=== PATIENT | male | born 1950 | race Caucasian/White ===

== ENCOUNTER 2018-04-21 06:18 | Day surgery (SDC) | payer MEDICARE ==
[2018-04-21] MEDS ORDERED: ROPIVACAINE 5 MG/ML 30 ML BTL (0.5%) ONE (07:03)
[2018-04-21] MEDS ORDERED: Lidocaine 1% MPF wEPI 200,000* 30 ML SDV ONE (07:29)
[2018-04-21] MEDS ORDERED: Sodium Bicarbonate 8.4% SYR* 10 ML SYRINGE ONE (07:29)
[2018-04-21 09:08] VITALS: BP 128/83
--- NOTE | 2018-04-21 09:40 | OP ---
Operative Report - Blank - Operative Report Date of Operation: 04/21/18 Note: DATE OF OPERATION: 04/21/2018 - [facility] DATE OF : 1950 SURGEON: Morteza Freed MD. CONCRETE MASON: KARINA Amin ANESTHESIOLOGIST: None ANESTHESIA: Local PRE-OP DIAGNOSIS: Left index trigger finger. POST-OP DIAGNOSIS: Left index trigger finger. OPERATIVE PROCEDURE: Left index trigger finger release with release of A1 cameron. INDICATIONS: Jason has a left index trigger finger that has recurred despite injections. We talked about treatment options and they wanted to proceed with surgical release. ESTIMATED BLOOD LOSS: 2 mL. COMPLICATIONS: None. FINDINGS: As expected. DESCRIPTION OF PROCEDURE: Jason was seen in the preoperative holding area. The correct side, site, and procedure were identified. We had a timeout and I infiltrated the operative area with 1% lidocaine with epinephrine and bicarbonate. In the operating room the arm was prepped and draped in the usual fashion. Time-out was performed. The arm was exsanguinated with the Esmarch and the tourniquet was inflated to 250 mmHg. I made a 1 cm incision over the affected A1 cameron. Full thickness flaps were bluntly raised off the tendon sheath. Ragnell retractors were placed. I then longitudinally incised the A1 cameron on the radial third of the cameron. The release was completed proximally and distally with the tenotomy scissors. The skin was then closed with 4-0 nylon. The wound was dressed, tourniquet deflated, and the patient was taken to the recovery room in stable condition.
== END 2018-04-21 08:18 | disposition home or self-care (01) ==
LOC: OREAST 06:18
PROVIDERS: ATTEND Orthopaedic Surgery Hand Surgery
DX: M65.322 Trigger finger, left index finger (principal); I48.91 Unspecified atrial fibrillation; J44.9 Chronic obstructive pulmonary disease, unspecified; E78.00 Pure hypercholesterolemia, unspecified; M19.90 Unspecified osteoarthritis, unspecified site; F41.8 Other specified anxiety disorders; E11.9 Type 2 diabetes mellitus without complications; Z87.891 Personal history of nicotine dependence
CPT/HCPCS: J2001; J2795

== ENCOUNTER → 2018-09-05 05:29 | Day surgery (SDC) | payer MEDICARE ==
[~2018-09-05 05:29] MED LIST: Buffered Lidocaine 1% SYRIN* 1 ML/SYRINGE INTRADERM ONE; Bupivacaine 0.5%* 50 ML VIAL ONE; Clindamycin 900 MG/D5W BAG(*) 900 MG/50 ML BAG IVPB ONE; Lactated Ringers 1000 ML Bag* 1,000 ML IV SCH; Lidocaine 2% PF* 10 ML AMP ONE; Midazolam* 1 MG/ML 5 ML VIAL (5 MG) ONE; Naloxone* 0.4 MG/ML 1 ML VIAL IV PRN; Sodium Citrate/Citric Acid* 15 ML UDC ONE; Sodium Citrate/Citric Acid* 15 ML UDC PO ONE; fentaNYL* 50 MCG/ML 2 ML VIAL (100 MCG VIAL) ONE
[2018-09-05 09:30] VITALS: BP 142/85
--- NOTE | 2018-09-05 15:05 | OP ---
DATE OF OPERATION: 09/05/18 - [facility] DATE OF : 54 SURGEON: Morteza Mohan MD. SEWING MACHINE ADJUSTER: Lilian Sanchez PA-C. PRE-OP DIAGNOSIS: Right stage 3 hallux rigidus. POST-OP DIAGNOSIS: Right stage 3 hallux rigidus. OPERATIVE PROCEDURE: Right first MTP joint fusion. DESCRIPTION OF PROCEDURE: The patient was taken to the operating room where a longitudinal incision was made over the first MTP joint. We made a medial and lateral flap to allow visualization of the joint. There is a large dorsal osteophyte that was removed with the sagittal saw. We used the 20 mm ball and cup reamers off the Arthrex Fusion set. We then placed a 3.0 mm oblique screw from the medial condyle of the metatarsal to the lateral proximal phalanx with the joint in neutral position. We then fixed a medium-sized right anatomic plate dorsum of the first MTP joint using a combination of locking and nonlocking screws. X-ray intraoperatively showed good position of the hardware. We then irrigated closing the capsule with 3-0 Vicryl, nylon for the skin and a compression dressing applied. [id number]/[facility] #: [id number] [facility]
== END | disposition home or self-care (01) ==
LOC: OR 05:29
PROVIDERS: ATTEND Orthopaedic Surgery
DX: M20.21 Hallux rigidus, right foot (principal); E78.5 Hyperlipidemia, unspecified; Z87.891 Personal history of nicotine dependence; F41.9 Anxiety disorder, unspecified; Z88.0 Allergy status to penicillin
CPT/HCPCS: 76000; A9270-GY; C1713; J2001; J2250; J3010

== ENCOUNTER 2019-05-25 08:14 | Day surgery (SDC) | payer MEDICARE ==
[~2019-05-25 08:14] MED LIST changes: -Bupivacaine 0.5%* 50 ML VIAL ONE; -Clindamycin 900 MG/D5W BAG(*) 900 MG/50 ML BAG IVPB ONE; +Dexamethasone IV* 4 MG/ML 1 ML (4 MG) IV SLOW PU ONE; +DiMENhydriNATE IV* 50 MG/ML VIAL IV PUSH PRN; +Famotidine IV* 10 MG/ML 2 ML (20 mg) IV ONE; +HYDROcodone/ACETAMIN 5-325 MG* 1 TAB PO PRN; +Ketorolac INJ* 30 MG/ML 1 ML VIAL IV PRN; -Lidocaine 2% PF* 10 ML AMP ONE; -Midazolam* 1 MG/ML 5 ML VIAL (5 MG) ONE; +fentaNYL* 50 MCG/ML 2 ML VIAL (100 MCG VIAL) IV PRN; -fentaNYL* 50 MCG/ML 2 ML VIAL (100 MCG VIAL) ONE; +oxyCODONE/Acetamin 5/325 MG* TAB PO PRN
[2019-05-25] MEDS ORDERED: Dexamethasone IV* 4 MG/ML 1 ML (4 MG) ONE (08:29)
[2019-05-25] MEDS ORDERED: Clindamycin 900 MG/D5W BAG(*) 900 MG/50 ML BAG IVPB ONE (08:30)
[2019-05-25] MEDS ORDERED: Famotidine IV* 10 MG/ML 2 ML (20 mg) ONE (08:30)
[2019-05-25] MEDS ORDERED: Midazolam* 1 MG/ML 2 ML VIAL (2 MG) ONE (09:42)
[2019-05-25] MEDS ORDERED: fentaNYL* 50 MCG/ML 2 ML VIAL (100 MCG VIAL) ONE (09:42)
[2019-05-25] MEDS ORDERED: Lidocaine 2% PF * 5 ML VIAL ONE (09:43)
[2019-05-25] MEDS ORDERED: Propofol* 10 MG/ML 20 ML BTL ONE (09:43)
[2019-05-25] MEDS ORDERED: Bupivacaine 0.25% SDV* 30 ML ONE ×2 (09:53→11:01)
[2019-05-25] MEDS ORDERED: EPHEDrine (Pressors)* 50 MG/ML VIAL ONE ×2 (10:13→10:52)
[2019-05-25] MEDS ORDERED: Glycopyrrolate IV* 0.2 MG/ML 1 ML VIAL ONE (10:23)
[2019-05-25] MEDS ORDERED: Phenylephrine 40 MCG/ML SYRINGE ONE (11:06)
[2019-05-25] MEDS ORDERED: Ondansetron INJ* 2 MG/ML VIAL ONE (11:20)
[2019-05-25] MEDS ORDERED: Ketorolac INJ* 30 MG/ML 1 ML VIAL ONE (12:27)
[2019-05-25 12:34] VITALS: BP 109/77
--- NOTE | 2019-05-25 22:23 | OP ---
DATE OF OPERATION: 05/25/19 - [facility] DATE OF : [birth year] SURGEON: Morteza Freed MD BARRER AND TACKER: KARINA Amin. An nursing home assistant was needed for the procedure to aid in positioning of the arm and retraction. ANESTHESIOLOGIST: Dr. Wilson. ANESTHESIA: General. 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 POST-OP DIAGNOSIS: Right thumb stage 3 carpometacarpal degenerative joint disease. OPERATIVE PROCEDURE: 1. Right thumb carpometacarpal arthroplasty. 2. Distally based split flexor carpi radialis tendon transfer for thumb suspension and tendon interposition. INDICATIONS: Jason has the aforementioned arthritis. It is very severe. We talked about treatment options. He wanted to proceed. ESTIMATED BLOOD LOSS: 2 mL. COMPLICATIONS: None. FINDINGS: See above and below. DESCRIPTION OF PROCEDURE: Mr. Maurer was seen in the preoperative holding area. The correct site, side, and procedure were identified. We came back to the operating room where the arm was prepped and draped in the usual fashion and a time- out was performed. The arm was exsanguinated with the Esmarch and the tourniquet was inflated. I made a longitudinal incision of about 2 to 3 cm over the dorsal radial thumb base. Dissection was carried down. The radial artery was dissected free. The dissection was carried down longitudinally to preserve the sensory nerves. Once the radial artery was protected, I raised the subperiosteal and capsular flap to expose the margins of the trapezium. The trapezium was then excised in piecemeal fashion with a rongeur preserving the FCR tendon in the tendon base as well as the surrounding articular cartilage on the trapezoid and distal pole of the scaphoid. The scaphotrapezoid joint looked intact and healthy. I then used sequentially larger drill bits to make a bone tunnel from the dorsal radial metacarpal base exiting out the volar ulnar articular surface. I then irrigated everything out and turned my attention to the tendon transfer. I made a 1-cm incision over the distal FCR tendon just proximal to the wrist flexion crease. The tendon was released. The tendon was brought up out of the wound and split tendon longitudinally with a 15-blade and a 26-gauge wire was passed into the tendon split. I then came at intervals proximally and made 2 another 1-cm incisions over the FCR tendon. The tendon sheath was released. A 26- gauge wire was pulled into the proximal wounds utilizing a Kate clamp until half the tendon was released in the musculotendinous junction in the proximal wound. The tendon tail was delivered out the distal wound and the tendon tail was sutured with a 3-0 Ethibond to prevent the tendon from fraying. The tendon was then shuttled down into the thumb base wound with two 26-gauge wires. The wire was then used to pass the free tail of the tendon through the bone tunnel in the metacarpal base and then back around the intact limb of the tendon. Maximum tension was set as the tendon transfer was secured with multiple 3-0 [id number] Ethibond sutures, the first sewing all 3 limbs of the tendon transfer together, the last 2 sewing intact limb to intact limb. The remainder of the tendon was rolled up as a ball and secured with a 3-0 Ethibond suture and placed as an interposition below the base of the thumb metacarpal. Given that Anthony is very active and uses the hand for lot of forceful activities , I wanted to augment the fixation of the thumb metacarpal. I therefore used the guidewire for the Arthrex Mini TightRope and started in the dorsal radial thumb base and exited out the base of the second metacarpal on the dorsal ulnar aspect. A 1-cm incision had been made and the sensory nerve was protected as I raised the subperiosteal flap off the metacarpal base. Once I had the guidewire advanced, I advanced it out that wound and then I used a suture shuttle with the suture that had been through the nitinol wire to then retrieve the tendon tail off the Mini TightRope FiberWire suture and then that was pulled down in and out of the thumb base wound. The EndoButton was secured right on top of the bone on the dorsal ulnar second metacarpal base. The tendon tail was clipped and then the other EndoButton was placed on the other end of the FiberWire suture and that was seated directly on the metacarpal bone and then tied off. Mini C-arm fluoroscopy confirmed good alignment of the thumb. At this point, everything was looking good. The wound was irrigated out. The capsule was closed with 3-0 Vicryl suture. The skin over all the incisions was closed with 4-0 nylon suture. 0.25% plain Marcaine was infiltrated all about the operative area. A thumb spica splint was applied with the IP joint free and he was taken to the recovery room in stable condition. [id number]/[facility] #: [id number] [place]
== END 2019-05-25 12:54 | disposition home or self-care (01) ==
LOC: OREAST 08:14
PROVIDERS: ATTEND Orthopaedic Surgery Hand Surgery
DX: M18.11 Unilateral primary osteoarthritis of first carpometacarpal joint, right hand (principal); Z87.891 Personal history of nicotine dependence; F41.8 Other specified anxiety disorders; E78.5 Hyperlipidemia, unspecified
CPT/HCPCS: A9270-GY; C1776; J1100; J1885; J2250; J2405; J2704; J3010; J3490

== ENCOUNTER 2019-07-20 09:26 | Observation (INO) | payer MEDICARE ==
--- NOTE | 2019-07-12 15:30 | HP ---
HISTORY AND PHYSICAL: DATE OF ADMISSION/SURGERY: 07/20/19 DATE OF OFFICE VISIT: 07/07/19 SURGEON: Radha Villanueva MD.* (DICTATED BY KARINA NIEVES) PROCEDURE: Right total knee arthroplasty. CHIEF COMPLAINT: Right knee pain. HISTORY OF PRESENT ILLNESS: Mr. Maurer is a 69-year-old gentleman with continued complaints of right knee pain. He has failed conservative treatment and elected to proceed with the right total knee arthroplasty. PAST MEDICAL HISTORY: Depression, anxiety, macular degeneration, high cholesterol, migraines and heart murmur. PAST SURGICAL HISTORY: Right thumb surgery, right toe surgery, left trigger finger release, growth removed from his breast, hernia repair, vocal cord polyp removal, left knee scope and tonsillectomy. CURRENT MEDICATIONS: 1. Sertraline 100 mg every day. 2. Propranolol 80 mg 3 times a day. 3. Buspirone 10 mg 3 times a day. 4. Ibuprofen as needed. 5. Multivitamin. 6. Fish Oil. 7. Eye vitamin. 8. Vitamin B12. 9. Garlic tablets. ALLERGIES: PENICILLIN and SULFA. FAMILY HISTORY: Cancer and coronary artery disease. SOCIAL HISTORY: This is a 69-year-old gentleman who lives with his . He does not smoke or use drugs. Uses occasional alcohol. REVIEW OF SYSTEMS: A complete 14-point review of systems was reviewed with the patient, is all negative and noncontributory. He denies history of DVT, PE, hepatitis C, HIV, or anesthesia problems. PHYSICAL EXAMINATION GENERAL: He is well developed, well nourished, in no acute distress. VITAL SIGNS: He stands 5 feet 11 inches tall, weighs 209 pounds, his blood pressure is 138/82, his heart rate is 82. HEENT: Normocephalic, atraumatic. NECK: Supple. No palpable lymph nodes. PULMONARY: Lungs are clear to auscultation bilaterally. CARDIO: Regular rate and rhythm. Strong S1 and S2. ABDOMEN: Soft, nontender, nondistended. NEUROLOGICAL: He is alert and oriented x3 MUSCULOSKELETAL: Right lower extremity: Skin is intact. There are no open wounds or abrasions. Range of motion is 15 to 110 degrees of flexion. He is able to dorsiflex and plantarflex. A 2+ dorsalis pedis pulses. Intact sensation. ASSESSMENT AND PLAN: Mr. Maurer is a 69-year-old gentleman with severe endstage osteoarthritis of the right knee. He has failed conservative treatment and elected to proceed with right total knee arthroplasty. The surgery is scheduled for 07/20/[address] Villanueva discussed the risks and benefits of the surgery at today's visit and all of his questions were answered. He will follow up with Dr. Villanueva in 2 weeks after the surgery. KARINA NIEVES [id number]/[facility] #: [id number] MTD[facility]
[~2019-07-20 09:26] MED LIST changes: -DiMENhydriNATE IV* 50 MG/ML VIAL IV PUSH PRN; +Gabapentin CAP(*) 300 MG PO ONE; -HYDROcodone/ACETAMIN 5-325 MG* 1 TAB PO PRN; -Ketorolac INJ* 30 MG/ML 1 ML VIAL IV PRN; -Naloxone* 0.4 MG/ML 1 ML VIAL IV PRN; -Sodium Citrate/Citric Acid* 15 ML UDC ONE; -Sodium Citrate/Citric Acid* 15 ML UDC PO ONE; +celeCOXIB CAP* 200 MG PO ONE; -fentaNYL* 50 MCG/ML 2 ML VIAL (100 MCG VIAL) IV PRN; -oxyCODONE/Acetamin 5/325 MG* TAB PO PRN
--- OUTSIDE RECORDS SUMMARY | 2019-07-20 09:29 | XMS REPORT | Continuity of Care Document ---
:1950 External Reference #:[id number] Author Name Morteza Freed MD (transmitted by agent of provider Gary Melvin) Address [address] [place] [address] Care Team Providers Name Role Phone Elgin Sims DO - Family Medicine Care Team Information Neonatal Specialist Problems Active Problems Provider Date Localized, primary osteoarthritis of the hand Morteza Freed MD Onset: 06/12 Localized, primary osteoarthritis Radha Villanueva M.D. Onset: 05/05/2019 Social History Type Date Description Comments Sex Unknown Tobacco Use Start: Unknown End: Former Cigarette Smoker 1 Unknown Pack Daily Smoking Status Reviewed: 06/09/19 Former Cigarette Smoker 1 Pack Daily ETOH Use Occasionally consumes alcohol Tobacco Use Start: Unknown End: Patient is a former smoker Unknown Recreational Drug Use Denies Drug Use Exercise Type/Frequency Exercises regularly Allergies, Adverse Reactions, Alerts Active Allergies Reaction Severity Comments Date Penicillin 12/09/2017 Sulfa Antibiotics 12/09/2017 Medications Active Medications SIG Qnty Indications Ordering Provider Date Hydrocodone-Acetamino 1 or 2 tabs by 30tabs Morteza Freed, 05/25/2019 phen mouth every 6-8 MD 5-325mg Tablets hours as needed for pain Sumatriptan Succinate take 1 at onset Unknown of migraine. december 50mg Tablets repeat within 2 hours if needed. max 2x/week. max daily dose 100mg Sumatriptan Succinate as directed Unknown Refill 6mg/0.5ML Solution Cartridge Sertraline HCL 1 by mouth every Unknown 100mg day Tablets Clindamycin Phosphate apply to affected Unknown area(s) twice a 1% Solution day Propranolol HCL 1 by mouth three Unknown 80mg times a day Tablets Buspirone HCL 1 by mouth three Unknown 10mg times a day as Tablets needed Ibuprofen 2 or 3 tabs by Unknown 200mg Tablets mouth as needed Multi-Vitamin 1 by mouth every Unknown Tablets day Fish Oil 1 tab by mouth Unknown Capsules every morning Eye Vitamin 1 capsule by Unknown mouth daily Vitamin B12 2 SL daily Unknown Joselin Tablet 1 tab by mouth Unknown daily Medications Administered in Office Medication SIG Qnty Indications Ordering Provider Date Celestone 3 mg and 3mg Rich Macdonald MD 12/30/2018 Injection Celestone 3 mg and 3mg Rich Macdonald MD 12/30/2018 Injection Celestone 3 mg and 3mg Morteza Freed MD 12/14/2017 Injection Immunizations Description No Information Available Vital Signs Date Vital Result Comment 06/09/2019 7:54am Height 71 inches 5'11" Weight 211.12 lb Heart Rate 54 /min BP Systolic Sitting 118 mmHg BP Diastolic Sitting 72 mmHg Respiratory Rate 12 /min Body Temperature 99.8 F Pain Level 0 BMI (Body Mass Index) 29.4 kg/m2 05/19/2019 9:07am Height 71 inches 5'11" Weight 208.00 lb Heart Rate 43 /min BP Systolic Sitting 131 mmHg BP Diastolic Sitting 74 mmHg Respiratory Rate 16 /min Body Temperature 97.5 F Pain Level 3 O2 % BldC Oximetry 94 % BMI (Body Mass Index) 29.0 kg/m2 Results Description No Information Available Procedures Date Code Description Status 06/09/2019 79872 Short Arm Splint Application Completed 05/25/2019 81969 Tendon Transfer CMC/Hand W/O Free Graft Completed 05/25/2019 60487 Arthroplasty Interposition Intercarpal Or Carpometacarpal Completed JTS 05/25/2019 98069 Arthroplasty Interposition Intercarpal Or Carpometacarpal Completed JTS 12/30/2018 67943 Rad Exam; Both Knees, Standing Ap Completed 12/30/2018 49521 Inject/Drain Joint/Bursa Major W/O US Completed Medical Devices Description No Information Available Encounters Type Date Location Provider Dx Diagnosis Office Visit 05/05/2019 [facility] Radha Villanueva, M25.562 Pain in left knee 9:30a at [facility] M25.561 Pain in right knee M25.462 Effusion, left knee M25.461 Effusion, right knee M17.11 Unilateral primary osteoarthritis, right knee Office Visit 04/19/2019 [facility] M17.0 Bilateral primary 9:15a Orthopedics at [facility] osteoarthritis of [place] knee Office Visit 04/12/2019 [facility] M20.21 Hallux rigidus, 9:00a [facility]oped[facility] at [facility] right foot [place] Office Visit 12/30/2018 [facility] Villanueva Feliciano M17.0 Bilateral primary 9:15a Orthopedics at [facility] osteoarthritis of [place] knee M25.562 Pain in left knee M25.561 Pain in right knee Office Visit 12/28/2018 9:15a [facility] Morteza M20.21 Hallux rigidus, at [place] [facility] right foot Assessments Date Code Description Provider 06/09/2019 M18.11 Unilateral primary osteoarthritis of first Morteza Freed MD carpometacarpal j 05/25/2019 M18.11 Unilateral primary osteoarthritis of first KARINA Amin carpometacarpal j 05/25/2019 M18.11 Unilateral primary osteoarthritis of first Morteza Freed MD carpometacarpal j 05/19/2019 M18.11 Unilateral primary osteoarthritis of first Morteza Frede MD carpometacarpal j 05/05/2019 M25.562 Pain in left knee Radha Villanueva M.D. 05/05/2019 M25.561 Pain in right knee Radha Villanueva M.D. 05/05/2019 M25.462 Effusion, left knee Radha Villanueva M.D. 05/05/2019 M25.461 Effusion, right knee Radha Villanueva M.D. 05/05/2019 M17.11 Unilateral primary osteoarthritis, right knee Radha Villanueva M.D. 04/19/2019 M17.0 Bilateral primary osteoarthritis of knee Rich Macdonald MD 04/12/2019 M20.21 Hallux rigidus, right foot Morteza Mohan M.D. 12/30/2018 M17.0 Bilateral primary osteoarthritis of knee Rich Macdonald MD 12/30/2018 M25.562 Pain in left knee Rich Macdonald MD 12/30/2018 M25.561 Pain in right knee Rich Macdonald MD 12/28/2018 M20.21 Hallux rigidus, right foot Morteza Mohan M.D. Plan of Treatment Future Appointment(s):07/05/2019 11:30 am - Mroteza Freed MD at [facility] at Cahbky3207/20/2019 12:30 pm - Radha Villanueva M.D. at [facility] at Ocjpmt6807/07/2019 10:00 am - Radha Villanueva M.D. at [facility] at Drdiwy6406/09/2019 - Morteza Freed, MDM18.11 Unilateral primary osteoarthritis of first carpometacarpal jNew Therapy:Physical TherapyFollow up: Follow up: 4 weeks Functional Status Description No Information Available Mental Status Description No Information Available Referrals Description No Information Available
--- OUTSIDE RECORDS SUMMARY | 2019-07-20 09:29 | XMS REPORT | Continuity of Care Document ---
:1950 External Reference #:[id number] Author Name Morteza Freed MD (transmitted by agent of provider Roseann Wheeler) Address [address] [place] [address] Care Team Providers Name Role Phone Elgin Sims DO - Family Medicine Care Team Information Sql Data Analyst [phone] Problems Active Problems Provider Date Localized, primary osteoarthritis of the hand Morteza Freed MD Onset: 06/12 Localized, primary osteoarthritis Radha Villanueva M.D. Onset: 05/05/2019 Social History Type Date Description Comments Sex Unknown Tobacco Use Start: Unknown End: Former Cigarette Smoker 1 Unknown Pack Daily Smoking Status Reviewed: 07/05/19 Former Cigarette Smoker 1 Pack Daily ETOH [...] Available Vital Signs Date Vital Result Comment 07/05/2019 12:12pm Height 71 inches 5'11" Weight 212.00 lb Heart Rate 52 /min BP Systolic 120 mmHg BP Diastolic 70 mmHg Respiratory Rate 18 /min Body Temperature 97.1 F Pain Level 1 BMI (Body Mass Index) 29.6 kg/m2 06/09/2019 7:54am Height 71 inches 5'11" Weight 211.12 lb Heart Rate 54 /min BP Systolic Sitting 118 mmHg BP Diastolic Sitting 72 mmHg Respiratory Rate 12 /min Body Temperature 99.8 F Pain Level 0 BMI (Body Mass Index) 29.4 kg/m2 Results Description No Information Available Procedures Date Code Description Status 06/09/2019 97991 Short Arm Splint Application Completed 05/25/2019 31015 Tendon Transfer CMC/Hand W/O Free Graft Completed 05/25/2019 19900 Arthroplasty Interposition Intercarpal Or Carpometacarpal Completed JTS 05/25/2019 73303 Arthroplasty Interposition Intercarpal Or Carpometacarpal Completed JTS Medical Devices Description No Information Available Encounters Type Date Location Provider Dx Diagnosis Office Visit 05/05/2019 [facility] Radha Villanueva, M25.562 Pain in left knee 9:30a at [place] M.D. M25.561 Pain in right knee M25.462 Effusion, left knee M25.461 Effusion, right knee M17.11 Unilateral primary osteoarthritis, right knee Office Visit 04/19/2019 [facility] Wiggins M17.0 Bilateral primary 9:15a Orthopedics at [facility] osteoarthritis of [place] knee Office Visit 04/12/2019 [facility] M20.21 Hallux rigidus, 9:00a Orthopedics at [facility] right foot [place] Assessments Date Code Description Provider 07/05/2019 M18.11 Unilateral primary osteoarthritis of first [facility] Buenrostroometmichelle torres 06/09/2019 M18.11 Unilateral primary osteoarthritis of first [facility] su[facility]atha Buenrostro j 06/09/2019 Z48.02 Encounter for removal of sutures Morteza Freed MD 06/09/2019 Z47.89 Encounter for other orthopedic aftercare Morteza Freed MD 05/25/2019 M18.11 Unilateral primary osteoarthritis of first KARINA Aminometacajulee j 05/25/2019 M18.11 Unilateral primary osteoarthritis of first [facility] su[facility]atha Buenrostro 05/19/2019 M18.11 Unilateral primary osteoarthritis of first [facility] sujatha Buenrostro j 05/05/2019 M25.562 Pain in left knee [...] Morteza Mohan M.D. Plan of Treatment Future Appointment(s):09/19/2019 1:00 pm - Morteza Freed MD at [facility] at Eziakj0507/20/2019 12:30 pm - Radha Villanueva M.D. at [facility] at Pyomkk9907/07/2019 10:00 am - Radha Villanueva M.D. at [facility] at Fdukln4007/05/2019 - Morteza Freed MDM18.11 Unilateral primary osteoarthritis of first carpometacarpal jFollow up:Follow up: 3 months Functional Status Description No Information Available Mental Status Description No Information Available Referrals Description No Information Available
--- OUTSIDE RECORDS SUMMARY | 2019-07-20 09:29 | XMS REPORT | Continuity of Care Document ---
:1950 External Reference #:[id number] Author Name Radha Villanueva M.D. 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 Onset: 05/05/2019 Social History Type Date Description Comments Sex Unknown Tobacco Use Start: Unknown End: Former Cigarette Smoker 1 Unknown Pack Daily Smoking Status Reviewed: 07/07/19 Former Cigarette Smoker 1 Pack Daily ETOH [...] Available Vital Signs Date Vital Result Comment 07/07/2019 10:05am Height 71 inches 5'11" Weight 209.75 lb Heart Rate 82 /min BP Systolic 138 mmHg BP Diastolic 82 mmHg Respiratory Rate 16 /min Pain Level 2 BMI (Body Mass Index) 29.3 kg/m2 07/05/2019 12:12pm Height 71 inches 5'11" Weight 212.00 lb Heart Rate 52 /min BP Systolic 120 mmHg BP Diastolic 70 mmHg Respiratory Rate 18 /min Body Temperature 97.1 F Pain Level 1 BMI (Body Mass Index) 29.6 kg/m2 Results Description No Information Available Procedures Date Code Description Status 06/09/2019 20089 Short Arm Splint Application Completed 05/25/2019 80304 Tendon Transfer CMC/Hand W/O Free Graft Completed 05/25/2019 34407 Arthroplasty Interposition Intercarpal Or Carpometacarpal Completed JTS 05/25/2019 94157 Arthroplasty Interposition Intercarpal Or Carpometacarpal Completed JTS Medical Devices Description No Information Available Encounters Type Date Location Provider Dx Diagnosis Office Visit 05/05/2019 [facility] Radha Villanueva, M25.562 Pain in left knee 9:30a at [place] M.D. M25.561 Pain in right knee M25.462 Effusion, left knee M25.461 Effusion, right knee M17.11 Unilateral primary osteoarthritis, right knee Office Visit 04/19/2019 [facility] Wiggins M17.0 Bilateral primary 9:15a Orthopedics at [facility] osteoarthritis of [place] knee Office Visit 04/12/2019 [facility] M20.21 Hallux rigidus, 9:00a Orthopedics at [facility] right foot [place] Assessments Date Code Description Provider 07/07/2019 M25.561 Pain in right knee Radha Villanueva M.D. 07/07/2019 M25.461 Effusion, right knee Radha Villanueva M.D. 07/07/2019 M17.11 Unilateral primary osteoarthritis, right knee Radha Villanueva M.D. 07/05/2019 M18.11 Unilateral primary osteoarthritis of first [facility] arleth Buenrostroometacarpluis torres 06/09/2019 M18.11 Unilateral primary osteoarthritis of first [facility] Buenrostroometmichelle torres 06/09/2019 Z48.02 Encounter for removal of sutures Morteza Freed MD 06/09/2019 Z47.89 Encounter for other orthopedic aftercare Morteza Freed MD 05/25/2019 M18.11 Unilateral primary osteoarthritis of first KARINA Amin carpometacarpal j 05/25/2019 M18.11 Unilateral primary osteoarthritis of first [facility] arleth Buenrostroometacarpal j 05/19/2019 M18.11 Unilateral primary osteoarthritis of first [facility] arleth Buenrostroometacarpluis j 05/05/2019 M25.562 Pain in left knee [...] 1:00 pm - Morteza Freed MD at [facility] at Isnaxl5707/20/2019 12:30 pm - Radha Villanueva M.D. at [facility] at [place]0807/07/2019 - Radha Villanueva M.D.M25.561 Pain in right kneeNew Xrays:Knee 3 Views RT, Ordered: 07/07/19Follow up:Follow up: 2 weeks after fuiompoH48.461 Effusion, right kneeM17.11 Unilateral primary osteoarthritis, right knee Functional Status Description No Information Available Mental Status Description No Information Available Referrals Description No Information Available
--- OUTSIDE RECORDS SUMMARY | 2019-07-20 09:29 | XMS REPORT | Continuity of Care Document ---
:1950 External Reference #:[id number] Author Name Elgin Sims DO Address [address] [place] [id number] Care Team Providers Name Role Phone Katy Guy MD - Orthopaedic Care Team Information Cuff Setter [phone] Surgery Problems Active Problems Provider Date Migraine with typical aura Elgin Sims DO Onset: 11/20/2011 Anxiety state Elgin Sims DO Onset: 11/20/2011 Mixed hyperlipidemia Elgin Sims DO Onset: 05/18/2017 Type 2 diabetes mellitus Elgin Sims DO Onset: 09/07/2017 Social History Type Date Description Comments Sex Unknown Tobacco Use Start: Unknown End: Former Cigarette Smoker Unknown Smoking Status Reviewed: 01/02/19 Former Cigarette Smoker ETOH Use Occasionally consumes alcohol Recreational Drug Use Denies Drug Use Allergies, Adverse Reactions, Alerts Active Allergies Reaction Severity Comments Date Penicillin 11/20/2011 Sulfa Drugs 08/28/2014 Medications Active Medications SIG Qnty Indications Ordering Date Provider Sumatriptan Succinate take 1 tablet by 20tabs Elgin Sims, 09/07/2017 50mg mouth as needed DO Tablets for headache then 2 hours later if needed Sumatriptan Succinate use 1-2 under 6units Elgin Sims, 06/24/2017 skin daily as DO 6mg/0.5ML Solution needed at onset Auto-Inject of cluster headaches Sertraline HCL take one tablet 90tabs F41.9 Elgin Sims, 01/16/2015 100mg by mouth every DO Tablets day Clindamycin Phosphate apply to 60units Elgin Sims, 04/27/2012 1% affected area(s) DO Solution of skin up to two times a day as needed Propranolol HCL take 1 & 1/2 405tabs Elgin Sims, 11/20/2011 80mg tablets by mouth DO Tablets two times a day Buspirone HCL Take 1 Tablet By 90tabs Elgin Sims, 11/20/2011 10mg Tablets Mouth Up To DO Three Times A Day as Needed For Anxiety Cyclobenzaprine HCL take 1-2 tablets 60tabs Elgin Sims, 07/30/2011 10mg by mouth every DO Tablets night at bedtime as needed for spasms caution : sedation Immunizations CPT Code Status Date Vaccine Lot # [id number] Refused 01/02/2019 Prevnar 13 Pneumococal Conjugate Vaccine [id number] Refused 06/27/2018 Influenza Vac, Quadrivalent, Split, 0.5mL Dosage, Im Use Vital Signs Date Vital Result Comment 07/05/2019 10:05am Weight 211.00 lb Heart Rate 52 /min BP Systolic 128 mmHg BP Diastolic 80 mmHg Respiratory Rate 18 /min Height 70 inches 5'10" BMI (Body Mass Index) 30.3 kg/m2 01/02/2019 1:58pm Weight 207.00 lb Heart Rate 56 /min BP Systolic 116 mmHg BP Diastolic 76 mmHg Respiratory Rate 17 /min Height 70 inches 5'10" BMI (Body Mass Index) 29.7 kg/m2 Results Test Acquired Date Facility Test Result H/L Range Note Hemoglobin A1c 06/29/2019 [facility] Hemoglobin A1c 6.4 % High 4.1-5.9 Estimated Average Glucose Calc 137 mg/dL 71-140 Lipid Treatment 06/29/2019 [facility] Cholesterol 243 mg/dL High 50-199 Triglycerides 252 mg/dL High 30-200 HDL 48 mg/dL 29-71 1 Chol/ HDL Ratio 5.0 ratio 4.0-6.7 VLDL 50 mg/dL High 2-29 LDL (Calc) 144 mg/dL High 20-99 2 Alt 26 U/L 3-42 Ast 20 U/L 8-42 CBC With Auto Diff 06/29/2019 [facility] WBC 8.0 K/uL 4.1-11.0 RBC 5.39 M/uL 4.60-6.10 Hemoglobin 15.9 gm/dL 13.5-18.0 Hematocrit 48.1 % 41.0-53.0 MCV 89.3 fL 80.0-97.0 MCH 29.6 pg 27.0-32.0 MCHC 33.1 g/dL 32.0-36.0 RDW 14.7 % High 11.5-14.5 PLT Count 253 K/ul 140-400 MPV 9.2 FL 7.1-10.7 Neutrophil 58.5 % 35.0-75.0 Lymphocyte 25.2 % 16.0-52.0 Monocyte 13.9 % High 2.0-10.0 Eosinophil 1.8 % 0.0-5.0 Basophil 0.6 % 0.0-4.0 Abs Neutrophils 4.7 K/uL 2.1-8.0 Abs Lymphocytes 2.0 K/uL 0.8-5.5 Abs Monocytes 1.1 K/uL High 0.1-1.0 Abs Eosinophils 0.1 K/uL 0.0-0.5 Abs Basophils 0.0 K/uL 0.0-0.3 Basic (BMP) 06/29/2019 [facility] Sodium 139 mmol/L 135-146 3 Potassium 4.4 mmol/L 3.5-5.2 Chloride# 99 mmol/L 97-110 4 Carbon Dioxide 30 mmol/L 24-34 Glucose 114 mg/dL High 70-105 BUN 25 mg/dL 6-26 Creatinine 1.1 mg/dL 0.5-1.4 Calcium 9.7 mg/dL 8.5-10.5 5 Female Egfr 51 Low >60 6 Male Egfr 68 >60 7 Anion Gap 10 mmol/L 5-15 8 Laboratory test finding 06/29/2019 [facility] TSH 2.86 uIU/mL 0.35-4.94 PSA 1.040 ng/mL 0.000-4.000 9 1 Per NCEP ATP III Guidelines: Results lower than 40 mg/dL are suggestive of increased risk for coronary artery disease. Results > or = to 60 mg/dL are considered a negative risk factor. 2 Per NCEP ATP III Guidelines: Normal Population <130 Patients with medical conditions: CHD/DM Optimal: <100 Borderline high: 130-159 High: 160-189 Very high: >189 3 Updated reference range on new analyzer 4 Updated reference range on new analyzer 5 Updated reference range 12-14-2018 6 Concerning GFR Guidelines for Americans: Normal function or mild renal disease, if clinically at risk: >/= 60 mL/min Moderately decreased: 30-59 Severely decreased: 15-29 Renal failure: <15 There is reduced accuracy above 60ml/min/1.73 m squared, but the numeric value may be clinically useful in the near 60 range 7 Concerning GFR Guidelines: Normal function or mild renal disease, if clinically at risk: >/= 60 mL/min Moderately decreased: 30-59 Severely decreased: 15-29 Renal failure: <15 There is reduced accuracy above 60ml/min/1.73 m squared, but the numeric value may be clinically useful in the near 60 range Glomerular Filtration Rate (GFR) is estimated based on the CKD-EPI equation, which assumes a steady state for creatinine as recommended by the National Kidney Disease Education Program in conjunction with the National Institutes of Health and the National Kidney Foundation. Clinical conditions in which it may be necessary to measure GFR by using clearance methods include extremes of age and body size, severe malnutrition or obesity, diseases of skeletal muscle, paraplegia or quadriplegia, vegetarian diet, rapidly changing kidney function, and calculation of the dose of potentially toxic drugs that are excreted by the kidneys. 8 Updated Reference Range 9 Beginning 10/11/06 PSA values assayed at [facility] uses chemiluminescence methodology manufactured by [employer] for use on the DXI analyzer. Values obtained with different assay methods or kits can not be used interchangeably. Serum PSA measurement is not an absolute test for malignancy. The PSA value should be used in conjunction with information available from clinical evaluation and other diagnostic procedures. Procedures Date Code Description Status 05/28/2008 47798227 Colonoscopy Completed Medical Devices Description No Information Available Encounters Description No Information Available Assessments Date Code Description Provider 07/05/2019 Z01.810 Encounter for preprocedural cardiovascular Elgin Sims DO examination 07/05/2019 M17.0 Bilateral primary osteoarthritis of knee Elgin Sims DO 07/05/2019 E11.9 Type 2 diabetes mellitus without Elgin Sims DO complications 07/05/2019 M65.322 Trigger finger, LEFT index finger Elgin Sims DO 07/05/2019 E78.2 Mixed hyperlipidemia Elgin Sims DO 07/05/2019 G60.8 Other hereditary and idiopathic neuropathies Elgin Sims DO 07/05/2019 G43.109 Migraine with aura, not intractable, without Elgin Sims DO status migraino 07/05/2019 F41.9 Anxiety disorder, unspecified Elgin Sims DO 07/05/2019 M54.5 Low back pain Elgin Sims, DO 07/05/2019 M25.569 Pain in unspecified knee Elgin Sims, DO 07/05/2019 R53.83 Other fatigue Elgin Sims DO 07/05/2019 M20.21 Hallux rigidus, RIGHT foot Elgin SimsDO 07/05/2019 E66.9 Obesity, unspecified Elgin Sims, DO 07/05/2019 M18.11 Unilateral primary osteoarthritis of first Sims Elgin 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, RIGHT hand 07/05/2019 H35.30 Unspecified macular degeneration Elgin Sims, 07/05/2019 D48.5 Neoplasm of uncertain behavior of skin SimsElginDO 07/05/2019 Z68.30 Body mass index (BMI) 30.0-30.9, adult SimsElginDO 06/29/2019 E11.9 Type 2 diabetes mellitus without Elgin Sims DO complications 06/29/2019 E11.9 Type 2 diabetes mellitus without Schedule, Laboratory complications 06/29/2019 E78.2 Mixed hyperlipidemia LeviElginDO 06/29/2019 E78.2 Mixed hyperlipidemia Schedule, Laboratory 06/29/2019 Z12.5 Encounter for screening for malignant Elgin Sims DO neoplasm of prostate 06/29/2019 Z12.5 Encounter for screening for malignant Schedule, Laboratory neoplasm of prostate 06/29/2019 E11.9 Type 2 diabetes mellitus without [facility] complications 06/29/2019 E78.2 Mixed hyperlipidemia [facility] 06/29/2019 Z12.5 Encounter for screening for malignant [facility] neoplasm of prostate Plan of Treatment Future Appointment(s):12/27/2019 8:50 am - Schedule, Laboratory at [facility]2019 2:00 pm - Elgin Sims DO at [facility]07/05/2019 - Elgin Sims DOZ01.810 Encounter for preprocedural cardiovascular examinationFollow up:Get labs done in 6 months, then see me a few days later for a Medicare wellness examM17.0 Bilateral primary osteoarthritis of kneeComments:The patient is scheudled to undergo a right total knee with Dr. Villanueva on 07/19/19at [facility] under Spinal anesthesia.Can proceed with surgery.E11.9 Type 2 diabetes mellitus without complicationsNew Labs:Hemoglobin A1c, Scheduled: 12/27/19Comments: Patient's recent HbA1c was at 6.4. The patient was advised to continue with current medication regimen. Patient will benefit from maintaining a diabetic diet and a regular exercise regimen. We will continue to monitor.M65.322 Trigger finger, LEFT index fingerComments:Improved at the present time. We will continue to monitor.E78.2 Mixed hyperlipidemiaNew Labs:CBC with Auto Diff- fcmg, Scheduled: 12/27/19Basic (BMP), Scheduled: 12/27/19TSH, Scheduled: Lipid Treatment, Scheduled: 12/27/19Comments:Condition reviewed with the patient in detail. LDL is elevated. Encouraged the patient to decreasethe total amount of fat. Choose lean meats, fat free or 1% fat milk, and low-fat dairy products such as yogurt and cheese. Encouraged the patient to replace unhealthy fats with healthy fats. Encouraged the patient to eat foods high in fiber. 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 Nothing significant on exam. Will monitor and treat conservatively.M25.569 Pain in unspecified kneeR53.83 Other fatigueComments:Improved at the present time.M20.21 Hallux rigidus, RIGHT footE66.9 Obesity, unspecifiedComments:The patient has gained 4lbs of body weight since the previous visit and he currently weighs around 211lbs. A detailed discussion was had with the patient regarding his body weight and BMI. He was made aware about the health hazards of obesity including diabetes, hypertension, cardiac diseases, and other various risk factors. He was advised to maintain a healthy and low-calorie diet and a regular exercise regimen which will help him lose weight.M18.11 Unilateral primary osteoarthritis of first carpometacarpal joint, RIGHT handComments:The deionn has had an MCP fusion with Dr. Mohan. Will follow up with Ortho as scheduled. Will continue to monitor.H35.30 Unspecified macular degenerationComments:Continue Lucentis injection. Continue taking eye vitamins. Follow up with Welding Machine Assembler. Will continue to monitor.D48.5 Neoplasm of uncertain behavior of skinComments: Condition reviewed in detail with the patient.I recommended the patient to use OTC triple antibiotic cream for this.I recommended the patient to call or come back if the symptoms persist or worsen, will freeze it at that time.Z68.30 Body mass index (BMI) 30.0-30.9, adultComments:BMI is at 30.3. The patient should try to lose weight with low-calorie diet and exercises. We willcontinue to monitor weight and BMI periodically. Functional Status Description No Information Available Mental Status Description No Information Available Referrals Description No Information Available
[2019-07-20] MEDS ORDERED: Dexamethasone IV* 4 MG/ML 1 ML (4 MG) ONE (09:38)
[2019-07-20] MEDS ORDERED: Clindamycin 900 MG/D5W BAG(*) 900 MG/50 ML BAG IVPB ONE (09:38)
[2019-07-20] MEDS ORDERED: Gabapentin CAP(*) 300 MG ONE (09:38)
[2019-07-20] MEDS ORDERED: Buffered Lidocaine 1% SYRIN* 1 ML/SYRINGE INTRADERM ONE (09:38)
[2019-07-20] MEDS ORDERED: celeCOXIB CAP* 200 MG ONE (09:38)
[2019-07-20] MEDS ORDERED: Famotidine IV* 10 MG/ML 2 ML (20 mg) ONE ×2 (09:39)
[2019-07-20] MEDS ORDERED: Tranexamic Acid 1,000 MG in NS 0.9% 50 ML IV ONE (10:00)
[2019-07-20] MEDS ORDERED: ROPIVACAINE 5 MG/ML 30 ML BTL (0.5%) ONE ×2 (11:07→11:16)
[2019-07-20] MEDS ORDERED: fentaNYL* 50 MCG/ML 2 ML VIAL (100 MCG VIAL) ONE ×2 (11:12→15:13)
[2019-07-20] MEDS ORDERED: Midazolam* 1 MG/ML 5 ML VIAL (5 MG) ONE (11:12)
[2019-07-20] MEDS ORDERED: Propofol* 10 MG/ML 20 ML BTL ONE (11:46)
[2019-07-20] MEDS ORDERED: Lidocaine 2% PF * 5 ML VIAL ONE (11:46)
[2019-07-20] MEDS ORDERED: Atropine 1MG/ML INJ* 1 ML VIAL ONE (11:54)
[2019-07-20] MEDS ORDERED: Ketorolac INJ* 30 MG/ML 1 ML VIAL ONE (11:56)
[2019-07-20] MEDS ORDERED: EPHEDrine (Pressors)* 50 MG/ML VIAL ONE ×2 (11:57→13:52)
[2019-07-20] MEDS ORDERED: KETAMINE HCL* 50 MG/ML 10 ML VIAL ONE (11:58)
[2019-07-20] MEDS ORDERED: Phenylephrine 40 MCG/ML SYRINGE ONE ×2 (12:00→12:26)
[2019-07-20] MEDS ORDERED: DiMENhydriNATE IV* 50 MG/ML VIAL IV PUSH PRN (12:45)
[2019-07-20] MEDS ORDERED: Morphine 4 MG/ML VIAL (1 ml) 4 MG/ML VIAL IV PRN (12:45)
[2019-07-20] MEDS ORDERED: Scopolamine 1.5 mg* PATCH TRANSDERM PRN (12:45)
[2019-07-20] MEDS ORDERED: Naloxone* 0.4 MG/ML 1 ML VIAL IV PRN (12:45)
[2019-07-20] MEDS ORDERED: oxyCODONE TAB* 5 MG TAB PO PRN ×2 (12:45→14:37)
[2019-07-20] MEDS ORDERED: fentaNYL* 50 MCG/ML 2 ML VIAL (100 MCG VIAL) IV PRN (12:45)
[2019-07-20] MEDS ORDERED: Phenylephrine 10 MG/ML VIAL* 1 ML VIAL ONE (13:09)
[2019-07-20] MEDS ORDERED: Ondansetron INJ* 2 MG/ML VIAL ONE (13:28)
[2019-07-20] MEDS ORDERED: Acetaminophen IV 1GM/100ML * 100 ML ONE (13:57)
[2019-07-20] MEDS ORDERED: oxyCODONE/Acetamin 5/325 MG* TAB PO PRN (14:37)
[2019-07-20] MEDS ORDERED: Polyethylene Glycol 3350* 17 GM PACKET PO PRN (14:37)
[2019-07-20] MEDS ORDERED: Cyclobenzaprine TAB* 10 MG PO PRN (14:37)
[2019-07-20] MEDS ORDERED: traMADol TAB* 50 MG PO PRN (14:37)
[2019-07-20] MEDS ORDERED: Ondansetron ODT TAB* 4 MG PO PRN (14:37)
[2019-07-20] MEDS ORDERED: Temazepam CAP* 15 MG PO PRN (14:37)
[2019-07-20] MEDS ORDERED: diPHENhydraMINE PO* 25 MG PO PRN (14:37)
[2019-07-20] MEDS ORDERED: Ondansetron INJ* 2 MG/ML VIAL IV PRN (14:37)
[2019-07-20] MEDS ORDERED: diPHENhydraMINE IV* 50 MG/ML 1 ml VIAL (BENADRYL) IV PRN (14:37)
[2019-07-20] MEDS ORDERED: Magnesium Hydroxide LIQ* 30 ML UDC PO PRN (14:37)
[2019-07-20] MEDS ORDERED: Morphine INJ* 2 MG/ML 1 ML SYRINGE (TWO MG - NEW SYRINGE VERSION) IV PRN (14:37)
--- NOTE | 2019-07-20 16:02 | PN ---
Progress Note - Progress Note Date of Service: 07/20/19 Note: resting comfortably in bed in recovery, pain well controlled; able to DF/PF, 2+ DP pulse and intact sensation
[2019-07-20] MEDS: Lactated Ringers 1000 ML Bag* 1,000 ML IV SCH (17:08)
[2019-07-20] MEDS: oxyCODONE/Acetamin 5/325 MG* TAB PO PRN ×2 (17:19→21:10)
[2019-07-20] MEDS ORDERED: SUMAtriptan TAB* 50 MG PO PRN (17:29)
--- NOTE | 2019-07-20 20:22 | CONS ---
CONSULTATION REPORT: DATE OF CONSULT: 07/20/19 PRIMARY CARE PROVIDER: Dr. Sims. ORTHOPEDIC SURGEON: Dr. Villanueva. CHIEF COMPLAINT: Medical co-management consultation. HISTORY OF PRESENT ILLNESS: Mr. Maurer is a 69-year-old male who has a history of diet-controlled diabetes, diet-controlled hypercholesterolemia, and borderline hypertension, though he is not on any antihypertensives for this, who underwent elective right total knee arthroplasty with Dr. Villanueva on . The patient states currently he has no chest pain or shortness of breath. He has no bowel issues. The pain in his right knee is a 4/10. He states that it is uncomfortable but tolerable. He overall states that things have been going well leading up to his surgery. The hospitalist service was asked for medical co-management consultation. PAST MEDICAL HISTORY: 1. Diet-controlled type 2 diabetes. 2. Possible hypertension. 3. Diet-controlled hyperlipidemia. 4. Depression/anxiety. 5. Macular degeneration. 6. Migraines. PAST SURGICAL HISTORY: 1. Right thumb surgery. 2. Right toe surgery. 3. Left trigger finger release. 4. Growth removed from the breast. 5. Hernia repair. 6. Vocal cord polyp removal. 7. Left knee arthroscopy. 8. Tonsillectomy. MEDICATIONS: Current and home medications reviewed personally by myself. ALLERGIES: PENICILLIN and SULFA. FAMILY HISTORY: Positive for coronary artery disease. SOCIAL HISTORY: The patient is . He lives with his . He does not smoke. He drinks alcohol on occasion. 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 REVIEW OF SYSTEMS: A complete 11-system review of systems is obtained. Pertinent positives and negatives are as per HPI and otherwise negative. PHYSICAL EXAM: Blood pressure 111/70, pulse 54, respirations 11, temp 97.9, O2 sat 98% on 3 L. General: The patient is a well-developed, middle-aged male seen sitting up in the bed, alert and in no acute distress. HEENT: Extraocular muscles are intact. Oropharynx is clear and moist. Cardiac: Normal S1, S2. Heart rate is bradycardic but regular. I do not appreciate any murmurs. There is no lower extremity edema. Pulmonary: Lungs are clear to auscultation bilaterally. Abdomen: Bowel sounds are present. Abdomen is soft, nontender, nondistended. Musculoskeletal: There is no cyanosis or clubbing of the digits. There is full active range of motion of the upper extremities. Right knee is in postsurgical dressing. Range of motion is not tested. Skin: Visible areas of skin are warm, dry, and without rash. Neuro: Cranial nerves II through XII are grossly intact. Sensation is intact to light touch throughout. Strength in the upper extremities is normal. Lower extremity strength is not tested at this time. Psych: The patient is alert. He is oriented x3. Affect appears appropriate. ASSESSMENT AND PLAN: Mr. Maurer is a 69-year-old male with a history of migraines, depression, and anxiety, as well as diet-controlled diabetes and hyperlipidemia, who is seen today for medical co-management consultation. 1. Hypertension. This is a questionable diagnosis per the patient. He is on propranolol 80 mg 3 times daily; however, this is for his migraines. I will be placing hold parameter on the propranolol given his bradycardia. The patient states that he is able to go a few days without this if needed. We will monitor his blood pressure off the propranolol. 2. Diet-controlled diabetes. The patient states that he previously had an elevated blood glucose. He states on followup draw, however, this was normal. He states he changed his diet and stopped eating dozens of donuts at a time and his sugars have normalized. We will check a blood glucose in the morning with BMP. I am not going to place the patient on fingersticks at this time. He will have a consistent carbohydrate diet. 3. Hyperlipidemia. This is also diet controlled. He is not on any medications for this. 4. Depression and anxiety. The patient will continue on sertraline 100 mg daily and BuSpar 10 mg p.o. 3 times daily. 5. Migraines. As above, the patient's propranolol will be held for heart rates less than 55. Currently, his heart rate is less than that, so this dose will be held. He will have his p.r.n. Imitrex available orally. If the oral Imitrex fails to control his headache, I asked that the hospitalist be contacted to order subcutaneous Imitrex. 6. DVT prophylaxis: Per Orthopedics, the patient will be started on Eliquis tomorrow. 7. The patient is a full code. [id number]/[facility] #: [id number] [facility]
--- NOTE | 2019-07-20 20:48 | OP ---
Operative Report - Blank - Operative Report Date of Operation: 07/20/19 Note: BUSHRA ROSS 1950 Date of Surgery: 07/20/19 Radha Villanueva MD Numerical Control Tool Programmer: Leila COLLINS did help throughout the procedure with preparation of the knee, wound retraction, manipulation of the knee, and wound closure. Anesthesiologist: Bakari Tinoco Anesthesia Type: Spinal Preoperative Diagnosis: Right severe degenerative osteoarthritis of the knee Postoperative Diagnosis: As above Procedure Performed: Right Total Knee Arthroplasty Tourniquet time: 58 minutes Complications: None Specimen: Bone and cartilage from the right knee joint sent to pathology. Hardware Used: Cemented Barlow and Nephew total knee hardware was used - For the femur a size 7 right oxinium legion posterior stabilized femoral component, for the tibia a size 6 right carmen II tibial baseplate, for the insert a size 9mm 5-6 posterior stabilized articular polyethylene insert, and for the patella a size 35 3-peg all poly patella. Brief History/Indication: BUSHRA ROSS was known in clinic and had a history of severe right knee pain and swelling. He failed conservative treatment with anti-inflammatories, pain pills, intra-articular injections and physical therapy. He elected to undergo right total knee arthroplasty due to continued pain and decreased quality of life. Radiographs showed severe end stage osteoarthritis of the knee with bone on bone contact. Informed consent was obtained from the patient. He understood the risks of surgery included but were not limited to: bleeding, infection, damage to nearby structures, intraoperative fracture, nerve palsy, failure of the hardware, early loosening, knee stiffness or loss of motion, anesthesia complications, stroke, heart attack , blood clot and . He wished to proceed. Intra-Operative Findings: Intraoperatively the patient was noted to have severe loss of cartilage in all 3 compartments of the knee. Description of the Procedure: BUSHRA ROSS was identified in the preanesthesia unit. His right knee was marked as the correct operative side. Informed consent was signed and placed in the chart. The patient was taken to the operating room and placed under anesthesia without complication. A dotson catheter was placed. A tourniquet was placed on the right thigh. The right lower extremity was prepped and draped in the usual sterile fashion. Preoperative time-out was made to correctly identify the patient, side and site. Appropriate intraoperative antibiotics were given within one hour of incision. Tourniquet was inflated. A midline incision was made and carried sharply down to the extensor mechanism. A new 10 blade was used to make a standard medial parapatellar arthrotomy. The patella was subluxed laterally. Electrocautery was used to dissect soft tissue off the superomedial tibia to the midsagittal plane. The knee was flexed up. The anterior horn of the lateral meniscus and the ACL were sharply incised. A drill was used to enter the distal femur. The intramedullary distal femoral cutting guide was pinned on the distal femur. The oscillating saw was used to make the distal femoral cut. The external rotation guide was pinned on the distal femur and the distal femur was sized to a size 7. The size 7 multi-cutting jig was pinned on the distal femur. The oscillating saw was used to make the appropriate 4 chamfer cuts. Next the PCL was completely released. The extramedullary tibial cutting guide was pinned on the proximal tibia and the oscillating saw was used to make the proximal tibial cut perpendicular to the mechanical axis of the tibia. The bone was carefully removed. The knee was brought out into full extension. The spacer block was placed and had excellent fit with the knee in full extension. The medial and lateral ligaments were well balanced. The flexion and extension gaps were well balanced. The knee was flexed up. Lamina cadd drafter was placed both medially and laterally. Any remaining meniscus was removed with electrocautery. Curved osteotome was used to remove any posterior osteophytes. The tibial tray and drop esau were placed and confirmed a satisfactory tibial cut. The size 7 right femoral trial was impacted onto the distal femur. This trial had excellent fit and stability. The box for the posterior stabilized implant was prepared using a box cut osteotome and a reamer. Next a tibial tray trial and 9 mm insert trial was placed. The knee was taken through a range of motion and had full extension to 130 degrees of flexion. Patellofemoral tracking was satisfactory. The patella was inverted and sized to a size 35. Three peg holes were drilled through the size 35 drill guide. The trial patella was placed and the knee was taken through a range of motion. There was satisfactory patellofemoral tracking. All trials were removed. The tibia was subluxed anteriorly and sized to a size 6. The proximal tibial was prepared with a size 6 keel punch. All bony cut surfaces were irrigated with sterile saline and dried. Final implants were cemented into place starting with the tibia, followed by the femur, and last the patella. A 9 mm insert trial was placed and the knee was brought into full extension. Tourniquet was turned down and the knee was copiously irrigated with sterile saline. Electrocautery was used to obtain meticulous hemostasis. Once the cement had fully cured, the insert trial was removed. Any excess cement was removed from around the hardware and capsule. Final insert chosen was a 9 mm posterior stabilized Carmen II articular insert size 5-6. Stability of the insert was checked and noted to be stable. The extensor mechanism was closed using number 1 vicryls. The rest of the incision was closed in a layered fashion using 0 and 2-0 vicryls. The skin was closed using 3-0 nylon suture. Sterile xeroform, 4x4s and webril were used to cover the incision. Itz wrap and cold pack were used to cover the dressings. The patients anesthesia was reversed without difficulty. He was taken to the PACU in stable condition. Intended weight-bearing will be as tolerated.
[2019-07-20] MEDS ORDERED: Propranolol TAB* 80 MG PO SCH (21:00)
[2019-07-20] MEDS: Clindamycin 600 MG/D5W BAG(*) 600 MG/50 ML BAG IV SCH (21:06)
[2019-07-20] MEDS: Docusate CAP* 100 MG PO SCH (21:09)
[2019-07-20] MEDS: busPIRone TAB* 10 MG PO SCH (21:09)
[2019-07-20] MEDS: Magnesium Hydroxide LIQ* 30 ML UDC PO SCH (21:10)
[2019-07-20] MEDS: Propranolol TAB* 80 MG PO SCH (21:11)
[2019-07-20] MEDS: Acetaminophen TAB* 325 MG PO SCH (21:12)
[2019-07-21] MEDS: Clindamycin 600 MG/D5W BAG(*) 600 MG/50 ML BAG IV SCH ×2 (04:20→12:03)
[2019-07-21] MEDS: Lactated Ringers 1000 ML Bag* 1,000 ML IV SCH (05:11)
[2019-07-21] MEDS: Acetaminophen TAB* 325 MG PO SCH ×2 (06:11→12:44)
[2019-07-21] MEDS: oxyCODONE/Acetamin 5/325 MG* TAB PO PRN ×2 (06:12→12:43)
[2019-07-21 06:48] LABS: Hematocrit 40 % (42-52); Hemoglobin 13.7 g/dL (14.0-18.0); Mean Platelet Volume 8.8 fL (7.4-10.4); Platelet Count 183 10^3/uL (150-450)
[2019-07-21 07:08] LABS: BUN/Creatinine Ratio 21.4 (8-20); Calcium 9.1 mg/dL (8.6-10.3); EGFR African American 79.1 (>60); EGFR Non-African American 65.4 (>60); Potassium 4.3 mmol/L (3.5-5.0)
--- NOTE | 2019-07-21 08:08 | PN ---
Progress Note - Progress Note Date of Service: 07/21/19 SOAP: Subjective: Pt. reports pain is controlled. Objective: Vital Signs: Temp Pulse Resp BP Pulse Ox 97.3 F 55 16 112/66 97 07/21/19 07:21 07/21/19 07:21 07/21/19 07:21 07/21/19 07:21 07/21/19 07:21 Laboratory Results - last 24 hr 07/21/19 07/21/19 06:11 06:11 Hgb 13.7 L Hct 40 L Plt Count 183 MPV 8.8 Sodium 139 Potassium 4.3 Chloride 103 Carbon Dioxide 31 Anion Gap 5 BUN 24 Creatinine 1.12 Est GFR ( Amer) 79.1 Est GFR (Non-Af Amer) 65.4 BUN/Creatinine Ratio 21.4 H Glucose 149 H Calcium 9.1 RLE - dressing c/d/i. distally nvi. + df/pf, full sens lt. 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
[2019-07-21] MEDS ORDERED: Cyanocobalamin TAB* 500 MCG PO SCH ×2 (09:00)
[2019-07-21] MEDS ORDERED: Apixaban* 2.5 MG TAB PO SCH (09:00)
[2019-07-21] MEDS ORDERED: Vitamin THERAPEUTIC TAB PO SCH (09:00)
[2019-07-21] MEDS ORDERED: Sertraline* 100 MG TAB PO SCH (09:00)
[2019-07-21] MEDS: busPIRone TAB* 10 MG PO SCH (09:49)
[2019-07-21] MEDS: Docusate CAP* 100 MG PO SCH (09:51)
[2019-07-21] MEDS: Propranolol TAB* 80 MG PO SCH (09:54)
[2019-07-21] MEDS: Magnesium Hydroxide LIQ* 30 ML UDC PO SCH (09:54)
[2019-07-21 11:22] VITALS: BP 101/65
--- NOTE | 2019-07-21 20:50 | DS ---
DISCHARGE SUMMARY: DATE OF ADMISSION: 07/20/19 DATE OF DISCHARGE: 07/21/19 SURGEON: Radha Villanueva MD.* (DICTATED BY KARINA NIEVES) PRINCIPAL DIAGNOSIS: Severe end-stage osteoarthritis of the right knee. DISCHARGE DIAGNOSIS: Severe end-stage osteoarthritis of the left knee. DISCHARGE DISPOSITION: Home in stable condition. HISTORY OF PRESENT ILLNESS: Mr. Maurer is a 69-year-old gentleman with end- stage osteoarthritis of the right knee. He failed conservative treatment and elected to proceed with a right total knee arthroplasty. HOSPITAL COURSE: Mr. Maurer was admitted electively to the hospital on and underwent a right total knee arthroplasty. He tolerated the procedure well. Postoperatively, he was placed on Eliquis twice a day for DVT prophylaxis. On postoperative day 1, his H and H was 13 and 40. His vital signs are stable and he was ambulating well with physical therapy and his wound was clean and dry. DISCHARGE MEDICATIONS: 1. Percocet 5/325 one to two tabs every 4 to 6 hours as needed for pain. 2. Colace 100 mg tabs 2 to 3 daily as needed for constipation. 3. Flexeril 10 mg every 8 hours as needed for muscle spasms. 4. Eliquis 2.5 mg every 12 hours for 30 days. 5. Buspirone 10 mg 3 times a day. 6. Vitamin B12. 7. Propranolol 80 mg 3 times a day. 8. Zoloft 100 mg daily. 9. Imitrex 50 mg daily as needed. 10. Restoril 15 mg q.h.s. PHYSICAL EXAMINATION UPON DISCHARGE: He was afebrile. His vital signs were stable. His wound was clean and dry. He was ambulating well with a walker. He was able to dorsiflex and plantar flex. He had a 2+ dorsalis pedis pulse and intact sensation. DISCHARGE INSTRUCTIONS: He was discharged home. He was given Percocet for pain as well as Flexeril for muscle spasms, Colace for constipation. He was given Eliquis 2.5 mg twice a day for 30 days. He plans on starting outpatient physical therapy and a prescription was provided by our office to follow up with Dr. Villanueva in 2 weeks. KARINA NIEVES [id number]/[facility] #: [id number] VERNELL
[2019-07-22] MEDS ORDERED: Bisacodyl SUPP* 10 MG SUPP PR PRN (14:37)
[2019-07-23] MEDS ORDERED: Scopolamine PATCH Remove* 1 NOTE MISC PATCH OFF ONE (12:46)
== END 2019-07-21 13:51 | disposition home or self-care (01) ==
LOC: INTOOBSV 09:26 → AA 09:26 → SSU 14:37
PROVIDERS: ADMIT Orthopaedic Surgery Adult Reconstructive Orthopaedic Surgery; ATTEND Orthopaedic Surgery Adult Reconstructive Orthopaedic Surgery
DX: M17.11 Unilateral primary osteoarthritis, right knee (principal); M25.561 Pain in right knee; Z79.899 Other long term (current) drug therapy; F32.9 Major depressive disorder, single episode, unspecified; F41.9 Anxiety disorder, unspecified; E78.00 Pure hypercholesterolemia, unspecified; R01.1 Cardiac murmur, unspecified; Z88.0 Allergy status to penicillin; E78.5 Hyperlipidemia, unspecified
CPT/HCPCS: 36415; 80048; 85014; 85018; 85049; 96374; 96375; 96376; A9270-GY; G0378; G8978-GP-CJ; G8979-GP-CI; J0461; J1100; J1885; J2250; J2405; J2704; J2795; J3010

== ENCOUNTER 2019-07-25 17:46 | Inpatient (IN) | payer MEDICARE ==
[2019-07-25 19:53] LABS: ABS Basophils 0.1 10^3/ul (0-0.2); ABS Eosinophils 0.2 10^3/ul (0-0.6); ABS Monocytes 1.5 10^3/ul (0-0.8); ABS Neutrophils 8.9 10^3/ul (1.5-7.7); Eosinophil % 1.9 %; Hematocrit 35 % (42-52); Hemoglobin 11.8 g/dL (14.0-18.0); Lymphocyte % 8.4 %; Mean Corpuscular HGB Conc 34 g/dL (31-36); Mean Corpuscular Hemoglobin 30 pg (27-31); Mean Corpuscular Volume 88 fL (80-94); Mean Platelet Volume 8.1 fL (7.4-10.4); Platelet Count 277 10^3/uL (150-450); Red Blood Count 3.98 10^6 /uL (4.18-5.48); Red Cell Distribution Width 15 % (10-15); White Blood Count 11.6 10^3/uL (3.5-10.8)
[2019-07-25 20:13] LABS: Troponin I 0.02 ng/mL (<0.03)
[2019-07-25 20:31] LABS: ALT 51 U/L (7-52); AST 53 U/L (13-39); Albumin 3.5 g/dL (3.2-5.2); Alkaline Phosphatase 73 U/L (34-104); Anion Gap 9 mmol/L (2-11); Blood Urea Nitrogen 19 mg/dL (6-24); C Reactive Protein 332.63 mg/L (<8.01); CO2 Carbon Dioxide 28 mmol/L (22-32); Chloride 95 mmol/L (101-111); EGFR African American 95.7 (>60); EGFR Non-African American 79.1 (>60); Globulin 3.4 g/dL (2-4); Glucose 153 mg/dL (70-100); Potassium 3.8 mmol/L (3.5-5.0); Sodium 132 mmol/L (135-145); Total Protein 6.9 g/dL (6.4-8.9)
[2019-07-25 20:33] LABS: Alcohol < 10 mg/dL (<10)
[2019-07-25] MEDS ORDERED: ED ceFAZolin 1 GM/50 ML 1 GM/50 ML PREMIX.SET IVPB ONE (21:20)
[2019-07-25] MEDS ORDERED: Vancomycin(*) 1,500 MG in NS 0.9% 250 ML* 250 ML IVPB ONE (21:20)
--- NOTE | 2019-07-25 21:29 | ED ---
Altered Mental Status - HPI Summary HPI Summary: Patient is a 69 y/o M presenting to the ED for a chief complaint of slurred speech and confusion that began on 07/21/19. Patient is present with his . Per patients , patient had slurred speech that began on 07/21/19 after being discharged from [facility] and worsened to include hallucinations on 07/25/19. Patient has constipation and last had a bowel movement on 07/20/19. On 07/22/19 , patient also began to notice erythema, swelling, and pain of the right knee after a recent right knee surgery performed on 07/20/[address] Villanueva. Patient denies any aggravating or alleviating factors. PMHx is significant for anxiety and depression for which he takes medication. Allergies noted. - History Of Current Complaint Chief Complaint: EDAltMentalStatus Stated Complaint: KNEE REPLACEMENT WEDNESDAY,WORSE NOW PER PT Time Seen by Provider: 07/25/19 21:15 Hx Obtained From: Patient Hx From Patient Unobtainable Due To: Altered Mental Status Onset/Duration: Still Present, Suddenly Timing: Constant Severity Initially: Moderate Severity Currently: Moderate Character: Confusion Aggravating Factor(s): Nothing Alleviating Factor(s): Nothing - Allergies/Home Medications Allergies/Adverse Reactions: Allergies Allergy/AdvReac Type Severity Reaction Status Date / Time latex Allergy skin Verified 07/25/19 18:02 irritation Penicillins Allergy Unknown Verified 07/25/19 18:02 Reaction Details Sulfa (Sulfonamide Allergy pt states Verified 07/25/19 18:02 Antibiotics) extreme fatigue Home Medications: Home Medications Multivitamins/Minerals TAB* [Theragran/minerals TAB*] 1 tab PO QAM 07/25/19 [ History Confirmed 07/25/19] [place]-3 Fatty Acids (Nf) [Fish Oil (NF)] 1,000 mg PO QAM 07/25/19 [History Confirmed 07/25/19] SUMAtriptan SQ* [Imitrex SQ*] 6 mg SUBCUT SEE INSTRUCTIONS 07/25/19 [History Confirmed 07/25/19] SUMAtriptan TAB* [Imitrex TAB*] 50 mg PO DAILY PRN MDD 100mg 07/25/19 [History Confirmed 07/25/19] Vitc/E/Zinc/Copper/Lutein/Zeax [Icaps Areds2 Tablet] 1 each PO QAM 07/25/19 [ History Confirmed 07/25/19] oxyCODONE/Acetamin 5/325 MG* [Percocet 5/325 TAB*] 2 tab PO Q4H PRN 07/25/19 [ History Confirmed 07/25/19] PMH/Surg Hx/FS Hx/Imm Hx Previously Healthy: Yes Endocrine/Hematology History: Denies: Hx Bone Marrow Disease, Hx Diabetes, Hx Sickle Cell Disease, Hx Thyroid Disease, Hx Anemia Cardiovascular History: Denies: Hx Angina, Hx Cardiomegaly, Hx Congestive Heart Failure, Hx Coronary Artery Disease, Hx Hypertension, Hx Pacemaker/ICD, Hx Peripheral Vascular Disease, Hx Rheumatic Fever, Hx Valvular Heart Disease, Other Cardiovascular Problems/Disorders Respiratory History: Denies: Hx Asthma, Hx Pulmonary Edema, Hx Pulmonary Embolism, Hx Sleep Apnea , Other Respiratory Problems/Disorders GI History: Denies: Hx Cirrhosis, Hx Crohn's Disease, Hx Gastroesophageal Reflux Disease , Hx Hiatal Hernia, Hx Irritable Bowel, Hx Jaundice, Hx Ulcer, Other GI Disorders History: Reports: Hx Kidney Stones - 25-30 YRS AGO Denies: Hx Kidney Infection, Other Problems/Disorders Musculoskeletal History: Reports: Hx Arthritis - RIGHT TOES, BOTH KNEES, THUMBS AND RIGHT SHOULDER, Hx Bursitis - LEFT SHOULDER-, Hx Tendonitis - ELBOWS Denies: Other Musculoskeletal History Sensory History: Reports: Hx Cataracts - EARLY SIGNS, Hx Contacts or Glasses - GLASSES Denies: Hx Glaucoma, Hx Legally Blind, Hx Deafness, Hx Hearing Aid Opthamlomology History: Reports: Hx Cataracts - EARLY SIGNS, Hx Contacts or Glasses - GLASSES Denies: Hx Glaucoma, Hx Legally Blind EENT History: Denies: Hx Deafness Neurological History: Reports: Hx Headaches, Hx Migraine - PRN MEDICATION FOR- INDERAL & SUMTRIPTAN, Hx Nerve Disease - RELATED TO SHINGLES, Other Neuro Impairments/Disorders - HX OF SHINGLES IN 2004-REPORTS RESULT CAUSED NERVE DAMAGE TO THE LEFT LEG Denies: Hx Seizures Psychiatric History: Reports: Hx Anxiety - ON MEDICATION FOR-BUSPIRONE, Hx Depression - Cancer History Hx Chemotherapy: No - Surgical History Surgical History: Yes Surgery Procedure, Year, and Place: right thumb. TONSILLECTOMY as a child. REMOVAL OF POLP FROM VOCAL CORD, . LEFT KNEE ARTHROSCOPY, . RIGHT BREAST- REMOVAL OF GROWTH AND LYMPH NODES. hernia, 1990s. left trigger finger , 2018. right great toes, 2018, [facility]. Right knee, 2019, [facility] Hx Anesthesia Reactions: No Infectious Disease History: No Infectious Disease History: Denies: Hx Hepatitis, Traveled Outside the [place] in Last 30 Days - Family History Known Family History: Negative: Diabetes - Social History Occupation: Employed Full-time Lives: With Family Alcohol Use: Rare Alcohol Amount: BEER Hx Substance Use: No Substance Use Type: Reports: None Hx Tobacco Use: Yes Smoking Status (MU): Former Smoker Type: Cigarettes Amount Used/How Often: 3 PPD X 25 YEARS Have You Smoked in the Last Year: No Review of Systems Positive: Other - Positive constipation Positive: Arthralgia - Right knee, Edema - Right knee Positive: Other - Positive erythema of right knee Neurological: Other - Positive confusion Positive: Slurred Speech Psychological: Other - Positive hallucinations All Other Systems Reviewed And Are Negative: Yes Physical Exam - Summary Physical Exam Summary: Appearance: Non-toxic appearing, Well-nourished, lying in bed comfortably in no acute distress. Fever is noted. Skin: Warm, dry, no obvious rash Eyes: sclera anicteric, no conjunctival pallor ENT: mucous membranes moist, pharynx appears normal Neck: Supple, nontender Respiratory: Clear to auscultation, no signs of respiratory distress Cardiovascular: Normal S1, S2. No murmurs. Normal distal pulses in tibial and radial bilaterally. Tachycardia is noted. Abdomen: Soft, nontender, normal active bowel sounds present Musculoskeletal: Strength/ROM Intact. There is a vertical incision from a recent right knee replacement with sutures in place on the right knee, no drainage from the wound, but there is erythema, swelling, and warmth extending to the proximal thigh. Neurological: mentation is normal, speech is fluent and appropriate. Awake and alert, oriented to person and time, but initially thought he was at [facility] [place] , cannot recall when his surgery took place. Psychiatric: affect is normal, does not appear anxious or depressed Triage Information Reviewed: Yes Vital Signs On Initial Exam: Initial Vitals Temp Pulse Resp BP Pulse Ox 97.7 F 104 16 125/105 98 07/25/19 17:53 07/25/19 17:53 07/25/19 17:53 07/25/19 17:53 07/25/19 17:53 Vital Signs Reviewed: Yes Completion Of Physical Exam Limited Due To: Altered Mental Status - Tho Coma Scale Best Eye Response: 4 - Spontaneous Best Motor Response: 6 - Obeys Commands Best Verbal Response: 5 - Oriented Coma Scale Total: 15 Procedures - Sedation Patient Received Moderate/Deep Sedation with Procedure: No Diagnostics - Vital Signs Vital Signs Temp Pulse Resp BP Pulse Ox 07/25/19 21:17 101.2 F 07/25/19 21:02 107 177/92 97 07/25/19 21:01 109 96 07/25/19 19:57 99.7 F 107 18 160/108 98 07/25/19 17:53 97.7 F 104 16 125/105 98 - Laboratory Lab Results: Lab Results 07/25/19 07/25/19 07/25/19 Range/Units 19:46 19:46 19:46 WBC 11.6 H (3.5-10.8) 10^3/uL RBC 3.98 L (4.18-5.48) 10^6 /uL Hgb 11.8 L (14.0-18.0) g/dL Hct 35 L (42-52) % MCV 88 (80-94) fL MCH 30 (27-31) pg MCHC 34 (31-36) g/dL RDW 15 (10-15) % Plt Count 277 (150-450) 10^3/uL MPV 8.1 (7.4-10.4) fL Neut % (Auto) 76.1 % Lymph % (Auto) 8.4 % [place] % (Auto) 12.9 % Eos % (Auto) 1.9 % Baso % (Auto) 0.7 % Absolute Neuts (auto) 8.9 H (1.5-7.7) 10^3/ul Absolute Lymphs (auto) 1.0 (1.0-4.8) 10^3/ul Absolute Monos (auto) 1.5 H (0-0.8) 10^3/ul Absolute Eos (auto) 0.2 (0-0.6) 10^3/ul Absolute Basos (auto) 0.1 (0-0.2) 10^3/ul Absolute Nucleated RBC 0.0 10^3/ul Nucleated RBC % 0.0 ESR Pending Sodium 132 L (135-145) mmol/L Potassium 3.8 (3.5-5.0) mmol/L Chloride 95 L (101-111) mmol/L Carbon Dioxide 28 (22-32) mmol/L Anion Gap 9 (2-11) mmol/L BUN 19 (6-24) mg/dL Creatinine 0.95 (0.67-1.17) mg/dL Est GFR ( Amer) 95.7 (>60) Est GFR (Non-Af Amer) 79.1 (>60) BUN/Creatinine Ratio 20.0 (8-20) Glucose 153 H (70-100) mg/dL Lactic Acid 1.1 (0.5-2.0) mmol/L Calcium 9.0 (8.6-10.3) mg/dL Total Bilirubin 1.00 (0.2-1.0) mg/dL AST 53 H (13-39) U/L ALT 51 (7-52) U/L Alkaline Phosphatase 73 (34-104) U/L Troponin I 0.02 (<0.03) ng/mL C-Reactive Protein 332.63 H (<8.01) mg/L Total Protein 6.9 (6.4-8.9) g/dL Albumin 3.5 (3.2-5.2) g/dL Globulin 3.4 (2-4) g/dL Albumin/Globulin Ratio 1.0 (1-3) Serum Alcohol < 10 (<10) mg/dL Result Diagrams: 07/25/19 19:46 07/25/19 19:46 Lab Statement: Any lab studies that have been ordered have been reviewed, and results considered in the medical decision making process. - CT Brain CT CT Interpretation Completed By: Radiologist Summary of CT Findings: Brain CT IMPRESSION: 1. No acute intracranial abnormality. 2. Mild chronic small vessel ischemic disease. Reviewed by Dr. Donnelly. - EKG 21:32 Cardiac Rate: Tachycardia - 106 BPM EKG Rhythm: Sinus Tachycardia ST Segment: Normal Ectopy: None Summary of EKG Findings: EKG at 21:32 shows sinus tachycardia at 106 BPM, P waves, QRS complex, and T waves are within normal limits, T waves and intervals are normal, no ischemic changes. No STEMI. This is an otherwise normal EKG. Reviewed and interpreted by Dr. Donnelly. Altered Mental Statu Course/Dx - Course Course Of Treatment: Patient is a 69 y/o M presenting to the ED for a chief complaint of slurred speech and confusion that began on 07/21/19. Patient is present with his . Per patients , patient had slurred speech that began on 07/21/19 after being discharged from [facility] and worsened to include hallucinations on 07/25/19. Patient has constipation and last had a bowel movement on 07/20/19. On 07/22/19, patient also began to notice erythema, swelling, and pain of the right knee after a recent right knee surgery performed on 07/20/[address] Villanueva. Patient denies any aggravating or alleviating factors. PMHx is significant for anxiety and depression for which he takes medication. Allergies noted. On exam, non-toxic appearing and in no acute distress, fever and mild tachycardia is noted. There is a vertical incision from a recent right knee replacement with sutures in place on the right knee, no drainage from the wound, but there is erythema, swelling, and warmth extending to the proximal thigh. Awake and alert, oriented to person and time, but initially thought he was at [facility] [place], cannot recall when his surgery took place. In the ED course, patient was given Kefzol 1 gm IVPB and fluids. Laboratory abnormal findings: WBC 11.6, RBC 3.98, Hgb 11.8, Hct 35, absolute neuts 8.9, absolute monos 1.5, ESR 85, sodium 132, chloride 95, glucose 153, AST 53, C-reactive protein 332.63. EKG at 21:32 shows sinus tachycardia at 106 BPM, P waves, QRS complex, and T waves are within normal limits, T waves and intervals are normal, no ischemic changes. No STEMI. This is an otherwise normal EKG. Brain CT IMPRESSION: 1. No acute intracranial abnormality. 2. Mild chronic small vessel ischemic disease. At 22:01, Dr. Silva agrees to admit the patient to [facility] with a diagnosis of wound infection, metabolic encephalopathy, and fever. Patient will be admitted to [facility] with a diagnosis of wound infection, metabolic encephalopathy, and fever. - Diagnoses Provider Diagnoses: Fever, Metabolic encephalopathy, Wound infection - Provider Notifications Discussed Care Of Patient With: Sola Silva - At 22:01, Dr. Silva agrees to admit the patient to [facility] with a diagnosis of wound infection, metabolic encephalopathy, and fever. Time Discussed With Above Provider: 22:01 Instructed by Provider To: Admit As Inpatient Discharge ED - Sign-Out/Discharge Documenting (check all that apply): Patient Departure - Admit - Discharge Plan Condition: Stable Disposition: ADMITTED TO [facility] - Billing Disposition and Condition Condition: STABLE Disposition: Admitted to [facility] - Attestation Statements Document Initiated by Deonnaibe: Yes Documenting Scribe: Sally Lugo Provider For Whom Deonnaibren is Documenting (Include Credential): Brendan Donnelly MD Scribe Attestation: Sally Torres, scribed for Brendan Donnelly MD on 07/26/19 at 0625. Scribe Documentation Reviewed: Yes Provider Attestation: The documentation as recorded by the Sally haney accurately reflects the service I personally performed and the decisions made by Brendan mejia MD Status of Scribe Document: Viewed
[2019-07-25 21:40] LABS: Erythrocyte Sed Rate 85 mm/Hr (0-19)
[2019-07-25] MEDS ORDERED: Vancomycin per Pharmacy* NOTE FOLLOW UP SCH (23:45)
--- NOTE | 2019-07-25 23:46 | HP ---
History of Present Illness - History of Present Illness Reason for Visit: [facility] History of Present Illness: 69 yo male with hx of osteoarthritis s/p right total knee arthroplasty last week presented today with altered mental status. Pt developed redness around his sutures that expanded up his thigh. Then earlier this afternoon, he became altered. His brought him to the ER. He has been febrile, his pressure normal. He has mild leukocytosis on initial labs. He had a CT head for the change in mental status which came back normal. - Past Surgical History Past Surgical History: Total Knee Replacement - Past Family History Family History: None - Past Social History Smoke: No Alcohol: None Drugs: None Lives: With Family Review of Systems - Measurements Intake and Output: Intake and Output Last 24 Hours 07/23/19 07/24/19 07/25/19 07/26/19 06:59 06:59 06:59 06:59 Weight 212 lb - Review of Systems Constitutional Symptoms: Positive: Fever, Night Sweats Negative: Weight Gain, Weight Loss, Weakness, Fatigue, Unexplained Falls, Other Dermatology: Positive: Rash Negative: Normal, Skin Lesions, Cancer, Skin Lumps, Other HEENT: Negative: Normal, Change in Hearing, Vertigo, Dental Problems, Tinnitus, Sinus Problem, Other Eyes: Negative: Normal, Change in Vision, Double Vision, Eye Pain, Glaucoma, Cataract, Contacts or Glasses, Other Pulmonary: Negative: Normal, Cough, Sputum, Hemoptysis, Wheezing, Respiratory Distress, Shortness of Breath, COPD, Asthma, Exercise Intolerance, Home Oxygen, Other Cardiology: Negative: Normal, Chest Pain, Shortness of Breath, Palpitations, Swelling of Ankles, Peripheral Vascular Dis, Edema, Faintness, Syncope, Claudication, Proximal NocturnalDyspnea, Orthopnoea, Other Gastroenterology: Negative: Normal, Abdominal Pain, Nausea, Vomiting, Anorexia, Indigestion, Difficulty Swallowing, Heartburn, Constipation, Diarrhea, Blood in Stools, Change in Bowel Habits, Haematemesis, Melena, Other Genital - Urinary: Negative: Normal, Dysuria, Hematuria, Polyuria, Nocturia, Other Hematologic/Lymphatic: Negative: Anemia, Easy Bruising, Hx Leukemia, Hx Lymphoma, Use of Anticoagulant, Use of Antiplatelet Drugs, Other Neurology: Negative: Normal, Headache, Migraines, Change in Vision, Diplopia, Dizziness , Change in Balancing, Change in Coordination, Change in Memory, Change in Speech, Change in Sphincter Function, Change in Walking, Numbness\Paresthesiae, Unexplained Weakness, Hx of Stroke\TIA, Hx of Seizures, Other Psychiatry: Negative: Normal, Depression, Anxiety, Depressed Mood, Anhedonia, Sexual Dysfunction, Weight Change, Guilt Feelings, Tearfulness, Unusual Fatigue, Unusual Anxiety, Suicidal Ideation, Hypomania, Eating Disorders, Other Allergic/Immunologic: Negative: Hx Anaphylaxis, Hx Angioedema, Hx Environmental, Hx Seasonal, Asthma, Hx HIV, Immunocompromise, Swollen Glands LymphNodes, Other Objective Active Medications: Sodium Chloride (Ns 0.9% 1000 Ml) 1,000 mls @ 125 mls/hr IV Q8H [facility] Pharmacy Consult (Vancomycin Per Pharmacy*) 1 note FOLLOW UP .VANC PER PHARMACY [facility]; Protocol Vital Signs - 8 hr 07/25/19 07/25/19 07/25/19 17:53 19:57 21:01 Temperature 97.7 F 99.7 F Pulse Rate 104 107 109 Respiratory 16 18 Rate Blood Pressure 125/105 160/108 (mmHg) O2 Sat by Pulse 98 98 96 Oximetry 07/25/19 07/25/19 07/25/19 21:02 21:17 22:00 Temperature 101.2 F Pulse Rate 107 104 Respiratory Rate Blood Pressure 177/92 (mmHg) O2 Sat by Pulse 97 95 Oximetry 07/25/19 07/25/19 07/25/19 22:02 22:31 23:02 Temperature Pulse Rate 107 Respiratory Rate Blood Pressure 123/91 131/90 137/97 (mmHg) O2 Sat by Pulse 96 Oximetry 07/25/19 23:11 Temperature 100.3 F Pulse Rate Respiratory Rate Blood Pressure (mmHg) O2 Sat by Pulse Oximetry Oxygen Devices in Use Now: None Appearance: looks ill, confused Eyes: No Scleral Icterus, PERRLA Ears/Nose/Mouth/Throat: NL Teeth, Lips, Gums, Mucous Membranes Moist Neck: NL Appearance and Movements; NL JVP, Trachea Midline Respiratory: Symmetrical Chest Expansion and Respiratory Effort, Clear to Auscultation Cardiovascular: NL Sounds; No Murmurs; No JVD, No Edema Lymphatic: No Cervical Adenopathy Skin: No Nodules or Sclerosis, - - erythema over right knee extending upward Neurological: - - alert but confused Result Diagrams: 07/25/19 19:46 07/25/19 19:46 Additional Lab and Data: Lab Results 07/25/19 07/25/19 07/25/19 Range/Units 19:46 19:46 19:46 WBC 11.6 H (3.5-10.8) 10^3/uL RBC 3.98 L (4.18-5.48) 10^6 /uL Hgb 11.8 L (14.0-18.0) g/dL Hct 35 L (42-52) % MCV 88 (80-94) fL MCH 30 (27-31) pg MCHC 34 (31-36) g/dL RDW 15 (10-15) % Plt Count 277 (150-450) 10^3/uL MPV 8.1 (7.4-10.4) fL Neut % (Auto) 76.1 % Lymph % (Auto) 8.4 % [place] % (Auto) 12.9 % Eos % (Auto) 1.9 % Baso % (Auto) 0.7 % Absolute Neuts (auto) 8.9 H (1.5-7.7) 10^3/ul Absolute Lymphs (auto) 1.0 (1.0-4.8) 10^3/ul Absolute Monos (auto) 1.5 H (0-0.8) 10^3/ul Absolute Eos (auto) 0.2 (0-0.6) 10^3/ul Absolute Basos (auto) 0.1 (0-0.2) 10^3/ul Absolute Nucleated RBC 0.0 10^3/ul Nucleated RBC % 0.0 ESR Pending Sodium 132 L (135-145) mmol/L Potassium 3.8 (3.5-5.0) mmol/L Chloride 95 L (101-111) mmol/L Carbon Dioxide 28 (22-32) mmol/L Anion Gap 9 (2-11) mmol/L BUN 19 (6-24) mg/dL Creatinine 0.95 (0.67-1.17) mg/dL Est GFR ( Amer) 95.7 (>60) Est GFR (Non-Af Amer) 79.1 (>60) BUN/Creatinine Ratio 20.0 (8-20) Glucose 153 H (70-100) mg/dL Lactic Acid 1.1 (0.5-2.0) mmol/L Calcium 9.0 (8.6-10.3) mg/dL Total Bilirubin 1.00 (0.2-1.0) mg/dL AST 53 H (13-39) U/L ALT 51 (7-52) U/L Alkaline Phosphatase 73 (34-104) U/L Troponin I 0.02 (<0.03) ng/mL C-Reactive Protein 332.63 H (<8.01) mg/L Total Protein 6.9 (6.4-8.9) g/dL Albumin 3.5 (3.2-5.2) g/dL Globulin 3.4 (2-4) g/dL Albumin/Globulin Ratio 1.0 (1-3) Serum Alcohol < 10 (<10) mg/dL Assess/Plan/Problems-Billing Assessment: - Patient Problems (1) Postoperative wound infection Current Visit: Yes Status: Acute Code(s): T81.49XA - INFECTION FOLLOWING A PROCEDURE, OTHER SURGICAL SITE, INIT SNOMED Code(s): 65548017 Comment: s/p right total knee arthroplasty there is erythema around the sutures extending up his thighs ortho was called and recommended admission to medicine and will see the pt in the morning. Vanc, IVF (2) DVT prophylaxis Current Visit: Yes Status: Acute Code(s): Z29.9 - ENCOUNTER FOR PROPHYLACTIC MEASURES, UNSPECIFIED SNOMED Code(s): 939940885 Comment: holding chemoprophylaxis pending surgery evaluation (3) Full code status Current Visit: Yes Status: Acute Code(s): Z78.9 - OTHER SPECIFIED HEALTH STATUS SNOMED Code(s): 448544112
[2019-07-26] MEDS: NS 0.9% 1000 ML** 1,000 ML IV SCH ×4 (01:06→20:14)
[2019-07-26] MEDS: oxyCODONE/Acetamin 5/325 MG* TAB PO PRN ×3 (01:13→22:04)
[2019-07-26] MEDS ORDERED: Vancomycin(*) 1,250 MG in NS 0.9% 250 ML* 250 ML IVPB SCH (06:00)
[2019-07-26 06:32] LABS: Hematocrit 31 % (42-52); Hemoglobin 10.6 g/dL (14.0-18.0); Mean Corpuscular HGB Conc 35 g/dL (31-36); Mean Corpuscular Hemoglobin 30 pg (27-31); Mean Corpuscular Volume 86 fL (80-94); Mean Platelet Volume 8.5 fL (7.4-10.4); Platelet Count 249 10^3/uL (150-450); Red Blood Count 3.56 10^6 /uL (4.18-5.48); Red Cell Distribution Width 15 % (10-15); White Blood Count 9.9 10^3/uL (3.5-10.8)
[2019-07-26 06:52] LABS: BUN/Creatinine Ratio 19.1 (8-20); Calcium 8.5 mg/dL (8.6-10.3); EGFR African American 103.2 (>60); EGFR Non-African American 85.3 (>60); Magnesium 1.9 mg/dL (1.9-2.7); Potassium 3.5 mmol/L (3.5-5.0)
[2019-07-26 07:41] LABS: ABS Basophils 0.1 10^3/ul (0-0.2); ABS Eosinophils 0.1 10^3/ul (0-0.6); ABS Lymphocytes 1.3 10^3/ul (1.0-4.8); ABS Monocytes 1.8 10^3/ul (0-0.8); ABS Neutrophils 6.5 10^3/ul (1.5-7.7); Eosinophil % 1.5 %; Lymphocyte % 13.6 %
--- NOTE | 2019-07-26 08:55 | CONS ---
CONSULTATION REPORT: DATE OF CONSULT: 07/25/19 CHIEF COMPLAINT: Altered mental status and right knee pain/erythema. HISTORY OF PRESENT ILLNESS: Mr. Maurer is a 69-year-old gentleman who had uncomplicated right total knee arthroplasty 1 week ago on 07/20/19. He was discharged to home without complication. He presented to the ED last evening on 07/25/19 with altered mental status, confusion, and blurred vision. He reported this had been going on for 24 hours. He also had some increased erythema around his sutures with some extension of erythema up his medial thigh. The patient reports unchanged 4/10 pain in the right knee. He is able to walk on the knee and move the knee. The patient denies calf pain. He denies chest pain or shortness of breath. The patient was found to have some leukocytosis and was febrile. He was admitted to the hospitalist team. PAST MEDICAL HISTORY: Cirrhosis, depression, anxiety, shingles, hypercholesterolemia, osteoarthritis, type 2 diabetes, and migraines. PAST SURGICAL HISTORY: Prior knee arthroscopy, trigger finger release, toe surgery, breast cancer excision. HOME MEDICATIONS: 1. Sumatriptan 50 mg p.r.n. for migraines. 2. Sertraline 100 mg p.o. daily. 3. Propranolol 80 mg p.o. t.i.d. 4. Buspirone 10 mg p.o. t.i.d. 5. Ibuprofen as needed for pain. 6. Multivitamin 1 tablet p.o. daily. 7. Fish oil 1 tablet p.o. daily. 8. Vitamin B12 two sublingual daily. ALLERGIES: PENICILLIN and SULFA. FAMILY HISTORY: Maternal hypertension, cancer, rheumatoid arthritis. Heart disease, hypertension, and brain cancer. SOCIAL HISTORY: The patient lives with his . 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 No tobacco or recreational drug use. Minimal alcohol use. Normally very active. Right hand dominant. REVIEW OF SYSTEMS: Fourteen systems reviewed with the patient today. Positive for confusion, blurred vision, fevers, right knee pain, and erythema. Otherwise , review of systems is negative, but not relevant. PHYSICAL EXAM: Vitals: Temperature 100.2, pulse of 100, blood pressure 148/ 83. General: The patient is a well-nourished male, in no apparent distress, alert and oriented x2, pleasant mood, appropriate affect. Gait is not assessed. Right lower extremity: The patient's skin is intact. He has sutures intact. He has some erythema around the suture line and some erythema along the medial thigh. Mild-to- moderate effusion at the knee joint. He can flex to 80 degrees nearly full extension. Distally, the calf is soft. No tenderness to palpation. Neurovascularly intact with dorsiflexion, plantar flexion. Full sensation to light touch and 2+ palpable DP pulse. DIAGNOSTIC STUDIES/LAB DATA: Labs show white blood cells today down to 9.9 from 11.6 yesterday. Hematocrit 31, platelets 249. Sodium 132, potassium 3.5, chloride 99, BUN/creatinine 17 and 0.89, alk phos 73. CRP 332. ESR 85. Brain CT from 07/25/19, shows no acute intracranial abnormality, mild chronic small vessel ischemic disease. ASSESSMENT AND PLAN: Mr. Maurer is a 69-year-old gentleman, 6 days after right total knee arthroplasty on 07/20/19. He is readmitted with altered mental status and some erythema around the incision. Thankfully, the brain CT was negative. Medicine Team graciously admitted this patient overnight. The patient and I discussed that he is on antibiotics for cellulitis around the knee. We discussed the only way to definitively exclude and intra-articular infection is aspiration. At this time, the patient is declining the aspiration of the right knee. We will revisit this later in the day and reevaluate the erythema. For now, the patient should have physical therapy, weight-bear as tolerated. He can have a normal diet. Thank you to the hospitalist team for the care of this patient. [id number]/[facility] #: [id number] VERNELL
[2019-07-26 09:13] LABS: Body Fluid Source Synovial Fluid
[2019-07-26] MEDS ORDERED: Ondansetron INJ* 2 MG/ML VIAL IV PRN (09:41)
[2019-07-26] MEDS ORDERED: Polyethylene Glycol 3350* 17 GM PACKET PO PRN (09:44)
[2019-07-26] MEDS: Sertraline* 100 MG TAB PO SCH (09:48)
[2019-07-26] MEDS: busPIRone TAB* 10 MG PO SCH ×2 (09:48→14:04)
[2019-07-26] MEDS: Docusate CAP* 100 MG PO SCH ×2 (09:48→20:52)
[2019-07-26] MEDS: Vancomycin(*) 1,250 MG in NS 0.9% 250 ML* 250 ML IVPB SCH ×2 (09:48→21:59)
--- NOTE | 2019-07-26 10:09 | SURGPN ---
Subjective - Introduction -: Procedure Note Time out and consent completed with 2 nurses present Preop dx: sp RTK with erythema and concern for infection procedure: Right knee aspiration Findings: bloody aspirate, no obvious purulence Plan: Sent for cell count/ culture/ gram stain. Normal diet for now. If any bacterial growth will require I&D - Medications -: Active Medications Generic Name Dose Route Start Last Admin Trade Name Freq PRN Reason Stop Dose Admin Acetaminophen 650 mg 07/26/19 09:19 Tylenol Tab* PO Q4H PRN PAIN - MILD Bisacodyl 10 mg 07/26/19 09:43 Dulcolax Supp* [place] DAILY PRN CONSTIPATION Buspirone HCl 10 mg 07/26/19 09:00 07/26/19 09:48 Buspar Tab* PO 10 mg TID RENÉ Administration Cyclobenzaprine HCl 10 mg 07/25/19 23:51 Flexeril Tab* PO Q6H PRN SPASMS Docusate Sodium 100 mg 07/26/19 09:00 07/26/19 09:48 Colace Cap* PO 100 mg BID RENÉ Administration Sodium Chloride 1,000 mls @ 125 mls/hr 07/25/19 23:45 07/26/19 09:49 Ns 0.9% 1000 Ml IV 125 mls/hr Q8H RENÉ Administration Vancomycin HCl 1,250 mg/ 250 mls @ 166.667 mls/hr 07/26/19 10:00 07/26/19 09: 48 Sodium Chloride IVPB 166.667 mls/hr Q12H RENÉ Administration Magnesium Hydroxide 30 ml 07/26/19 09:43 Milk Of Magnesia Liq* PO BID RENÉ Ondansetron HCl 4 mg 07/26/19 09:41 Zofran Inj* IV Q4H PRN NAUSEA Oxycodone/Acetaminophen 2 tab 07/25/19 23:51 07/26/19 01:13 Percocet 5/325 Tab* PO 2 tab Q4H PRN Administration PAIN - MODERATE Pharmacy Consult 1 note 07/25/19 23:45 Vancomycin Per Pharmacy* FOLLOW UP .VANC PER PHARMACY [facility] Protocol Pharmacy Profile Note 1 note 07/27/19 09:30 Vancomycin Trough Check FOLLOW UP 07/27/19 09:31 0930 ONE Polyethylene Glycol/Electrolytes 17 gm 07/26/19 09:44 Miralax* PO DAILY PRN CONSTIPATION Senna 1 tab 07/26/19 21:00 Senokot 8.6 Mg Tab* PO BEDTIME RENÉ Sertraline HCl 100 mg 07/26/19 09:00 07/26/19 09:48 Zoloft* PO Not Given QAM RENÉ Objective - Intake and Output -: Intake & Output 07/24/19 07/25/19 07/26/19 07/27/19 06:59 06:59 06:59 06:59 Intake Total 1350 Output Total 400 Balance -400 1350 Weight 216 lb Intake: IV Fluids 990 NS (0.9%) 990 Oral 360 Output: Urine 400 ADLs: Meal Record Start: 07/26/19 00: 24 Freq: Status: Active Protocol: Created 07/26/19 00:24 System (Rec: 07/26/19 00:24 System [email or web address]) Document 07/26/19 09:33 [id number] (Rec: 07/26/19 09:34 [id number]) Intake and Output Start: 07/25/19 18: 02 Freq: Status: Active Protocol: Created 07/25/19 18:02 System (Rec: 07/25/19 18:02 System [id number]) Document 07/26/19 09:33 [id number] (Rec: 07/26/19 09:34 [id number]) Intake and Output Start: 07/26/19 00: 24 Freq: DAILY@0600,1400,2200 Status: Active Protocol: Created 07/26/19 00:24 System (Rec: 07/26/19 00:24 System [email or web address]) Document 07/26/19 06:36 [id number] (Rec: 07/26/19 06:36 [id number])
[2019-07-26] MEDS: Magnesium Hydroxide LIQ* 30 ML UDC PO SCH ×2 (10:28→20:52)
[2019-07-26] MEDS: Acetaminophen TAB* 325 MG PO PRN (10:28)
[2019-07-26 10:53] LABS: Urine Appearance Cloudy; Urine Bilirubin Negative (Negative); Urine Blood 1+ (Negative); Urine Color Yellow; Urine Glucose Negative (Negative); Urine Ketones Negative (Negative); Urine Nitrite Negative (Negative); Urine Protein 1+(30 mg/dL) (Negative); Urine Specific Gravity 1.023 (1.010-1.030); Urine Urobilinogen Negative (Negative)
[2019-07-26 10:56] LABS: Urine Bacteria Absent (Absent); Urine Red Blood Cell Trace(0-2/hpf) (Absent); Urine White Blood Cell Trace(0-5/hpf) (Absent)
--- NOTE | 2019-07-26 12:35 | PN ---
Subjective Date of Service: 07/26/19 Interval History: Evaluated at bedside just after right knee aspirated. He caught himself several times in conversation talking about recent events that did not happen in the time line that he was presenting, knew that he was not thinking clearly. Able to answer all orientation questions correctly. Pain to right knee rated at 2/10 , tolerable. Denied feeling feverish, chilled, dizzy, lightheaded, chest pain, shortness of breath, abdominal pain, nausea, vomiting, issues with voiding. Has not had a bowel movement since last , denies feeling constipated. Family History: Unchanged from Admission Social History: Unchanged from Admission Past Medical History: Unchanged from Admission Objective Active Medications: Acetaminophen (Tylenol Tab*) 650 mg PO Q4H PRN PRN Reason: PAIN - MILD Last Admin: 07/26/19 10:28 Dose: 650 mg Bisacodyl (Dulcolax Supp*) 10 mg [place] DAILY PRN PRN Reason: CONSTIPATION Buspirone HCl (Buspar Tab*) 10 mg PO TID [facility] Last Admin: 07/26/19 09:48 Dose: 10 mg Cyclobenzaprine HCl (Flexeril Tab*) 10 mg PO Q6H PRN PRN Reason: SPASMS Docusate Sodium (Colace Cap*) 100 mg PO BID [facility] Last Admin: 07/26/19 09:48 Dose: 100 mg Sodium Chloride (Ns 0.9% 1000 Ml) 1,000 mls @ 125 mls/hr IV Q8H [facility] Last Admin: 07/26/19 09:49 Dose: 125 mls/hr Vancomycin HCl 1,250 mg/ (Sodium Chloride) 250 mls @ 166.667 mls/hr IVPB Q12H [facility] Last Admin: 07/26/19 09:48 Dose: 166.667 mls/hr Magnesium Hydroxide (Milk Of Magnesia Liq*) 30 ml PO BID [facility] Last Admin: 07/26/19 10:28 Dose: 30 ml Ondansetron HCl (Zofran Inj*) 4 mg IV Q4H PRN PRN Reason: NAUSEA Oxycodone/Acetaminophen (Percocet 5/325 Tab*) 2 tab PO Q4H PRN PRN Reason: PAIN - MODERATE Last Admin: 07/26/19 01:13 Dose: 2 tab Pharmacy Consult (Vancomycin Per Pharmacy*) 1 note FOLLOW UP .VANC PER PHARMACY RENÉ; Protocol Pharmacy Profile Note (Vancomycin Trough Check) 1 note FOLLOW UP 0930 ONE Stop: 07/27/19 09:31 Polyethylene Glycol/Electrolytes (Miralax*) 17 gm PO DAILY PRN PRN Reason: CONSTIPATION Senna (Senokot 8.6 Mg Tab*) 1 tab PO BEDTIME [facility] Sertraline HCl (Zoloft*) 100 mg PO QAM [facility] Last Admin: 07/26/19 09:48 Dose: Not Given Vital Signs - 8 hr 07/26/19 07/26/19 07/26/19 07:43 10:11 11:26 Temperature 97.9 F 98.4 F Pulse Rate 80 94 Respiratory 16 16 16 Rate Blood Pressure 125/76 125/74 (mmHg) O2 Sat by Pulse 95 97 Oximetry Oxygen Devices in Use Now: None Appearance: Well developed gentleman in no acute distress. Eyes: No Scleral Icterus, PERRLA Ears/Nose/Mouth/Throat: NL Teeth, Lips, Gums, Clear Oropharnyx, Mucous Membranes Moist Neck: NL Appearance and Movements; NL JVP, Trachea Midline Respiratory: Symmetrical Chest Expansion and Respiratory Effort, Clear to Auscultation Cardiovascular: NL Sounds; No Murmurs; No JVD, RRR, No Edema Abdominal: NL Sounds; No Tenderness; No Distention Lymphatic: No Cervical Adenopathy Extremities: No Clubbing, Cyanosis, - - Right knee edematous. 2+ pedal pulses bilaterally, able to move all extremities, perform ankle pumps. Skin: No Rash or Ulcers, No Nodules or Sclerosis, - - Right knee edematous, erythematous, warm to touch with no drainage. Sutures intact. Neurological: Alert and Oriented x 3 Lines/Tubes/Other Access: Clean, Dry and Intact Peripheral IV Result Diagrams: 07/26/19 05:54 07/26/19 05:54 Additional Lab and Data: Lab Results 07/25/19 07/25/19 07/25/19 Range/Units 19:46 19:46 19:46 WBC 11.6 H (3.5-10.8) 10^3/uL RBC 3.98 L (4.18-5.48) 10^6 /uL Hgb 11.8 L (14.0-18.0) g/dL Hct 35 L (42-52) % MCV 88 (80-94) fL MCH 30 (27-31) pg MCHC 34 (31-36) g/dL RDW 15 (10-15) % Plt Count 277 (150-450) 10^3/uL MPV 8.1 (7.4-10.4) fL Neut % (Auto) 76.1 % Lymph % (Auto) 8.4 % Clay % (Auto) 12.9 % Eos % (Auto) 1.9 % Baso % (Auto) 0.7 % Absolute Neuts (auto) 8.9 H (1.5-7.7) 10^3/ul Absolute Lymphs (auto) 1.0 (1.0-4.8) 10^3/ul Absolute Monos (auto) 1.5 H (0-0.8) 10^3/ul Absolute Eos (auto) 0.2 (0-0.6) 10^3/ul Absolute Basos (auto) 0.1 (0-0.2) 10^3/ul Absolute Nucleated RBC 0.0 10^3/ul Nucleated RBC % 0.0 ESR Pending Sodium 132 L (135-145) mmol/L Potassium 3.8 (3.5-5.0) mmol/L Chloride 95 L (101-111) mmol/L Carbon Dioxide 28 (22-32) mmol/L Anion Gap 9 (2-11) mmol/L BUN 19 (6-24) mg/dL Creatinine 0.95 (0.67-1.17) mg/dL Est GFR ( Amer) 95.7 (>60) Est GFR (Non-Af Amer) 79.1 (>60) BUN/Creatinine Ratio 20.0 (8-20) Glucose 153 H (70-100) mg/dL Lactic Acid 1.1 (0.5-2.0) mmol/L Calcium 9.0 (8.6-10.3) mg/dL Total Bilirubin 1.00 (0.2-1.0) mg/dL AST 53 H (13-39) U/L ALT 51 (7-52) U/L Alkaline Phosphatase 73 (34-104) U/L Troponin I 0.02 (<0.03) ng/mL C-Reactive Protein 332.63 H (<8.01) mg/L Total Protein 6.9 (6.4-8.9) g/dL Albumin 3.5 (3.2-5.2) g/dL Globulin 3.4 (2-4) g/dL Albumin/Globulin Ratio 1.0 (1-3) Serum Alcohol < 10 (<10) mg/dL Microbiology and Other Data: Microbiology 07/26/19 09:04 Gram Stain - Final Joint Fluid(Synovial) - Knee Right Skin and Soft Tissue MRSA/MSSA (PCR - Final Mrsa Negative S.aureus Negative Assess/Plan/Problems-Billing Assessment: This is a 69 year old male with a past medical history significant for migraines and osteoarthritis who was admitted on 07/25/19 with an infected right total knee replacement which was performed one week ago. - Patient Problems (1) Postoperative wound infection Current Visit: Yes Status: Acute Code(s): T81.49XA - INFECTION FOLLOWING A PROCEDURE, OTHER SURGICAL SITE, INIT SNOMED Code(s): 52085116 Comment: -S/P right total knee arthroplasty one week ago. Erythema around the sutures extending up right thigh. Ortho notified. ID consulted. -Continue vancomycin, appreciated ID consult to ensure this continues to be appropriate once knee aspirate is cultured. (2) Migraines Current Visit: Yes Status: Acute Code(s): G43.909 - MIGRAINE, UNSP, NOT INTRACTABLE, WITHOUT STATUS MIGRAINOSUS SNOMED Code(s): 00329631 Comment: -Continue propranolol for prophylaxis, though dosage decreased due to concerns for potential hypotension. May have sumatriptan as needed. Did have one headache today. (3) Anxiety Current Visit: Yes Status: Acute Code(s): F41.9 - ANXIETY DISORDER, UNSPECIFIED SNOMED Code(s): 80204194 Comment: -Speech slightly pressured now, though denies feeling anxious. Continue sertraline and buspar. (4) Vitamin B12 deficiency Current Visit: Yes Status: Acute Code(s): E53.8 - DEFICIENCY OF OTHER SPECIFIED B GROUP VITAMINS SNOMED Code(s): 623712581 Comment: -Continue supplementation. (5) DVT prophylaxis Current Visit: Yes Status: Acute Code(s): Z29.9 - ENCOUNTER FOR PROPHYLACTIC MEASURES, UNSPECIFIED SNOMED Code(s): 573393051 Comment: -Continue apixaban. (6) Full code status Current Visit: Yes Status: Acute Code(s): Z78.9 - OTHER SPECIFIED HEALTH STATUS SNOMED Code(s): 077456163 Status and Disposition: Condition: Guarded Disposition: Admit inpatient to [facility]. Attending: Lisa Clements
--- NOTE | 2019-07-26 14:03 | CONS ---
CONSULTATION REPORT: DATE OF CONSULT: 07/26/19 REQUESTING PROVIDER: Teresa Marquez NP CONSULTING SERVICE: Infectious Disease. REASON FOR CONSULTATION: Knee infection. IMPRESSION: 1. Status post right knee arthroplasty 07/20/19 followed by pain, swelling, redness, fever, and encephalopathy, found to have cellulitis of the knee, which has been aspirated, cell counts are pending. 2. PENICILLIN allergy, unknown reaction as a child. RECOMMENDATION: Agree with vancomycin goal trough 15 to 20 await the cell counts and cultures for decision on washout. HISTORY OF PRESENT ILLNESS: This is a 69-year-old man with right knee arthroplasty on 07/20/19, which he initially did well and subsequently developed pain, redness, swelling, some change in mental status, chills and fevers at home. He had some medication change because initially the thought was he is having reaction to pain medicine but then his knee became more painful and swollen and his brought him to ER with visual hallucinations yesterday. His white count was 11,000. He was febrile at 38.4, started on vancomycin. Blood cultures were sent and pending. His knee was aspirated this morning. Today, he notes the redness, pain, and swelling are much improved. He was having pain with weightbearing, it is a little bit better today. He has first toe fixation on the right, no other prosthetic material present. His notes his mental status, background as well. PAST MEDICAL HISTORY: 1. Osteoarthritis, status post right knee arthroplasty. 2. Right first MTP and toe fusion. ALLERGIES: PENICILLIN unknown reaction as a child, SULFA unknown reaction, LATEX. MEDICATIONS: 1. BuSpar. 2. Flexeril as needed. 3. Docusate twice daily. 4. Zofran as needed. 5. Oxycodone. 6. Tylenol as needed. 7. Senna at bedtime. 8. Sertraline. 9. Vancomycin 1250 mg every 12 hours. FAMILY HISTORY: No recurrent infections. SOCIAL HISTORY: He lives in [place] with his . He is a nonsmoker. REVIEW OF SYSTEMS: All negative except as noted above to a 14 point review of systems. PHYSICAL EXAM: Vital Signs: Temperature 37, heart rate 94, respiratory rate 16 , blood pressure 125/74, oxygen saturation 97% on room air. In general, he is awake, not in distress. Neurologic: He is oriented x2, follows commands, answers questions appropriately. HEENT: There is no conjunctival hemorrhage. Oropharynx without lesions. Neck is supple without mass. Heart has regular rate and rhythm. Lungs are clear to auscultation bilaterally. Abdomen: Soft, nontender, nondistended. There are bowel sounds present. Skin: There is no rash or splinter hemorrhage. Musculoskeletal: Right knee from thigh to mid lower leg, there is diffuse edema without tenderness about the knee joint. Incisions intact. There is some erythema throughout the distribution. DIAGNOSTIC STUDIES/LAB DATA: White blood cell count 9, hemoglobin 10, platelets 249. Creatinine 0.8. CRP was 332 yesterday. Please see impressions and recommendations as outlined above. Thanks for asking me to see Mr. Maurer in consultation. [id number]/[facility] #: [id number] VERNELL
[2019-07-26] MEDS ORDERED: SUMAtriptan SQ* 6 MG/0.5 ML VIAL SUBCUT PRN (17:08)
[2019-07-26] MEDS ORDERED: busPIRone TAB* 10 MG PO PRN (17:25)
[2019-07-26] MEDS: Apixaban* 2.5 MG TAB PO SCH (20:51)
[2019-07-26] MEDS: Senna TAB 8.6 mg* TAB PO SCH (20:52)
[2019-07-26] MEDS ORDERED: Propranolol TAB* 80 MG PO SCH ×2 (21:00)
[2019-07-26] MEDS: Propranolol TAB* 80 MG PO SCH (21:59)
[2019-07-27] MEDS: oxyCODONE/Acetamin 5/325 MG* TAB PO PRN (02:06)
[2019-07-27] MEDS ORDERED: Ziprasidone IM INJ* 20 MG/ML VIAL IM ONE ×2 (05:11→06:46)
[2019-07-27] MEDS: NS 0.9% 1000 ML** 1,000 ML IV SCH ×3 (06:03→16:33)
[2019-07-27 06:13] LABS: CO2 Carbon Dioxide 19 mmol/L (22-32); Calcium 8.2 mg/dL (8.6-10.3); Chloride 103 mmol/L (101-111); Sodium 132 mmol/L (135-145)
[2019-07-27 06:18] LABS: Anion Gap 10 mmol/L (2-11)
[2019-07-27 06:19] LABS: BUN/Creatinine Ratio 21.4 (8-20); Blood Urea Nitrogen 18 mg/dL (6-24); C Reactive Protein 256.53 mg/L (<8.01); EGFR African American 110.3 (>60); EGFR Non-African American 91.1 (>60); Glucose 109 mg/dL (70-100)
--- NOTE | 2019-07-27 08:15 | PN ---
Subjective Date of Service: 07/27/19 Interval History: Mr. Maurer is not feeling well this morning. He did not sleep well overnight. He reports going to sleep around 11pm and waking around 3am. Little to no pain in the right knee. Minimal ROM in the knee. Denies CP or SOB. He does admit to visual and auditory hallucinations. This morning he was seeing black bugs next to him on his bed and he reports hearing "the sound of a horn, but it is saying the name of the engine." He is aware that these are hallucinations during our conversation. Safety monitor at the bedside d/t restlessness. Nursing reports patient had a difficult night. Became agitated and combative overnight requiring physical restraint by security and administration of Geodon. Early this morning he apparently called the police and a insect control aide came to the hospital. He has required 2 total doses of Geodon. He has been calm and cooperative this morning, but very restless. Family History: Unchanged from Admission Social History: Unchanged from Admission Past Medical History: Unchanged from Admission Objective Active Medications: Acetaminophen (Tylenol Tab*) 650 mg PO Q4H PRN PAIN - MILD Apixaban (Eliquis*) 2.5 mg PO BID RENÉ Bisacodyl (Dulcolax Supp*) 10 mg [place] DAILY PRN CONSTIPATION Buspirone HCl (Buspar Tab*) 10 mg PO TID PRN ANXIETY Cyanocobalamin (Vitamin B12 Tab*) 1,000 mcg PO QAM RENÉ Cyclobenzaprine HCl (Flexeril Tab*) 10 mg PO Q6H PRN SPASMS Docusate Sodium (Colace Cap*) 100 mg PO BID RENÉ Sodium Chloride (Ns 0.9% 1000 Ml) 1,000 mls @ 125 mls/hr IV Q8H RENÉ Vancomycin HCl 1,250 mg/ (Sodium Chloride) 250 mls @ 166.667 mls/hr IVPB Q12H RENÉ Magnesium Hydroxide (Milk Of Magnesia Liq*) 30 ml PO BID RENÉ Multivitamins/Minerals (Theragran/Minerals Tab*) 1 tab PO QAM RENÉ Ondansetron HCl (Zofran Inj*) 4 mg IV Q4H PRN NAUSEA Oxycodone/Acetaminophen (Percocet 5/325 Tab*) 2 tab PO Q4H PRN PAIN - MODERATE Polyethylene Glycol/Electrolytes (Miralax*) 17 gm PO DAILY PRN CONSTIPATION Propranolol HCl (Inderal Tab*) 80 mg PO BID RENÉ Senna (Senokot 8.6 Mg Tab*) 1 tab PO BEDTIME RENÉ Sertraline HCl (Zoloft*) 100 mg PO QAM RENÉ Sumatriptan Succinate (Imitrex Sq*) 6 mg SUBCUT DAILY PRN MIGRAINE HEADACHE Vital Signs - 8 hr 07/27/19 07/27/19 07/27/19 00:15 00:22 02:06 Temperature 100.9 F Pulse Rate Respiratory 18 18 Rate Blood Pressure (mmHg) O2 Sat by Pulse Oximetry 07/27/19 07/27/19 04:01 04:07 Temperature 98.6 F Pulse Rate 66 Respiratory 17 17 Rate Blood Pressure 126/72 (mmHg) O2 Sat by Pulse 96 Oximetry Oxygen Devices in Use Now: None Appearance: Middle-aged male lying in bed in NAD Ears/Nose/Mouth/Throat: Mucous Membranes Moist Neck: NL Appearance and Movements; NL JVP, Trachea Midline Respiratory: Symmetrical Chest Expansion and Respiratory Effort, Clear to Auscultation Cardiovascular: NL Sounds; No Murmurs; No JVD, RRR Abdominal: NL Sounds; No Tenderness; No Distention Extremities: - - +2 pitting RLE Skin: - - Erythema and warmth surrounding R knee incision Neurological: Alert and Oriented x 3, - - Restless Lines/Tubes/Other Access: Clean, Dry and Intact Peripheral IV Result Diagrams: 07/26/19 05:54 07/27/19 05:26 Assess/Plan/Problems-Billing Assessment: Mr. Maurer is a 69 yo M with PMH of migraines and osteoarthritis who was admitted on 07/25/19 with an infected right total knee replacement which was performed one week prior. - Patient Problems (1) Postoperative wound infection Code(s): T81.49XA - INFECTION FOLLOWING A PROCEDURE, OTHER SURGICAL SITE, INIT Comment: - S/p right total knee arthroplasty 07/20/19 - Erythema and warmth surrounding sutures extending up right thigh - Appreciate Ortho consult; may require washout - Appreciate ID consult - Joint aspiration 07/26/19 with cultures pending - Continue vanco (2) Sepsis Comment: - Met criteria on admission with tachycardia and fever; source is right knee infection - Improving, but still febrile overnight - Plan as above (3) Septic encephalopathy Code(s): G93.41 - METABOLIC ENCEPHALOPATHY Comment: - Present on admission and initially improving, now worsening overnight with combativeness and hallucinations - CT brain on admission unremarkable - Likely also exacerbated by hospital delirium and narcotic use - Plan as above; try to avoid further physical and chemical restraints (4) Anxiety Code(s): F41.9 - ANXIETY DISORDER, UNSPECIFIED Comment: - Continue sertraline, buspirone (5) Migraines Code(s): G43.909 - MIGRAINE, UNSP, NOT INTRACTABLE, WITHOUT STATUS MIGRAINOSUS Comment: - Continue propranolol, sumatriptan PRN (6) Vitamin B12 deficiency Code(s): E53.8 - DEFICIENCY OF OTHER SPECIFIED B GROUP VITAMINS Comment: - Without macrocytic anemia - Continue supplemental B12 (7) DVT prophylaxis Code(s): Z29.9 - ENCOUNTER FOR PROPHYLACTIC MEASURES, UNSPECIFIED Comment: - Eliquis (8) Full code status Code(s): Z78.9 - OTHER SPECIFIED HEALTH STATUS Comment: Status and Disposition: Inpatient. Anticipate d/c home when medically stable, timeframe TBD by clinical course. Attending: Veronique Bangura
[2019-07-27 08:39] LABS: ABS Basophils 0.1 10^3/ul (0-0.2); ABS Eosinophils 0.2 10^3/ul (0-0.6); ABS Lymphocytes 1.1 10^3/ul (1.0-4.8); ABS Monocytes 1.8 10^3/ul (0-0.8); ABS Neutrophils 7.9 10^3/ul (1.5-7.7); Eosinophil % 1.6 %; Hematocrit 32 % (42-52); Hemoglobin 10.9 g/dL (14.0-18.0); Lymphocyte % 9.9 %; Mean Corpuscular HGB Conc 34 g/dL (31-36); Mean Corpuscular Hemoglobin 30 pg (27-31); Mean Corpuscular Volume 88 fL (80-94); Mean Platelet Volume 7.9 fL (7.4-10.4); Nucleated Red Blood Cells % 0.1; Platelet Count 336 10^3/uL (150-450); Red Blood Count 3.66 10^6 /uL (4.18-5.48); Red Cell Distribution Width 15 % (10-15); White Blood Count 11.1 10^3/uL (3.5-10.8)
[2019-07-27 08:55] LABS: EGFR Non-African American 95.1 (>60)
[2019-07-27 09:20] LABS: Vancomycin Trough 7.9 mcg/mL
[2019-07-27] MEDS ORDERED: Vancomycin Trough Check NOTE FOLLOW UP ONE (09:30)
[2019-07-27] MEDS ORDERED: Lorazepam PYXIS KEY PRN (10:11)
[2019-07-27] MEDS ORDERED: LORazepam INJ* 2 MG/ML 1 ML VIAL IV PUSH ONE (10:12)
[2019-07-27] MEDS ORDERED: Lorazepam PYXIS KEY ONE (10:14)
[2019-07-27] MEDS ORDERED: LORazepam INJ* 2 MG/ML 1 ML VIAL ONE (10:15)
[2019-07-27] MEDS: Docusate CAP* 100 MG PO SCH ×2 (10:40→22:40)
[2019-07-27] MEDS: Cyanocobalamin TAB* 500 MCG PO SCH (10:40)
--- NOTE | 2019-07-27 10:40 | PN ---
Progress Note - Progress Note Date of Service: 07/27/19 SOAP: Subjective: CC: cellulitis HPI: 69 year old man with recent right knee arthroplasty who developed right knee swelling and redness as well as hallucinations. Redness improving , delerium worsening, agitated this morning. No fever overnight. Objective: Vital Signs Temp 36.9 C 07/27/19 08:23 Pulse 68 07/27/19 08:23 Resp 20 07/27/19 10:19 BP 134/82 07/27/19 08:23 Pulse Ox 99 07/27/19 08:23 Intake & Output 07/26/19 07/27/19 07/27/19 18:59 06:59 18:59 Intake Total 1590 3480 Output Total 0 800 Balance 1590 2680 Intake: IV Fluids 990 2230 ABX - VANCOMYCIN 260 NS (0.9%) 990 1970 IVPB 270 ABX - VANCOMYCIN 270 Oral 600 980 Output: Urine 0 800 Other: Estimated Void Medium Medium Large # Bowel Movements 0 Estimated Stool Amount Medium # Voids 1 1 1 Gen:no diaphoresis Neuro: awake, picking at the air, does not regard HEENT: no thrush Heart:RRR no murmur Lungs:CTA BL Abd:+BS NTND soft Skin: No rash MSK: Right thigh/knee edema; erythema receding Laboratory Results - last 24 hr 07/26/19 07/27/19 07/27/19 10:00 05:26 08:21 WBC RBC Hgb Hct MCV MCH MCHC RDW Plt Count MPV Neut % (Auto) Lymph % (Auto) [place] % (Auto) Eos % (Auto) Baso % (Auto) Absolute Neuts (auto) Absolute Lymphs (auto) Absolute Monos (auto) Absolute Eos (auto) Absolute Basos (auto) Absolute Nucleated RBC Nucleated RBC % Sodium 132 L Potassium TNP Chloride 103 Carbon Dioxide 19 L Anion Gap 10 BUN 18 18 Creatinine 0.84 0.81 Est GFR ( Amer) 110.3 115.0 Est GFR (Non-Af Amer) 91.1 95.1 BUN/Creatinine Ratio 21.4 H Glucose 109 H Calcium 8.2 L C-Reactive Protein 256.53 H Urine Color Yellow Urine Appearance Cloudy Urine pH 5.0 Ur Specific [place] 1.023 Urine Protein 1+(30 mg/dl) A Urine Ketones Negative Urine Blood 1+ A Urine Nitrate Negative Urine Bilirubin Negative Urine Urobilinogen Negative Ur Leukocyte Esterase Negative Urine WBC (Auto) Trace(0-5/hpf) Urine RBC (Auto) Trace(0-2/hpf) Urine Bacteria Absent Urine Glucose Negative Vancomycin Trough 7.9 07/27/19 07/27/19 08:21 08:21 WBC 11.1 H RBC 3.66 L Hgb 10.9 L Hct 32 L MCV 88 MCH 30 MCHC 34 RDW 15 Plt Count 336 MPV 7.9 Neut % (Auto) 71.2 Lymph % (Auto) 9.9 [place] % (Auto) 16.6 Eos % (Auto) 1.6 Baso % (Auto) 0.7 Absolute Neuts (auto) 7.9 H Absolute Lymphs (auto) 1.1 Absolute Monos (auto) 1.8 H Absolute Eos (auto) 0.2 Absolute Basos (auto) 0.1 Absolute Nucleated RBC 0.0 Nucleated RBC % 0.1 Sodium Potassium 4.2 Chloride Carbon Dioxide Anion Gap BUN Creatinine Est GFR ( Amer) Est GFR (Non-Af Amer) BUN/Creatinine Ratio Glucose Calcium C-Reactive Protein Urine Color Urine Appearance Urine pH Ur Specific [place] Urine Protein Urine Ketones Urine Blood Urine Nitrate Urine Bilirubin Urine Urobilinogen Ur Leukocyte Esterase Urine WBC (Auto) Urine RBC (Auto) Urine Bacteria Urine Glucose Vancomycin Trough Assessment: 1. right knee cellulitis, improving, concern for deeper infection 2. Encephalopathy, diff dx includes knee infection, BC and UC negative, med or substance withdrawal or medication side effect ie oxycodone, brain CT was negative Plan: 1. continue vancomycin goal tr 15-20, check CXR, right knee culture pending Will discuss with IM and ortho
[2019-07-27] MEDS: Sertraline* 100 MG TAB PO SCH (10:44)
[2019-07-27] MEDS: Multivitamins/Minerals TAB PO SCH (10:44)
[2019-07-27] MEDS: Propranolol TAB* 80 MG PO SCH ×2 (10:44→22:33)
[2019-07-27] MEDS: Magnesium Hydroxide LIQ* 30 ML UDC PO SCH ×2 (10:44→22:40)
[2019-07-27] MEDS: Apixaban* 2.5 MG TAB PO SCH (10:45)
[2019-07-27] MEDS: Vancomycin(*) 1,250 MG in NS 0.9% 250 ML* 250 ML IVPB SCH (10:47)
--- NOTE | 2019-07-27 11:55 | PN ---
Progress Note - Progress Note Date of Service: 07/27/19 SOAP: Subjective: []Pt seen at bedside. He is alert but not oriented, he is uncooperative and can be combative at times. Does not respond to questions. Objective: []Gen: Awake and alert, talkative though not answering questions, combative to exam attempting to get up out of his chair without clear direction where he is trying to go. RLE: Right knee incision is CDI there is no discharge. Knee has a moderate effusion with erythema most predominant anterior and medially as well as erythema of the medial thigh. He is combative to exam pulling away and attempting to get out of his chair, he does grab at his knee when I am attempting passive range of motion. Extremity is warm and supple. DP 2+ Assessment: []SP RTK with overlying cellulitis. Synovial fluid cultures with no growth to date, final cultures needed to definitively rule out septic joint Plan: []WBAT RLE with rolling walker and at least 2 person assistance. He is not making safe decisions with regards to ambulation and needs 1:1 supervision and personal alarm. No long acting blood thinners. eliquis was stopped. Okay to give heparin but please hold at midnight in event he may need to go to the OR in coming days. NPO at midnight, watch cultures and exam. Discussed right knee synovial fluid culture with microbiology lab, no growth to date as of noon 07/27/19 Discussed with ID - cellulitis is improving but encephalopathy leaves concern for deeper infection Discussed with Dr Villanueva, we will continue to follow cultures and if there is any bacterial growth will need to I&D the right knee. Ammonia level ordered Cont IV vanc - Infectious disease to guide abx monitor CBC and CRP Vital Signs Temp 101.1 F 07/27/19 11:53 Pulse 91 07/27/19 11:52 Resp 24 07/27/19 12:54 BP 149/68 07/27/19 11:52 Pulse Ox 93 07/27/19 11:52 Intake & Output 07/26/19 07/27/19 07/27/19 18:59 06:59 18:59 Intake Total 1590 3480 Output Total 0 800 Balance 1590 2680 Intake: IV Fluids 990 2230 ABX - VANCOMYCIN 260 NS (0.9%) 990 1970 IVPB 270 ABX - VANCOMYCIN 270 Oral 600 980 Output: Urine 0 800 Other: Estimated Void Medium Medium Large # Bowel Movements 0 Estimated Stool Amount Medium # Voids 1 1 1 Laboratory Last Values WBC 11.1 10^3/uL (3.5-10.8) H 07/27/19 08:21 RBC 3.66 10^6 /uL (4.18-5.48) L 07/27/19 08:21 Hgb 10.9 g/dL (14.0-18.0) L 07/27/19 08:21 Hct 32 % (42-52) L 07/27/19 08:21 MCV 88 fL (80-94) 07/27/19 08:21 MCH 30 pg (27-31) 07/27/19 08:21 MCHC 34 g/dL (31-36) 07/27/19 08:21 RDW 15 % (10-15) 07/27/19 08:21 Plt Count 336 10^3/uL (150-450) 07/27/19 08:21 MPV 7.9 fL (7.4-10.4) 07/27/19 08:21 Neut % (Auto) 71.2 % 07/27/19 08:21 Lymph % (Auto) 9.9 % 07/27/19 08:21 [place] % (Auto) 16.6 % 07/27/19 08:21 Eos % (Auto) 1.6 % 07/27/19 08:21 Baso % (Auto) 0.7 % 07/27/19 08:21 Absolute Neuts (auto) 7.9 10^3/ul (1.5-7.7) H 07/27/19 08:21 Absolute Lymphs (auto) 1.1 10^3/ul (1.0-4.8) 07/27/19 08:21 Absolute Monos (auto) 1.8 10^3/ul (0-0.8) H 07/27/19 08:21 Absolute Eos (auto) 0.2 10^3/ul (0-0.6) 07/27/19 08:21 Absolute Basos (auto) 0.1 10^3/ul (0-0.2) 07/27/19 08:21 Absolute Nucleated RBC 0.0 10^3/ul 07/27/19 08:21 Nucleated RBC % 0.1 07/27/19 08:21 ESR 85 mm/Hr (0-19) H 07/25/19 19:46 Sodium 132 mmol/L (135-145) L 07/27/19 05:26 Potassium 4.2 mmol/L (3.5-5.0) 07/27/19 08:21 Chloride 103 mmol/L (101-111) 07/27/19 05:26 Carbon Dioxide 19 mmol/L (22-32) L 07/27/19 05:26 Anion Gap 10 mmol/L (2-11) 07/27/19 05:26 BUN 18 mg/dL (6-24) 07/27/19 08:21 Creatinine 0.81 mg/dL (0.67-1.17) 07/27/19 08:21 Est GFR ( Amer) 115.0 (>60) 07/27/19 08:21 Est GFR (Non-Af Amer) 95.1 (>60) 07/27/19 08:21 BUN/Creatinine Ratio 21.4 (8-20) H 07/27/19 05:26 Glucose 109 mg/dL (70-100) H 07/27/19 05:26 Lactic Acid 1.1 mmol/L (0.5-2.0) 07/25/19 19:46 Calcium 8.2 mg/dL (8.6-10.3) L 07/27/19 05:26 Magnesium 1.9 mg/dL (1.9-2.7) 07/26/19 05:54 Total Bilirubin 1.00 mg/dL (0.2-1.0) 07/25/19 19:46 AST 53 U/L (13-39) H 07/25/19 19:46 ALT 51 U/L (7-52) 07/25/19 19:46 Alkaline Phosphatase 73 U/L (34-104) 07/25/19 19:46 Troponin I 0.02 ng/mL (<0.03) 07/25/19 19:46 C-Reactive Protein 256.53 mg/L (<8.01) H 07/27/19 05:26 Total Protein 6.9 g/dL (6.4-8.9) 07/25/19 19:46 Albumin 3.5 g/dL (3.2-5.2) 07/25/19 19:46 Globulin 3.4 g/dL (2-4) 07/25/19 19:46 Albumin/Globulin Ratio 1.0 (1-3) 07/25/19 19:46 Urine Color Yellow 07/26/19 10:00 Urine Appearance Cloudy 07/26/19 10:00 Urine pH 5.0 (5-9) 07/26/19 10:00 Ur Specific [place] 1.023 (1.010-1.030) 07/26/19 10:00 Urine Protein 1+(30 mg/dl) (Negative) A 07/26/19 10:00 Urine Ketones Negative (Negative) 07/26/19 10:00 Urine Blood 1+ (Negative) A 07/26/19 10:00 Urine Nitrate Negative (Negative) 07/26/19 10:00 Urine Bilirubin Negative (Negative) 07/26/19 10:00 Urine Urobilinogen Negative (Negative) 07/26/19 10:00 Ur Leukocyte Esterase Negative (Negative) 07/26/19 10:00 Urine WBC (Auto) Trace(0-5/hpf) (Absent) 07/26/19 10:00 Urine RBC (Auto) Trace(0-2/hpf) (Absent) 07/26/19 10:00 Urine Bacteria Absent (Absent) 07/26/19 10:00 Urine Glucose Negative (Negative) 07/26/19 10:00 Fluid Source Synovial fluid 07/26/19 09:04 Fluid Volume 1.5 mL 07/26/19 09:04 Fluid Color Red 07/26/19 09:04 Fluid Appearance Bloody 07/26/19 09:04 Fluid WBC 61922 /mcL (0-170363) 07/26/19 09:04 Fluid RBC 179313 /mcL 07/26/19 09:04 Fluid Tot Cell Count 100 07/26/19 09:04 Fluid Neutrophils 99 % 07/26/19 09:04 Fluid Lymphocytes 1 % 07/26/19 09:04 Vancomycin Trough 7.9 mcg/mL 07/27/19 08:21 Serum Alcohol < 10 mg/dL (<10) 07/25/19 19:46
[2019-07-27] MEDS ORDERED: LORazepam INJ* 2 MG/ML 1 ML VIAL IV PUSH PRN (12:08)
[2019-07-27] MEDS ORDERED: Haloperidol INJ IV/IM* 5 MG/ML AMP IV SLOW PU PRN (12:44)
[2019-07-27] MEDS ORDERED: diPHENhydraMINE IV* 50 MG/ML 1 ml VIAL (BENADRYL) IV ONE (12:45)
[2019-07-27] MEDS: Acetaminophen TAB* 325 MG PO PRN (13:57)
[2019-07-27] MEDS ORDERED: diPHENhydraMINE IV* 50 MG/ML 1 ml VIAL (BENADRYL) SLOW PUSH PRN (14:26)
[2019-07-27] MEDS: Vancomycin(*) 1,000 MG in NS 0.9% 250 ML* 250 ML IV SCH (19:41)
[2019-07-27] MEDS: Senna TAB 8.6 mg* TAB PO SCH (22:40)
[2019-07-28] MEDS: NS 0.9% 1000 ML** 1,000 ML IV SCH ×4 (02:46→13:45)
[2019-07-28] MEDS: Vancomycin(*) 1,000 MG in NS 0.9% 250 ML* 250 ML IV SCH ×3 (03:59→17:57)
[2019-07-28 06:44] LABS: Hematocrit 28 % (42-52); Hemoglobin 9.4 g/dL (14.0-18.0); Mean Corpuscular HGB Conc 34 g/dL (31-36); Mean Corpuscular Hemoglobin 29 pg (27-31); Mean Corpuscular Volume 87 fL (80-94); Mean Platelet Volume 7.7 fL (7.4-10.4); Platelet Count 352 10^3/uL (150-450); Red Blood Count 3.19 10^6 /uL (4.18-5.48); Red Cell Distribution Width 15 % (10-15); White Blood Count 12.1 10^3/uL (3.5-10.8)
[2019-07-28 06:52] LABS: ABS Basophils 0.1 10^3/ul (0-0.2); ABS Eosinophils 0.1 10^3/ul (0-0.6); ABS Lymphocytes 1.2 10^3/ul (1.0-4.8); ABS Monocytes 1.6 10^3/ul (0-0.8); ABS Neutrophils 9.1 10^3/ul (1.5-7.7); Eosinophil % 0.9 %; Lymphocyte % 9.8 %; Nucleated Red Blood Cells % 0.1
--- NOTE | 2019-07-28 07:05 | PN ---
Progress Note - Progress Note Date of Service: 07/28/19 SOAP: Subjective: Pt. is confused this AM, elevated temperatures overnight. Objective: Vital Signs: Temp Pulse Resp BP Pulse Ox 101.1 F 80 19 127/72 93 07/28/19 04:15 07/28/19 04:15 07/28/19 04:15 07/28/19 04:15 07/28/19 04:15 Laboratory Results - last 24 hr 07/27/19 07/27/19 07/27/19 08:21 08:21 08:21 WBC 11.1 H RBC 3.66 L Hgb 10.9 L Hct 32 L MCV 88 MCH 30 MCHC 34 RDW 15 Plt Count 336 MPV 7.9 Neut % (Auto) 71.2 Lymph % (Auto) 9.9 [place] % (Auto) 16.6 Eos % (Auto) 1.6 Baso % (Auto) 0.7 Absolute Neuts (auto) 7.9 H Absolute Lymphs (auto) 1.1 Absolute Monos (auto) 1.8 H Absolute Eos (auto) 0.2 Absolute Basos (auto) 0.1 Absolute Nucleated RBC 0.0 Nucleated RBC % 0.1 Potassium 4.2 BUN 18 Creatinine 0.81 Est GFR ( Amer) 115.0 Est GFR (Non-Af Amer) 95.1 Ammonia Vancomycin Trough 7.9 07/27/19 07/28/19 14:24 06:30 WBC 12.1 H RBC 3.19 L Hgb 9.4 L Hct 28 L MCV 87 MCH 29 MCHC 34 RDW 15 Plt Count 352 MPV 7.7 Neut % (Auto) 75.1 Lymph % (Auto) 9.8 [place] % (Auto) 13.4 Eos % (Auto) 0.9 Baso % (Auto) 0.8 Absolute Neuts (auto) 9.1 H Absolute Lymphs (auto) 1.2 Absolute Monos (auto) 1.6 H Absolute Eos (auto) 0.1 Absolute Basos (auto) 0.1 Absolute Nucleated RBC 0.0 Nucleated RBC % 0.1 Potassium BUN Creatinine Est GFR ( Amer) Est GFR (Non-Af Amer) Ammonia 35 Vancomycin Trough RLE - thigh erythema resolved. Knee erythema improved, moderate swelling and significant warmth. Pain with ROM. distally nvi. Assessment: 69 yo 1 week s/p RTKA. He is readmitted with delirium and cellulitis. Right knee aspiration with no bacterial growth to date, but patient's symptoms are certainly concerning for infection of RTKA. Plan to perform formal I and D RTKA with polyethylene exchange today. Plan: Allow patient to have breakfast and npo after 9am for proposed 5pm surgery please. Will discuss with his . Will follow cultures. Continue IV Abx Discussed with Dr. Wharton, he agrees with the decision to wash out the knee without positive cultures, based on patient symptoms.
[2019-07-28 07:10] LABS: C Reactive Protein 271.95 mg/L (<8.01); Calcium 8.4 mg/dL (8.6-10.3); EGFR African American 118.4 (>60); EGFR Non-African American 97.8 (>60)
[2019-07-28] MEDS: Magnesium Hydroxide LIQ* 30 ML UDC PO SCH (07:33)
[2019-07-28] MEDS: oxyCODONE/Acetamin 5/325 MG* TAB PO PRN (07:37)
[2019-07-28] MEDS: Propranolol TAB* 80 MG PO SCH (07:37)
[2019-07-28] MEDS: Docusate CAP* 100 MG PO SCH (07:37)
[2019-07-28] MEDS: Multivitamins/Minerals TAB PO SCH (07:37)
[2019-07-28] MEDS: Sertraline* 100 MG TAB PO SCH (07:37)
[2019-07-28] MEDS: Cyanocobalamin TAB* 500 MCG PO SCH (07:37)
--- NOTE | 2019-07-28 08:49 | PN ---
Subjective Date of Service: 07/28/19 Interval History: Reportedly patient is less confused today per nursing. He ate breakfast this AM and will be npo for procedure and he understands this. He tells me his right leg pain is tolerable, but behind the right knee is where the pain is the worst. He feels symptomatic of his fever and diaphoretic. Denies chest pain, difficulty breathing, abd pain. Family History: Unchanged from Admission Social History: Unchanged from Admission Past Medical History: Unchanged from Admission Objective Active Medications: Acetaminophen (Tylenol Tab*) 650 mg PO Q4H PRN PRN Reason: MILD PAIN or TEMP > 100.4 Bisacodyl (Dulcolax Supp*) 10 mg CO DAILY PRN PRN Reason: CONSTIPATION Buspirone HCl (Buspar Tab*) 10 mg PO TID PRN PRN Reason: ANXIETY Cyanocobalamin (Vitamin B12 Tab*) 1,000 mcg PO QAM [facility] Last Admin: 07/28/19 07:37 Dose: 1,000 mcg Cyclobenzaprine HCl (Flexeril Tab*) 10 mg PO Q6H PRN PRN Reason: SPASMS Diphenhydramine HCl (Benadryl Iv*) 25 mg SLOW PUSH Q6H PRN PRN Reason: INSOMNIA Docusate Sodium (Colace Cap*) 100 mg PO BID [facility] Last Admin: 07/28/19 07:37 Dose: 100 mg Haloperidol Lactate (Haldol Inj Iv/Im*) 5 mg IV SLOW PU Q6H PRN PRN Reason: AGITATION Last Admin: 07/27/19 12:58 Dose: 5 mg Sodium Chloride (Ns 0.9% 1000 Ml) 1,000 mls @ 125 mls/hr IV Q8H [facility] Last Admin: 07/28/19 07:33 Dose: Not Given Vancomycin HCl 1,000 mg/ (Sodium Chloride) 250 mls @ 166.667 mls/hr IV Q8H [facility] Last Admin: 07/28/19 03:59 Dose: 166.667 mls/hr Lorazepam (Ativan Inj*) 1.5 mg IV PUSH Q6H PRN PRN Reason: ANXIETY Magnesium Hydroxide (Milk Of Magnesia Liq*) 30 ml PO BID [facility] Last Admin: 07/28/19 07:33 Dose: Not Given Miscellaneous (Ativan Pyxis Ríos) 1 ea N/A .ATIVAN IV RÍOS PRN PRN Reason: PYXIS RÍOS Multivitamins/Minerals (Theragran/Minerals Tab*) 1 tab PO QAM [facility] Last Admin: 07/28/19 07:37 Dose: 1 tab Oxycodone/Acetaminophen (Percocet 5/325 Tab*) 2 tab PO Q4H PRN PRN Reason: PAIN - MODERATE Last Admin: 07/28/19 07:37 Dose: 2 tab Pharmacy Consult (Vancomycin Per Pharmacy*) 1 note FOLLOW UP .VANC PER PHARMACY [facility]; Protocol Pharmacy Profile Note (Vancomycin Trough Check) 1 note FOLLOW UP 1130 ONE Stop: 07/28/19 11:31 Polyethylene Glycol/Electrolytes (Miralax*) 17 gm PO DAILY PRN PRN Reason: CONSTIPATION Propranolol HCl (Inderal Tab*) 80 mg PO BID [facility] Last Admin: 07/28/19 07:37 Dose: 80 mg Senna (Senokot 8.6 Mg Tab*) 1 tab PO BEDTIME [facility] Last Admin: 07/27/19 22:40 Dose: Not Given Sertraline HCl (Zoloft*) 100 mg PO QAM [facility] Last Admin: 07/28/19 07:37 Dose: 100 mg Sumatriptan Succinate (Imitrex Sq*) 6 mg SUBCUT DAILY PRN PRN Reason: MIGRAINE HEADACHE Last Admin: 07/26/19 20:53 Dose: 6 mg Vital Signs - 8 hr 07/28/19 07/28/19 07/28/19 04:15 07:37 07:43 Temperature 101.1 F 98.6 F Pulse Rate 80 73 Respiratory 19 18 20 Rate Blood Pressure 127/72 138/68 (mmHg) O2 Sat by Pulse 93 96 Oximetry Oxygen Devices in Use Now: None Appearance: White male, WD WN, laying in bed, appearing in NAD, diaphoretic Eyes: No Scleral Icterus, - - PERRL Ears/Nose/Mouth/Throat: Mucous Membranes Moist Neck: Trachea Midline Respiratory: Symmetrical Chest Expansion and Respiratory Effort, Clear to Auscultation Cardiovascular: NL Sounds; No Murmurs; No JVD, RRR Abdominal: - - soft, nontender, nondistended Extremities: - - erythema and edema to right knee in approx 6 in diameter centered around sutures; edema extends into right thakur and stops approx mid-thakur Skin: No Rash or Ulcers Neurological: - - patient oriented x4, monitor at bedside; patient able to move all extremities; appears minimally agitated as he is squirming in bed but psychologically not agitated Result Diagrams: 07/28/19 06:30 07/28/19 06:30 Additional Lab and Data: Lab Results 07/25/19 07/25/19 07/25/19 Range/Units 19:46 19:46 19:46 WBC 11.6 H (3.5-10.8) 10^3/uL RBC 3.98 L (4.18-5.48) 10^6 /uL Hgb 11.8 L (14.0-18.0) g/dL Hct 35 L (42-52) % MCV 88 (80-94) fL MCH 30 (27-31) pg MCHC 34 (31-36) g/dL RDW 15 (10-15) % Plt Count 277 (150-450) 10^3/uL MPV 8.1 (7.4-10.4) fL Neut % (Auto) 76.1 % Lymph % (Auto) 8.4 % [place] % (Auto) 12.9 % Eos % (Auto) 1.9 % Baso % (Auto) 0.7 % Absolute Neuts (auto) 8.9 H (1.5-7.7) 10^3/ul Absolute Lymphs (auto) 1.0 (1.0-4.8) 10^3/ul Absolute Monos (auto) 1.5 H (0-0.8) 10^3/ul Absolute Eos (auto) 0.2 (0-0.6) 10^3/ul Absolute Basos (auto) 0.1 (0-0.2) 10^3/ul Absolute Nucleated RBC 0.0 10^3/ul Nucleated RBC % 0.0 ESR Pending Sodium 132 L (135-145) mmol/L Potassium 3.8 (3.5-5.0) mmol/L Chloride 95 L (101-111) mmol/L Carbon Dioxide 28 (22-32) mmol/L Anion Gap 9 (2-11) mmol/L BUN 19 (6-24) mg/dL Creatinine 0.95 (0.67-1.17) mg/dL Est GFR ( Amer) 95.7 (>60) Est GFR (Non-Af Amer) 79.1 (>60) BUN/Creatinine Ratio 20.0 (8-20) Glucose 153 H (70-100) mg/dL Lactic Acid 1.1 (0.5-2.0) mmol/L Calcium 9.0 (8.6-10.3) mg/dL Total Bilirubin 1.00 (0.2-1.0) mg/dL AST 53 H (13-39) U/L ALT 51 (7-52) U/L Alkaline Phosphatase 73 (34-104) U/L Troponin I 0.02 (<0.03) ng/mL C-Reactive Protein 332.63 H (<8.01) mg/L Total Protein 6.9 (6.4-8.9) g/dL Albumin 3.5 (3.2-5.2) g/dL Globulin 3.4 (2-4) g/dL Albumin/Globulin Ratio 1.0 (1-3) Serum Alcohol < 10 (<10) mg/dL Microbiology and Other Data: Microbiology 07/26/19 09:04 Gram Stain - Final Joint Fluid(Synovial) - Knee Right Skin and Soft Tissue MRSA/MSSA (PCR - Final Mrsa Negative S.aureus Negative Assess/Plan/Problems-Billing Assessment: Mr. Maurer is a 69 yo M with PMH of migraines and osteoarthritis who was admitted on 07/25/19 with an infected right total knee replacement which was performed one week prior. - Patient Problems (1) Postoperative wound infection Current Visit: Yes Status: Acute Code(s): T81.49XA - INFECTION FOLLOWING A PROCEDURE, OTHER SURGICAL SITE, INIT SNOMED Code(s): 85997460 Comment: - S/p right total knee arthroplasty 07/20/19 - Erythema and warmth surrounding sutures extending up right thigh - Appreciate Ortho consult; plan for right knee washout today - Appreciate ID consult - Joint aspiration 07/26/19 with cultures demonstrating staph caprae - Continue vanco (2) Sepsis Current Visit: Yes Status: Acute Comment: - Met criteria on admission with tachycardia and fever; source is right knee infection - Improving, but still febrile - Plan as above (3) Septic encephalopathy Current Visit: Yes Status: Acute Code(s): G93.41 - METABOLIC ENCEPHALOPATHY SNOMED Code(s): 285981111 Comment: - Present on admission and worsened with combativeness and hallucinations - CT brain on admission unremarkable - Likely also exacerbated by hospital delirium and narcotic use - Improving today, hopeful for further improvement after joint washout (4) Anxiety Current Visit: Yes Status: Acute Code(s): F41.9 - ANXIETY DISORDER, UNSPECIFIED SNOMED Code(s): 64876811 Comment: - Continue sertraline, buspirone (5) Migraines Current Visit: Yes Status: Acute Code(s): G43.909 - MIGRAINE, UNSP, NOT INTRACTABLE, WITHOUT STATUS MIGRAINOSUS SNOMED Code(s): 13564023 Comment: - Continue propranolol, sumatriptan PRN (6) DVT prophylaxis Current Visit: Yes Status: Acute Code(s): Z29.9 - ENCOUNTER FOR PROPHYLACTIC MEASURES, UNSPECIFIED SNOMED Code(s): 105684074 Comment: - Eliquis stopped in anticipation of joint washout today per ortho - Will restart based on ortho recommendations after procedure (7) Full code status Current Visit: Yes Status: Acute Code(s): Z78.9 - OTHER SPECIFIED HEALTH STATUS SNOMED Code(s): 801069467 Comment: Status and Disposition: Inpatient. Anticipate d/c home when medically stable, timeframe TBD by clinical course.
[2019-07-28] MEDS ORDERED: Vancomycin Trough Check NOTE FOLLOW UP ONE (11:30)
[2019-07-28] MEDS ORDERED: Famotidine IV* 10 MG/ML 2 ML (20 mg) IV ONE (12:54)
[2019-07-28] MEDS ORDERED: Bacitracin INJECTION* 50,000 UNITS ONE (18:13)
[2019-07-28] MEDS ORDERED: fentaNYL* 50 MCG/ML 2 ML VIAL (100 MCG VIAL) ONE ×3 (18:32→20:15)
[2019-07-28] MEDS ORDERED: Midazolam* 1 MG/ML 5 ML VIAL (5 MG) ONE ×3 (18:32→20:42)
[2019-07-28] MEDS ORDERED: Ketorolac INJ* 30 MG/ML 1 ML VIAL ONE (18:34)
[2019-07-28] MEDS ORDERED: Dexamethasone IV* 4 MG/ML 1 ML (4 MG) ONE (18:34)
[2019-07-28] MEDS ORDERED: Succinylcholine* 20 MG/ML 10 ML VIAL ONE (18:34)
[2019-07-28] MEDS ORDERED: Ondansetron INJ* 2 MG/ML VIAL ONE (18:34)
[2019-07-28] MEDS ORDERED: Propofol* 10 MG/ML 20 ML BTL ONE (18:34)
[2019-07-28] MEDS ORDERED: Phenylephrine 10 MG/ML VIAL* 1 ML VIAL ONE (18:35)
[2019-07-28] MEDS ORDERED: Lidocaine 2% PF * 5 ML VIAL ONE (18:35)
[2019-07-28] MEDS ORDERED: KETAMINE HCL* 50 MG/ML 10 ML VIAL ONE (19:47)
[2019-07-28] MEDS ORDERED: ROPIVACAINE 5 MG/ML 30 ML BTL (0.5%) ONE (20:56)
[2019-07-28] MEDS ORDERED: HYDROmorphone INJ1* 1 MG/ML SYRINGE ONE (21:29)
[2019-07-28] MEDS ORDERED: Levalbuterol 0.63MG/3ML NEB* UNIT OF USE INH ONE (22:03)
[2019-07-29] MEDS: Propranolol TAB* 80 MG PO SCH ×3 (00:35→19:47)
[2019-07-29] MEDS: Senna TAB 8.6 mg* TAB PO SCH ×2 (00:35→19:46)
[2019-07-29] MEDS: Magnesium Hydroxide LIQ* 30 ML UDC PO SCH ×3 (00:35→19:48)
[2019-07-29] MEDS: Docusate CAP* 100 MG PO SCH ×3 (00:35→19:46)
--- NOTE | 2019-07-29 01:20 | OP ---
OPERATIVE NOTE: DATE OF OPERATION: 07/28/19 DATE OF : 54 ATTENDING SURGEON: Radha Villanueva MD MEDICAL ASSOCIATE: KARINA Elizalde Ms. did help throughout the procedure with preparation of the leg, wound retraction, manipul ation of the knee, and wound closure. ANESTHESIOLOGIST: Dr. Bruce. ANESTHESIA: General. PRE-OP DIAGNOSIS: Right total knee arthroplasty, suspected infection. POST-OP DIAGNOSES: 1. Right total knee arthroplasty, suspected infection. 2. Large intraarticular hematoma. OPERATIVE PROCEDURE: Irrigation and debridement of right total knee arthroplasty with polyethylene e xchange. TOURNIQUET TIME: 60 minutes. COMPLICATIONS: None. SPECIMEN: Multiple culture swabs and intraarticular joint fluid was sent for cultures and sensitivit ies including the aerobic, anaerobic, microbacterial and fungal. HARDWARE: A 9 mm 5/6 polyethylene liner was placed. BRIEF HISTORY/INDICATIONS: Mr. Maurer is a 69-year-old gentleman who had right total knee arthroplas ty on 07/20/19. The surgery was uncomplicated. Postoperatively, he was placed on Eliquis and dischar ged to home. He returned to the hospital on 07/25/19, with mental status changes and some erythema a round the incision. He was placed on IV antibiotics. He did have cellulitis along the medial thigh and around the incision. Mental status changes and intermittent delirium have continued. His knee w as aspirated and he continued to have elevated temperature. Due to his continued symptoms, decision was made to take him for an open washout of the knee joint. There was staph growth on one of the cul ture plates, Staph caprae was growing. The patient's did sign consent. She understood the risk s of the procedure included but were not limited to bleeding, infection, continued infection, need fo r further surgery, damage to nearby structures, continued pain, knee stiffness, loss of motion, intra operative fracture or hardware malfunction, future loosening of the implant, stroke, heart attack, bl ood clot, and . She wished to proceed. INTRAOPERATIVE FINDINGS: Intraoperatively, the patient was noted to have healing soft tissue appropr iate for 1 week after surgery. He had a large intraarticular hematoma. There was no obvious purulen ce. No obvious infection was noted. DESCRIPTION OF PROCEDURE: Mr. Maurer was identified in the preanesthesia unit. His right lower extre mity was marked as the correct operative site. Informed consent was signed by his . He was take n to the operating room and placed under anesthesia without difficulty. A [place] catheter was placed. Tourniquet was placed on the right thigh. Right lower extremity was prepped and draped in the usua l sterile fashion. Preop time-out was made to correctly identify the patient, side and site. The karina huff had already had IV antibiotics throughout the day. The patient's tourniquet was inflated until the tourniquet time was 60 minutes. The patient's prior m idline incision was opened using a 10 blade. Any visible sutures were carefully removed. There was no abnormality. There was no purulence. New 10 blade was used to perform a standard medial parapatel lar arthrotomy. The prior arthrotomy incision was used. Any visible sutures were carefully removed. There was a large intraarticular hematoma with large amount of blood clot in the suprapatellar pouch and gutters. This was cleared. The knee was copiously irrigated with 3 L of sterile saline. Next, the knee was flexed up. There was no obvious purulence or infection. The polyethylene liner was re moved. Another 3 L were used to wash the back of the knee joint. A 9-mm 5/6 polyethylene liner was chosen and locked into position on the tibial tray. The knee was copiously irrigated with another 3 L of sterile saline. There was minimal necrotic tissue. Very small amount of fibrous tissue was debr ided along the inferior aspect of the patella. The extensor mechanism was closed using interrupted # 1 Vicryl. The rest of the incision was closed in a layered fashion using 0 and 2-0 Vicryl. Skin was closed using running 3-0 nylon suture. Sterile Xeroform, 4x4s, and Webril were used to cover the in cision. Itz wrap and cold pack were placed over the top. The patient's anesthesia was reversed with out difficulty. He was taken to the PACU in stable condition. Intended weightbearing will be weight bearing as tolerated. Intended DVT prophylaxis will be Lovenox. We will continue IV antibiotics and of course follow cultures. [id number]/[facility] #: [id number]
[2019-07-29] MEDS: NS 0.9% 1000 ML** 1,000 ML IV SCH ×2 (02:03→11:00)
[2019-07-29] MEDS: Vancomycin(*) 1,000 MG in NS 0.9% 250 ML* 250 ML IV SCH ×4 (02:04→18:28)
--- NOTE | 2019-07-29 07:35 | PROCNOTE ---
- Assessment for Patient Restraint Evaluation of the Patient's Immediate Situation: still unresponsive, but he periodically wakes up and becomes agitated. He is moving around a lot and there is concern for his own safety. Patient's Reaction to Intervention: none Patient's Medication and Behavioral Condition: AMS from infection
[2019-07-29 07:52] LABS: ABS Lymphocytes 0.7 10^3/ul (1.0-4.8); ABS Monocytes 0.5 10^3/ul (0-0.8); ABS Neutrophils 10.5 10^3/ul (1.5-7.7); Hematocrit 27 % (42-52); Hemoglobin 8.9 g/dL (14.0-18.0); Lymphocyte % 6.1 %; Mean Corpuscular HGB Conc 33 g/dL (31-36); Mean Corpuscular Hemoglobin 29 pg (27-31); Mean Corpuscular Volume 88 fL (80-94); Platelet Count 393 10^3/uL (150-450); Red Blood Count 3.08 10^6 /uL (4.18-5.48); Red Cell Distribution Width 16 % (10-15); White Blood Count 11.7 10^3/uL (3.5-10.8)
--- NOTE | 2019-07-29 07:54 | PN ---
Progress Note - Progress Note Date of Service: 07/29/19 SOAP: Subjective: patient sleeping, no response to questions, in restraints because of aggressive behavior overnight Objective: Vital Signs Temp Pulse Resp BP Pulse Ox 98.1 F 72 14 95/62 100 07/29/19 07:16 07/29/19 07:16 07/29/19 07:16 07/29/19 07:16 07/29/19 07:16 Laboratory Last Values WBC 12.1 10^3/uL (3.5-10.8) H 07/28/19 06:30 RBC 3.19 10^6 /uL (4.18-5.48) L 07/28/19 06:30 Hgb 9.4 g/dL (14.0-18.0) L 07/28/19 06:30 Hct 28 % (42-52) L 07/28/19 06:30 MCV 87 fL (80-94) 07/28/19 06:30 MCH 29 pg (27-31) 07/28/19 06:30 MCHC 34 g/dL (31-36) 07/28/19 06:30 RDW 15 % (10-15) 07/28/19 06:30 Plt Count 352 10^3/uL (150-450) 07/28/19 06:30 MPV 7.7 fL (7.4-10.4) 07/28/19 06:30 Neut % (Auto) 75.1 % 07/28/19 06:30 Lymph % (Auto) 9.8 % 07/28/19 06:30 [place] % (Auto) 13.4 % 07/28/19 06:30 Eos % (Auto) 0.9 % 07/28/19 06:30 Baso % (Auto) 0.8 % 07/28/19 06:30 Absolute Neuts (auto) 9.1 10^3/ul (1.5-7.7) H 07/28/19 06:30 Absolute Lymphs (auto) 1.2 10^3/ul (1.0-4.8) 07/28/19 06:30 Absolute Monos (auto) 1.6 10^3/ul (0-0.8) H 07/28/19 06:30 Absolute Eos (auto) 0.1 10^3/ul (0-0.6) 07/28/19 06:30 Absolute Basos (auto) 0.1 10^3/ul (0-0.2) 07/28/19 06:30 Absolute Nucleated RBC 0.0 10^3/ul 07/28/19 06:30 Nucleated RBC % 0.1 07/28/19 06:30 ESR 85 mm/Hr (0-19) H 07/25/19 19:46 VBG pH 7.34 (7.32-7.43) 07/29/19 05:51 VBG pCO2 42 mmHg (41-51) 07/29/19 05:51 VBG pO2 52.0 mmHg (35-45) H 07/29/19 05:51 VBG HCO3 22.2 mmol/L (24-28) L 07/29/19 05:51 VBG O2 Saturation 84.2 % (70-80) H 07/29/19 05:51 VBG Base Excess -3.0 mmol/L (0.0-4.0) L 07/29/19 05:51 Sodium 133 mmol/L (135-145) L 07/28/19 06:30 Potassium 4.0 mmol/L (3.5-5.0) 07/28/19 06:30 Chloride 101 mmol/L (101-111) 07/28/19 06:30 Carbon Dioxide 25 mmol/L (22-32) 07/28/19 06:30 Anion Gap 7 mmol/L (2-11) 07/28/19 06:30 BUN 15 mg/dL (6-24) 07/28/19 06:30 Creatinine 0.79 mg/dL (0.67-1.17) 07/28/19 06:30 Est GFR ( Amer) 118.4 (>60) 07/28/19 06:30 Est GFR (Non-Af Amer) 97.8 (>60) 07/28/19 06:30 BUN/Creatinine Ratio 19.0 (8-20) 07/28/19 06:30 Glucose 120 mg/dL (70-100) H 07/28/19 06:30 Lactic Acid 1.1 mmol/L (0.5-2.0) 07/25/19 19:46 Calcium 8.4 mg/dL (8.6-10.3) L 07/28/19 06:30 Magnesium 1.9 mg/dL (1.9-2.7) 07/26/19 05:54 Total Bilirubin 1.00 mg/dL (0.2-1.0) 07/25/19 19:46 AST 53 U/L (13-39) H 07/25/19 19:46 ALT 51 U/L (7-52) 07/25/19 19:46 Alkaline Phosphatase 73 U/L (34-104) 07/25/19 19:46 Ammonia 35 mcmol/L (16-53) 07/27/19 14:24 Troponin I 0.02 ng/mL (<0.03) 07/25/19 19:46 C-Reactive Protein 246.17 mg/L (<8.01) H 07/29/19 05:29 Total Protein 6.9 g/dL (6.4-8.9) 07/25/19 19:46 Albumin 3.5 g/dL (3.2-5.2) 07/25/19 19:46 Globulin 3.4 g/dL (2-4) 07/25/19 19:46 Albumin/Globulin Ratio 1.0 (1-3) 07/25/19 19:46 Urine Color Yellow 07/26/19 10:00 Urine Appearance Cloudy 07/26/19 10:00 Urine pH 5.0 (5-9) 07/26/19 10:00 Ur Specific [place] 1.023 (1.010-1.030) 07/26/19 10:00 Urine Protein 1+(30 mg/dl) (Negative) A 07/26/19 10:00 Urine Ketones Negative (Negative) 07/26/19 10:00 Urine Blood 1+ (Negative) A 07/26/19 10:00 Urine Nitrate Negative (Negative) 07/26/19 10:00 Urine Bilirubin Negative (Negative) 07/26/19 10:00 Urine Urobilinogen Negative (Negative) 07/26/19 10:00 Ur Leukocyte Esterase Negative (Negative) 07/26/19 10:00 Urine WBC (Auto) Trace(0-5/hpf) (Absent) 07/26/19 10:00 Urine RBC (Auto) Trace(0-2/hpf) (Absent) 07/26/19 10:00 Urine Bacteria Absent (Absent) 07/26/19 10:00 Urine Glucose Negative (Negative) 07/26/19 10:00 Fluid Source Synovial fluid 07/26/19 09:04 Fluid Volume 1.5 mL 07/26/19 09:04 Fluid Color Red 07/26/19 09:04 Fluid Appearance Bloody 07/26/19 09:04 Fluid WBC 27623 /mcL (0-334541) 07/26/19 09:04 Fluid RBC 282648 /mcL 07/26/19 09:04 Fluid Tot Cell Count 100 07/26/19 09:04 Fluid Neutrophils 99 % 07/26/19 09:04 Fluid Lymphocytes 1 % 07/26/19 09:04 Vancomycin Trough 9.9 mcg/mL 07/28/19 11:16 Serum Alcohol < 10 mg/dL (<10) 07/25/19 19:46 Assessment: s/p I&D right knee Plan: 1) hospitalist co-managing 2) continue IV abx 3) continue restraints as needed 4) awaiting culture results and CBC 5) Lovenox 40mg QD starts today, SCD's if patient cooperates
--- NOTE | 2019-07-29 09:23 | PN ---
Subjective Date of Service: 07/29/19 Interval History: Patient combative after returning to floor from PACU yesterday s/p right knee washout. Physical restraints intact from approx 0055 to 0345. Patient asleep at time of evaluation but awakens to touch. Openly admits that he feels confused. Tells me he is currently in [place] and that he and his live in [place], but he knows it's July 2019. He has no recollection of how he got to the hospital, but is aware he is in a hospital. He denies fever/chills , abd pain, nausea, chest pain, difficulty breathing. He denies right knee pain. He says he mostly feels like his normal self. Family History: Unchanged from Admission Social History: Unchanged from Admission Past Medical History: Unchanged from Admission Objective Active Medications: Acetaminophen (Tylenol Tab*) 650 mg PO Q4H PRN PRN Reason: MILD PAIN or TEMP > 100.4 Bisacodyl (Dulcolax Supp*) 10 mg PA DAILY PRN PRN Reason: CONSTIPATION Buspirone HCl (Buspar Tab*) 10 mg PO TID PRN PRN Reason: ANXIETY Cyanocobalamin (Vitamin B12 Tab*) 1,000 mcg PO QAM [facility] Last Admin: 07/28/19 07:37 Dose: 1,000 mcg Cyclobenzaprine HCl (Flexeril Tab*) 10 mg PO Q6H PRN PRN Reason: SPASMS Diphenhydramine HCl (Benadryl Iv*) 25 mg SLOW PUSH Q6H PRN PRN Reason: INSOMNIA Docusate Sodium (Colace Cap*) 100 mg PO BID [facility] Last Admin: 07/29/19 00:35 Dose: Not Given Enoxaparin Sodium (Lovenox(*)) 40 mg SUBCUT DAILY@1200 RENÉ Haloperidol Lactate (Haldol Inj Iv/Im*) 5 mg IV SLOW PU Q6H PRN PRN Reason: AGITATION Last Admin: 07/27/19 12:58 Dose: 5 mg Vancomycin HCl 1,000 mg/ (Sodium Chloride) 250 mls @ 166.667 mls/hr IV Q6HR [facility] Last Admin: 07/29/19 05:27 Dose: 166.667 mls/hr Lorazepam (Ativan Inj*) 1.5 mg IV PUSH Q6H PRN PRN Reason: ANXIETY Last Admin: 07/28/19 15:51 Dose: 1.5 mg Magnesium Hydroxide (Milk Of Magnesia Liq*) 30 ml PO BID [facility] Last Admin: 07/29/19 00:35 Dose: Not Given Miscellaneous (Ativan Pyxis Salas) 1 ea N/A .ATIVAN IV SALAS PRN PRN Reason: PYXIS SALAS Multivitamins/Minerals (Theragran/Minerals Tab*) 1 tab PO QAM [facility] Last Admin: 07/28/19 07:37 Dose: 1 tab Oxycodone/Acetaminophen (Percocet 5/325 Tab*) 2 tab PO Q4H PRN PRN Reason: PAIN - MODERATE Last Admin: 07/28/19 07:37 Dose: 2 tab Pharmacy Consult (Vancomycin Per Pharmacy*) 1 note FOLLOW UP .VANC PER PHARMACY [facility]; Protocol Pharmacy Profile Note (Vancomycin Trough Check) 1 note FOLLOW UP ONCE ONE Stop: 07/30/19 05:31 Polyethylene Glycol/Electrolytes (Miralax*) 17 gm PO DAILY PRN PRN Reason: CONSTIPATION Propranolol HCl (Inderal Tab*) 80 mg PO BID [facility] Last Admin: 07/29/19 00:35 Dose: Not Given Senna (Senokot 8.6 Mg Tab*) 1 tab PO BEDTIME [facility] Last Admin: 07/29/19 00:35 Dose: Not Given Sertraline HCl (Zoloft*) 100 mg PO QAM [facility] Last Admin: 07/28/19 07:37 Dose: 100 mg Sumatriptan Succinate (Imitrex Sq*) 6 mg SUBCUT DAILY PRN PRN Reason: MIGRAINE HEADACHE Last Admin: 07/26/19 20:53 Dose: 6 mg Vital Signs - 8 hr 07/29/19 07/29/19 07/29/19 01:55 02:00 02:27 Temperature 97.1 F Pulse Rate 86 Respiratory 15 15 16 Rate Blood Pressure 143/97 (mmHg) O2 Sat by Pulse 95 Oximetry 07/29/19 07/29/19 07/29/19 02:58 03:05 04:56 Temperature 96.6 F 97.1 F 97.2 F Pulse Rate 75 77 74 Respiratory 18 12 16 Rate Blood Pressure 110/76 106/65 107/64 (mmHg) O2 Sat by Pulse 97 97 97 Oximetry 07/29/19 07:16 Temperature 98.1 F Pulse Rate 72 Respiratory 14 Rate Blood Pressure 95/62 (mmHg) O2 Sat by Pulse 100 Oximetry Oxygen Devices in Use Now: Simple Face Mask Appearance: WD WN male, laying upright in bed, appearing comfortable and in NAD Eyes: No Scleral Icterus, - - PERRL Ears/Nose/Mouth/Throat: - - lips dry Neck: Trachea Midline Respiratory: Symmetrical Chest Expansion and Respiratory Effort, Clear to Auscultation Cardiovascular: NL Sounds; No Murmurs; No JVD, RRR Abdominal: - - abd soft, nontender, nondistended Extremities: No Clubbing, Cyanosis, - - +1-2 pitting edema from right knee into right foot Skin: No Rash or Ulcers Neurological: - - alerted easily to touch from sleep, oriented to self and time Result Diagrams: 07/29/19 05:28 07/28/19 06:30 Additional Lab and Data: Lab Results 07/25/19 07/25/19 07/25/19 Range/Units 19:46 19:46 19:46 WBC 11.6 H (3.5-10.8) 10^3/uL RBC 3.98 L (4.18-5.48) 10^6 /uL Hgb 11.8 L (14.0-18.0) g/dL Hct 35 L (42-52) % MCV 88 (80-94) fL MCH 30 (27-31) pg MCHC 34 (31-36) g/dL RDW 15 (10-15) % Plt Count 277 (150-450) 10^3/uL MPV 8.1 (7.4-10.4) fL Neut % (Auto) 76.1 % Lymph % (Auto) 8.4 % [place] % (Auto) 12.9 % Eos % (Auto) 1.9 % Baso % (Auto) 0.7 % Absolute Neuts (auto) 8.9 H (1.5-7.7) 10^3/ul Absolute Lymphs (auto) 1.0 (1.0-4.8) 10^3/ul Absolute Monos (auto) 1.5 H (0-0.8) 10^3/ul Absolute Eos (auto) 0.2 (0-0.6) 10^3/ul Absolute Basos (auto) 0.1 (0-0.2) 10^3/ul Absolute Nucleated RBC 0.0 10^3/ul Nucleated RBC % 0.0 ESR Pending Sodium 132 L (135-145) mmol/L Potassium 3.8 (3.5-5.0) mmol/L Chloride 95 L (101-111) mmol/L Carbon Dioxide 28 (22-32) mmol/L Anion Gap 9 (2-11) mmol/L BUN 19 (6-24) mg/dL Creatinine 0.95 (0.67-1.17) mg/dL Est GFR ( Amer) 95.7 (>60) Est GFR (Non-Af Amer) 79.1 (>60) BUN/Creatinine Ratio 20.0 (8-20) Glucose 153 H (70-100) mg/dL Lactic Acid 1.1 (0.5-2.0) mmol/L Calcium 9.0 (8.6-10.3) mg/dL Total Bilirubin 1.00 (0.2-1.0) mg/dL AST 53 H (13-39) U/L ALT 51 (7-52) U/L Alkaline Phosphatase 73 (34-104) U/L Troponin I 0.02 (<0.03) ng/mL C-Reactive Protein 332.63 H (<8.01) mg/L Total Protein 6.9 (6.4-8.9) g/dL Albumin 3.5 (3.2-5.2) g/dL Globulin 3.4 (2-4) g/dL Albumin/Globulin Ratio 1.0 (1-3) Serum Alcohol < 10 (<10) mg/dL Microbiology and Other Data: Microbiology 07/26/19 09:04 Gram Stain - Final Joint Fluid(Synovial) - Knee Right Skin and Soft Tissue MRSA/MSSA (PCR - Final Mrsa Negative S.aureus Negative Assess/Plan/Problems-Billing Assessment: Mr. Maurer is a 69 yo M with PMH of migraines and osteoarthritis who was admitted on 07/25/19 with an infected right total knee replacement which was performed one week prior. - Patient Problems (1) Altered mental status Current Visit: Yes Status: Acute Code(s): R41.82 - ALTERED MENTAL STATUS, UNSPECIFIED SNOMED Code(s): 549985425 Comment: - Present on admission and worsened with combativeness and hallucinations - CT brain on admission unremarkable - High on differential is metabolic encephalopathy related to acute infection - Likely also exacerbated by hospital delirium and narcotic use - Was improved during the day yesterday, but patient was quite combative and confused after wakening in PACU after washout overnight. Restraints were ordered overnight and have since been removed. Please note that Dr. Silva's restraint note was from an evaluation time of approx 0100 today. - Ordering vitamin B3, B9, B12, TSH - Minimize use of benzos and opiates (2) Postoperative wound infection Current Visit: Yes Status: Acute Code(s): T81.49XA - INFECTION FOLLOWING A PROCEDURE, OTHER SURGICAL SITE, INIT SNOMED Code(s): 79146678 Comment: - S/p right total knee arthroplasty 07/20/19 - Erythema and warmth surrounding sutures extending up right thigh at presentation - Appreciate Ortho consult. Knee washout performed yesterday 07/28/19 and was not overtly purulent per Dr. Villanueva, but a large hematoma was noted which would explain erythema and edema. - Awaiting joint washout culture - Appreciate ID consult - Joint aspiration 07/26/19 with cultures demonstrating staph caprae - Continue vanco (3) Bacteremia Current Visit: Yes Status: Acute Code(s): R78.81 - BACTEREMIA SNOMED Code( s): 2547653 Comment: -blood culture positive for staph caprae -will draw surveillance blood cultures -continue vancomycin -appreciate ID consult -will order TTE (4) Sepsis Current Visit: Yes Status: Acute Comment: - Met criteria on admission with tachycardia and fever; source is right knee infection - Improving, no fever thus far today - Plan as above (5) Lower extremity edema Current Visit: Yes Status: Acute Code(s): R60.0 - LOCALIZED EDEMA SNOMED Code(s): 882742573 Comment: -yesterday edema appears consistent with typical postoperative edema, but today appears worsened -RLE doppler to r/o DVT pending (6) Anxiety Current Visit: Yes Status: Acute Code(s): F41.9 - ANXIETY DISORDER, UNSPECIFIED SNOMED Code(s): 69197395 Comment: - Continue sertraline, buspirone (7) Migraines Current Visit: Yes Status: Acute Code(s): G43.909 - MIGRAINE, UNSP, NOT INTRACTABLE, WITHOUT STATUS MIGRAINOSUS SNOMED Code(s): 22202896 Comment: - Continue propranolol, sumatriptan PRN (8) DVT prophylaxis Current Visit: Yes Status: Acute Code(s): Z29.9 - ENCOUNTER FOR PROPHYLACTIC MEASURES, UNSPECIFIED SNOMED Code(s): 704629872 Comment: - Lovenox per ortho (9) Full code status Current Visit: Yes Status: Acute Code(s): Z78.9 - OTHER SPECIFIED HEALTH STATUS SNOMED Code(s): 717006874 Comment: Status and Disposition: Inpatient. Anticipate d/c home when medically stable, timeframe TBD by clinical course.
[2019-07-29] MEDS: Cyanocobalamin TAB* 500 MCG PO SCH (11:01)
[2019-07-29] MEDS: Sertraline* 100 MG TAB PO SCH (11:02)
[2019-07-29] MEDS: Multivitamins/Minerals TAB PO SCH (11:02)
[2019-07-29 12:13] LABS: Folate > 20.00 ng/mL (>3.99)
[2019-07-29] MEDS: Enoxaparin(*) 40 MG/0.4 ML SYR SUBCUT SCH (13:13)
[2019-07-29] MEDS: Acetaminophen TAB* 325 MG PO PRN ×2 (13:16→17:11)
[2019-07-29] MEDS ORDERED: oxyCODONE/Acetamin 5/325 MG* TAB PO PRN ×2 (16:35)
[2019-07-29] MEDS: Ketorolac INJ* 15 MG/ML 1 ML VIAL IV PUSH PRN (17:11)
[2019-07-29] MEDS: Nicotine PATCH 21 MG/24 HR* PATCH TRANSDERM SCH (19:44)
[2019-07-29] MEDS: Cyclobenzaprine TAB* 10 MG PO PRN (19:46)
[2019-07-29] MEDS ORDERED: Nicotine Patch Removal NOTE PATCH OFF SCH (21:00)
[2019-07-29 22:56] LABS: Urine Benzodiazepine Screen Presumptive Positive (None Detect); Urine Opiates Screen None Detected (None Detect)
[2019-07-30] MEDS: Vancomycin(*) 1,000 MG in NS 0.9% 250 ML* 250 ML IV SCH ×5 (00:01→17:30)
[2019-07-30] MEDS: Acetaminophen TAB* 325 MG PO PRN ×4 (00:17→21:10)
[2019-07-30] MEDS: Ketorolac INJ* 15 MG/ML 1 ML VIAL IV PUSH PRN ×2 (00:19→16:32)
[2019-07-30] MEDS ORDERED: Vancomycin Trough Check NOTE FOLLOW UP ONE (05:30)
[2019-07-30 05:35] LABS: ABS Eosinophils 0.1 10^3/ul (0-0.6); ABS Lymphocytes 1.5 10^3/ul (1.0-4.8); ABS Neutrophils 9.2 10^3/ul (1.5-7.7); Eosinophil % 1.2 %; Hematocrit 28 % (42-52); Hemoglobin 9.6 g/dL (14.0-18.0); Lymphocyte % 12.8 %; Mean Corpuscular HGB Conc 34 g/dL (31-36); Mean Corpuscular Hemoglobin 30 pg (27-31); Mean Corpuscular Volume 88 fL (80-94); Mean Platelet Volume 7.7 fL (7.4-10.4); Nucleated Red Blood Cells % 0.1; Platelet Count 516 10^3/uL (150-450); Red Cell Distribution Width 15 % (10-15)
[2019-07-30 05:55] LABS: EGFR African American 101.8 (>60); EGFR Non-African American 84.2 (>60)
[2019-07-30 06:20] LABS: Vancomycin Trough 21.9 mcg/mL
[2019-07-30] MEDS: Nicotine PATCH 21 MG/24 HR* PATCH TRANSDERM SCH (08:46)
[2019-07-30] MEDS: Sertraline* 100 MG TAB PO SCH (08:47)
[2019-07-30] MEDS: Magnesium Hydroxide LIQ* 30 ML UDC PO SCH ×2 (08:47→21:23)
[2019-07-30] MEDS: Cyanocobalamin TAB* 500 MCG PO SCH (08:47)
[2019-07-30] MEDS: Multivitamins/Minerals TAB PO SCH (08:48)
[2019-07-30] MEDS: Docusate CAP* 100 MG PO SCH ×2 (08:48→21:10)
[2019-07-30] MEDS: Propranolol TAB* 80 MG PO SCH ×2 (08:48→21:11)
--- NOTE | 2019-07-30 10:20 | PN ---
Progress Note - Progress Note Date of Service: 07/30/19 SOAP: Subjective: OOB to chair, pain well controlled, patient overall feeling better today, denies any calf pain/sob, F/S/C Objective: Vital Signs Temp Pulse Resp BP Pulse Ox 97.9 F 70 18 116/78 96 07/30/19 07:18 07/30/19 07:18 07/30/19 08:00 07/30/19 07:18 07/30/19 07:18 Laboratory Last Values WBC 12.0 10^3/uL (3.5-10.8) H 07/30/19 05:24 RBC 3.20 10^6 /uL (4.18-5.48) L 07/30/19 05:24 Hgb 9.6 g/dL (14.0-18.0) L 07/30/19 05:24 Hct 28 % (42-52) L 07/30/19 05:24 MCV 88 fL (80-94) 07/30/19 05:24 MCH 30 pg (27-31) 07/30/19 05:24 MCHC 34 g/dL (31-36) 07/30/19 05:24 RDW 15 % (10-15) 07/30/19 05:24 Plt Count 516 10^3/uL (150-450) H D 07/30/19 05:24 MPV 7.7 fL (7.4-10.4) 07/30/19 05:24 Neut % (Auto) 77.1 % 07/30/19 05:24 Lymph % (Auto) 12.8 % 07/30/19 05:24 [place] % (Auto) 8.6 % 07/30/19 05:24 Eos % (Auto) 1.2 % 07/30/19 05:24 Baso % (Auto) 0.3 % 07/30/19 05:24 Absolute Neuts (auto) 9.2 10^3/ul (1.5-7.7) H 07/30/19 05:24 Absolute Lymphs (auto) 1.5 10^3/ul (1.0-4.8) 07/30/19 05:24 Absolute Monos (auto) 1.0 10^3/ul (0-0.8) H 07/30/19 05:24 Absolute Eos (auto) 0.1 10^3/ul (0-0.6) 07/30/19 05:24 Absolute Basos (auto) 0.0 10^3/ul (0-0.2) 07/30/19 05:24 Absolute Nucleated RBC 0.0 10^3/ul 07/30/19 05:24 Nucleated RBC % 0.1 07/30/19 05:24 ESR 85 mm/Hr (0-19) H 07/25/19 19:46 VBG pH 7.34 (7.32-7.43) 07/29/19 05:51 VBG pCO2 42 mmHg (41-51) 07/29/19 05:51 VBG pO2 52.0 mmHg (35-45) H 07/29/19 05:51 VBG HCO3 22.2 mmol/L (24-28) L 07/29/19 05:51 VBG O2 Saturation 84.2 % (70-80) H 07/29/19 05:51 VBG Base Excess -3.0 mmol/L (0.0-4.0) L 07/29/19 05:51 Sodium 133 mmol/L (135-145) L 07/28/19 06:30 Potassium 4.0 mmol/L (3.5-5.0) 07/28/19 06:30 Chloride 101 mmol/L (101-111) 07/28/19 06:30 Carbon Dioxide 25 mmol/L (22-32) 07/28/19 06:30 Anion Gap 7 mmol/L (2-11) 07/28/19 06:30 BUN 24 mg/dL (6-24) 07/30/19 05:24 Creatinine 0.90 mg/dL (0.67-1.17) 07/30/19 05:24 Est GFR ( Amer) 101.8 (>60) 07/30/19 05:24 Est GFR (Non-Af Amer) 84.2 (>60) 07/30/19 05:24 BUN/Creatinine Ratio 19.0 (8-20) 07/28/19 06:30 Glucose 120 mg/dL (70-100) H 07/28/19 06:30 Lactic Acid 1.1 mmol/L (0.5-2.0) 07/25/19 19:46 Calcium 8.4 mg/dL (8.6-10.3) L 07/28/19 06:30 Magnesium 1.9 mg/dL (1.9-2.7) 07/26/19 05:54 Total Bilirubin 1.00 mg/dL (0.2-1.0) 07/25/19 19:46 AST 53 U/L (13-39) H 07/25/19 19:46 ALT 51 U/L (7-52) 07/25/19 19:46 Alkaline Phosphatase 73 U/L (34-104) 07/25/19 19:46 Ammonia 35 mcmol/L (16-53) 07/27/19 14:24 Troponin I 0.02 ng/mL (<0.03) 07/25/19 19:46 C-Reactive Protein 177.00 mg/L (<8.01) H 07/30/19 05:24 Total Protein 6.9 g/dL (6.4-8.9) 07/25/19 19:46 Albumin 3.5 g/dL (3.2-5.2) 07/25/19 19:46 Globulin 3.4 g/dL (2-4) 07/25/19 19:46 Albumin/Globulin Ratio 1.0 (1-3) 07/25/19 19:46 Vitamin B12 > 1450 pg/mL (180-914) H 07/29/19 05:28 Folate > 20.00 ng/mL (>3.99) 07/29/19 05:28 TSH 1.10 mcIU/mL (0.34-5.60) 07/29/19 05:28 Urine Color Yellow 07/26/19 10:00 Urine Appearance Cloudy 07/26/19 10:00 Urine pH 5.0 (5-9) 07/26/19 10:00 Ur Specific [place] 1.023 (1.010-1.030) 07/26/19 10:00 Urine Protein 1+(30 mg/dl) (Negative) A 07/26/19 10:00 Urine Ketones Negative (Negative) 07/26/19 10:00 Urine Blood 1+ (Negative) A 07/26/19 10:00 Urine Nitrate Negative (Negative) 07/26/19 10:00 Urine Bilirubin Negative (Negative) 07/26/19 10:00 Urine Urobilinogen Negative (Negative) 07/26/19 10:00 Ur Leukocyte Esterase Negative (Negative) 07/26/19 10:00 Urine WBC (Auto) Trace(0-5/hpf) (Absent) 07/26/19 10:00 Urine RBC (Auto) Trace(0-2/hpf) (Absent) 07/26/19 10:00 Urine Bacteria Absent (Absent) 07/26/19 10:00 Urine Glucose Negative (Negative) 07/26/19 10:00 Fluid Source Synovial fluid 07/26/19 09:04 Fluid Volume 1.5 mL 07/26/19 09:04 Fluid Color Red 07/26/19 09:04 Fluid Appearance Bloody 07/26/19 09:04 Fluid WBC 08686 /mcL (0-853408) 07/26/19 09:04 Fluid RBC 245648 /mcL 07/26/19 09:04 Fluid Tot Cell Count 100 07/26/19 09:04 Fluid Neutrophils 99 % 07/26/19 09:04 Fluid Lymphocytes 1 % 07/26/19 09:04 Vancomycin Trough 21.9 mcg/mL 07/30/19 05:24 Urine Opiates Screen None detected (None Detect) 07/29/19 20:12 Ur Barbiturates Screen None detected (None Detect) 07/29/19 20:12 Ur Phencyclidine Scrn None detected (None Detect) 07/29/19 20:12 Ur Amphetamines Screen None detected (None Detect) 07/29/19 20:12 U Benzodiazepines Scrn Presumptive positive (None Detect) A 07/29/19 20:12 Urine Cocaine Screen None detected (None Detect) 07/29/19 20:12 U Cannabinoids Screen None detected (None Detect) 07/29/19 20:12 Serum Alcohol < 10 mg/dL (<10) 07/25/19 19:46 incision: c/d/i; dressing changed PE: able to DF/PF, 2+ DP pulse and intact sensation Assessment: s/p I&D right TKA Plan: 1) continue PT/OT-WBAT 2) Continue IV abx 3) Hospitalist and ID following 4) will continue to monitor closely
--- NOTE | 2019-07-30 11:47 | ECHO ---
*[facility]* [place] [address] Fax #: [phone] Transthoracic Echocardiogram Patient: Jason Maurer : 1950 Study Date: 07/30/2019 Age: 69 Gender: M HR: 62 bpm Height: 71 in /180.3 cm BSA: 2.18 m^2 Weight: 215.6 lb /98 kg BMI: 30.1 kg/m^2 *Extrusion Press Adjuster: Katarzyna Hughes [facility] *Referring Physician: * O'Veronika Titus *Reading Physician: * Estrella De Los Santos MD Indications: Bacteremia. History: Murmur. Risk factors: Current tobacco use. Labs, prior tests, procedures, and surgery: Right Knee wash-out.. Performed during the current admission. Conclusions Summary: - Left ventricle: Systolic function is normal. The estimated ejection fraction is 55-60%. - Right ventricle: The cavity size is mildly dilated. - Left atrium: The atrium is moderately dilated. - Right atrium: The atrium is moderately dilated. - Mitral valve: There is trace regurgitation. - Tricuspid valve: There is mild regurgitation. - Pulmonary arteries: Systolic pressure is mildly increased. - There is no previous echocardiogram available. Study data: Transthoracic echocardiogram. Procedure: Transthoracic echocardiography was performed. Image quality was good. Complete 2D, spectral Doppler, and color flow Doppler. Location: Bedside. Patient status: Inpatient. Patient room number: 337. Rhythm: Normal sinus rhythm. Findings Left ventricle: The cavity size is normal. Wall thickness is mildly increased. Systolic function is normal. The estimated ejection fraction is 55-60%. Wall motion is normal; there are no regional wall motion abnormalities. Left ventricular diastolic function parameters are normal. Right ventricle: The cavity size is mildly dilated. Systolic function is normal. Systolic pressure is mildly increased. Left atrium: The atrium is moderately dilated. Right atrium: The atrium is moderately dilated. Mitral valve: The leaflets are mildly thickened. There is no evidence of a vegetation. There is no evidence of stenosis. There is trace regurgitation. Aortic valve: The valve is trileaflet. The leaflets are normal thickness. There is no evidence of a vegetation. There is no evidence of stenosis. There is no significant regurgitation. Tricuspid valve: The leaflets are normal thickness. There is no evidence of a vegetation. There is no evidence of stenosis. There is mild regurgitation. Pulmonic valve: The leaflets are normal thickness. There is no evidence of a vegetation. There is no evidence of stenosis. There is trace regurgitation. Aorta: Aortic root: The aortic root is appears normal. Ascending aorta: The ascending aorta is appears normal. Aortic arch: The aortic arch is appears normal. Pericardium: There is no significant pericardial effusion. Pulmonary arteries: The main pulmonary artery is normal-sized. Systolic pressure is mildly increased. Systemic veins: Inferior vena cava: The vessel is dilated. There is (>= 50%) respiratory change in the IVC dimension. Measurements Left ventricle Value Ref Aortic valve Value Ref ZEHRA, LAX 5.3 cm 4.2 - 5.8 James diam, ED 2.3 cm ----- ESD, LAX 3.6 cm 2.5 - 4.0 Peak v, S 1.61 m/sec ----- FS, LAX 33 % 25 - 43 VTI, S 30.2 cm ----- PW, ED, LAX (H) 1.1 cm 0.6 - 1.0 Mean grad, S 4.0 mm Hg ----- FS 33 % 25 - 43 Peak grad, S 10.0 mm Hg ----- PW, ED (H) 1.1 cm 0.6 - 1.0 LVOT/AV, VTI ratio 0.99 ----- E', lat james, TDI 11.5 cm/sec >=10.0 E/e', lat james, 8 Mitral valve Value Ref TDI Peak E 0.93 m/sec ----- E', med james, TDI 9.9 cm/sec >=7.0 Peak A 0.68 m/sec --- -- E/e', med james, 9 Decel time 169 ms ----- TDI Peak grad, D 3.4 mm Hg ----- E', avg, TDI 10.7 cm/sec Peak E/A ratio 1.4 ----- E/e', avg, TDI 9 <=14 Pulmonic valve Value Ref LVOT Value Ref Peak v, S 1 m/sec ----- Peak zena, S 1.45 m/sec Peak grad, S 4.0 mm Hg ----- VTI, S 30.0 cm Peak grad, S 8 mm Hg Tricuspid valve Value Ref Mean grad, S 4 mm Hg TR peak v 2.8 m/sec <=2.8 Peak RV-RA grad, S 31 mm Hg ----- Ventricular septum Value Ref IVS, ED (H) 1.1 cm 0.6 - 1.0 Aortic root Value Ref Root diam 3.3 cm <4.3 Right ventricle Value Ref ZEHRA, LAX 4.4 cm Ascending aorta Value Ref ZEHRA minor ax, A4C (H) 4.1 cm 1.9 - 3.5 AAo AP diam, S 3.3 cm ----- mid Pressure, S 39 mm Hg Aortic arch Value Ref Arch diam 2.5 cm ----- Left atrium Value Ref AP dim, ES (H) 4.50 cm 3.00 - Decending aorta Value Ref 4.00 Olman peak zena 0.78 m/sec ----- ML dim, A4C 4.6 cm SI dim, A4C 6.1 cm Pulmonary artery Value Ref Vol/bsa, ES, 1-p (H) 39 ml/m^2 12 - 37 Pressure, S 35.0 mm Hg ----- A4C Vol/bsa, ES, A/L (H) 43 ml/m^2 16 - 34 Inferior vena cava Value Ref Diam 2.4 cm ----- Right atrium Value Ref SI dim, ES (H) 6.7 cm 3.4 - 5.3 ML dim, ES, A4C (H) 6.1 cm 2.6 - 4.4 Estimated RAP 8 mm Hg Legend: (L) and (H) chapin values outside specified reference range. Prepared and electronically signed by Estrella De Los Santos MD 07/30/2019 11:46
[2019-07-30] MEDS: Enoxaparin(*) 40 MG/0.4 ML SYR SUBCUT SCH (13:50)
--- NOTE | 2019-07-30 15:14 | PN ---
Subjective Date of Service: 07/30/19 Interval History: Patient notes strange taste in mouth and persistent smell. He finds it hard to describe but thinks it may be metallic when asked. Describes to me that he does not feel confused today but has many memory gaps from the last several days in the hospital with intermittent moments he remembers. He remembers having some visual hallucinations of ants crawling on the wall. Denies visual hallucinations today. Denies fever/chills, abd pain, nausea, vomiting, chest pain, difficulty breathing. He says he only has mild pain in his right knee and it is tolerable. Family History: Unchanged from Admission Social History: Unchanged from Admission Past Medical History: Unchanged from Admission Objective Active Medications: Acetaminophen (Tylenol Tab*) 650 mg PO Q4H PRN PRN Reason: MILD PAIN or TEMP > 100.4 Last Admin: 07/30/19 13:54 Dose: 650 mg Bisacodyl (Dulcolax Supp*) 10 mg [place] DAILY PRN PRN Reason: CONSTIPATION Buspirone HCl (Buspar Tab*) 10 mg PO TID PRN PRN Reason: ANXIETY Cyanocobalamin (Vitamin B12 Tab*) 1,000 mcg PO QAM [facility] Last Admin: 07/30/19 08:47 Dose: 1,000 mcg Cyclobenzaprine HCl (Flexeril Tab*) 10 mg PO Q6H PRN PRN Reason: SPASMS Last Admin: 07/29/19 19:46 Dose: 10 mg Docusate Sodium (Colace Cap*) 100 mg PO BID [facility] Last Admin: 07/30/19 08:48 Dose: 100 mg Enoxaparin Sodium (Lovenox(*)) 40 mg SUBCUT DAILY@1200 [facility] Last Admin: 07/30/19 13:50 Dose: 40 mg Haloperidol Lactate (Haldol Inj Iv/Im*) 5 mg IV SLOW PU Q6H PRN PRN Reason: AGITATION Last Admin: 07/27/19 12:58 Dose: 5 mg Vancomycin HCl 1,000 mg/ (Sodium Chloride) 250 mls @ 166.667 mls/hr IV Q8H [facility] Last Admin: 07/30/19 10:23 Dose: 166.667 mls/hr Ketorolac Tromethamine (Toradol Inj*) 15 mg IV PUSH Q6H PRN PRN Reason: PAIN - MODERATE Last Admin: 07/30/19 00:19 Dose: 15 mg Lorazepam (Ativan Inj*) 1.5 mg IV PUSH Q6H PRN PRN Reason: ANXIETY Last Admin: 07/28/19 15:51 Dose: 1.5 mg Magnesium Hydroxide (Milk Of Magnesia Liq*) 30 ml PO BID [facility] Last Admin: 07/30/19 08:47 Dose: 30 ml Miscellaneous (Ativan Pyxis Ríos) 1 ea N/A .ATIVAN IV RÍOS PRN PRN Reason: PYXIS RÍOS Multivitamins/Minerals (Theragran/Minerals Tab*) 1 tab PO QAM [facility] Last Admin: 07/30/19 08:48 Dose: 1 tab Nicotine (Nicotine Patch 21 Mg/24 Hr*) 1 patch TRANSDERM DAILY [facility] Last Admin: 07/30/19 08:46 Dose: 1 patch Oxycodone/Acetaminophen (Percocet 5/325 Tab*) 2 tab PO Q4H PRN PRN Reason: pain - breakthrough Oxycodone/Acetaminophen (Percocet 5/325 Tab*) 1 tab PO Q4H PRN PRN Reason: PAIN - SEVERE Pharmacy Consult (Vancomycin Per Pharmacy*) 1 note FOLLOW UP .VANC PER PHARMACY [facility]; Protocol Pharmacy Profile Note (Nicotine Patch Removal Note*) 1 note PATCH OFF BEDTIME [facility] Polyethylene Glycol/Electrolytes (Miralax*) 17 gm PO DAILY PRN PRN Reason: CONSTIPATION Propranolol HCl (Inderal Tab*) 80 mg PO BID [facility] Last Admin: 07/30/19 08:48 Dose: 80 mg Senna (Senokot 8.6 Mg Tab*) 1 tab PO BEDTIME [facility] Last Admin: 07/29/19 19:46 Dose: 1 tab Sertraline HCl (Zoloft*) 100 mg PO QAM [facility] Last Admin: 07/30/19 08:47 Dose: 100 mg Sumatriptan Succinate (Imitrex Sq*) 6 mg SUBCUT DAILY PRN PRN Reason: MIGRAINE HEADACHE Last Admin: 07/26/19 20:53 Dose: 6 mg Vital Signs - 8 hr 07/30/19 07/30/19 07/30/19 07:18 08:00 12:00 Temperature 97.9 F 97.6 F Pulse Rate 70 58 Respiratory 17 17 18 Rate Blood Pressure 116/78 122/66 (mmHg) O2 Sat by Pulse 96 99 Oximetry Oxygen Devices in Use Now: None Appearance: WD WN white male, laying upright in bed, appearing comfortable and in NAD Eyes: No Scleral Icterus, - - PERRL Ears/Nose/Mouth/Throat: Mucous Membranes Moist, - - apthous ulcer to inner bottom lip and to left lateral aspect of tongue Neck: Trachea Midline Respiratory: Symmetrical Chest Expansion and Respiratory Effort, Clear to Auscultation Cardiovascular: NL Sounds; No Murmurs; No JVD, RRR Abdominal: - - abd soft, nontender, nondistended Extremities: - - trace edema pretibially on RLE; right knee in RAFAEL wrap Skin: No Rash or Ulcers Neurological: NL Muscle Strength and Tone, - - alert and oriented x 4 Result Diagrams: 07/30/19 05:24 07/30/19 05:24 Additional Lab and Data: Lab Results 07/25/19 07/25/19 07/25/19 Range/Units 19:46 19:46 19:46 WBC 11.6 H (3.5-10.8) 10^3/uL RBC 3.98 L (4.18-5.48) 10^6 /uL Hgb 11.8 L (14.0-18.0) g/dL Hct 35 L (42-52) % MCV 88 (80-94) fL MCH 30 (27-31) pg MCHC 34 (31-36) g/dL RDW 15 (10-15) % Plt Count 277 (150-450) 10^3/uL MPV 8.1 (7.4-10.4) fL Neut % (Auto) 76.1 % Lymph % (Auto) 8.4 % [place] % (Auto) 12.9 % Eos % (Auto) 1.9 % Baso % (Auto) 0.7 % Absolute Neuts (auto) 8.9 H (1.5-7.7) 10^3/ul Absolute Lymphs (auto) 1.0 (1.0-4.8) 10^3/ul Absolute Monos (auto) 1.5 H (0-0.8) 10^3/ul Absolute Eos (auto) 0.2 (0-0.6) 10^3/ul Absolute Basos (auto) 0.1 (0-0.2) 10^3/ul Absolute Nucleated RBC 0.0 10^3/ul Nucleated RBC % 0.0 ESR Pending Sodium 132 L (135-145) mmol/L Potassium 3.8 (3.5-5.0) mmol/L Chloride 95 L (101-111) mmol/L Carbon Dioxide 28 (22-32) mmol/L Anion Gap 9 (2-11) mmol/L BUN 19 (6-24) mg/dL Creatinine 0.95 (0.67-1.17) mg/dL Est GFR ( Amer) 95.7 (>60) Est GFR (Non-Af Amer) 79.1 (>60) BUN/Creatinine Ratio 20.0 (8-20) Glucose 153 H (70-100) mg/dL Lactic Acid 1.1 (0.5-2.0) mmol/L Calcium 9.0 (8.6-10.3) mg/dL Total Bilirubin 1.00 (0.2-1.0) mg/dL AST 53 H (13-39) U/L ALT 51 (7-52) U/L Alkaline Phosphatase 73 (34-104) U/L Troponin I 0.02 (<0.03) ng/mL C-Reactive Protein 332.63 H (<8.01) mg/L Total Protein 6.9 (6.4-8.9) g/dL Albumin 3.5 (3.2-5.2) g/dL Globulin 3.4 (2-4) g/dL Albumin/Globulin Ratio 1.0 (1-3) Serum Alcohol < 10 (<10) mg/dL Microbiology and Other Data: Microbiology 07/26/19 09:04 Gram Stain - Final Joint Fluid(Synovial) - Knee Right Skin and Soft Tissue MRSA/MSSA (PCR - Final Mrsa Negative S.aureus Negative Assess/Plan/Problems-Billing Assessment: Mr. Maurer is a 69 yo M with PMH of migraines and osteoarthritis who was admitted on 07/25/19 with an infected right total knee replacement which was performed one week prior. - Patient Problems (1) Postoperative wound infection Current Visit: Yes Status: Acute Code(s): T81.49XA - INFECTION FOLLOWING A PROCEDURE, OTHER SURGICAL SITE, INIT SNOMED Code(s): 29929230 Comment: - S/p right total knee arthroplasty 07/20/19 - Erythema and warmth surrounding sutures extending up right thigh at presentation - Joint aspiration 07/26/19 with cultures demonstrating staph caprae - Appreciate Ortho consult. Knee washout performed 07/28/19 and was not overtly purulent per Dr. Villanueva, but a large hematoma was noted which would also contribute to erythema and edema. - Awaiting joint washout culture - Appreciate ID consult - Continue vanco (2) Bacteremia Current Visit: Yes Status: Acute Code(s): R78.81 - BACTEREMIA SNOMED Code( s): 9350716 Comment: -blood culture positive for staph caprae, source is knee -surveillance blood cultures pending -continue vancomycin -appreciate ID consult -TTE without vegetations, will discuss with ID to determine if PATEL is indicated (3) Altered mental status Current Visit: Yes Status: Acute Code(s): R41.82 - ALTERED MENTAL STATUS, UNSPECIFIED SNOMED Code(s): 497537978 Comment: - Present on admission and worsened with combativeness and hallucinations, requiring physical restraint at [facility] - CT brain on admission unremarkable - High on differential is metabolic encephalopathy related to acute infection - Likely also exacerbated by hospital delirium and narcotic use - vitamin B3 pending - vitamin B12 elevated likely due to supplementation, folate wnl, TSH wnl - Minimize use of benzos and opiates - Greatly improved today (4) Metallic taste Current Visit: Yes Status: Acute Code(s): R43.8 - OTHER DISTURBANCES OF SMELL AND TASTE SNOMED Code(s): 90683604 Comment: -patient notes persistent metallic taste and difficulty to describe smell -differential includes olfactory/gustatory hallucinations -checking zinc -in combination with apthous ulcer and significant altered mental status changes previously in hospital stay, lupus is on the differential and I'll order CLAIRE, anti-dsDNA, anti-Sm. Ordering MRI brain to r/o CVA. (5) Sepsis Current Visit: Yes Status: Acute Comment: - Met criteria on admission with tachycardia and fever; source is right knee infection - SIRS criteria resolved (6) Lower extremity edema Current Visit: Yes Status: Acute Code(s): R60.0 - LOCALIZED EDEMA SNOMED Code(s): 156653540 Comment: -RLE doppler negative for DVT -consistent with recent TKA (7) Anxiety Current Visit: Yes Status: Acute Code(s): F41.9 - ANXIETY DISORDER, UNSPECIFIED SNOMED Code(s): 54281672 Comment: - Continue sertraline, buspirone (8) Migraines Current Visit: Yes Status: Acute Code(s): G43.909 - MIGRAINE, UNSP, NOT INTRACTABLE, WITHOUT STATUS MIGRAINOSUS SNOMED Code(s): 91150988 Comment: - Continue propranolol, sumatriptan PRN (9) DVT prophylaxis Current Visit: Yes Status: Acute Code(s): Z29.9 - ENCOUNTER FOR PROPHYLACTIC MEASURES, UNSPECIFIED SNOMED Code(s): 407528807 Comment: - Lovenox per ortho (10) Full code status Current Visit: Yes Status: Acute Code(s): Z78.9 - OTHER SPECIFIED HEALTH STATUS SNOMED Code(s): 342739681 Comment: Status and Disposition: Inpatient. Anticipate d/c home when medically stable, timeframe TBD by clinical course.
[2019-07-30] MEDS: Cyclobenzaprine TAB* 10 MG PO PRN (21:10)
[2019-07-30] MEDS: Senna TAB 8.6 mg* TAB PO SCH (21:10)
[2019-07-30] MEDS: Nicotine Patch Removal NOTE PATCH OFF SCH (21:12)
[2019-07-31] MEDS: Vancomycin(*) 1,000 MG in NS 0.9% 250 ML* 250 ML IV SCH ×2 (01:53→10:49)
[2019-07-31] MEDS: Acetaminophen TAB* 325 MG PO PRN ×3 (04:56→14:03)
[2019-07-31] MEDS: Magnesium Hydroxide LIQ* 30 ML UDC PO SCH (09:04)
[2019-07-31] MEDS: Cyanocobalamin TAB* 500 MCG PO SCH (09:13)
[2019-07-31] MEDS: Propranolol TAB* 80 MG PO SCH ×2 (09:13→21:42)
[2019-07-31] MEDS: Docusate CAP* 100 MG PO SCH ×2 (09:14→21:42)
[2019-07-31] MEDS: Multivitamins/Minerals TAB PO SCH (09:14)
[2019-07-31] MEDS: Sertraline* 100 MG TAB PO SCH (09:14)
[2019-07-31] MEDS: Nicotine PATCH 21 MG/24 HR* PATCH TRANSDERM SCH (09:15)
--- NOTE | 2019-07-31 11:50 | PN ---
Progress Note - Progress Note Date of Service: 07/31/19 SOAP: Subjective: CC: cellulitis HPI: 69 year old man with recent right knee arthroplasty who developed right knee swelling and redness as well as hallucinations. No fever, rash, or diarrhea, knee pain improved. No hallucinations. Objective: Vital Signs Temp 36.5 C 07/31/19 11:08 Pulse 55 07/31/19 11:08 Resp 16 07/31/19 11:08 BP 125/74 07/31/19 11:08 Pulse Ox 95 07/31/19 11:08 Intake & Output 07/30/19 07/31/19 07/31/19 18:59 06:59 18:59 Intake Total 760 Output Total 600 Balance -600 760 Weight 216 lb Intake: IVPB 260 ABX - VANCOMYCIN 260 Oral 500 Output: Urine 600 Other: Estimated Void Medium Large Large Date of Last Bowel 07/30/19 07/30/2019 Movement # Bowel Movements 1 3 Estimated Stool Amount Small Medium Medium # Voids 1 1 1 Gen:no diaphoresis Neuro: awake, Ox3 HEENT: no thrush Heart:RRR no murmur Lungs:CTA BL Abd:+BS NTND soft Skin: No rash MSK: Right thigh/knee edema; erythema receding Laboratory Results - last 24 hr 07/31/19 05:00 C-Reactive Protein 104.16 H Microbiology 07/29/19 00:31 Body Fluid Anaerobic Culture - Preliminary 07/25/19 21:59 Blood Venous Aerobic Blood Culture - Final No Growth Day 5 07/25/19 21:59 Blood Venous Anaerobic Blood Culture - Final No Growth Day 5 07/25/19 21:20 Blood Venous Aerobic Blood Culture - Final No Growth Day 5 07/25/19 21:20 Blood Venous Anaerobic Blood Culture - Final Staphylococcus Caprae 07/25/19 21:20 Blood Venous Blood MRSA/MSSA (PCR) - Final Mrsa Negative S.aureus Negative 07/29/19 16:49 Blood Venous Aerobic Blood Culture - Preliminary No Growth Day 1 07/29/19 16:49 Blood Venous Anaerobic Blood Culture - Preliminary No Growth Day 1 07/29/19 16:49 Blood Venous Aerobic Blood Culture - Preliminary No Growth Day 1 07/29/19 16:49 Blood Venous Anaerobic Blood Culture - Preliminary No Growth Day 1 07/26/19 09:04 Joint Fluid(Synovial) - Knee Right Gram Stain - Final 07/26/19 09:04 Joint Fluid(Synovial) - Knee Right Body Fluid Culture - Final Staphylococcus Caprae 07/26/19 09:04 Joint Fluid(Synovial) - Knee Right Skin and Soft Tissue MRSA/ MSSA (PCR - Final Mrsa Negative S.aureus Negative Assessment: 1. right knee cellulitis, hematoma, septic arthritis 2. Encephalopathy, diff dx includes knee infection 3. PCN allergy, rash as a child Plan: 1. change vanco to ancef 2 gm IV Q8hrs, will check on outpatient options to complete 6 weeks and will add rifampin eventually
[2019-07-31] MEDS: Enoxaparin(*) 40 MG/0.4 ML SYR SUBCUT SCH (12:58)
--- NOTE | 2019-07-31 14:36 | PN ---
Progress Note - Progress Note Date of Service: 07/31/19 SOAP: Subjective: [] Objective: [] Assessment: s/p I&D right TKA Plan: 1) continue PT/OT-WBAT 2) Continue IV abx - Per ID change vanco to ancef 2 gm IV Q8hrs, ID will check on outpatient options to complete 6 weeks and will add rifampin eventually 3) Hospitalist and ID following 4) will continue to monitor closely Vital Signs Temp 97.7 F 07/31/19 11:08 Pulse 55 07/31/19 11:08 Resp 16 07/31/19 11:08 BP 125/74 07/31/19 11:08 Pulse Ox 95 07/31/19 11:08 Intake & Output 07/30/19 07/31/19 07/31/19 18:59 06:59 18:59 Intake Total 760 511 Output Total 600 0 Balance -600 760 511 Weight 216 lb Intake: IV Fluids 271 ABX - VANCOMYCIN 271 IVPB 260 ABX - VANCOMYCIN 260 Oral 500 240 Output: Urine 600 0 Other: Estimated Void Medium Large Large Date of Last Bowel 07/30/19 07/30/2019 Movement # Bowel Movements 1 3 1 Estimated Stool Amount Small Medium Large # Voids 1 1 1 Laboratory Last Values WBC 12.0 10^3/uL (3.5-10.8) H 07/30/19 05:24 RBC 3.20 10^6 /uL (4.18-5.48) L 07/30/19 05:24 Hgb 9.6 g/dL (14.0-18.0) L 07/30/19 05:24 Hct 28 % (42-52) L 07/30/19 05:24 MCV 88 fL (80-94) 07/30/19 05:24 MCH 30 pg (27-31) 07/30/19 05:24 MCHC 34 g/dL (31-36) 07/30/19 05:24 RDW 15 % (10-15) 07/30/19 05:24 Plt Count 516 10^3/uL (150-450) H D 07/30/19 05:24 MPV 7.7 fL (7.4-10.4) 07/30/19 05:24 Neut % (Auto) 77.1 % 07/30/19 05:24 Lymph % (Auto) 12.8 % 07/30/19 05:24 [place] % (Auto) 8.6 % 07/30/19 05:24 Eos % (Auto) 1.2 % 07/30/19 05:24 Baso % (Auto) 0.3 % 07/30/19 05:24 Absolute Neuts (auto) 9.2 10^3/ul (1.5-7.7) H 07/30/19 05:24 Absolute Lymphs (auto) 1.5 10^3/ul (1.0-4.8) 07/30/19 05:24 Absolute Monos (auto) 1.0 10^3/ul (0-0.8) H 07/30/19 05:24 Absolute Eos (auto) 0.1 10^3/ul (0-0.6) 07/30/19 05:24 Absolute Basos (auto) 0.0 10^3/ul (0-0.2) 07/30/19 05:24 Absolute Nucleated RBC 0.0 10^3/ul 07/30/19 05:24 Nucleated RBC % 0.1 07/30/19 05:24 ESR 85 mm/Hr (0-19) H 07/25/19 19:46 VBG pH 7.34 (7.32-7.43) 07/29/19 05:51 VBG pCO2 42 mmHg (41-51) 07/29/19 05:51 VBG pO2 52.0 mmHg (35-45) H 07/29/19 05:51 VBG HCO3 22.2 mmol/L (24-28) L 07/29/19 05:51 VBG O2 Saturation 84.2 % (70-80) H 07/29/19 05:51 VBG Base Excess -3.0 mmol/L (0.0-4.0) L 07/29/19 05:51 Sodium 133 mmol/L (135-145) L 07/28/19 06:30 Potassium 4.0 mmol/L (3.5-5.0) 07/28/19 06:30 Chloride 101 mmol/L (101-111) 07/28/19 06:30 Carbon Dioxide 25 mmol/L (22-32) 07/28/19 06:30 Anion Gap 7 mmol/L (2-11) 07/28/19 06:30 BUN 24 mg/dL (6-24) 07/30/19 05:24 Creatinine 0.90 mg/dL (0.67-1.17) 07/30/19 05:24 Est GFR ( Amer) 101.8 (>60) 07/30/19 05:24 Est GFR (Non-Af Amer) 84.2 (>60) 07/30/19 05:24 BUN/Creatinine Ratio 19.0 (8-20) 07/28/19 06:30 Glucose 120 mg/dL (70-100) H 07/28/19 06:30 Lactic Acid 1.1 mmol/L (0.5-2.0) 07/25/19 19:46 Calcium 8.4 mg/dL (8.6-10.3) L 07/28/19 06:30 Magnesium 1.9 mg/dL (1.9-2.7) 07/26/19 05:54 Total Bilirubin 1.00 mg/dL (0.2-1.0) 07/25/19 19:46 AST 53 U/L (13-39) H 07/25/19 19:46 ALT 51 U/L (7-52) 07/25/19 19:46 Alkaline Phosphatase 73 U/L (34-104) 07/25/19 19:46 Ammonia 35 mcmol/L (16-53) 07/27/19 14:24 Troponin I 0.02 ng/mL (<0.03) 07/25/19 19:46 C-Reactive Protein 104.16 mg/L (<8.01) H 07/31/19 05:00 Total Protein 6.9 g/dL (6.4-8.9) 07/25/19 19:46 Albumin 3.5 g/dL (3.2-5.2) 07/25/19 19:46 Globulin 3.4 g/dL (2-4) 07/25/19 19:46 Albumin/Globulin Ratio 1.0 (1-3) 07/25/19 19:46 Vitamin B12 > 1450 pg/mL (180-914) H 07/29/19 05:28 Folate > 20.00 ng/mL (>3.99) 07/29/19 05:28 TSH 1.10 mcIU/mL (0.34-5.60) 07/29/19 05:28 Urine Color Yellow 07/26/19 10:00 Urine Appearance Cloudy 07/26/19 10:00 Urine pH 5.0 (5-9) 07/26/19 10:00 Ur Specific [place] 1.023 (1.010-1.030) 07/26/19 10:00 Urine Protein 1+(30 mg/dl) (Negative) A 07/26/19 10:00 Urine Ketones Negative (Negative) 07/26/19 10:00 Urine Blood 1+ (Negative) A 07/26/19 10:00 Urine Nitrate Negative (Negative) 07/26/19 10:00 Urine Bilirubin Negative (Negative) 07/26/19 10:00 Urine Urobilinogen Negative (Negative) 07/26/19 10:00 Ur Leukocyte Esterase Negative (Negative) 07/26/19 10:00 Urine WBC (Auto) Trace(0-5/hpf) (Absent) 07/26/19 10:00 Urine RBC (Auto) Trace(0-2/hpf) (Absent) 07/26/19 10:00 Urine Bacteria Absent (Absent) 07/26/19 10:00 Urine Glucose Negative (Negative) 07/26/19 10:00 Fluid Source Synovial fluid 07/26/19 09:04 Fluid Volume 1.5 mL 07/26/19 09:04 Fluid Color Red 07/26/19 09:04 Fluid Appearance Bloody 07/26/19 09:04 Fluid WBC 12955 /mcL (0-009038) 07/26/19 09:04 Fluid RBC 128694 /mcL 07/26/19 09:04 Fluid Tot Cell Count 100 07/26/19 09:04 Fluid Neutrophils 99 % 07/26/19 09:04 Fluid Lymphocytes 1 % 07/26/19 09:04 Vancomycin Trough 21.9 mcg/mL 07/30/19 05:24 Urine Opiates Screen None detected (None Detect) 07/29/19 20:12 Ur Barbiturates Screen None detected (None Detect) 07/29/19 20:12 Ur Phencyclidine Scrn None detected (None Detect) 07/29/19 20:12 Ur Amphetamines Screen None detected (None Detect) 07/29/19 20:12 U Benzodiazepines Scrn Presumptive positive (None Detect) A 07/29/19 20:12 Urine Cocaine Screen None detected (None Detect) 07/29/19 20:12 U Cannabinoids Screen None detected (None Detect) 07/29/19 20:12 Serum Alcohol < 10 mg/dL (<10) 07/25/19 19:46
--- NOTE | 2019-07-31 16:15 | PN ---
Progress Note - Progress Note Date of Service: 07/31/19 SOAP: Subjective: [Pt was seen today sitting up in chair. States that he is doing well although he feels a bit blah. He denies any chest pain, SOB, nausea, vomiting, fevers, chills. ] Objective: MSK, RLE: Inspection reveals erythema has receded to just in the medial aspect of the knee. Dressing was changed. No drainage present. Incision is c/d/i. +df/ pf. NVI. Vital Signs Temp 97.9 F 07/31/19 15:52 Pulse 61 07/31/19 15:52 Resp 18 07/31/19 15:52 BP 153/72 07/31/19 15:52 Pulse Ox 98 07/31/19 15:52 Intake & Output 07/30/19 07/31/19 07/31/19 18:59 06:59 18:59 Intake Total 760 511 Output Total 600 0 Balance -600 760 511 Weight 216 lb Intake: IV Fluids 271 ABX - VANCOMYCIN 271 IVPB 260 ABX - VANCOMYCIN 260 Oral 500 240 Output: Urine 600 0 Other: Estimated Void Medium Large Large Date of Last Bowel 07/30/19 07/30/2019 Movement # Bowel Movements 1 3 1 Estimated Stool Amount Small Medium Large # Voids 1 1 1 ] Assessment: s/p I&D right TKA Plan: 1) continue PT/OT-WBAT 2) Continue IV abx - Per ID change vanco to ancef 2 gm IV Q8hrs, ID will check on outpatient options to complete 6 weeks and will add rifampin eventually 3) Hospitalist and ID following 4) will continue to monitor closely
[2019-07-31] MEDS: ceFAZolin* 2 GM in NS 100 MLS Q8H (Pharmacy Admix) IVPB SCH (17:28)
--- NOTE | 2019-07-31 18:32 | PN ---
Subjective Date of Service: 07/31/19 Interval History: Patient reports that strange taste and smell continue today. Patient reports feeling tired as well. Denies difficulty breathing, fever/chills, chest pain, abd pain. Knee pain is improving. Family History: Unchanged from Admission Social History: Unchanged from Admission Past Medical History: Unchanged from Admission Objective Active Medications: Acetaminophen (Tylenol Tab*) 650 mg PO Q4H PRN PRN Reason: MILD PAIN or TEMP > 100.4 Last Admin: 07/31/19 14:03 Dose: 650 mg Bisacodyl (Dulcolax Supp*) 10 mg [place] DAILY PRN PRN Reason: CONSTIPATION Buspirone HCl (Buspar Tab*) 10 mg PO TID PRN PRN Reason: ANXIETY Last Admin: 07/30/19 21:11 Dose: 10 mg Cyanocobalamin (Vitamin B12 Tab*) 1,000 mcg PO QAM [facility] Last Admin: 07/31/19 09:13 Dose: 1,000 mcg Cyclobenzaprine HCl (Flexeril Tab*) 10 mg PO Q6H PRN PRN Reason: SPASMS Last Admin: 07/30/19 21:10 Dose: 10 mg Docusate Sodium (Colace Cap*) 100 mg PO BID [facility] Last Admin: 07/31/19 09:14 Dose: 100 mg Enoxaparin Sodium (Lovenox(*)) 40 mg SUBCUT DAILY@1200 [facility] Last Admin: 07/31/19 12:58 Dose: 40 mg Cefazolin Sodium 2 gm/ Sodium (Chloride) 100 mls @ 200 mls/hr IVPB Q8H [facility] Last Admin: 07/31/19 17:28 Dose: 200 mls/hr Ketorolac Tromethamine (Toradol Inj*) 15 mg IV PUSH Q6H PRN PRN Reason: PAIN - MODERATE Last Admin: 07/30/19 16:32 Dose: 15 mg Magnesium Hydroxide (Milk Of Magnesia Liq*) 30 ml PO BID [facility] Last Admin: 07/31/19 09:04 Dose: Not Given Multivitamins/Minerals (Theragran/Minerals Tab*) 1 tab PO QAM [facility] Last Admin: 07/31/19 09:14 Dose: 1 tab Nicotine (Nicotine Patch 21 Mg/24 Hr*) 1 patch TRANSDERM DAILY [facility] Last Admin: 07/31/19 09:15 Dose: 1 patch Pharmacy Profile Note (Nicotine Patch Removal Note*) 1 note PATCH OFF BEDTIME [facility] Last Admin: 07/30/19 21:12 Dose: 1 note Polyethylene Glycol/Electrolytes (Miralax*) 17 gm PO DAILY PRN PRN Reason: CONSTIPATION Propranolol HCl (Inderal Tab*) 80 mg PO BID [facility] Last Admin: 07/31/19 09:13 Dose: 80 mg Senna (Senokot 8.6 Mg Tab*) 1 tab PO BEDTIME [facility] Last Admin: 07/30/19 21:10 Dose: 1 tab Sertraline HCl (Zoloft*) 100 mg PO QAM [facility] Last Admin: 07/31/19 09:14 Dose: 100 mg Sumatriptan Succinate (Imitrex Sq*) 6 mg SUBCUT DAILY PRN PRN Reason: MIGRAINE HEADACHE Last Admin: 07/26/19 20:53 Dose: 6 mg Vital Signs - 8 hr 07/31/19 07/31/19 11:08 15:52 Temperature 97.7 F 97.9 F Pulse Rate 55 61 Respiratory 16 18 Rate Blood Pressure 125/74 153/72 (mmHg) O2 Sat by Pulse 95 98 Oximetry Oxygen Devices in Use Now: None Appearance: Elderly white male, WD WN, laying upright in bed, appearing comfortable and in NAD Eyes: No Scleral Icterus, - - PERRL Ears/Nose/Mouth/Throat: Mucous Membranes Moist Neck: Trachea Midline Respiratory: Symmetrical Chest Expansion and Respiratory Effort, Clear to Auscultation Cardiovascular: NL Sounds; No Murmurs; No JVD, RRR Abdominal: - - abd soft, nontender, nondistended Extremities: No Clubbing, Cyanosis, - - +1 pitting edema on right mid-thakur to right knee Skin: - - no visible erythema on RLE though there are RAFAEL wraps in place Neurological: NL Muscle Strength and Tone, - - alert and oriented x 4 Result Diagrams: 07/30/19 05:24 07/30/19 05:24 Additional Lab and Data: Lab Results 07/25/19 07/25/19 07/25/19 Range/Units 19:46 19:46 19:46 WBC 11.6 H (3.5-10.8) 10^3/uL RBC 3.98 L (4.18-5.48) 10^6 /uL Hgb 11.8 L (14.0-18.0) g/dL Hct 35 L (42-52) % MCV 88 (80-94) fL MCH 30 (27-31) pg MCHC 34 (31-36) g/dL RDW 15 (10-15) % Plt Count 277 (150-450) 10^3/uL MPV 8.1 (7.4-10.4) fL Neut % (Auto) 76.1 % Lymph % (Auto) 8.4 % [place] % (Auto) 12.9 % Eos % (Auto) 1.9 % Baso % (Auto) 0.7 % Absolute Neuts (auto) 8.9 H (1.5-7.7) 10^3/ul Absolute Lymphs (auto) 1.0 (1.0-4.8) 10^3/ul Absolute Monos (auto) 1.5 H (0-0.8) 10^3/ul Absolute Eos (auto) 0.2 (0-0.6) 10^3/ul Absolute Basos (auto) 0.1 (0-0.2) 10^3/ul Absolute Nucleated RBC 0.0 10^3/ul Nucleated RBC % 0.0 ESR Pending Sodium 132 L (135-145) mmol/L Potassium 3.8 (3.5-5.0) mmol/L Chloride 95 L (101-111) mmol/L Carbon Dioxide 28 (22-32) mmol/L Anion Gap 9 (2-11) mmol/L BUN 19 (6-24) mg/dL Creatinine 0.95 (0.67-1.17) mg/dL Est GFR ( Amer) 95.7 (>60) Est GFR (Non-Af Amer) 79.1 (>60) BUN/Creatinine Ratio 20.0 (8-20) Glucose 153 H (70-100) mg/dL Lactic Acid 1.1 (0.5-2.0) mmol/L Calcium 9.0 (8.6-10.3) mg/dL Total Bilirubin 1.00 (0.2-1.0) mg/dL AST 53 H (13-39) U/L ALT 51 (7-52) U/L Alkaline Phosphatase 73 (34-104) U/L Troponin I 0.02 (<0.03) ng/mL C-Reactive Protein 332.63 H (<8.01) mg/L Total Protein 6.9 (6.4-8.9) g/dL Albumin 3.5 (3.2-5.2) g/dL Globulin 3.4 (2-4) g/dL Albumin/Globulin Ratio 1.0 (1-3) Serum Alcohol < 10 (<10) mg/dL Microbiology and Other Data: Microbiology 07/26/19 09:04 Gram Stain - Final Joint Fluid(Synovial) - Knee Right Skin and Soft Tissue MRSA/MSSA (PCR - Final Mrsa Negative S.aureus Negative Assess/Plan/Problems-Billing Assessment: Mr. Maurer is a 69 yo M with PMH of migraines and osteoarthritis who was admitted on 07/25/19 with an infected right total knee replacement which was performed one week prior. - Patient Problems (1) Postoperative wound infection Current Visit: Yes Status: Acute Code(s): T81.49XA - INFECTION FOLLOWING A PROCEDURE, OTHER SURGICAL SITE, INIT SNOMED Code(s): 52392615 Comment: - S/p right total knee arthroplasty 07/20/19 - Erythema and warmth surrounding sutures extending up right thigh at presentation - Joint aspiration 07/26/19 with cultures demonstrating staph caprae - Appreciate Ortho consult. Knee washout performed 07/28/19 and was not overtly purulent per Dr. Villanueva, but a large hematoma was noted which would also contribute to erythema and edema. - Awaiting joint washout culture - Appreciate ID consult, recommending switching vanco to ancef (2) Bacteremia Current Visit: Yes Status: Acute Code(s): R78.81 - BACTEREMIA SNOMED Code( s): 2135509 Comment: -blood culture positive for staph caprae, source is knee -surveillance blood cultures pending -appreciate ID consult, changing to ancef per recommendation; will ultimately need rifampin and ID will recommend time course, will need f/u with ID outpatient likely -TTE without vegetations. Dr. Love does not recommend PATEL (3) Altered mental status Current Visit: Yes Status: Acute Code(s): R41.82 - ALTERED MENTAL STATUS, UNSPECIFIED SNOMED Code(s): 753615137 Comment: - Present on admission and worsened with combativeness and hallucinations, requiring physical restraint at [facility] - CT brain on admission unremarkable - High on differential is metabolic encephalopathy related to acute infection - Likely also exacerbated by hospital delirium and narcotic use - vitamin B3 pending - vitamin B12 elevated likely due to supplementation, folate wnl, TSH wnl - Minimize use of benzos and opiates - Resolved - MRI brain without acute findings, CVA ruled out (4) Metallic taste Current Visit: Yes Status: Acute Code(s): R43.8 - OTHER DISTURBANCES OF SMELL AND TASTE SNOMED Code(s): 84255750 Comment: -patient notes persistent metallic taste and difficulty to describe smell -differential includes olfactory/gustatory hallucinations -zinc, CLAIRE, anti-dsDNA, anti-Sm pending -MRI without evidence of CVA (5) Sepsis Current Visit: Yes Status: Acute Comment: - Met criteria on admission with tachycardia and fever; source is right knee infection - SIRS criteria resolved (6) Lower extremity edema Current Visit: Yes Status: Acute Code(s): R60.0 - LOCALIZED EDEMA SNOMED Code(s): 985864278 Comment: -RLE doppler negative for DVT -consistent with recent TKA (7) Anxiety Current Visit: Yes Status: Acute Code(s): F41.9 - ANXIETY DISORDER, UNSPECIFIED SNOMED Code(s): 27607017 Comment: - Continue sertraline, buspirone (8) Migraines Current Visit: Yes Status: Acute Code(s): G43.909 - MIGRAINE, UNSP, NOT INTRACTABLE, WITHOUT STATUS MIGRAINOSUS SNOMED Code(s): 95734854 Comment: - Continue propranolol, sumatriptan PRN (9) DVT prophylaxis Current Visit: Yes Status: Acute Code(s): Z29.9 - ENCOUNTER FOR PROPHYLACTIC MEASURES, UNSPECIFIED SNOMED Code(s): 963400436 Comment: - Lovenox per ortho (10) Full code status Current Visit: Yes Status: Acute Code(s): Z78.9 - OTHER SPECIFIED HEALTH STATUS SNOMED Code(s): 242376669 Comment: Status and Disposition: Inpatient. Anticipate d/c home when medically stable, timeframe TBD by clinical course.
[2019-07-31] MEDS: Nicotine Patch Removal NOTE PATCH OFF SCH (21:42)
[2019-07-31] MEDS: Senna TAB 8.6 mg* TAB PO SCH (21:42)
[2019-08-01] MEDS: Magnesium Hydroxide LIQ* 30 ML UDC PO SCH ×3 (00:12→21:22)
[2019-08-01] MEDS: ceFAZolin* 2 GM in NS 100 MLS Q8H (Pharmacy Admix) IVPB SCH ×3 (02:25→17:25)
[2019-08-01 08:45] LABS: ABS Eosinophils 0.2 10^3/ul (0-0.6); ABS Lymphocytes 1.5 10^3/ul (1.0-4.8); ABS Monocytes 1.2 10^3/ul (0-0.8); ABS Neutrophils 8.9 10^3/ul (1.5-7.7); Eosinophil % 1.5 %; Hematocrit 27 % (42-52); Lymphocyte % 12.5 %; Mean Corpuscular HGB Conc 34 g/dL (31-36); Mean Corpuscular Hemoglobin 30 pg (27-31); Mean Corpuscular Volume 87 fL (80-94); Mean Platelet Volume 7.2 fL (7.4-10.4); Nucleated Red Blood Cells % 0.1; Platelet Count 484 10^3/uL (150-450); Red Blood Count 3.05 10^6 /uL (4.18-5.48); Red Cell Distribution Width 15 % (10-15); White Blood Count 11.7 10^3/uL (3.5-10.8)
[2019-08-01] MEDS: Acetaminophen TAB* 325 MG PO PRN ×2 (09:50→21:26)
[2019-08-01] MEDS: Nicotine PATCH 21 MG/24 HR* PATCH TRANSDERM SCH (09:50)
[2019-08-01] MEDS: Propranolol TAB* 80 MG PO SCH ×2 (09:50→21:27)
[2019-08-01] MEDS: Docusate CAP* 100 MG PO SCH ×2 (09:51→21:26)
[2019-08-01] MEDS: Cyanocobalamin TAB* 500 MCG PO SCH (09:51)
[2019-08-01] MEDS: Sertraline* 100 MG TAB PO SCH (09:51)
[2019-08-01] MEDS: Multivitamins/Minerals TAB PO SCH (09:51)
--- NOTE | 2019-08-01 10:45 | PN ---
Progress Note - Progress Note Date of Service: 08/01/19 SOAP: Subjective: CC: Right knee infection HPI: Mr. Maurer is a69 yo male with PMH significant for cirrhosis, depression, anxiety, herpes zoster, HLD, osteoarthritis s/p right TKA, DM2, and migraines; who presented to the hospital with complaints of AMS and was found to have a right knee infection. Denies fever, chills, vomiting, or diarrhea. He reports some chills and sweats overnight. Reports nausea and a constant foul smell that makes food taste funny. Pain in the right knee is improving. Objective: Vital Signs - 8 hr 08/01/19 08/01/19 03:22 08:13 Temperature 98 F 98.3 F Pulse Rate 67 64 Respiratory 18 16 Rate Blood Pressure 124/71 138/79 (mmHg) O2 Sat by Pulse 95 93 Oximetry Physical Exam: General: NAD, sitting up in a chair Neurological: Alert and Oriented x 4 HEENT: Moist MM, no thrush Cardiovascular: Heart rate regular Respiratory: Lung sounds clear Abdominal: Bowel sounds present; ABD soft, non tender and non distended MSK: No tenderness with palpation of the right knee, able to move the right knee , mild edema to the right lower leg Skin: No rash Laboratory Results - last 24 hr 07/26/19 08/01/19 08/01/19 09:04 05:12 08:38 WBC 11.7 H RBC 3.05 L Hgb 9.0 L Hct 27 L MCV 87 MCH 30 MCHC 34 RDW 15 Plt Count 484 H MPV 7.2 L Neut % (Auto) 75.5 Lymph % (Auto) 12.5 [place] % (Auto) 10.2 Eos % (Auto) 1.5 Baso % (Auto) 0.3 Absolute Neuts (auto) 8.9 H Absolute Lymphs (auto) 1.5 Absolute Monos (auto) 1.2 H Absolute Eos (auto) 0.2 Absolute Basos (auto) 0.0 Absolute Nucleated RBC 0.0 Nucleated RBC % 0.1 C-Reactive Protein 74.86 H Fluid Cell Count Rvw By Microbiology 07/29/19 00:31 Anaerobic Culture - Preliminary Body Fluid 07/29/19 16:49 Aerobic Blood Culture - Preliminary Blood Venous No Growth Day 2 Anaerobic Blood Culture - Preliminary No Growth Day 2 07/29/19 16:49 Aerobic Blood Culture - Preliminary Blood Venous No Growth Day 2 Anaerobic Blood Culture - Preliminary No Growth Day 2 07/25/19 21:59 Aerobic Blood Culture - Final Blood Venous No Growth Day 5 Anaerobic Blood Culture - Final No Growth Day 5 07/25/19 21:20 Aerobic Blood Culture - Final Blood Venous No Growth Day 5 Anaerobic Blood Culture - Final Staphylococcus Caprae Blood MRSA/MSSA (PCR) - Final Mrsa Negative S.aureus Negative 07/26/19 09:04 Gram Stain - Final Joint Fluid(Synovial) - Knee Right Body Fluid Culture - Final Staphylococcus Caprae Skin and Soft Tissue MRSA/MSSA (PCR - Final Mrsa Negative S.aureus Negative 07/29/19 00:31 Acid Fast Bacilli Smear - Final Wound - Knee Right 07/29/19 00:31 Gram Stain - Final Knee Right 07/26/19 10:00 Urine Culture - Final Urine No Growth (<1,000 CFU/mL) Assessment: 1. Right prosthetic knee septic arthritis. S/P I+D of right knee with polyethylene exchange, POD # 4. Culture with Joel Ashton. Afebrile, continues to have mild leukocytosis, also noted to have mild thrombocytosis. 2. Staph Caprae bacteremia. Blood cultures with 1/4 positive. TTE with no vegetation. Repeat blood cultures with no growth. Encephalopathy. MRI was unremarkable. Improving, suspect secondary to delirium and infection 3. Hx PCN allergy. Rash as a child Plan: Continue Ancef 2 gm IV Q8H while in the hospital. Final decision on the ABX at discharge will be based on if he has once daily outpatient infusions or is discharged to [facility]. Day . He will eventually have Rifampin added to his ABX course. Will need to have a PICC line placed.
[2019-08-01] MEDS: Enoxaparin(*) 40 MG/0.4 ML SYR SUBCUT SCH (12:41)
[2019-08-01 16:01] LABS: Smooth Muscle Antibody Negative (Negative)
[2019-08-01] MEDS: Lactobacillus Acidophilus* 1 TAB PO SCH (16:40)
--- NOTE | 2019-08-01 17:12 | PN ---
Subjective Date of Service: 08/01/19 Interval History: Patient overall feels well. His pain in right knee is well controlled. He tells me he feels like his thoughts aren't as quick as they usually are but denies confusion and visual hallucinations. Denies chest pain, fever/chills, difficulty breathing, abd pain. Family History: Unchanged from Admission Social History: Unchanged from Admission Past Medical History: Unchanged from Admission Objective Active Medications: Acetaminophen (Tylenol Tab*) 650 mg PO Q4H PRN PRN Reason: MILD PAIN or TEMP > 100.4 Last Admin: 08/01/19 09:50 Dose: 650 mg Bisacodyl (Dulcolax Supp*) 10 mg [place] DAILY PRN PRN Reason: CONSTIPATION Buspirone HCl (Buspar Tab*) 10 mg PO TID PRN PRN Reason: ANXIETY Last Admin: 07/30/19 21:11 Dose: 10 mg Cyanocobalamin (Vitamin B12 Tab*) 1,000 mcg PO QAM [facility] Last Admin: 08/01/19 09:51 Dose: 1,000 mcg Cyclobenzaprine HCl (Flexeril Tab*) 10 mg PO Q6H PRN PRN Reason: SPASMS Last Admin: 07/30/19 21:10 Dose: 10 mg Docusate Sodium (Colace Cap*) 100 mg PO BID [facility] Last Admin: 08/01/19 09:51 Dose: 100 mg Enoxaparin Sodium (Lovenox(*)) 40 mg SUBCUT DAILY@1200 [facility] Last Admin: 08/01/19 12:41 Dose: 40 mg Cefazolin Sodium 2 gm/ Sodium (Chloride) 100 mls @ 200 mls/hr IVPB Q8H [facility] Last Admin: 08/01/19 09:50 Dose: 200 mls/hr Ketorolac Tromethamine (Toradol Inj*) 15 mg IV PUSH Q6H PRN PRN Reason: PAIN - MODERATE Last Admin: 07/30/19 16:32 Dose: 15 mg Lactobacillus Rhamnosus (Lactobacillus Acidophilus*) 1 tab PO DAILY [facility] Last Admin: 08/01/19 16:40 Dose: 1 tab Magnesium Hydroxide (Milk Of Magnesia Liq*) 30 ml PO BID [facility] Last Admin: 08/01/19 09:51 Dose: Not Given Multivitamins/Minerals (Theragran/Minerals Tab*) 1 tab PO QAM [facility] Last Admin: 08/01/19 09:51 Dose: 1 tab Nicotine (Nicotine Patch 21 Mg/24 Hr*) 1 patch TRANSDERM DAILY [facility] Last Admin: 08/01/19 09:50 Dose: 1 patch Pharmacy Profile Note (Nicotine Patch Removal Note*) 1 note PATCH OFF BEDTIME [facility] Last Admin: 07/31/19 21:42 Dose: 1 note Polyethylene Glycol/Electrolytes (Miralax*) 17 gm PO DAILY PRN PRN Reason: CONSTIPATION Propranolol HCl (Inderal Tab*) 80 mg PO BID [facility] Last Admin: 08/01/19 09:50 Dose: 80 mg Senna (Senokot 8.6 Mg Tab*) 1 tab PO BEDTIME [facility] Last Admin: 07/31/19 21:42 Dose: 1 tab Sertraline HCl (Zoloft*) 100 mg PO QAM [facility] Last Admin: 08/01/19 09:51 Dose: 100 mg Sumatriptan Succinate (Imitrex Sq*) 6 mg SUBCUT DAILY PRN PRN Reason: MIGRAINE HEADACHE Last Admin: 07/26/19 20:53 Dose: 6 mg Vital Signs - 8 hr 08/01/19 08/01/19 11:27 15:17 Temperature 97.6 F 97.8 F Pulse Rate 54 63 Respiratory 14 16 Rate Blood Pressure 121/80 136/69 (mmHg) O2 Sat by Pulse 94 100 Oximetry Oxygen Devices in Use Now: None Appearance: WD WN elderly white male who appears stated age, laying upright in bed, appearing comfortable and in NAD Eyes: No Scleral Icterus, - - PERRL Ears/Nose/Mouth/Throat: Mucous Membranes Moist Neck: Trachea Midline Respiratory: Symmetrical Chest Expansion and Respiratory Effort, Clear to Auscultation Cardiovascular: NL Sounds; No Murmurs; No JVD, RRR Abdominal: - - abd soft, nontender, nondistended Extremities: No Clubbing, Cyanosis, - - trace pitting edema from knee to mid thakur on right LE Skin: No Rash or Ulcers Neurological: Alert and Oriented x 3, NL Muscle Strength and Tone Result Diagrams: 08/01/19 08:38 07/30/19 05:24 Additional Lab and Data: Lab Results 07/25/19 07/25/19 07/25/19 Range/Units 19:46 19:46 19:46 WBC 11.6 H (3.5-10.8) 10^3/uL RBC 3.98 L (4.18-5.48) 10^6 /uL Hgb 11.8 L (14.0-18.0) g/dL Hct 35 L (42-52) % MCV 88 (80-94) fL MCH 30 (27-31) pg MCHC 34 (31-36) g/dL RDW 15 (10-15) % Plt Count 277 (150-450) 10^3/uL MPV 8.1 (7.4-10.4) fL Neut % (Auto) 76.1 % Lymph % (Auto) 8.4 % [place] % (Auto) 12.9 % Eos % (Auto) 1.9 % Baso % (Auto) 0.7 % Absolute Neuts (auto) 8.9 H (1.5-7.7) 10^3/ul Absolute Lymphs (auto) 1.0 (1.0-4.8) 10^3/ul Absolute Monos (auto) 1.5 H (0-0.8) 10^3/ul Absolute Eos (auto) 0.2 (0-0.6) 10^3/ul Absolute Basos (auto) 0.1 (0-0.2) 10^3/ul Absolute Nucleated RBC 0.0 10^3/ul Nucleated RBC % 0.0 ESR Pending Sodium 132 L (135-145) mmol/L Potassium 3.8 (3.5-5.0) mmol/L Chloride 95 L (101-111) mmol/L Carbon Dioxide 28 (22-32) mmol/L Anion Gap 9 (2-11) mmol/L BUN 19 (6-24) mg/dL Creatinine 0.95 (0.67-1.17) mg/dL Est GFR ( Amer) 95.7 (>60) Est GFR (Non-Af Amer) 79.1 (>60) BUN/Creatinine Ratio 20.0 (8-20) Glucose 153 H (70-100) mg/dL Lactic Acid 1.1 (0.5-2.0) mmol/L Calcium 9.0 (8.6-10.3) mg/dL Total Bilirubin 1.00 (0.2-1.0) mg/dL AST 53 H (13-39) U/L ALT 51 (7-52) U/L Alkaline Phosphatase 73 (34-104) U/L Troponin I 0.02 (<0.03) ng/mL C-Reactive Protein 332.63 H (<8.01) mg/L Total Protein 6.9 (6.4-8.9) g/dL Albumin 3.5 (3.2-5.2) g/dL Globulin 3.4 (2-4) g/dL Albumin/Globulin Ratio 1.0 (1-3) Serum Alcohol < 10 (<10) mg/dL Microbiology and Other Data: Microbiology 07/26/19 09:04 Gram Stain - Final Joint Fluid(Synovial) - Knee Right Skin and Soft Tissue MRSA/MSSA (PCR - Final Mrsa Negative S.aureus Negative Assess/Plan/Problems-Billing Assessment: Mr. Maurer is a 69 yo M with PMH of migraines and osteoarthritis who was admitted on 07/25/19 with an infected right total knee replacement which was performed one week prior. - Patient Problems (1) Postoperative wound infection Current Visit: Yes Status: Acute Code(s): T81.49XA - INFECTION FOLLOWING A PROCEDURE, OTHER SURGICAL SITE, INIT SNOMED Code(s): 64461035 Comment: - S/p right total knee arthroplasty 07/20/19 - Erythema and warmth surrounding sutures extending up right thigh at presentation - Joint aspiration 07/26/19 with cultures demonstrating staph caprae - Appreciate Ortho consult. Knee washout performed 07/28/19 and was not overtly purulent per Dr. Villanueva, but a large hematoma was noted which would also contribute to erythema and edema. - Awaiting joint washout culture - Appreciate ID consult, recommending switching vanco to ancef (2) Bacteremia Current Visit: Yes Status: Acute Code(s): R78.81 - BACTEREMIA SNOMED Code( s): 9397113 Comment: -blood culture positive for staph caprae, source is knee -surveillance blood cultures pending -appreciate ID consult, changing to ancef per recommendation; will ultimately need rifampin and ID will recommend time course, will need f/u with ID outpatient likely -TTE without vegetations. Dr. Love does not recommend PATEL -awaiting PICC -afebrile, minimal leukocytosis is persistent (3) Altered mental status Current Visit: Yes Status: Acute Code(s): R41.82 - ALTERED MENTAL STATUS, UNSPECIFIED SNOMED Code(s): 324608646 Comment: - Present on admission and worsened with combativeness and hallucinations, requiring physical restraint at [facility] - CT brain on admission unremarkable - High on differential is metabolic encephalopathy related to acute infection - Likely also exacerbated by hospital delirium and narcotic use - vitamin B3 pending - vitamin B12 elevated likely due to supplementation, folate wnl, TSH wnl - Minimize use of benzos and opiates - Resolved - MRI brain without acute findings, CVA ruled out (4) Metallic taste Current Visit: Yes Status: Acute Code(s): R43.8 - OTHER DISTURBANCES OF SMELL AND TASTE SNOMED Code(s): 08363215 Comment: -patient notes persistent metallic taste and difficulty to describe smell -differential includes olfactory/gustatory hallucinations -zinc, CLAIRE, anti-dsDNA, anti-Sm pending -MRI without evidence of CVA (5) Lower extremity edema Current Visit: Yes Status: Acute Code(s): R60.0 - LOCALIZED EDEMA SNOMED Code(s): 729548137 Comment: -RLE doppler negative for DVT -consistent with recent TKA (6) Anxiety Current Visit: Yes Status: Acute Code(s): F41.9 - ANXIETY DISORDER, UNSPECIFIED SNOMED Code(s): 83926750 Comment: - Continue sertraline, buspirone (7) Migraines Current Visit: Yes Status: Acute Code(s): G43.909 - MIGRAINE, UNSP, NOT INTRACTABLE, WITHOUT STATUS MIGRAINOSUS SNOMED Code(s): 11394811 Comment: - Continue propranolol, sumatriptan PRN (8) DVT prophylaxis Current Visit: Yes Status: Acute Code(s): Z29.9 - ENCOUNTER FOR PROPHYLACTIC MEASURES, UNSPECIFIED SNOMED Code(s): 202822678 Comment: - Lovenox per ortho (9) Full code status Current Visit: Yes Status: Acute Code(s): Z78.9 - OTHER SPECIFIED HEALTH STATUS SNOMED Code(s): 002230723 Comment: Status and Disposition: Inpatient. Anticipate d/c home, awaiting PICC placement for half-way antibiotics
--- NOTE | 2019-08-01 17:13 | PN ---
Progress Note - Progress Note Date of Service: 08/01/19 SOAP: Subjective: resting comfortably, pain well managed, denies any calf pain/SOB Objective: Vital Signs Temp Pulse Resp BP Pulse Ox 97.8 F 63 16 136/69 100 08/01/19 15:17 08/01/19 15:17 08/01/19 15:17 08/01/19 15:17 08/01/19 15:17 Laboratory Last Values WBC 11.7 10^3/uL (3.5-10.8) H 08/01/19 08:38 RBC 3.05 10^6 /uL (4.18-5.48) L 08/01/19 08:38 Hgb 9.0 g/dL (14.0-18.0) L 08/01/19 08:38 Hct 27 % (42-52) L 08/01/19 08:38 MCV 87 fL (80-94) 08/01/19 08:38 MCH 30 pg (27-31) 08/01/19 08:38 MCHC 34 g/dL (31-36) 08/01/19 08:38 RDW 15 % (10-15) 08/01/19 08:38 Plt Count 484 10^3/uL (150-450) H 08/01/19 08:38 MPV 7.2 fL (7.4-10.4) L 08/01/19 08:38 Neut % (Auto) 75.5 % 08/01/19 08:38 Lymph % (Auto) 12.5 % 08/01/19 08:38 [place] % (Auto) 10.2 % 08/01/19 08:38 Eos % (Auto) 1.5 % 08/01/19 08:38 Baso % (Auto) 0.3 % 08/01/19 08:38 Absolute Neuts (auto) 8.9 10^3/ul (1.5-7.7) H 08/01/19 08:38 Absolute Lymphs (auto) 1.5 10^3/ul (1.0-4.8) 08/01/19 08:38 Absolute Monos (auto) 1.2 10^3/ul (0-0.8) H 08/01/19 08:38 Absolute Eos (auto) 0.2 10^3/ul (0-0.6) 08/01/19 08:38 Absolute Basos (auto) 0.0 10^3/ul (0-0.2) 08/01/19 08:38 Absolute Nucleated RBC 0.0 10^3/ul 08/01/19 08:38 Nucleated RBC % 0.1 08/01/19 08:38 ESR 85 mm/Hr (0-19) H 07/25/19 19:46 VBG pH 7.34 (7.32-7.43) 07/29/19 05:51 VBG pCO2 42 mmHg (41-51) 07/29/19 05:51 VBG pO2 52.0 mmHg (35-45) H 07/29/19 05:51 VBG HCO3 22.2 mmol/L (24-28) L 07/29/19 05:51 VBG O2 Saturation 84.2 % (70-80) H 07/29/19 05:51 VBG Base Excess -3.0 mmol/L (0.0-4.0) L 07/29/19 05:51 Sodium 133 mmol/L (135-145) L 07/28/19 06:30 Potassium 4.0 mmol/L (3.5-5.0) 07/28/19 06:30 Chloride 101 mmol/L (101-111) 07/28/19 06:30 Carbon Dioxide 25 mmol/L (22-32) 07/28/19 06:30 Anion Gap 7 mmol/L (2-11) 07/28/19 06:30 BUN 24 mg/dL (6-24) 07/30/19 05:24 Creatinine 0.90 mg/dL (0.67-1.17) 07/30/19 05:24 Est GFR ( Amer) 101.8 (>60) 07/30/19 05:24 Est GFR (Non-Af Amer) 84.2 (>60) 07/30/19 05:24 BUN/Creatinine Ratio 19.0 (8-20) 07/28/19 06:30 Glucose 120 mg/dL (70-100) H 07/28/19 06:30 Lactic Acid 1.1 mmol/L (0.5-2.0) 07/25/19 19:46 Calcium 8.4 mg/dL (8.6-10.3) L 07/28/19 06:30 Magnesium 1.9 mg/dL (1.9-2.7) 07/26/19 05:54 Total Bilirubin 1.00 mg/dL (0.2-1.0) 07/25/19 19:46 AST 53 U/L (13-39) H 07/25/19 19:46 ALT 51 U/L (7-52) 07/25/19 19:46 Alkaline Phosphatase 73 U/L (34-104) 07/25/19 19:46 Ammonia 35 mcmol/L (16-53) 07/27/19 14:24 Troponin I 0.02 ng/mL (<0.03) 07/25/19 19:46 C-Reactive Protein 74.86 mg/L (<8.01) H 08/01/19 05:12 Total Protein 6.9 g/dL (6.4-8.9) 07/25/19 19:46 Albumin 3.5 g/dL (3.2-5.2) 07/25/19 19:46 Globulin 3.4 g/dL (2-4) 07/25/19 19:46 Albumin/Globulin Ratio 1.0 (1-3) 07/25/19 19:46 Vitamin B12 > 1450 pg/mL (180-914) H 07/29/19 05:28 Folate > 20.00 ng/mL (>3.99) 07/29/19 05:28 TSH 1.10 mcIU/mL (0.34-5.60) 07/29/19 05:28 Urine Color Yellow 07/26/19 10:00 Urine Appearance Cloudy 07/26/19 10:00 Urine pH 5.0 (5-9) 07/26/19 10:00 Ur Specific [place] 1.023 (1.010-1.030) 07/26/19 10:00 Urine Protein 1+(30 mg/dl) (Negative) A 07/26/19 10:00 Urine Ketones Negative (Negative) 07/26/19 10:00 Urine Blood 1+ (Negative) A 07/26/19 10:00 Urine Nitrate Negative (Negative) 07/26/19 10:00 Urine Bilirubin Negative (Negative) 07/26/19 10:00 Urine Urobilinogen Negative (Negative) 07/26/19 10:00 Ur Leukocyte Esterase Negative (Negative) 07/26/19 10:00 Urine WBC (Auto) Trace(0-5/hpf) (Absent) 07/26/19 10:00 Urine RBC (Auto) Trace(0-2/hpf) (Absent) 07/26/19 10:00 Urine Bacteria Absent (Absent) 07/26/19 10:00 Urine Glucose Negative (Negative) 07/26/19 10:00 Fluid Source Synovial fluid 07/26/19 09:04 Fluid Volume 1.5 mL 07/26/19 09:04 Fluid Color Red 07/26/19 09:04 Fluid Appearance Bloody 07/26/19 09:04 Fluid WBC 25391 /mcL (0-554751) 07/26/19 09:04 Fluid RBC 454459 /mcL 07/26/19 09:04 Fluid Tot Cell Count 100 07/26/19 09:04 Fluid Neutrophils 99 % 07/26/19 09:04 Fluid Lymphocytes 1 % 07/26/19 09:04 Fluid Cell Count Rvw By 07/26/19 09:04 Vancomycin Trough 21.9 mcg/mL 07/30/19 05:24 Urine Opiates Screen None detected (None Detect) 07/29/19 20:12 Ur Barbiturates Screen None detected (None Detect) 07/29/19 20:12 Ur Phencyclidine Scrn None detected (None Detect) 07/29/19 20:12 Ur Amphetamines Screen None detected (None Detect) 07/29/19 20:12 U Benzodiazepines Scrn Presumptive positive (None Detect) A 07/29/19 20:12 Urine Cocaine Screen None detected (None Detect) 07/29/19 20:12 U Cannabinoids Screen None detected (None Detect) 07/29/19 20:12 Serum Alcohol < 10 mg/dL (<10) 07/25/19 19:46 Anti-Nuclear Antibody 0.3 U 07/30/19 05:24 Anti-Smooth Muscle Ab Negative (Negative) 07/30/19 05:24 incision: dressing changed tonight, mild erythema, mild effusion, no significant warmth PE: able to DF/PF, able to SLR, 2+ DP pulse Assessment: s/p I&D right TKA with poly exchange Plan: 1) PT/OT- WBAT, leg lifting exercises 2) continue IV Abx per ID 3) daily dressing changes
[2019-08-01] MEDS: Nicotine Patch Removal NOTE PATCH OFF SCH (21:28)
[2019-08-01] MEDS: Senna TAB 8.6 mg* TAB PO SCH (21:28)
[2019-08-02] MEDS: ceFAZolin* 2 GM in NS 100 MLS Q8H (Pharmacy Admix) IVPB SCH (02:30)
[2019-08-02] MEDS ORDERED: Simethicone TAB* 80 MG TAB.CHEW PO PRN (09:31)
--- NOTE | 2019-08-02 09:38 | PN ---
Progress Note - Progress Note Date of Service: 08/02/19 SOAP: Subjective: CC: Right knee infection HPI: Mr. Maurer is a69 yo male with PMH significant for cirrhosis, depression, anxiety, herpes zoster, HLD, osteoarthritis s/p right TKA, DM2, and migraines; who presented to the hospital with complaints of AMS and was found to have a right knee infection. Denies fever, chills, vomiting, or diarrhea. Reports nausea that is improving. This morning he is reporting a discomfort in the left upper quad of the ABD. Pain in the right knee continues to improve. Reports 4 soft stools daily, he started on a probiotic yesterday. He has also been on stool softeners and laxatives. Objective: Vital Signs - 8 hr 08/02/19 08/02/19 04:04 08:00 Temperature 98.1 F 98.4 F Pulse Rate 59 67 Respiratory 16 18 Rate Blood Pressure 150/75 142/69 (mmHg) O2 Sat by Pulse 97 95 Oximetry Physical Exam: General: NAD, sitting up in a chair Neurological: Alert and Oriented x 4 HEENT: Moist MM, no thrush Cardiovascular: Heart rate regular Respiratory: Lung sounds clear Abdominal: Bowel sounds present; ABD soft, tenderness in the left upper quadrant with palpation and non distended MSK: No tenderness with palpation of the right knee, able to move the right knee , mild edema to the right lower leg that is improving Skin: No rash. DSG to right LE clean, dry and intact Laboratory Last Values WBC 11.7 10^3/uL (3.5-10.8) H 08/01/19 08:38 RBC 3.05 10^6 /uL (4.18-5.48) L 08/01/19 08:38 Hgb 9.0 g/dL (14.0-18.0) L 08/01/19 08:38 Hct 27 % (42-52) L 08/01/19 08:38 MCV 87 fL (80-94) 08/01/19 08:38 MCH 30 pg (27-31) 08/01/19 08:38 MCHC 34 g/dL (31-36) 08/01/19 08:38 RDW 15 % (10-15) 08/01/19 08:38 Plt Count 484 10^3/uL (150-450) H 08/01/19 08:38 MPV 7.2 fL (7.4-10.4) L 08/01/19 08:38 Neut % (Auto) 75.5 % 08/01/19 08:38 Lymph % (Auto) 12.5 % 08/01/19 08:38 [place] % (Auto) 10.2 % 08/01/19 08:38 Eos % (Auto) 1.5 % 08/01/19 08:38 Baso % (Auto) 0.3 % 08/01/19 08:38 Absolute Neuts (auto) 8.9 10^3/ul (1.5-7.7) H 08/01/19 08:38 Absolute Lymphs (auto) 1.5 10^3/ul (1.0-4.8) 08/01/19 08:38 Absolute Monos (auto) 1.2 10^3/ul (0-0.8) H 08/01/19 08:38 Absolute Eos (auto) 0.2 10^3/ul (0-0.6) 08/01/19 08:38 Absolute Basos (auto) 0.0 10^3/ul (0-0.2) 08/01/19 08:38 Absolute Nucleated RBC 0.0 10^3/ul 08/01/19 08:38 Nucleated RBC % 0.1 08/01/19 08:38 ESR 85 mm/Hr (0-19) H 07/25/19 19:46 VBG pH 7.34 (7.32-7.43) 07/29/19 05:51 VBG pCO2 42 mmHg (41-51) 07/29/19 05:51 VBG pO2 52.0 mmHg (35-45) H 07/29/19 05:51 VBG HCO3 22.2 mmol/L (24-28) L 07/29/19 05:51 VBG O2 Saturation 84.2 % (70-80) H 07/29/19 05:51 VBG Base Excess -3.0 mmol/L (0.0-4.0) L 07/29/19 05:51 Sodium 133 mmol/L (135-145) L 07/28/19 06:30 Potassium 4.0 mmol/L (3.5-5.0) 07/28/19 06:30 Chloride 101 mmol/L (101-111) 07/28/19 06:30 Carbon Dioxide 25 mmol/L (22-32) 07/28/19 06:30 Anion Gap 7 mmol/L (2-11) 07/28/19 06:30 BUN 24 mg/dL (6-24) 07/30/19 05:24 Creatinine 0.90 mg/dL (0.67-1.17) 07/30/19 05:24 Est GFR ( Amer) 101.8 (>60) 07/30/19 05:24 Est GFR (Non-Af Amer) 84.2 (>60) 07/30/19 05:24 BUN/Creatinine Ratio 19.0 (8-20) 07/28/19 06:30 Glucose 120 mg/dL (70-100) H 07/28/19 06:30 Lactic Acid 1.1 mmol/L (0.5-2.0) 07/25/19 19:46 Calcium 8.4 mg/dL (8.6-10.3) L 07/28/19 06:30 Magnesium 1.9 mg/dL (1.9-2.7) 07/26/19 05:54 Total Bilirubin 1.00 mg/dL (0.2-1.0) 07/25/19 19:46 AST 53 U/L (13-39) H 07/25/19 19:46 ALT 51 U/L (7-52) 07/25/19 19:46 Alkaline Phosphatase 73 U/L (34-104) 07/25/19 19:46 Ammonia 35 mcmol/L (16-53) 07/27/19 14:24 Troponin I 0.02 ng/mL (<0.03) 07/25/19 19:46 C-Reactive Protein 74.86 mg/L (<8.01) H 08/01/19 05:12 Total Protein 6.9 g/dL (6.4-8.9) 07/25/19 19:46 Albumin 3.5 g/dL (3.2-5.2) 07/25/19 19:46 Globulin 3.4 g/dL (2-4) 07/25/19 19:46 Albumin/Globulin Ratio 1.0 (1-3) 07/25/19 19:46 Vitamin B12 > 1450 pg/mL (180-914) H 07/29/19 05:28 Folate > 20.00 ng/mL (>3.99) 07/29/19 05:28 TSH 1.10 mcIU/mL (0.34-5.60) 07/29/19 05:28 Urine Color Yellow 07/26/19 10:00 Urine Appearance Cloudy 07/26/19 10:00 Urine pH 5.0 (5-9) 07/26/19 10:00 Ur Specific [place] 1.023 (1.010-1.030) 07/26/19 10:00 Urine Protein 1+(30 mg/dl) (Negative) A 07/26/19 10:00 Urine Ketones Negative (Negative) 07/26/19 10:00 Urine Blood 1+ (Negative) A 07/26/19 10:00 Urine Nitrate Negative (Negative) 07/26/19 10:00 Urine Bilirubin Negative (Negative) 07/26/19 10:00 Urine Urobilinogen Negative (Negative) 07/26/19 10:00 Ur Leukocyte Esterase Negative (Negative) 07/26/19 10:00 Urine WBC (Auto) Trace(0-5/hpf) (Absent) 07/26/19 10:00 Urine RBC (Auto) Trace(0-2/hpf) (Absent) 07/26/19 10:00 Urine Bacteria Absent (Absent) 07/26/19 10:00 Urine Glucose Negative (Negative) 07/26/19 10:00 Fluid Source Synovial fluid 07/26/19 09:04 Fluid Volume 1.5 mL 07/26/19 09:04 Fluid Color Red 07/26/19 09:04 Fluid Appearance Bloody 07/26/19 09:04 Fluid WBC 67403 /mcL (0-747610) 07/26/19 09:04 Fluid RBC 674173 /mcL 07/26/19 09:04 Fluid Tot Cell Count 100 07/26/19 09:04 Fluid Neutrophils 99 % 07/26/19 09:04 Fluid Lymphocytes 1 % 07/26/19 09:04 Fluid Cell Count Rvw By 07/26/19 09:04 Vancomycin Trough 21.9 mcg/mL 07/30/19 05:24 Urine Opiates Screen None detected (None Detect) 07/29/19 20:12 Ur Barbiturates Screen None detected (None Detect) 07/29/19 20:12 Ur Phencyclidine Scrn None detected (None Detect) 07/29/19 20:12 Ur Amphetamines Screen None detected (None Detect) 07/29/19 20:12 U Benzodiazepines Scrn Presumptive positive (None Detect) A 07/29/19 20:12 Urine Cocaine Screen None detected (None Detect) 07/29/19 20:12 U Cannabinoids Screen None detected (None Detect) 07/29/19 20:12 Serum Alcohol < 10 mg/dL (<10) 07/25/19 19:46 Anti-Nuclear Antibody 0.3 U 07/30/19 05:24 Anti-ds DNA IgG Ab <12.3 IU/mL 07/30/19 05:24 Anti-Smooth Muscle Ab Negative (Negative) 07/30/19 05:24 Microbiology 07/29/19 00:31 Anaerobic Culture - Final Body Fluid 07/29/19 00:31 Gram Stain - Final Knee Right Wound Culture - Final Staphylococcus Caprae 07/29/19 16:49 Aerobic Blood Culture - Preliminary Blood Venous No Growth Day 3 Anaerobic Blood Culture - Preliminary No Growth Day 3 07/29/19 16:49 Aerobic Blood Culture - Preliminary Blood Venous No Growth Day 3 Anaerobic Blood Culture - Preliminary No Growth Day 3 07/25/19 21:59 Aerobic Blood Culture - Final Blood Venous No Growth Day 5 Anaerobic Blood Culture - Final No Growth Day 5 07/25/19 21:20 Aerobic Blood Culture - Final Blood Venous No Growth Day 5 Anaerobic Blood Culture - Final Staphylococcus Caprae Blood MRSA/MSSA (PCR) - Final Mrsa Negative S.aureus Negative 07/26/19 09:04 Gram Stain - Final Joint Fluid(Synovial) - Knee Right Body Fluid Culture - Final Staphylococcus Caprae Skin and Soft Tissue MRSA/MSSA (PCR - Final Mrsa Negative S.aureus Negative 07/29/19 00:31 Acid Fast Bacilli Smear - Final Wound - Knee Right 07/26/19 10:00 Urine Culture - Final Urine No Growth (<1,000 CFU/mL) Assessment: 1. Right prosthetic knee septic arthritis. S/P I+D of right knee with polyethylene exchange, POD # 5. Culture with Stah Caprae. Afebrile, mild leukocytosis and mild thrombocytosis on yesterdays labs. 2. Staph Caprae bacteremia. Blood cultures with 1/4 positive. TTE with no vegetation. Repeat blood cultures with no growth. Suspect #1 is the source. 3. Encephalopathy. MRI was unremarkable. Improving, suspect secondary to delirium and infection 4. Hx PCN allergy. Rash as a child 5. Loose stools. Reports 4 loose stools daily. He has been on routine Colace, MOM and senna. Suspect this is secondary to medications and not other causes. Plan: Discontinue Ancef and will start Daptomycin 500 mg IV daily. Day of ABX. He will eventually have Rifampin added to his ABX course. He is getting a PICC line placed today. He will receive outpatient IV infusions at [facility]. Weekly labs while on IV ABX: CBC. CMP, CRP, and CK. He should followup with ID outpatient in 2-3 weeks. 25 minutes floor time: > 50 % spent with Pt and discussing IV ABX, possible side effects and when to call the office (fever, diarrhea or rash).
[2019-08-02] MEDS ORDERED: Magnesium Hydroxide LIQ* 30 ML UDC PO PRN (09:45)
[2019-08-02] MEDS: Nicotine PATCH 21 MG/24 HR* PATCH TRANSDERM SCH (10:21)
[2019-08-02] MEDS: Acetaminophen TAB* 325 MG PO PRN (10:21)
[2019-08-02] MEDS: Lactobacillus Acidophilus* 1 TAB PO SCH (10:22)
[2019-08-02] MEDS: Cyanocobalamin TAB* 500 MCG PO SCH (10:22)
[2019-08-02] MEDS: Sertraline* 100 MG TAB PO SCH (10:23)
[2019-08-02] MEDS: Multivitamins/Minerals TAB PO SCH (10:23)
[2019-08-02] MEDS: Propranolol TAB* 80 MG PO SCH (10:27)
[2019-08-02] MEDS: Docusate CAP* 100 MG PO SCH (10:54)
[2019-08-02] MEDS: Magnesium Hydroxide LIQ* 30 ML UDC PO SCH (10:54)
[2019-08-02] MEDS ORDERED: DAPTOmycin SDV(*) 500 MG in NS 0.9% 50 ML* 50 ML IVPB SCH (12:00)
[2019-08-02] MEDS: Ketorolac INJ* 15 MG/ML 1 ML VIAL IV PUSH PRN (12:48)
[2019-08-02] MEDS: Enoxaparin(*) 40 MG/0.4 ML SYR SUBCUT SCH (12:53)
[2019-08-02 15:32] VITALS: BP 137/79
[2019-08-02] MEDS ORDERED: RiFAMPin CAP* 300 MG CAP PO SCH (21:00)
--- NOTE | 2019-08-03 06:18 | DS ---
CC: Dr. Elgin Sims; Dr. Villanueva; Dr. Jason Love * DISCHARGE SUMMARY: DATE OF ADMISSION: 07/25/19 DATE OF DISCHARGE: 08/02/19 PROVIDER: KARINA Deng ATTENDING PHYSICIAN WHILE IN THE HOSPITAL: Dr. Andrew Kat * (dictated by KARINA Deng). PRIMARY CARE PROVIDER: Dr. Elgin Sims. CONSULTING PHYSICIANS WHILE IN THE HOSPITAL: 1. Dr. Villanueva. 2. Dr. Jason Love. PRIMARY DIAGNOSES: 1. Septic arthritis in the setting of recent total knee arthroplasty. 2. Bacteremia secondary to septic joint, septic knee. 3. Acute altered mental status, most likely toxic metabolic encephalopathy related to a combination of acute infection, opiate use, and perhaps nicotine withdrawal. SECONDARY DIAGNOSES: 1. Depression/anxiety. 2. Migraines. 3. Recent right total knee arthroplasty on 07/20/[address] Villanueva. 4. History of high cholesterol. 5. Macular degeneration. PERTINENT STUDIES AND LAB DATA: Initial CRP is 332.63, CRP on 08/01/19, 74.86. White blood cell count 11.6 initially and white blood cell count 11.7 on . Serum alcohol less than 10 on 07/25/19. Urine negative for cocaine, amphetamines, barbiturates, cannabinoids. B12 over 1450, folate within normal limits. TSH 110. Ammonia 35. Initial right knee joint aspirate positive for Staphylococcus caprae. Blood culture positive for Staphylococcus caprae. Surveillance blood cultures on , no growth to date. Brain MRI, 07/31/19, unremarkable MRI of the brain. No restricted diffusion to suggest acute infarct. CT of the brain on 07/25/19, no acute intracranial abnormality. Mild chronic small vessel ischemic disease. Transthoracic echocardiogram on 07/29/19, no valvular vegetation is noted. EF is 55% to 60%. Please see full report for further details. Venous Doppler of the right lower extremity on 07/29/19, negative for DVT. PROCEDURES WHILE IN THE HOSPITAL: On 07/28/19, irrigation and debridement of right total knee arthroplasty with polyethylene exchange. In brief, findings were hematoma in the right knee and without overt purulence or obvious infection. Please see report by Dr. Villanueva for further details. HISTORY OF PRESENT ILLNESS/HOSPITAL COURSE: Jason Maurer is a 69-year-old white male with past medical history significant for depression/anxiety, migraines, and right total knee replacement on 07/20/19, who presented to the emergency department on 07/25/19, due to altered mental status and redness of his right knee and thigh. For further details regarding his admission, please see the admitting history and physical written by Dr. Silva. The patient was seen by orthopedist promptly and joint aspirate was collected which as previously mentioned did demonstrate Staph caprae on culture. He was initially started empirically on vancomycin. The infectious disease team did follow along and the patient was continued on vancomycin ultimately until he was changed to Ancef on 07/31/[address] Love. In regards to this joint infection, later his blood cultures were positive for Staph caprae and he had transthoracic echocardiogram to rule out any vegetations. The source of his bacteremia was obviously the right total knee arthroplasty with septic knee joint infection, given that both were positive for Staphylococcus caprae. Ultimately, the patient was set up for home infusions; however, there were insurance issues for him to receive home infusion of Ancef and ultimate choice was daptomycin and rifampin as selected by the Infectious Disease team. The patient received a dose of daptomycin and rifampin today and he had a PICC line placed. He received PICC education. In regards to the patient's altered mental status, he was altered at admission and he continued to be frequently very agitated and altered for initial days of his admission and, at times, he did require chemical and physical restraints. Ultimately, after several days of IV antibiotics, this did resolve. The most likely explanation is toxic metabolic encephalopathy due to combination of several factors. The patient certainly had an acute infection contributing as well as opiate use. However, the patient did note to me the day prior to discharge that he has been using an over the counter nicotine patch for 30 years and he did not believe that he was receiving it for the first few days of his admission. I did check this in the medication review and the patch was not started until 07/29/19 and notably it is when his altered mental status began to resolve. I did question if there was a component of nicotine withdrawal; however, this would not explain why he presented with altered mental status as he was using it at home. I do believe that this was certainly a contributing factor while he was in the hospital. Certainly the most likely explanation is the opiate use as well as acute infection. While the patient was in the hospital, he was afebrile after the point of 07/29/19. He did have persistent mild leukocytosis but his CRP did ultimately greatly downtrend. The patient overall had normal TSH and is ruled out for CVA or other acute intracranial abnormality with his MRI. The patient did mention nonspecific explanation of a strange taste in his mouth and intermittently strange smell which did prompt more concern. However, at this point, it seems to be a nonspecific complaint of little clinical concern. DISCHARGE PLAN: Diet: Regular and unrestricted diet. Activity: The patient may return to normal activity as tolerated. The patient should proceed with wound care and physical therapy as ordered by Dr. Villanueva since his total knee arthroplasty. He does need 30 days total of anticoagulation per orthopedic surgery and he will be continued on Lovenox in lieu of apixaban considering hematoma that was found during the knee debridement. The patient will be set up with home infusions as well as infusions at [facility]. He will follow up with the Infectious Disease as well as Dr. Villanueva. He is to follow up with primary care provider within a week to 10 days. At the time of followup, there are pending labs to rule out lupus and to check his ANCA level. Considering his nonspecific findings and his altered mental status, they should be followed. His surveillance blood culture should be followed as well but to this point, it is 4 days without growth. The patient was advised to return to the emergency department if he is having fever, chills, increased redness or pain to the joint , streaking of his leg, chest pain, difficulty breathing, loss of consciousness , or other concerning symptoms. The patient was advised to slowly wean himself off his nicotine patch as it is not necessary to be on nicotine patch for 30 years and to do so under his primary care provider's guidance. DISCHARGE MEDICATIONS: New medications: 1. Rifampin 300 mg p.o. b.i.d. 2. Lactobacillus acidophilus 1 tab p.o. daily. 3. Lovenox 40 mg subcu daily x20 days. 4. Daptomycin 500 mg IV daily. 5. Tylenol 650 mg p.o. q.4 hours p.r.n. pain. Continued home medications: 1. Nicotine patch 14 mg transdermally daily. 2. ICaps AREDS tablet p.o. daily. 3. Garlic 1 tab p.o. daily. 4. Imitrex 50 mg p.o. daily p.r.n. migraine, maximum daily dose 100 mg. 5. Imitrex 6 mg subcu p.r.n. migraine. 6. Vitamin B12 1000 mcg p.o. daily. 7. Multivitamin 1 tab p.o. daily. 8. Fish oil 1000 mg p.o. daily. 9. BuSpar 10 mg p.o. t.i.d. 10. Zoloft 100 mg p.o. daily. 11. Propranolol 80 mg p.o. t.i.d. 12. Oxycodone/acetaminophen 5 mg/325 two tabs p.o. q.4 hours p.r.n. pain. 13. Colace 100 mg p.o. b.i.d. 14. Flexeril 10 mg p.o. q.6 hours p.r.n. muscle spasm. CONDITION ON DISCHARGE: Stable. DISPOSITION: Home. TIME SPENT: Approximately 45 minutes was spent on this discharge, approximately half of this time was spent at the bedside evaluating the patient and discussing the plan of care. KARINA DENG [id number]/[facility] #: [id number] MTDD
== END 2019-08-02 18:05 | disposition home health service (06) | DRG 485 ==
LOC: ED 17:46 → SSU 23:34
PROVIDERS: ADMIT Student in an Organized Health Care Education/Training Program; ATTEND Internal Medicine
PROC: 0SUV09Z Supplement Right Knee Joint, Tibial Surface with Liner, Open Approach (ICD-10-PCS; 2019-07-28)
PROC: 0SPC09Z Removal of Liner from Right Knee Joint, Open Approach (ICD-10-PCS; principal; 2019-07-28 17:30)
PROC: 02HV33Z Insertion of Infusion Device into Superior Vena Cava, Percutaneous Approach (ICD-10-PCS; 2019-08-02)
DX: T84.53XA Infection and inflammatory reaction due to internal right knee prosthesis, initial encounter (principal); A40.8 Other streptococcal sepsis; G92 Toxic encephalopathy; F05 Delirium due to known physiological condition; L03.115 Cellulitis of right lower limb; M00.261 Other streptococcal arthritis, right knee; Y83.8 Other surgical procedures as the cause of abnormal reaction of the patient, or of later complication, without mention of misadventure at the time of the procedure; Y92.239 Unspecified place in hospital as the place of occurrence of the external cause; K59.00 Constipation, unspecified; F41.9 Anxiety disorder, unspecified; F32.9 Major depressive disorder, single episode, unspecified; M19.071 Primary osteoarthritis, right ankle and foot; M19.011 Primary osteoarthritis, right shoulder; M19.042 Primary osteoarthritis, left hand; M19.041 Primary osteoarthritis, right hand; G43.909 Migraine, unspecified, not intractable, without status migrainosus; E53.8 Deficiency of other specified B group vitamins; B95.4 Other streptococcus as the cause of diseases classified elsewhere; E78.00 Pure hypercholesterolemia, unspecified; K74.60 Unspecified cirrhosis of liver; E11.9 Type 2 diabetes mellitus without complications; E78.5 Hyperlipidemia, unspecified; T84.89XA Other specified complication of internal orthopedic prosthetic devices, implants and grafts, initial encounter; H35.30 Unspecified macular degeneration; Z88.0 Allergy status to penicillin; Z88.2 Allergy status to sulfonamides; Z91.040 Latex allergy status; Z79.899 Other long term (current) drug therapy
CPT/HCPCS: 36415; 70450; 70551; 71045; 80048; 80053; 80202; 80307; 80320; 81003; 81015; 82140; 82565; 82607; 82746; 82803; 83605; 83735; 84443; 84484; 84520; 84591; 85025; 85652; 86038; 86140; 86225; 86255; 87040; 87070; 87073; 87077; 87086; 87102; 87116; 87150; 87186; 87205; 87206; 87640; 87641; 88300; 89051; 93005; 93306; 99284; A9270-GY; C1751; C1776; G0480; G8978-GP-CK; G8979-GP-CI; G8987-GO-CI; G8988-GO-CI; J0330; J0690; J0878; J1100; J1170; J1200; J1630; J1650; J1885; J2060; J2250; J2405; J2704; J2795; J3010; J3370; J3486

== ENCOUNTER 2019-08-29 10:09 | Emergency (ER) | payer MEDICARE ==
--- OUTSIDE RECORDS SUMMARY | 2019-08-29 10:17 | XMS REPORT | Continuity of Care Document ---
:1950 External Reference #:[id number] Author Name Elgin Sims DO Address [address] [place] [id number] Care Team Providers Name Role Phone Katy Guy MD - Orthopaedic Care Team Information Fence Rider Surgery Problems Active Problems Provider Date Migraine [...] Propranolol HCL take 1 & 1/2 405tabs Yola Simsew, 11/20/2011 80mg tablets by mouth DO Tablets two times a day Buspirone HCL Take 1 Tablet By 90tabs SimsElgin, 11/20/2011 10mg Tablets Mouth Up To DO Three Times A Day as Needed For Anxiety Cyclobenzaprine HCL take 1-2 tablets 60tabs LeviElgin, 07/30/2011 10mg by mouth every DO Tablets night at bedtime as needed for spasms caution : sedation Enoxaparin Sodium Unknown 40mg/0.4ML Solution Rifampin Unknown 300mg Capsules Immunizations CPT Code Status Date Vaccine Lot # [id number] Refused 08/05/2019 Fluzone Highdose Age 65 And Over Preservative & Antibiotic Free [id number] Refused 01/02/2019 Prevnar 13 Pneumococal Conjugate Vaccine [id number] Refused 06/27/2018 Influenza Vac, Quadrivalent, Split, 0.5mL Dosage, Im Use Vital Signs Date Vital Result Comment 08/05/2019 8:53am Body Temperature 97.0 F Weight 199.00 lb Heart Rate 66 /min BP Systolic 120 mmHg BP Diastolic 72 mmHg Respiratory Rate 18 /min 07/05/2019 10:05am Weight 211.00 lb Heart Rate 52 /min BP Systolic 128 mmHg BP Diastolic 80 mmHg Respiratory Rate 18 /min Height 70 inches 5'10" BMI (Body Mass Index) 30.3 kg/m2 Results Test Acquired Date Facility Test Result H/L Range Note Laboratory test 07/25/2019 [facility] Troponin I 0.02 ng/mL < 0.03 1 finding Comp Metabolic 07/25/2019 [facility] Sodium 132 mmol/L Low 135 -145 Panel Potassium 3.8 mmol/L Normal 3.5-5.0 Chloride 95 mmol/L Low 101-111 Co2 Carbon Dioxide 28 mmol/L Normal 22-32 Anion Gap 9 mmol/L Normal 2-11 Glucose 153 mg/dL High 70-100 Blood Urea Nitrogen 19 mg/dL Normal 6-24 Creatinine 0.95 mg/dL Normal 0.67-1.17 BUN/Creatinine Ratio 20.0 Normal 8-20 Calcium 9.0 mg/dL Normal 8.6-10.3 Total Protein 6.9 g/dL Normal 6.4-8.9 Albumin 3.5 g/dL Normal 3.2-5.2 Globulin 3.4 g/dL Normal 2-4 Albumin/Globulin Ratio 1.0 Normal 1-3 Total Bilirubin 1.00 mg/dL Normal 0.2-1.0 Alkaline Phosphatase 73 U/L Normal 34-104 Alt 51 U/L Normal 7-52 Ast 53 U/L High 13-39 Egfr Non- 79.1 >60 Egfr 95.7 >60 2 Laboratory test 07/25/2019 [facility] C Reactive 332.63 mg/L High <8.01 finding Protein Alcohol < 10 mg/dL Normal <10 Lactic Acid 1.1 mmol/L Normal 0.5-2.0 3 CBC Auto Diff 07/25/2019 [facility] White Blood 11.6 10^3/uL High 3.5-10.8 Count Red Blood Count 3.98 10^6/uL Low 4.18-5.48 Hemoglobin 11.8 g/dL Low 14.0-18.0 Hematocrit 35 % Low 42-52 Mean Corpuscular Volume 88 fL Normal 80-94 Mean Corpuscular Hemoglobin 30 pg Normal 27-31 Mean Corpuscular HGB Conc 34 g/dL Normal 31-36 Red Cell Distribution Width 15 % Normal 10-15 Platelet Count 277 10^3/uL Normal 150-450 Mean Platelet Volume 8.1 fL Normal 7.4-10.4 Abs Neutrophils 8.9 10^3/uL High 1.5-7.7 Abs Lymphocytes 1.0 10^3/uL Normal 1.0-4.8 Abs Monocytes 1.5 10^3/uL High 0-0.8 Abs Eosinophils 0.2 10^3/uL Normal 0-0.6 Abs Basophils 0.1 10^3/uL Normal 0-0.2 Abs Nucleated RBC 0.0 10^3/uL Granulocyte % 76.1 % Lymphocyte % 8.4 % Monocyte % 12.9 % Eosinophil % 1.9 % Basophil % 0.7 % Nucleated Red Blood Cells % 0.0 Laboratory test 07/25/2019 [facility] Erythrocyte Sed 85 mm/Hr High 0-19 finding Rate Hemoglobin A1c 06/29/2019 [place] Hemoglobin A1c 6.4 % High 4.1-5.9 Estimated Average Glucose Calc 137 mg/dL 71-140 Lipid Treatment 06/29/2019 [facility] [place] Cholesterol 243 mg/dL High 50-199 Triglycerides 252 mg/dL High 30-200 HDL 48 mg/dL 29-71 4 Chol/ HDL Ratio 5.0 ratio 4.0-6.7 VLDL 50 mg/dL High 2-29 LDL (Calc) 144 mg/dL High 20-99 5 Alt 26 U/L 3-42 Ast 20 U/L [...] Basophils 0.0 K/uL 0.0-0.3 Basic (BMP) 06/29/2019 [facility] Sodium 139 mmol/L 135-146 6 Potassium 4.4 mmol/L 3.5-5.2 Chloride# 99 mmol/L 97-110 7 Carbon Dioxide 30 mmol/L 24-34 Glucose 114 mg/dL High 70-105 BUN 25 mg/dL 6-26 Creatinine 1.1 mg/dL 0.5-1.4 Calcium 9.7 mg/dL 8.5-10.5 8 Female Egfr 51 Low >60 9 Male Egfr 68 >60 10 Anion Gap 10 mmol/L 5-15 11 Laboratory test finding 06/29/2019 [facility] TSH 2.86 uIU/mL 0.35-4.94 PSA 1.040 ng/mL 0.000-4.000 12 1 Troponin-I testing on Plasma Separator Tubes (PST) has a known false positive rate of 0.20-0.40%. All positive troponins reflex immediately to secondary confirmatory testing. Using the [employer] DxI 800 Access Immunoassay systems, the 99th percentile upper reference limit was demonstrated to be < 0.03 ng/mL. 2 Because ethnic data is not always readily available, this report includes an eGFR for both -Americans and non- Americans. The National Kidney Disease Education Program (NKDEP) does not endorse the use of the MDRD equation for patients that are not between the ages of 18 and 70, are , have extremes of body size, muscle mass, or nutritional status, or are non- or non-. According to the National Kidney Foundation, irrespective of diagnosis, the stage of the disease is based on the level of kidney function: Stage Description GFR(mL/min/1.73 m(2)) 1 Kidney damage with normal or decreased GFR 90 2 Kidney damage with mild decrease in GFR 60-89 3 Moderate decrease in GFR 30-59 4 Severe decrease in GFR 15-29 5 Kidney failure <15 (or dialysis) 3 [facility] Severe Sepsis and Septic Shock Management Bundle Measure requires all lactic acids initially measuring >2.0 mmol/L be repeated. 4 Per NCEP ATP III Guidelines: Results lower than 40 mg/dL are suggestive of increased risk for coronary artery disease. Results > or = to 60 mg/dL are considered a negative risk factor. 5 Per NCEP ATP III Guidelines: Normal Population <130 Patients with medical conditions: CHD/DM Optimal: <100 Borderline high: 130-159 High: 160-189 Very high: >189 6 Updated reference range on new analyzer 7 Updated reference range on new analyzer 8 Updated reference range 12-14-2018 9 Concerning GFR Guidelines for Americans: Normal function or mild renal disease, if clinically at risk: >/= 60 mL/min Moderately decreased: 30-59 Severely decreased: 15-29 Renal failure: <15 There is reduced accuracy above 60ml/min/1.73 m squared, but the numeric value may be clinically useful in the near 60 range 10 Concerning GFR Guidelines: Normal function or mild [...] drugs that are excreted by the kidneys. 11 Updated Reference Range 12 Beginning 10/11/06 PSA values assayed at [employer] uses chemiluminescence methodology manufactured by [employer] for use on the DXI analyzer. Values obtained with different assay methods or kits can not be used interchangeably. Serum PSA measurement is not an absolute test for malignancy. The PSA value should be used in conjunction with information available from clinical evaluation and other diagnostic procedures. Procedures Date Code Description Status 05/28/2008 93884201 Colonoscopy Completed Medical Devices Description No Information Available Encounters Type Date Location Provider Dx Diagnosis Office Visit 07/05/2019 [facility] Elgin Sims DO Z01.810 Encounter for 10:00a preprocedural cardiovascular examination M17.0 Bilateral primary osteoarthritis of knee E11.9 Type 2 diabetes mellitus without complications M65.322 Trigger finger, LEFT index finger E78.2 Mixed hyperlipidemia G60.8 Other hereditary and idiopathic neuropathies G43.109 Migraine with aura, not intractable, w/o status migrainosus F41.9 Anxiety disorder, unspecified M54.5 Low back pain M25.569 Pain in unspecified knee R53.83 Other fatigue M20.21 Hallux rigidus, RIGHT foot E66.9 Obesity, unspecified M18.11 Unil primary osteoarth of first carpometacarp joint, r hand H35.30 Unspecified macular degeneration D48.5 Neoplasm of uncertain behavior of skin Z68.30 Body mass index (BMI) 30.0-30.9, adult Assessments Date Code Description Provider 08/05/2019 M17.0 Bilateral primary osteoarthritis of knee Elgin Sims DO 08/05/2019 A41.1 Sepsis due to other specified staphylococcus SimsElgin vicente , DO 08/05/2019 R41.82 Altered mental status, unspecified SimsElgin vicente, DO 07/05/2019 Z01.810 Encounter for preprocedural cardiovascular SimsElgin , DO examination 07/05/2019 M17.0 Bilateral primary osteoarthritis of knee SimsElgin, DO 07/05/2019 E11.9 Type 2 diabetes mellitus without Sims Elgin, DO complications 07/05/2019 M65.322 Trigger finger, LEFT index finger SimsElgin, DO 07/05/2019 E78.2 Mixed hyperlipidemia Elgin Sims, DO 07/05/2019 G60.8 Other hereditary and idiopathic neuropathies SimsElgin , DO 07/05/2019 G43.109 Migraine with aura, not intractable, without Sims Elgin, DO status migraino 07/05/2019 F41.9 Anxiety disorder, unspecified Sims, Elgin, DO 07/05/2019 M54.5 Low back pain Sims, Elgin, DO 07/05/2019 M25.569 Pain in unspecified knee Elgin Sims, DO 07/05/2019 R53.83 Other fatigue SimsElgin, DO 07/05/2019 M20.21 Hallux rigidus, RIGHT foot SimsElgin, DO 07/05/2019 E66.9 Obesity, unspecified SimsElgin vicente, DO 07/05/2019 M18.11 Unilateral primary osteoarthritis of first Sims, Elgin , 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, RIGHT hand 07/05/2019 H35.30 Unspecified macular degeneration SimsElgin, DO 07/05/2019 D48.5 Neoplasm of uncertain behavior of skin SimsElgin, DO 07/05/2019 Z68.30 Body mass index (BMI) 30.0-30.9, adult Sims, Elgin, DO 06/29/2019 E11.9 Type 2 diabetes mellitus without Sims Elgin, DO complications 06/29/2019 E11.9 Type 2 diabetes mellitus without Schedule, Laboratory complications 06/29/2019 E78.2 Mixed hyperlipidemia Sims, Elgin, DO 06/29/2019 E78.2 Mixed hyperlipidemia Schedule, Laboratory 06/29/2019 Z12.5 Encounter for screening for malignant Sims, Elgin, DO neoplasm of prostate 06/29/2019 Z12.5 Encounter for screening for malignant Schedule, Laboratory neoplasm of prostate 06/29/2019 E11.9 Type 2 diabetes mellitus without [facility] complications 06/29/2019 E78.2 Mixed hyperlipidemia [facility] 06/29/2019 Z12.5 Encounter for screening for malignant [facility] neoplasm of prostate Plan of Treatment Future Appointment(s):12/27/2019 8:50 am - Schedule, Laboratory at [facility]2019 2:00 pm - Elgin Sims DO at [facility]08/05/2019 - Elgin Sims DOM17.0 Bilateral primary osteoarthritis of kneeFollow up:Follow up as scheduled. If he wants an appointment prior to December, please schedule in 1-2 [id number] Sepsis due to other specified [id number] Altered mental status, unspecified Functional Status Description No Information Available Mental Status Description No Information Available Referrals Description No Information Available
--- OUTSIDE RECORDS SUMMARY | 2019-08-29 10:17 | XMS REPORT | Continuity of Care Document ---
:1950 External Reference #:[id number] Author Name Elgin Sims DO Address [address] [place] [id number] Care Team Providers Name Role Phone Katy Guy MD - Orthopaedic Care Team Information Medical Office Technician Surgery Problems Active Problems Provider Date Migraine [...] onset Auto-Inject of cluster headaches Sertraline HCL Take One Tablet 90tabs F41.9 Elgin Sims, 01/16/2015 100mg By Mouth Every DO Tablets Day Clindamycin Phosphate apply to 60units Elgin Sims, [...] Anxiety Cyclobenzaprine HCL take 1-2 tablets 60tabs SimsElgin, 07/30/2011 10mg by mouth every DO Tablets night at bedtime as needed for spasms caution : sedation Enoxaparin Sodium Unknown 40mg/0.4ML Solution Rifampin Unknown 300mg Capsules Immunizations CPT Code Status Date Vaccine Lot # [id number] Refused 08/05/2019 Fluzone Highdose Age 65 And Over Preservative & Antibiotic Free 33437 Refused 01/02/2019 Prevnar 13 Pneumococal Conjugate Vaccine 85340 Refused 06/27/2018 Influenza Vac, Quadrivalent, Split, 0.5mL Dosage, Im Use Vital Signs Date Vital Result Comment 08/24/2019 4:06pm Weight 189.00 lb Heart Rate 80 /min BP Systolic 124 mmHg BP Diastolic 64 mmHg Respiratory Rate 18 /min Height 70 inches 5'10" O2 % BldC Oximetry 91 % BMI (Body Mass Index) 27.1 kg/m2 08/05/2019 8:53am Body Temperature 97.0 F Weight 199.00 lb Heart Rate 66 /min BP Systolic 120 mmHg BP Diastolic 72 mmHg Respiratory Rate 18 /min Results Test Acquired Date Facility Test Result H/L Range Note Laboratory test 07/25/2019 [facility] Troponin I 0.02 ng/mL < 0.03 1 finding Comp Metabolic 07/25/2019 [facility] Sodium 132 mmol/L Low 135 -145 Panel [...] Egfr 95.7 >60 2 Laboratory test 07/25/2019 [facility] C Reactive 332.63 mg/L High <8.01 finding Protein Alcohol < 10 mg/dL Normal <10 Lactic Acid 1.1 mmol/L Normal 0.5-2.0 3 CBC Auto Diff 07/25/2019 [facility] White Blood 11.6 10^3/uL High 3.5-10.8 Count [...] Blood Cells % 0.0 Laboratory test 07/25/2019 [facility] Erythrocyte Sed 85 mm/Hr High 0-19 finding Rate Hemoglobin A1c 06/29/2019 [place] Hemoglobin A1c 6.4 % High 4.1-5.9 Estimated [...] immediately to secondary confirmatory testing. Using the [employer] DxI 800 Access Immunoassay systems, the 99th [...] 5 Kidney failure <15 (or dialysis) 3 [facility] Severe Sepsis and Septic Shock Management [...] 12 Beginning 10/11/06 PSA values assayed at [facility] uses chemiluminescence methodology manufactured by [employer] for use on the DXI analyzer. Values obtained with different assay methods or kits can not be used interchangeably. Serum PSA measurement is not an absolute test for malignancy. The PSA value should be used in conjunction with information available from clinical evaluation and other diagnostic procedures. Procedures Date Code Description Status 08/24/2019 45718 Measure Blood Oxygen Level Single Determination Completed 05/28/2008 [id number] Colonoscopy Completed Medical Devices Description No Information Available Encounters Type Date Location Provider Dx Diagnosis Office Visit 08/24/2019 [facility] El[place] Sims DO M17.0 Bilateral primary 4:00p osteoarthritis of knee A41.1 Sepsis due to other specified staphylococcus F41.9 Anxiety disorder, unspecified R05 Cough R53.1 Weakness D48.5 Neoplasm of uncertain behavior of skin G43.109 Migraine with aura, not intractable, w/o status migrainosus R53.83 Other fatigue R63.4 Abnormal weight loss H35.30 Unspecified macular degeneration Z68.27 Body mass index (BMI) 27.0-27.9, adult Office Visit 07/05/2019 10:00a [facility] Elgin Sims DO Z01.810 Encounter for preprocedural cardiovascular examination M17.0 Bilateral primary osteoarthritis [...] 30.0-30.9, adult Assessments Date Code Description Provider 08/24/2019 M17.0 Bilateral primary osteoarthritis of knee Levi Elgin, DO 08/24/2019 A41.1 Sepsis due to other specified staphylococcus Levi Elgin , DO 08/24/2019 F41.9 Anxiety disorder, unspecified SimsElgin vicente, DO 08/24/2019 R05 Cough Sims, Elgin, DO 08/24/2019 R53.1 Weakness Levi Elgin, DO 08/24/2019 D48.5 Neoplasm of uncertain behavior of skin Levi Elgin, DO 08/24/2019 G43.109 Migraine with aura, not intractable, without SimsElgin vicente, status migraino 08/24/2019 R53.83 Other fatigue Levi Elgin, DO 08/24/2019 R63.4 Abnormal weight loss Sims, Elgin, DO 08/24/2019 H35.30 Unspecified macular degeneration Levi Elgin, DO 08/24/2019 Z68.27 Body mass index (BMI) 27.0-27.9, adult Sims, Elgin, DO 08/05/2019 M17.0 Bilateral primary osteoarthritis of knee Levi Elgin, DO 08/05/2019 A41.1 Sepsis due to other specified staphylococcus Sims, Elgin , DO 08/05/2019 R41.82 Altered mental status, unspecified Levi Elgin, DO 07/05/2019 Z01.810 Encounter for preprocedural cardiovascular Elgin Sims DO examination 07/05/2019 M17.0 Bilateral primary osteoarthritis of knee Elgin Sims, DO 07/05/2019 E11.9 Type 2 diabetes mellitus without SimsElgin vicente, complications 07/05/2019 M65.322 Trigger finger, LEFT index finger Elgin Sims, 07/05/2019 E78.2 Mixed hyperlipidemia Elgin Sims, DO 07/05/2019 G60.8 Other hereditary and idiopathic neuropathies Elgin Sims , DO 07/05/2019 G43.109 Migraine with aura, not intractable, without Elgin Sims DO status migraino 07/05/2019 F41.9 Anxiety disorder, unspecified Elgin Sims, DO 07/05/2019 M54.5 Low back pain Elgin Sims, DO 07/05/2019 M25.569 Pain in unspecified knee Elgin Sims, DO 07/05/2019 R53.83 Other fatigue Elgin Sims, DO 07/05/2019 M20.21 Hallux rigidus, RIGHT foot Elgin Sims, DO 07/05/2019 E66.9 Obesity, unspecified Elgin Sims, DO 07/05/2019 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, RIGHT hand 07/05/2019 H35.30 Unspecified macular degeneration Elgin Sims, DO 07/05/2019 D48.5 Neoplasm of uncertain behavior of skin Elgin Sims DO 07/05/2019 Z68.30 Body mass index (BMI) 30.0-30.9, adult Elgin Sims, 06/29/2019 E11.9 Type 2 diabetes mellitus without Elgin Sims DO complications 06/29/2019 E11.9 Type 2 diabetes mellitus without Schedule, Laboratory complications 06/29/2019 E78.2 Mixed hyperlipidemia Elgin Sims DO 06/29/2019 E78.2 Mixed hyperlipidemia Schedule, Laboratory [...] neoplasm of prostate Plan of Treatment Future Appointment(s):09/27/2019 11:15 am - Elgin Sims DO at [facility]12/27/2019 8:50 am - Schedule, Laboratory at [facility]01/03/2020 2:00 pm - Elgin Sims, DO at [facility]08/24/2019 - Elgin Sims, DOM17.0 Bilateral primary osteoarthritis of kneeComments:The patient has had a right knee replacement with Dr. Villanueva. Improved at the present time. Follow up with Dr. Villanueva as scheduled. We will continue to monitor.Follow up:Follow up as scheduled.A41.1 Sepsis due to other specified [id number] Anxiety disorder, unspecifiedComments:Recommended the patient to continue on his current medication regimen, which include Sertraline, Buspirone as scheduled. Feels better with a nicotine patch. Will monitor closely.R05 CoughNew Xrays:Chest Xray, 2 Views, Ordered: Comments:On exam, the patient has had right lower lung congestion. His oxygen level was 91% when checked. We will obtain a chest x-ray for further management of the symptoms. In the meantime, he can use Mucinex and Guaifenesin as directed. Will continue to monitor.R53.1 WeaknessComments:I recommended the patient to continue on current medication regimen. Encouraged the patient to eat more and stay active. Will continue to monitor.D48.5 Neoplasm of uncertain behavior of skinComments:A referral to the protozoology teacher, Dr. Shirley was provided today. Will continue to monitor.Referral:Jordyn Shirley MD, [id number] Migraine with aura, not intractable, without status migrainoComments:I recommended the patient to continue taking Propranolol. Ibuprofen as needed. If this worsens, should take sumatriptan. Will continue to monitor.R53.83 Other fatigueComments:Encouraged the patient to eat more and stay active. Will continue to monitor.R63.4 Abnormal weight lossH35.30 Unspecified macular vgtpafqvtkgsM00.27 Body mass index (BMI) 27.0- 27.9, adultComments:BMI is at 27.1 The patient should try to lose weight with low-calorie diet and exercises. We will continue to monitor weight and BMI periodically. Functional Status Description No Information Available Mental Status Description No Information Available Referrals Refer to Reason for Referral Status Appt Date Jordyn Shirley MD Lesion over L eyebrow Created [address] [place] [address] [facility] [phone]
--- OUTSIDE RECORDS SUMMARY | 2019-08-29 10:17 | XMS REPORT | Continuity of Care Document ---
:1950 External Reference #:[id number] Author Name Bushra Wharton M.D. (transmitted by agent of provider Charis Cancino ) Address [address] [place] [id number] Care Team Providers Name Role Phone Levi DO [place] [facility] Care Team Information Supervisor Winter Problems Active Problems Provider Date Localized, primary osteoarthritis of the hand Morteza Freed MD Onset: 06/12 Localized, primary osteoarthritis Radha Villanueva M.D. Onset: 05/05/2019 Arthroplasty of knee Radha Villanueva M.D. Onset: 08/14/2019 Social History Type Date Description Comments Sex Unknown Tobacco Use Start: Unknown End: Former Cigarette Smoker 1 Unknown Pack Daily Smoking Status Reviewed: 08/22/19 Former Cigarette Smoker 1 Pack Daily ETOH Use Occasionally consumes alcohol Tobacco Use Start: Unknown End: Patient is a former smoker Unknown Recreational Drug Use Denies Drug Use Exercise Type/Frequency Exercises regularly Allergies, Adverse Reactions, Alerts Active Allergies Reaction Severity Comments Date Penicillin 12/09/2017 Sulfa Antibiotics 12/09/2017 Medications Active Medications SIG Qnty Indications Ordering Date Provider Tramadol HCL 1 tab every 6 30tabs Radha Villanueva, 07/24/2019 50mg Tablets hours as needed M.D. for pain Percocet 1-2 by mouth 70tabs Radha Villanueva, 07/21/2019 5-325mg Tablets every 4-6 hours M.D. as needed pain Colace 1 tab by mouth 90caps Radha Villanueva, 07/21/2019 100mg Capsules 2-3 times a day M.D. as needed Cyclobenzaprine HCL take 1 tab by 90tabs Radha Villanueva, 07/21/2019 10mg mouth 2-3 times M.D. Tablets a day as needed Eliquis take one tab by 60tabs Radha Villanueva, 07/21/2019 2.5mg Tablets mouth twice M.D. daily x 4 weeks Hydrocodone-Acetaminoph 1 or 2 tabs by 30tabs Morteza Freed, 05/25/2019 en mouth every 6-8 MD 5-325mg Tablets hours as needed for pain Joselin Tablet 1 tab by mouth Unknown daily Vitamin B12 2 SL daily Unknown Eye Vitamin 1 capsule by Unknown mouth daily Fish Oil 1 tab by mouth Unknown Capsules every morning Multi-Vitamin 1 by mouth every Unknown Tablets day Ibuprofen 2 or 3 tabs by Unknown 200mg Tablets mouth as needed Buspirone HCL 1 by mouth three Unknown 10mg Tablets times a day as needed Propranolol HCL 1 by mouth three Unknown 80mg times a day Tablets Clindamycin Phosphate apply to Unknown 1% affected area(s) Solution twice a day Sertraline HCL 1 by mouth every Unknown 100mg day Tablets Sumatriptan Succinate as directed Unknown Refill 6mg/0.5ML Solution Cartridge Sumatriptan Succinate take 1 at onset Unknown 50mg of migraine. may Tablets repeat within 2 hours if needed. max 2x/week. max daily dose 100mg Medications Administered in Office Medication SIG Qnty Indications Ordering Provider Date Celestone 3 mg and 3mg Rich Macdonald MD 12/30/2018 Injection Celestone 3 mg and 3mg Rich Macdonald MD 12/30/2018 Injection Celestone 3 mg and 3mg Morteza Freed MD 12/14/2017 Injection Immunizations Description No Information Available Vital Signs Date Vital Result Comment 08/22/2019 1:11pm Height 71 inches 5'11" Weight 188.00 lb Heart Rate 105 /min BP Systolic 105 mmHg BP Diastolic 72 mmHg Body Temperature 96.0 F O2 % BldC Oximetry 96 % BMI (Body Mass Index) 26.2 kg/m2 08/14/2019 8:49am Height 71 inches 5'11" Weight 191.00 lb Heart Rate 69 /min BP Systolic 136 mmHg BP Diastolic 88 mmHg Body Temperature 97.1 F Pain Level 6 BMI (Body Mass Index) 26.6 kg/m2 Results Test Acquired Date Facility Test Result H/L Range Note Comp Metabolic 08/17/2019 [facility] Sodium 137 mmol/L Normal 135-[address] [place] [address] [phone] Potassium 4.6 mmol/L Normal 3.5-5.0 Chloride 100 mmol/L Low 101-111 Co2 Carbon Dioxide 31 mmol/L Normal 22-32 Anion Gap 6 mmol/L Normal 2-11 Calcium 9.4 mg/dL Normal 8.6-10.3 Albumin 3.7 g/dL Normal 3.2-5.2 Total Bilirubin 0.30 mg/dL Normal 0.2-1.0 Glucose 136 mg/dL High 70-100 Blood Urea Nitrogen 17 mg/dL Normal 6-24 Creatinine 0.91 mg/dL Normal 0.67-1.17 BUN/Creatinine Ratio 18.7 Normal 8-20 Total Protein 6.4 g/dL Normal 6.4-8.9 Globulin 2.7 g/dL Normal 2-4 Albumin/Globulin Ratio 1.4 Normal 1-3 Alkaline Phosphatase 92 U/L Normal 34-104 Alt 17 U/L Normal 7-52 Ast 14 U/L Normal 13-39 Egfr Non- 83.1 >60 Egfr 100.6 >60 1 Laboratory test 08/17/2019 [facility] Creatine 18 U/L Normal 10-[address] [place] [address] [phone] C Reactive Protein 31.83 mg/L High <8.01 CBC No Diff 08/17/2019 [facility] White Blood 7.6 10^3/uL Normal 3.5-10.[address] [place] [address] [phone] Red Blood Count 4.35 10^6/uL Normal 4.18-5.48 Hemoglobin 12.3 g/dL Low 14.0-18.0 Hematocrit 38 % Low 42-52 Mean Corpuscular Volume 86 fL Normal 80-94 Mean Corpuscular Hemoglobin 28 pg Normal 27-31 Mean Corpuscular HGB Conc 33 g/dL Normal 31-36 Red Cell Distribution Width 16 % High 10-15 Platelet Count 399 10^3/uL Normal 150-450 Mean Platelet Volume 9.1 fL Normal 7.4-10.4 CBC Auto 08/10/2019 [facility] White Blood 9.6 10^3/uL Normal 3.5-10.[address] [place] [address] [phone] Red Blood Count 4.03 10^6/uL Low 4.18-5.48 Hemoglobin 11.7 g/dL Low 14.0-18.0 Hematocrit 35 % Low 42-52 Mean Corpuscular Volume 86 fL Normal 80-94 Mean Corpuscular Hemoglobin 29 pg Normal 27-31 Mean Corpuscular HGB Conc 34 g/dL Normal 31-36 Red Cell Distribution Width 16 % High 10-15 Platelet Count 382 10^3/uL Normal 150-450 Mean Platelet Volume 9.6 fL Normal 7.4-10.4 Abs Neutrophils 6.6 10^3/uL Normal 1.5-7.7 Abs Lymphocytes 1.3 10^3/uL Normal 1.0-4.8 Abs Monocytes 1.5 10^3/uL High 0-0.8 Abs Eosinophils 0.1 10^3/uL Normal 0-0.6 Abs Basophils 0.1 10^3/uL Normal 0-0.2 Abs Nucleated RBC 0.0 10^3/uL Granulocyte % 69.0 % Lymphocyte % 13.1 % Monocyte % 15.6 % Eosinophil % 0.9 % Basophil % 1.4 % Nucleated Red Blood Cells % 0.0 Comp Metabolic Panel 08/10/2019 [facility] Sodium 134 mmol/L Low 135-[address] [place] [address] [phone] Potassium 4.5 mmol/L Normal 3.5-5.0 Chloride 97 mmol/L Low 101-111 Co2 Carbon Dioxide 27 mmol/L Normal 22-32 Anion Gap 10 mmol/L Normal 2-11 Calcium 9.3 mg/dL Normal 8.6-10.3 Albumin 3.6 g/dL Normal 3.2-5.2 Total Bilirubin 0.40 mg/dL Normal 0.2-1.0 Glucose 148 mg/dL High 70-100 Blood Urea Nitrogen 21 mg/dL Normal 6-24 Creatinine 1.14 mg/dL Normal 0.67-1.17 BUN/Creatinine Ratio 18.4 Normal 8-20 Total Protein 6.5 g/dL Normal 6.4-8.9 Globulin 2.9 g/dL Normal 2-4 Albumin/Globulin Ratio 1.2 Normal 1-3 Alkaline Phosphatase 94 U/L Normal 34-104 Alt 18 U/L Normal 7-52 Ast 15 U/L Normal 13-39 Egfr Non- 64.1 >60 Egfr 77.5 >60 2 Laboratory test 08/10/2019 [facility] Creatine 18 U/L Normal 10-[address] [place] [address] [phone] C Reactive Protein 95.24 mg/L High <8.01 CBC Auto 07/07/2019 [facility] White Blood 8.5 10^3/uL Normal 3.5-10.[address] [place] [address] [phone] Red Blood Count 5.31 10^6/uL Normal 4.18-5.48 Hemoglobin 15.7 g/dL Normal 14.0-18.0 Hematocrit 47 % Normal 42-52 Mean Corpuscular Volume 88 fL Normal 80-94 Mean Corpuscular Hemoglobin 30 pg Normal 27-31 Mean Corpuscular HGB Conc 34 g/dL Normal 31-36 Red Cell Distribution Width 15 % Normal 10-15 Platelet Count 211 10^3/uL Normal 150-450 Mean Platelet Volume 8.8 fL Normal 7.4-10.4 Abs Neutrophils 5.1 10^3/uL Normal 1.5-7.7 Abs Lymphocytes 2.1 10^3/uL Normal 1.0-4.8 Abs Monocytes 1.1 10^3/uL High 0-0.8 Abs Eosinophils 0.2 10^3/uL Normal 0-0.6 Abs Basophils 0.0 10^3/uL Normal 0-0.2 Abs Nucleated RBC 0.0 10^3/uL Granulocyte % 59.6 % Lymphocyte % 24.8 % Monocyte % 12.7 % Eosinophil % 2.3 % Basophil % 0.6 % Nucleated Red Blood Cells % 0.0 Comp Metabolic 07/07/2019 [facility] Sodium 139 mmol/L Normal 135-[address] [place] [address] [phone] Potassium 4.3 mmol/L Normal 3.5-5.0 Chloride 106 mmol/L Normal 101-111 Co2 Carbon Dioxide 27 mmol/L Normal 22-32 Anion Gap 6 mmol/L Normal 2-11 Glucose 118 mg/dL High 70-100 Blood Urea Nitrogen 22 mg/dL Normal 6-24 Creatinine 0.99 mg/dL Normal 0.67-1.17 BUN/Creatinine Ratio 22.2 High 8-20 Calcium 9.6 mg/dL Normal 8.6-10.3 Total Protein 6.4 g/dL Normal 6.4-8.9 Albumin 4.3 g/dL Normal 3.2-5.2 Globulin 2.1 g/dL Normal 2-4 Albumin/Globulin Ratio 2.0 Normal 1-3 Total Bilirubin 0.50 mg/dL Normal 0.2-1.0 Alkaline Phosphatase 80 U/L Normal 34-104 Alt 22 U/L Normal 7-52 Ast 18 U/L Normal 13-39 Egfr Non- 75.4 >60 Egfr 91.2 >60 3 Inr/Protime 07/07/2019 [facility] Inr 0.96 Normal 0.82-1.[address] [place] [address] [phone] Laboratory test 07/07/2019 [facility] Partial 31.1 Normal 26.0 -38.[address] [place] [address] Time PTT [phone] Type & Screen 07/07/2019 [facility] Patient AB Positive [address] [place] [address] [phone] Antibody Screen NEGATIVE Urinalysis Profile 07/07/2019 [facility] Urine Color Yellow [address] [place] [address] [phone] Urine Appearance Cloudy Urine Specific [place] 1.018 Normal 1.010-1.030 Urine pH 5.0 Normal 5-9 Urine Urobilinogen Negative Negative Urine Ketones Negative Negative Urine Protein Negative Negative Urine Leukocytes Negative Negative Urine Blood Negative Negative * * Abnormal Negative 5 Urine Nitrite Negative Negative Urine Bilirubin Negative Negative Urine Glucose Negative Negative Urine Culture And 07/07/2019 [facility] Urine Culture SEE RESULT [address] [place], [place] [id number] [phone] 1 Because ethnic data is not always readily [...] 15-29 5 Kidney failure <15 (or dialysis) 2 Because ethnic data is not always [...] 5 Kidney failure <15 (or dialysis) 3 Because ethnic data is not always readily [...] 15-29 5 Kidney failure <15 (or dialysis) 4 Standard intensity warfarin therapeutic range: 2.0-3.0 High intensity warfarin therapeutic range: 2.5-3.5 5 *Ascorbic acid is present which may interfere with detection of blood. 6 SEE RESULT BELOW Name: BUSHRA ROSS : [address]: Radha Villanueva MD Acct: [id number] Unit: [id number] AGE: 69 Location: [facility] Re07/07/19 SEX: M Status: REG REF SPEC: [id number] JEFRY: 07/07/19-1200 [facility] DR: Radha Villanueva MD REQ: [id number] RECD: 07/07/194385 STATUS: JOSHUA VILLA DR: Elgin Sims DO _ SOURCE: URINE SPDESC: ORDERED: Urine Culture QUERIES: Urine Source: Clean Catch Procedure Result Reported Site Urine Culture Final 07/08/19- 1439 ML No Growth (<1,000 CFU/mL) * ML - Main Lab . END OF REPORT DEPARTMENT OF PATHOLOGY, [address] [place] [address] Tee Kilpatrick M.D. Director [facility] # [id number] Procedures Date Code Description Status 08/02/2019 98985 EKG, Interpretation Only Completed 07/30/2019 04428 ECHO Transthorasic Realtime 2D W Doppler & Color Flow Hosp Completed 07/29/2019 90625 EKG, Interpretation Only Completed 07/28/2019 02320 Revise Total Knee Arthroplasty One Component Completed 07/28/2019 73231 Revise Total Knee Arthroplasty One Component Completed 07/20/2019 96975 TKR Total Knee Replacement Completed 07/20/2019 21122 TKR Total Knee Replacement Completed 06/09/2019 81862 Short Arm Splint Application Completed 05/25/2019 38533 Tendon Transfer CMC/Hand W/O Free Graft Completed 05/25/2019 45901 Arthroplasty Interposition Intercarpal Or Carpometacarpal Completed JTS 05/25/2019 59213 Arthroplasty Interposition Intercarpal Or Carpometacarpal Completed JTS Medical Devices Description No Information Available Encounters Type Date Location Provider Dx Diagnosis Office Visit 08/02/2019 [facility] Katarzyna Finney T84.53xA Infect /inflm 7:02a Infectious Pepper, PUNCH MOLDER reaction due to Diseases internal r knee prosth, init G93.40 Encephalopathy, unspecified R19.7 Diarrhea, unspecified Office Visit 08/01/2019 [facility] Katarzynaminal Finney T84.53xA Infect/ inflm 7:01a For Infectious Evgeny, PUNCH MOLDER reaction due to Diseases internal r knee prosth, init G93.40 Encephalopathy, unspecified Office Visit 08/01/2019 [facility] R41.82 Altered mental 9:42a Assoc,bel Bryant'jhony PA-C status, Hospitalists unspecified R43.8 Other disturbances of smell and taste F41.9 Anxiety disorder, unspecified G43.909 Migraine, unsp, not intractable, without status migrainosus Office Visit 07/31/2019 [facility] Bushra Villegas T81.42xA Infct fol a 6:37a For Infectious Theresa Wharton procedure, deep Diseases incisional surgical site, init L03.115 Cellulitis of right lower limb M00.861 Arthritis due to other bacteria, right knee G93.40 Encephalopathy, unspecified [facility] R41.82 Altered mental 9:41a Assoc,bel Bryant'jhony, PA-C status, Hospitalists unspecified R78.81 Bacteremia R43.8 Other disturbances of smell and taste G43.909 Migraine, unsp, not intractable, without status migrainosus [facility] R[facility] Altered mental 9:41a Assoc,bel Bryant'jhony PA-C status, Hospitalists unspecified R43.8 Other disturbances of smell and taste F41.9 Anxiety disorder, unspecified G43.909 Migraine, unsp, not intractable, without status migrainosus Office [facility] R41.82 Altered mental 9:40a Assoc,pc Manny'jhony, PA-C status, Hospitalists unspecified A41.9 Sepsis, unspecified organism R60.0 Localized edema G43.909 Migraine, unsp, not intractable, without status migrainosus Office Visit 07/28/2019 [facility] G93.41 Metabolic 9:40a Assoc,pc Manny'jhony, PA-C encephalopathy Hospitalists F41.9 Anxiety disorder, unspecified G43.909 Migraine, unsp, not intractable, without status migrainosus Office Visit 07/27/2019 [facility] Bakari T81.42xA Infct fol a 6:36a For Infectious Theresa Wharton procedure, deep Diseases incisional surgical site, init L03.115 Cellulitis of right lower limb Office Visit 07/27/2019 [facility] Olga Faisal, T81.49xA Infection 9:39a Assoc,pc PUNCH MOLDER following a Hospitalists procedure, other surgical site, init A41.9 Sepsis, unspecified organism G93.41 Metabolic encephalopathy G43.909 Migraine, unsp, not intractable, without status migrainosus E53.8 Deficiency of other specified B group vitamins [facility] T81.42xA Infct fol a 6:33a For Infectious Theresa Wharton procedure, deep Diseases incisional surgical site, init L03.115 Cellulitis of right lower limb Office Visit 07/26/2019 [facility] Teresa Naa, T81.49xA Infection 9:38a Assoc,pc PUNCH MOLDER following a Hospitalists procedure, other surgical site, init G43.909 Migraine, unsp, not intractable, without status migrainosus F41.9 Anxiety disorder, unspecified E53.8 Deficiency of other specified B group vitamins Office Visit 07/25/2019 [facility] Vivi T81.49xA Infection 9:37a Assoc,bel Samayoa M.D. following a Hospitalists procedure, other surgical site, init Office Visit 07/20/2019 [facility] Roberta I10 Essential 8:50a Assoc,bel Vee D.O. (primary) Hospitalists hypertension E11.9 Type 2 diabetes mellitus without complications F41.8 Other specified anxiety disorders G43.909 Migraine, unsp, not intractable, without status migrainosus Office Visit 05/05/2019 9:30a [facility] Radha Rich, M25.562 Pain in left at [place] M.D. knee M25.561 Pain in right knee M25.462 Effusion, left knee M25.461 Effusion, right knee M17.11 Unilateral primary osteoarthritis, right knee Office Visit 04/19/2019 [facility] M17.0 Bilateral primary 9:15a Orthopedics at MD Renae osteoarthritis of [place] knee Office Visit 04/12/2019 [facility] M20.21 Hallux rigidus, 9:00a Orthopedics at Theresa Mohan right foot [place] Assessments Date Code Description Provider 08/22/2019 T84.53xD Infection and inflammatory reaction Bushra Wharton M.D. 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 antibiotics 08/22/2019 R79.82 Elevated C-reactive protein (CRP) Bushra Wharton M.D. 08/22/2019 R53.83 Other fatigue Bushra Wharton M.D. 08/14/2019 T84.53xD Infection and inflammatory reaction Radha Villanueva M.D. due to internal right knee prosthesis, subsequent encounter 08/14/2019 R78.81 Bacteremia Radha Villanueva M.D. 08/14/2019 Z47.1 Aftercare following joint Radha Villanueva M.D. replacement surgery 08/14/2019 M25.561 Pain in right knee Radha Villanueva M.D. 08/14/2019 M25.461 Effusion, right knee Radha Villanueva M.D. 08/14/2019 Z96.651 Presence of right artificial knee Radha Villanueva M.D. joint 08/02/2019 T84.53xA Infection and inflammatory reaction Katarzyna Pepper NP due to internal right knee prosthesis, initial encounter 08/02/2019 T84.53xA Infection and inflammatory reaction REMY Todd due to internal right knee prosthesis, initial encounter 08/02/2019 G93.40 Encephalopathy, unspecified Katarzyna Pepper NP 08/02/2019 R78.81 Bacteremia Veronika Lemos PA-C 08/02/2019 R19.7 Diarrhea, unspecified Katarzyna Pepper NP 08/02/2019 R41.82 Altered mental status, unspecified Veronika O'jhony, PA-C 08/02/2019 F41.9 Anxiety disorder, unspecified Veronika O'jhony, PA-C 08/02/2019 Z96.651 Presence of right artificial knee Veronika O'jhony, PA-C joint 08/01/2019 T84.53xA Infection and inflammatory reaction Katarzyna Navarretenelson Pepper, PUNCH MOLDER due to internal right knee prosthesis, initial encounter 08/01/2019 R41.82 Altered mental status, unspecified Veronika O'jhony, PA-C 08/01/2019 G93.40 Encephalopathy, unspecified Katarzyna Navarretetaylernaldo Evgeny, PUNCH MOLDER 08/01/2019 R43.8 Other disturbances of smell and Veronika O'jhony, PA-C taste 08/01/2019 F41.9 Anxiety disorder, unspecified Veronika O'jhony, PA-C 08/01/2019 G43.909 Migraine, unspecified, not Veronika O'jhony, PA-C intractable, without status migrainosus 07/31/2019 T81.42xA Infection following a procedure, Bushra Wharton M.D. deep incisional surgical site, initial encounter 07/31/2019 R41.82 Altered mental status, unspecified Veronika O'jhony, PA-C 07/31/2019 L03.115 Cellulitis of right lower limb Bushra Wharton M.D. 07/31/2019 R78.81 Bacteremia Veronika O'jhony, PA-C 07/31/2019 M00.861 Arthritis due to other bacteria, Bushra Wharton M.D. right knee 07/31/2019 R43.8 Other disturbances of smell and Veronika O'jhony, PA-C taste 07/31/2019 G93.40 Encephalopathy, unspecified Bushra Wharton M.D. 07/31/2019 G43.909 Migraine, unspecified, not Veronika O'jhony, PA-C intractable, without status migrainosus 07/30/2019 R78.81 Bacteremia Estrella De Los Santos M.D. 07/30/2019 R41.82 Altered mental status, unspecified Veronika O'jhony, PA-C 07/30/2019 R43.8 Other disturbances of smell and Veronika O'jhony, PA-C taste 07/30/2019 F41.9 Anxiety disorder, unspecified Veronika O'jhony, PA-C 07/30/2019 G43.909 Migraine, unspecified, not Veronika O'jhony, PA-C intractable, without status migrainosus 07/29/2019 R41.82 Altered mental status, unspecified Veronika O'jhony, PA-C 07/29/2019 A41.9 Sepsis, unspecified organism Veronika O'jhony, PA-C 07/29/2019 R60.0 Localized edema Veronika O'jhony, PA-C 07/29/2019 G43.909 Migraine, unspecified, not Veronika O'jhony, PA-C intractable, without status migrainosus 07/28/2019 T84.53xA Infection and inflammatory reaction KARINA Archer due to internal right knee prosthesis, initial encounter 07/28/2019 T84.53xA Infection and inflammatory reaction Radha Villanueva M.D. due to internal right knee prosthesis, initial encounter 07/28/2019 G93.41 Metabolic encephalopathy Veronika O'jhony, PA-C 07/28/2019 F41.9 Anxiety disorder, unspecified Veronika O'jhony, PA-C 07/28/2019 G43.909 Migraine, unspecified, not Veronika O'jhony, PA-C intractable, without status migrainosus 07/27/2019 T81.42xA Infection following a procedure, Bushra Wharton M.D. deep incisional surgical site, initial encounter 07/27/2019 T81.49xA Infection following a procedure, Olga Malone NP other surgical site, initial encounter 07/27/2019 L03.115 Cellulitis of right lower limb Bushra Wharton M.D. 07/27/2019 A41.9 Sepsis, unspecified organism Olga Faisal, PUNCH MOLDER 07/27/2019 G93.41 Metabolic encephalopathy Olga Faisal, PUNCH MOLDER 07/27/2019 G43.909 Migraine, unspecified, not Olga Faisal, PUNCH MOLDER intractable, without status migrainosus 07/27/2019 E53.8 Deficiency of other specified B Olga Faisal, PUNCH MOLDER group vitamins 07/26/2019 T81.42xA Infection following a procedure, Bushra Wharton M.D. deep incisional surgical site, initial encounter 07/26/2019 T81.49xA Infection following a procedure, Teresa Jacome NP other surgical site, initial encounter 07/26/2019 L03.115 Cellulitis of right lower limb Bushra Wharton M.D. 07/26/2019 G43.909 Migraine, unspecified, not Teresa Jacome NP intractable, without status migrainosus 07/26/2019 F41.9 Anxiety disorder, unspecified Teresa Jacome NP 07/26/2019 E53.8 Deficiency of other specified B Teresa Jacome NP group vitamins 07/25/2019 T81.49xA Infection following a procedure, Vivi Samayoa M.D. other surgical site, initial encounter 07/20/2019 I10 Essential (primary) hypertension Roberta Vee, D.O. 07/20/2019 M17.11 Unilateral primary osteoarthritis, Doug Sparks , RPA-C right knee 07/20/2019 E11.9 Type 2 diabetes mellitus without Roberta Vee, D.O. complications 07/20/2019 M17.11 Unilateral primary osteoarthritis, Radha Villanueva M.D. right knee 07/20/2019 F41.8 Other specified anxiety disorders Roberta Vee D.O. 07/20/2019 G43.909 Migraine, unspecified, not Roberta Vee, D.O. intractable, without status migrainosus 07/07/2019 M25.561 Pain in right knee Radha Villanueva M.D. 07/07/2019 M25.461 Effusion, right knee Radha Villanueva M.D. 07/07/2019 M17.11 Unilateral primary osteoarthritis, Radha Villanueva M.D. right knee 07/05/2019 M18.11 Unilateral primary osteoarthritis [facility] 07/05/2019 Z47.89 Encounter for other orthopedic Morteza Freed MD aftercare 06/09/2019 M18.11 Unilateral primary osteoarthritis Morteza Freed MD of [facility] carpometacarpal j 06/09/2019 Z48.02 Encounter for removal of sutures Morteza Freed MD 06/09/2019 Z47.89 Encounter for other orthopedic Morteza Freed MD aftercare 05/25/2019 M18.11 Unilateral primary osteoarthritis KARINA Amin of first carpometacarpal j 05/25/2019 M18.11 Unilateral primary osteoarthritis Morteza Freed MD of [facility] carpometacarpal j 05/19/2019 M18.11 Unilateral primary osteoarthritis [facility] 05/05/2019 M25.562 Pain in left knee Radha Villanueva M.D. 05/05/2019 M25.561 Pain in right knee Radha Villanueva M.D. 05/05/2019 M25.462 Effusion, left knee Radha Villanueva M.D. 05/05/2019 M25.461 Effusion, right knee Radha Villanueva M.D. 05/05/2019 M17.11 Unilateral primary osteoarthritis, Radha Villanueva M.D. right knee 04/19/2019 M17.0 Bilateral primary osteoarthritis of Rich Macdonald MD knee 04/12/2019 M20.21 Hallux rigidus, right foot Morteza Mohan M.D. Plan of Treatment Future Appointment(s):09/05/2019 11:30 am - Bush[facility] Wh[facility] M.D. at [facility]/15/2020 11:15 am - Radha Villanueva M.D. at [facility] at Ivsghn2109/19/2019 1:00 pm - Morteza Freed MD at [facility] at [id number]/22/2019 - Bushra Wharton M.D.T84.53xD Infect/ inflm reaction due to internal r knee prosth, subsComments:daptomycin/rifampin day 21/ to follow with keflex and rifampin for 3-6 azuqodS92.2 long-term ( current) use of antibioticsComments:weekly lab uszitD88.82 Elevated C-reactive protein (CRP)Follow up:2 vnihlH54.83 Other fatigueComments:normal post hospitalization and post infection, should improve slowly Functional Status Description No Information Available Mental Status Description No Information Available Referrals Description No Information Available
--- OUTSIDE RECORDS SUMMARY | 2019-08-29 10:17 | XMS REPORT | Continuity of Care Document ---
:1950 External Reference #:[id number] Author Name Estrella De Los Santos M.D. 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 Provider Date Localized, primary [...] 1 or 2 tabs by 30tabs Morteza Frede, 05/25/2019 en mouth every 6-8 MD 5-325mg [...] Injection Celestone 3 mg and 3mg Rich Macdonadl MD 12/30/2018 Injection Celestone 3 mg and [...] BMI (Body Mass Index) 29.6 kg/m2 Results Test Acquired Date Facility Test Result H/L Range Note CBC Auto 07/07/2019 [facility] White Blood 8.5 10^3/uL Normal 3.5-10.[address] [place] [address] [phone] Red Blood Count 5.31 10^6/uL Normal 4.18-5.48 [...] Blood Cells % 0.0 Comp Metabolic 07/07/2019 [facility] Sodium 139 mmol/L Normal 135-[address] [place] [address] [phone] Potassium 4.3 mmol/L Normal 3.5-5.0 Chloride 106 [...] Egfr Non- 75.4 >60 Egfr 91.2 >60 1 Inr/Protime 07/07/2019 [facility] Inr 0.96 Normal 0.82-1.[address] [place] [address] [phone] Laboratory test 07/07/2019 [facility] Partial 31.1 Normal 26.0 -38.[address] [place] [address] Time PTT [phone] Type & Screen 07/07/2019 [facility] Patient AB Positive [address] [place] [address] [phone] Antibody Screen NEGATIVE Urinalysis Profile 07/07/2019 [facility] Urine Color Yellow [address] [place] [address] [phone] Urine Appearance Cloudy Urine Specific [place] 1.018 Normal 1.010-1.030 Urine pH 5.0 Normal 5-9 Urine Urobilinogen Negative Negative Urine Ketones Negative Negative Urine Protein Negative Negative Urine Leukocytes Negative Negative Urine Blood Negative Negative * * Abnormal Negative 3 Urine Nitrite Negative Negative Urine Bilirubin Negative Negative Urine Glucose Negative Negative Urine Culture And 07/07/2019 [facility] Urine Culture SEE RESULT [address] [place] [address] [phone] 1 Because ethnic data is not always [...] 5 Kidney failure <15 (or dialysis) 2 Standard intensity warfarin therapeutic range: 2.0-3.0 High intensity warfarin therapeutic range: 2.5-3.5 3 *Ascorbic acid is present which may interfere with detection of blood. 4 SEE RESULT BELOW Name: VIVEKStivenBUSHRA Parag : [address]: Radha Villanueva MD Acct: [id number] Unit: [id number] AGE: 69 Location: [facility] Re07/07/19 SEX: M Status: REG REF SPEC: [id number] JEFRY: 07/07/19-[address] [facility] [address]: Radha Villanueva MD REQ: [id number] RECD: 07/07/19 STATUS: JOSHUA VILLA DR: Elgin Sims DO _ SOURCE: URINE SPDESC: ORDERED: Urine Culture QUERIES: Urine Source: Clean Catch Procedure Result Reported Site Urine Culture Final 07/08/19- 1439 ML No Growth (<1,000 CFU/mL) * ML - Main Lab . END OF REPORT DEPARTMENT OF PATHOLOGY, [address] [place] [address] Tee Kilpatrick M.D. Director [facility] # [id number] Procedures Date Code Description Status 07/20/2019 55701 TKR Total Knee Replacement Completed 07/20/2019 68872 TKR Total Knee Replacement Completed 06/09/2019 79625 Short Arm Splint Application Completed 05/25/2019 08290 Tendon Transfer CMC/Hand W/O Free Graft Completed 05/25/2019 96052 Arthroplasty Interposition Intercarpal Or Carpometacarpal Completed JTS 05/25/2019 63684 Arthroplasty Interposition Intercarpal Or Carpometacarpal Completed JTS Medical Devices Description No Information Available Encounters Type Date Location Provider Dx Diagnosis Office Visit 05/05/2019 [facility] Radha Villanueva, M25.562 Pain in left knee 9:30a at [facility] M25.561 Pain in right knee M25.462 Effusion, left knee M25.461 Effusion, right knee M17.11 Unilateral primary osteoarthritis, right knee Office Visit 04/19/2019 Pippa Wiggins M17.0 Bilateral primary 9:15a Orthopedics at MD Renae osteoarthritis of [place] knee Office Visit 04/12/2019 Pippa Pro M20.21 Hallux rigidus, 9:00a Orthopedics at Theresa Mohan right foot [place] Assessments Date Code Description Provider 07/20/2019 M17.11 Unilateral primary osteoarthritis, Confucianism HJoão Sparks , RPA-C right knee 07/20/2019 M17.11 Unilateral primary osteoarthritis, Radha Villanueva M.D. right knee 07/07/2019 M25.561 Pain in right knee Radha Villanueva M.D. 07/07/2019 M25.461 Effusion, right knee Radha Villanueva M.D. 07/07/2019 M17.11 Unilateral primary osteoarthritis, Radha Villanueva M.D. right knee 07/05/2019 M18.11 Unilateral primary osteoarthritis of Morteza Freed MD first carpometacarpal j 06/09/2019 M18.11 Unilateral primary osteoarthritis of Morteza Freed MD first carpometacarpal j 06/09/2019 Z48.02 Encounter for removal of sutures Morteza Freed MD 06/09/2019 Z47.89 Encounter for other orthopedic Morteza Freed MD aftercare 05/25/2019 M18.11 Unilateral primary osteoarthritis of KARINA Amin first carpometacarpal j 05/25/2019 M18.11 Unilateral primary osteoarthritis of Morteza Freed MD first carpometacarpal j 05/19/2019 M18.11 Unilateral primary osteoarthritis of Morteza Freed MD first carpometacarpal j 05/05/2019 M25.562 Pain in left knee Radha Villanueva M.D. 05/05/2019 M25.561 Pain in right knee Radha Villanueva M.D. 05/05/2019 M25.462 Effusion, left knee Radha Villanueva M.D. 05/05/2019 M25.461 Effusion, right knee Radha Villanueva M.D. 05/05/2019 M17.11 Unilateral primary osteoarthritis, Radha Villanueva M.D. right knee 04/19/2019 M17.0 Bilateral primary osteoarthritis of Rich Macdonald MD knee 04/12/2019 M20.21 Hallux rigidus, right foot Morteza Marques, M.D. Plan of Treatment Future Appointment(s):09/19/2019 1:00 pm - Morteza Freed MD at [facility] at Qgslws6307/05/2019 - Morteza Freed MDM18.11 Unilateral primary osteoarthritis of first carpometacarpal jFollow up:Follow up: 3 months Functional Status Description No Information Available Mental Status Description No Information Available Referrals Description No Information Available
--- OUTSIDE RECORDS SUMMARY | 2019-08-29 10:17 | XMS REPORT | Continuity of Care Document ---
:1950 External Reference #:[id number] Author Name Radha Villanueva M.D. 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 Onset: 05/05/2019 Arthroplasty of knee Radha Villanueva M.D. Onset: 08/14/2019 Social History Type Date Description Comments Sex Unknown Tobacco Use Start: Unknown End: Former Cigarette Smoker 1 Unknown Pack Daily Smoking Status Reviewed: 08/14/19 Former Cigarette Smoker 1 Pack Daily ETOH [...] weeks Hydrocodone-Acetaminoph 1 or 2 tabs by 30tadon Freed, 05/25/2019 en mouth every 6-8 MD [...] Available Vital Signs Date Vital Result Comment 08/14/2019 8:49am Height 71 inches 5'11" Weight 209.00 lb Heart Rate 69 /min BP Systolic 136 mmHg BP Diastolic 88 mmHg Body Temperature 97.1 F Pain Level 6 BMI (Body Mass Index) 29.1 kg/m2 07/07/2019 10:05am Height 71 inches 5'11" Weight 209.75 lb Heart Rate 82 /min BP Systolic 138 mmHg BP Diastolic 82 mmHg Respiratory Rate 16 /min Pain Level 2 BMI (Body Mass Index) 29.3 kg/m2 Results Test Acquired Date Facility Test Result H/L Range Note CBC Auto 08/10/2019 [facility] White Blood 9.6 10^3/uL Normal 3.5-10.[address] [place] [address] [phone] Red Blood Count 4.03 10^6/uL Low 4.18-5.48 [...] Cells % 0.0 Comp Metabolic Panel 08/10/2019 [facility] Sodium 134 mmol/L Low 135-[address] [place] [address] [phone] Potassium 4.5 mmol/L Normal 3.5-5.0 Chloride 97 [...] Egfr Non- 64.1 >60 Egfr 77.5 >60 1 Laboratory test 08/10/2019 [facility] Creatine 18 U/L Normal 10-[address] [place] [address] [phone] C Reactive Protein 95.24 mg/L High <8.01 CBC Auto 07/07/2019 [facility] White Blood 8.5 10^3/uL Normal 3.5-10.[address] [place] [address] [phone] Red Blood Count 5.31 10^6/uL Normal 4.18-5.48 [...] Blood Cells % 0.0 Comp Metabolic 07/07/2019 [facility] Sodium 139 mmol/L Normal 135-[address] [place] [address] [phone] Potassium 4.3 mmol/L Normal 3.5-5.0 Chloride 106 [...] Egfr Non- 75.4 >60 Egfr 91.2 >60 2 Inr/Protime 07/07/2019 [facility] Inr 0.96 Normal 0.82-1.[address] [place] [address] [phone] Laboratory test 07/07/2019 [facility] Partial 31.1 Normal 26.0 -38.[address] [place] [address] Time PTT [phone] Type & Screen 07/07/2019 [facility] Patient AB Positive [address] [place] [address] [phone] Antibody Screen NEGATIVE Urinalysis Profile 07/07/2019 [facility] Urine Color Yellow [address] [place], [place] [address] [phone] Urine Appearance Cloudy Urine Specific Morning Sun 1.018 Normal 1.010-1.030 Urine pH 5.0 Normal 5-9 Urine Urobilinogen Negative Negative Urine Ketones Negative Negative Urine Protein Negative Negative Urine Leukocytes Negative Negative Urine Blood Negative Negative * * Abnormal Negative 4 Urine Nitrite Negative Negative Urine Bilirubin Negative Negative Urine Glucose Negative Negative Urine Culture And 07/07/2019 [facility] Urine Culture SEE RESULT [address] [place] [address] [phone] 1 Because ethnic data is not always [...] 5 Kidney failure <15 (or dialysis) 3 Standard intensity warfarin therapeutic range: 2.0-3.0 High intensity warfarin therapeutic range: 2.5-3.5 4 *Ascorbic acid is present which may interfere with detection of blood. 5 SEE RESULT BELOW Name: BUSHRA ROSS : [address]: Radha Villanueva MD Acct: [id number] Unit: [id number] AGE: 69 Location: [facility] Re07/07/19 SEX: M Status: REG REF SPEC: [id number] JEFRY: 07/07/19-[address]: Radha Villanueva MD REQ: [id number] RECD: 07/07/19 STATUS: JOSHUA VILLA DR: Elgin Sims DO _ SOURCE: URINE SPDESC: ORDERED: Urine Culture QUERIES: Urine Source: Clean Catch Procedure Result Reported Site Urine Culture Final 07/08/19- 1439 ML No Growth (<1,000 CFU/mL) * ML - Main Lab . END OF REPORT DEPARTMENT OF PATHOLOGY, [address] [place] [address] Tee Kilpatrick M.D. Director [facility] # [id number] Procedures Date Code Description Status 07/30/2019 93624 ECHO Transthorasic Realtime 2D W Doppler & Color Flow Hosp Completed 07/28/2019 56958 Revise Total Knee Arthroplasty One Component Completed 07/28/2019 11487 Revise Total Knee Arthroplasty One Component Completed 07/20/2019 17840 TKR Total Knee Replacement Completed 07/20/2019 95677 TKR Total Knee Replacement Completed 06/09/2019 19956 Short Arm Splint Application Completed 05/25/2019 77599 Tendon Transfer CMC/Hand W/O Free Graft Completed 05/25/2019 25056 Arthroplasty Interposition Intercarpal Or Carpometacarpal Completed JTS 05/25/2019 32139 Arthroplasty Interposition Intercarpal Or Carpometacarpal Completed JTS Medical Devices Description No Information Available Encounters Type Date Location Provider Dx Diagnosis Office Visit 08/02/2019 [facility] Katarzyna Genevievepraveencarol T84.53xA Infect /inflm 7:02a Infectious Evgeny, CARDIOLOGY CONSULTANT reaction due to Diseases internal r knee prosth, init G93.40 Encephalopathy, unspecified R19.7 Diarrhea, unspecified [facility] Genevievepraveencarol T84.53xA Infect/ inflm 7:01a For Infectious Evgeny CARDIOLOGY CONSULTANT reaction due to Diseases internal r knee prosth, init G93.40 Encephalopathy, unspecified Office Visit 08/01/2019 [facility] Veronika R41.82 Altered mental 9:42a Assoc,pc Manny'REMY bookerC status, Hospitalists unspecified R43.8 Other disturbances of smell and taste F41.9 Anxiety disorder, unspecified G43.909 Migraine, unsp, not intractable, without status migrainosus Office Visit 07/31/2019 [facility] Bushra Villegas T81.42xA Infct fol a 6:37a For Infectious Theresa Wharton procedure, deep Diseases incisional surgical site, init L03.115 Cellulitis of right lower limb M00.861 Arthritis due to other bacteria, right knee G93.40 Encephalopathy, unspecified Office Visit 07/31/2019 [facility] R41.82 Altered mental 9:41a Assoc,bel Lemos, PA-C status, Hospitalists unspecified R78.81 Bacteremia R43.8 Other disturbances of smell and taste G43.909 Migraine, unsp, not intractable, without status migrainosus Office Visit 07/30/2019 [facility] R41.82 Altered mental 9:41a Assoc,bel Mejiajhony, PA-C status, Hospitalists unspecified R43.8 Other disturbances of smell and taste F41.9 Anxiety disorder, unspecified G43.909 Migraine, unsp, not intractable, without status migrainosus Office Visit 07/29/2019 [facility] R41.82 Altered mental 9:40a Assoc,bel Lemos PA-C status, Hospitalists unspecified A41.9 Sepsis, unspecified organism R60.0 Localized edema G43.909 Migraine, unsp, not intractable, without status migrainosus Office Visit 07/28/2019 [facility] G93.41 Metabolic 9:40a Assoc,bel Lemos, PA-C encephalopathy Hospitalists F41.9 Anxiety disorder, unspecified G43.909 Migraine, unsp, not intractable, without status migrainosus Office Visit 07/27/2019 [facility] Bushra Villegas T81.42xA Infct fol a 6:36a For Claire Wharton M.D. procedure, deep Diseases incisional surgical site, init L03.115 Cellulitis of right lower limb Office Visit 07/27/2019 [facility] Olga Faisal, T81.49xA Infection 9:39a Assoc,pc CARDIOLOGY CONSULTANT following a Hospitalists procedure, other surgical site, init A41.9 Sepsis, unspecified organism G93.41 Metabolic encephalopathy G43.909 Migraine, unsp, not intractable, without status migrainosus E53.8 Deficiency of other specified B group vitamins Office Visit 07/26/2019 [facility] Bushra Villegas T81.42xA Infct fol a 6:33a For Infectious Theresa Wharton procedure, deep Diseases incisional surgical site, init L03.115 Cellulitis of right lower limb Office Visit 07/26/2019 [facility] Teresa RFantak, T81.49xA Infection 9:38a Assoc,bel CARDIOLOGY CONSULTANT following a Hospitalists procedure, other surgical site, init G43.909 Migraine, unsp, not intractable, without status migrainosus F41.9 Anxiety disorder, unspecified E53.8 Deficiency of other specified B group vitamins Office Visit 07/25/2019 [facility] Vivi T81.49xA Infection 9:37a Assoc,bel Samayoa M.D. following a Hospitalists procedure, other surgical site, init Office Visit 07/20/2019 [facility] Roberta I10 Essential 8:50a Assoc,bel Vee D.O. (primary) Hospitalists hypertension E11.9 Type 2 diabetes mellitus without complications F41.8 Other specified anxiety disorders G43.909 Migraine, unsp, not intractable, without status migrainosus Office Visit 05/05/2019 9:30a [facility] Radha Villanueva, M25.562 Pain in left at [place] Theresa knee M25.561 Pain in right knee M25.462 Effusion, left knee M25.461 Effusion, right knee M17.11 Unilateral primary osteoarthritis, right knee Office Visit 04/19/2019 [facility] Rich Feliciano M17.0 Bilateral primary 9:15a Orthopedics at [facility] osteoarthritis of [place] knee Office Visit 04/12/2019 [facility] Morteza M20.21 Hallux rigidus, 9:00a Orthopedics at [facility] Mohan right foot [place] Assessments Date Code Description Provider 08/14/2019 T84.53xA Infection and inflammatory reaction Radha Villanueva M.D. due to internal right knee prosthesis, initial encounter 08/14/2019 R78.81 Bacteremia Radha Villanueva M.D. 08/14/2019 Z47.1 Aftercare following joint Radha Villanueva M.D. replacement surgery 08/14/2019 M25.561 Pain in right knee Radha Villanueva M.D. 08/14/2019 M25.461 Effusion, right knee Radha Villanueva M.D. 08/14/2019 Z96.651 Presence of right artificial knee Radha Villanueva M.D. joint 08/02/2019 T84.53xA Infection and inflammatory reaction Katarzyna Pepper, CARDIOLOGY CONSULTANT due to internal right knee prosthesis, initial encounter 08/02/2019 T84.53xA Infection and inflammatory reaction Veronika O'jhony, PA- C due to internal right knee prosthesis, initial encounter 08/02/2019 G93.40 Encephalopathy, unspecified Katarzyna Pepper, CARDIOLOGY CONSULTANT 08/02/2019 R78.81 Bacteremia Veronika O'jhony, PA-C 08/02/2019 R19.7 Diarrhea, unspecified Katarzyna Pepper, CARDIOLOGY CONSULTANT 08/02/2019 R41.82 Altered mental status, unspecified Veronika O'jhony, PA-C 08/02/2019 F41.9 Anxiety disorder, unspecified Veronika O'jhony, PA-C 08/02/2019 Z96.651 Presence of right artificial knee Veronika O'jhony, PA-C joint 08/01/2019 T84.53xA Infection and inflammatory reaction Katarzyna Pepper, CARDIOLOGY CONSULTANT due to internal right knee prosthesis, initial encounter 08/01/2019 R41.82 Altered mental status, unspecified Veronika O'jhony, PA-C 08/01/2019 G93.40 Encephalopathy, unspecified Katarzyna Pepper, CARDIOLOGY CONSULTANT 08/01/2019 R43.8 Other disturbances of smell and [...] O'jhony, PA-C intractable, without status migrainosus 07/30/2019 R41.82 Altered mental status, unspecified Veronika [...] PA-C 07/28/2019 G43.909 Migraine, unspecified, not Veronika Lemos PA-C intractable, without status migrainosus 07/27/2019 T81.42xA Infection following a procedure, Bushra Wharton M.D. deep incisional surgical site, initial encounter 07/27/2019 T81.49xA Infection following a procedure, Olga Faisal, CARDIOLOGY CONSULTANT other surgical site, initial encounter 07/27/2019 L03.115 Cellulitis of right lower limb Bushra Wharton M.D. 07/27/2019 A41.9 Sepsis, unspecified organism Olga Faisal, CARDIOLOGY CONSULTANT 07/27/2019 G93.41 Metabolic encephalopathy Olga Fasial, CARDIOLOGY CONSULTANT 07/27/2019 G43.909 Migraine, unspecified, not Olga Faisal, CARDIOLOGY CONSULTANT intractable, without status migrainosus 07/27/2019 E53.8 Deficiency of other specified B Olga Faisal, CARDIOLOGY CONSULTANT group vitamins 07/26/2019 T81.42xA Infection following a procedure, Bushra Wharton M.D. deep incisional surgical site, initial encounter 07/26/2019 T81.49xA Infection following a procedure, Teresa Jacome NP other surgical site, initial encounter 07/26/2019 L03.115 Cellulitis of right lower limb Bushra Wharton M.D. 07/26/2019 G43.909 Migraine, unspecified, not Teresa Jacome, CARDIOLOGY CONSULTANT intractable, without status migrainosus 07/26/2019 F41.9 Anxiety disorder, unspecified Teresa Jacome, CARDIOLOGY CONSULTANT 07/26/2019 E53.8 Deficiency of other specified B Teresa Jacome, CARDIOLOGY CONSULTANT group vitamins 07/25/2019 T81.49xA Infection following a procedure, Vivi Samayoa M.D. other surgical site, initial encounter 07/20/2019 I10 Essential (primary) hypertension Rey Cullen.O. 07/20/2019 M17.11 Unilateral primary osteoarthritis, Doug Sparks , RPA-C right knee 07/20/2019 E11.9 Type 2 diabetes mellitus without Rey Cullen.O. complications 07/20/2019 M17.11 Unilateral primary osteoarthritis, Radha Villanueva M.D. right knee 07/20/2019 F41.8 Other specified anxiety disorders Roberta Vee D.O. 07/20/2019 G43.909 Migraine, unspecified, not Roberta Vee D.O. intractable, without status migrainosus 07/07/2019 M25.561 Pain in right knee Radha Villanueva M.D. 07/07/2019 M25.461 Effusion, right knee Radha Villanueva M.D. 07/07/2019 M17.11 Unilateral primary osteoarthritis, Radha Villanueva M.D. right knee 07/05/2019 M18.11 Unilateral primary osteoarthritis Morteza Freed MD of [facility] carpometkindred healthcarerpal j 07/05/2019 Z47.89 Encounter for other orthopedic Morteza Freed MD aftercare 06/09/2019 M18.11 Unilateral primary osteoarthritis Morteza Freed MD of [facility] carpometacarpal j 06/09/2019 Z48.02 Encounter for removal of sutures Morteza Freed MD 06/09/2019 Z47.89 Encounter for other orthopedic Morteza Freed MD aftercare 05/25/2019 M18.11 Unilateral primary osteoarthritis KARINA Amin of first carpometacarpal j 05/25/2019 M18.11 Unilateral primary osteoarthritis Morteza Freed MD of [facility] carpometacarpal j 05/19/2019 M18.11 Unilateral primary osteoarthritis Morteza Freed MD of [facility] carpometacarpal j 05/05/2019 M25.562 Pain in left knee Radha Villanueva M.D. 05/05/2019 M25.561 Pain in right knee Radha Villanueva M.D. 05/05/2019 M25.462 Effusion, left knee Radha Villanueva M.D. 05/05/2019 M25.461 Effusion, right knee Radha Villanueva M.D. 05/05/2019 M17.11 Unilateral primary osteoarthritisRadha M.D. right knee 04/19/2019 M17.0 Bilateral primary osteoarthritis of Rich Macdonald MD knee 04/12/2019 M20.21 Hallux rigidus, right foot Morteza Mohan M.D. Plan of Treatment Future Appointment(s):08/22/2019 1:20 pm - Bushra Wharton M.D. at [facility] Zjyntjbp95/04/2020 1:00 pm - Morteza Freed MD at [facility] at Rblzjv1508/14/2019 - Radha Villanueva M.D.T84.53xA Infection and inflammatory reaction due to internal right knee prosthesis, initial ntldeirlzY84.81 TbijirddfiY52.1 Aftercare following joint replacement surgeryNew Therapy:Physical TherapyFollow up:Follow up: 2 xfahhV03.561 Pain in right kneeM25.461 Effusion, right kneeZ96.651 Presence of right artificial knee joint Functional Status Description No Information Available Mental Status Description No Information Available Referrals Description No Information Available
[2019-08-29 10:21] VITALS: BP 106/63
--- NOTE | 2019-08-29 10:23 | UC ---
Throat Pain/Nasal Atif HPI - HPI Summary HPI Summary: 69 yo male presents, accompanied by , with increased fatigue and confusion. He is currently undergoing infusions of daptomycin and rifampin for a right TKA bacteremia. Over the last week he has had cough, chest congestion, and runny nose. He saw his PCP about 5 days ago and a CXR was done and pt was dx'd with PNA and placed on zpak. Last dose of zpak is today. Pt tells me that he feels no better and is more fatigued. He also notes that he feels confused and is having trouble concentrating. His chest still feels tight. His knee is feeling well. Denies fever, SOB, chest pain, abdominal pain, dysuria. He has been nauseous, but states this has been throughout his infusions and is not new. - History of Current Complaint Chief Complaint: UCRespiratory Stated Complaint: TIGHTNESS OF CHEST,CONFUSED Time Seen by Provider: 08/29/19 10:22 Hx Obtained From: Patient Onset/Duration: Gradual Onset Pain Intensity: 0 - Allergies/Home Medications Allergies/Adverse Reactions: Allergies Allergy/AdvReac Type Severity Reaction Status Date / Time latex Allergy skin Verified 08/29/19 10:18 irritation Penicillins Allergy Unknown Verified 08/29/19 10:18 Reaction Details Sulfa (Sulfonamide Allergy pt states Verified 08/29/19 10:18 Antibiotics) extreme fatigue PMH/Surg Hx/FS Hx/Imm Hx Neurological History: Migraine Psychological History: Anxiety, Depression - Surgical History Surgical History: Yes Surgery Procedure, Year, and Place: Right TKA, 07/20/19; [place]; PLATE IN TOE, - Family History Known Family History: Negative: Diabetes - Social History Lives: With Family Alcohol Use: Occasionally Alcohol Amount: BEER Substance Use Type: None Smoking Status (MU): Former Smoker Type: Cigarettes Amount Used/How Often: 3 PPD X 25 YEARS Have You Smoked in the Last Year: No When Did the Patient Quit Smoking/Using Tobacco: ~1988 Household Exposure Type: Pipe - Immunization History Most Recent Influenza Vaccination: no Most Recent Pneumonia Vaccination: never Review of Systems All Other Systems Reviewed And Are Negative: No Constitutional: Positive: Fatigue Skin: Positive: Negative Eyes: Positive: Negative ENT: Positive: Nasal Discharge Respiratory: Positive: Cough Cardiovascular: Positive: Negative Gastrointestinal: Positive: Nausea Genitourinary: Positive: Negative Motor: Positive: Negative Neurovascular: Positive: Negative Neurological: Positive: Other - Confusion Psychological: Positive: Negative Physical Exam - Summary Physical Exam Summary: GENERAL: NAD. WDWN. No pain distress. SKIN: No rashes, sores, or open wounds. HEENT: Head: AT/NC Eyes: PERRLA. EOM intact. Conjunctiva clear without inflammation or discharge. Ears: Hearing grossly normal. TMs intact, no bulging, erythema, or edema. Nose: Nasal mucosa pink and moist. NTTP maxillary and frontal sinus. Throat: Posterior oropharynx without exudates, erythema, or tonsillar enlargement. Uvula midline. NECK: Supple. Nontender. No lymphadenopathy. CHEST: Mild coarse breath sounds at lung bases. No accessory muscle use. Breathing comfortably and in no distress. CV: RRR. Pulses intact. Brisk cap refill. ABDOMEN: Soft. NTTP. No distention or guarding. Bowel sounds present MSK: RIGHT KNEE: NTTP. No erythema or warmth. Mild edema. NEURO: Alert. PSYCH: Age appropriate behavior. Triage Information Reviewed: Yes Vital Signs: Initial Vital Signs Temp 98.6 F 08/29/19 10:13 Pulse 56 08/29/19 10:13 Resp 16 08/29/19 10:13 BP 106/63 08/29/19 10:13 Pulse Ox 97 08/29/19 10:13 Vital Signs Reviewed: Yes Throat Pain/Nasal Course/Dx - Course Course Of Treatment: Pt is currently well appearing and afebrile, but given his recent dx of PNA, recent right TKA infection, and worsening symptoms of fatigue and confusion - I recommended he be further evaluated in the ED. Pt and were agreeable to this, but they prefer to call their primary doctor first to see their opinion. - Differential Dx/Diagnosis Provider Diagnosis: PNA (pneumonia), Fatigue Discharge ED - Sign-Out/Discharge Documenting (check all that apply): Patient Departure All imaging exams completed and their final reports reviewed: No Studies - Discharge Plan Condition: Stable Disposition: HOME-RECOMMEND TO ED Referrals: Elgin Sims DO [Primary Care Provider] - Additional Instructions: I recommend that you go to the [facility] ER for your worsening symptoms - Billing Disposition and Condition Condition: STABLE Disposition: Home-Recommend to ED
== END 2019-08-29 10:42 | disposition home health service (06) ==
LOC: UCCORT 10:09
DX: J18.9 Pneumonia, unspecified organism (principal); R53.83 Other fatigue; R09.81 Nasal congestion; R09.89 Other specified symptoms and signs involving the circulatory and respiratory systems; Z91.040 Latex allergy status; Z88.0 Allergy status to penicillin; Z88.2 Allergy status to sulfonamides; Z87.891 Personal history of nicotine dependence
CPT/HCPCS: 99212; G0463

== ENCOUNTER 2019-08-29 12:55 | Inpatient (IN) | payer MEDICARE ==
[2019-08-29 13:55] LABS: Hematocrit 36 % (42-52); Hemoglobin 11.7 g/dL (14.0-18.0); Mean Corpuscular HGB Conc 33 g/dL (31-36); Mean Corpuscular Hemoglobin 27 pg (27-31); Mean Corpuscular Volume 84 fL (80-94); Mean Platelet Volume 7.8 fL (7.4-10.4); Platelet Count 441 10^3/uL (150-450); Red Blood Count 4.26 10^6 /uL (4.18-5.48); Red Cell Distribution Width 16 % (10-15); White Blood Count 13.3 10^3/uL (3.5-10.8)
[2019-08-29 14:13] LABS: Albumin 3.2 g/dL (3.2-5.2); Albumin/Globulin Ratio 0.9 (1-3); BUN/Creatinine Ratio 14.7 (8-20); C Reactive Protein 223.97 mg/L (<8.01); Calcium 9.2 mg/dL (8.6-10.3); EGFR African American 88.1 (>60); EGFR Non-African American 72.8 (>60); Globulin 3.6 g/dL (2-4); Potassium 4.8 mmol/L (3.5-5.0); Total Bilirubin 0.5 mg/dL (0.2-1.0); Total Protein 6.8 g/dL (6.4-8.9)
[2019-08-29 14:14] LABS: Troponin I 0.02 ng/mL (<0.03)
[2019-08-29 14:35] LABS: ABS Eosinophils 0.4 10^3/ul (0-0.6); ABS Lymphocytes 1.2 10^3/ul (1.0-4.8); ABS Monocytes 1.6 10^3/ul (0-0.8); ABS Neutrophils 10.1 10^3/ul (1.5-7.7); Eosinophil % 3.3 %; Lymphocyte % 8.7 %
[2019-08-29] MEDS ORDERED: NS 0.9% 1000 ML** 1,000 ML IV.FLUID IV ONE (16:40)
[2019-08-29] MEDS ORDERED: Azithromycin 500 mg/250 ml NS 500 MG/250 ML BAG IVPB ONE (16:40)
[2019-08-29] MEDS ORDERED: cefTRIAXone(*) 1 GM in NS 0.9% 50 ML* 50 ML IVPB ONE (16:40)
[2019-08-29] MEDS ORDERED: Cefepime(*) 2 GM in NS 0.9% 50 ML* 50 ML IVPB ONE (16:59)
[2019-08-29] MEDS ORDERED: Levofloxacin 750 MG IVPREMIX(* 750 MG/150 ML BAG IVPB ONE (16:59)
--- NOTE | 2019-08-29 17:02 | ED ---
Complex/Multi-Sys Presentation - HPI Summary HPI Summary: 69-year-old male presents with worsening cough for the past week. He was diagnosed with pneumonia a week ago and placed on azithromycin. He took his last dose today with no improvement. He states that chest tightness has continued. He states he's been having chills. He is currently on daptomycin. He was admitted last month for a septic knee post knee replacement. He currently has a PICC line for his septic knee. He admits to occasional shortness of breath. No known fevers. He has no history asthma or COPD. - History Of Current Complaint Chief Complaint: EDShortnessOfBreath Time Seen by Provider: 08/29/19 16:38 - Allergies/Home Medications Allergies/Adverse Reactions: Allergies Allergy/AdvReac Type Severity Reaction Status Date / Time latex Allergy skin Verified 08/29/19 10:18 irritation Penicillins Allergy Unknown Verified 08/29/19 10:18 Reaction Details Sulfa (Sulfonamide Allergy pt states Verified 08/29/19 10:18 Antibiotics) extreme fatigue PMH/Surg Hx/FS Hx/Imm Hx Endocrine/Hematology History: Reports: Hx Diabetes Denies: Hx Bone Marrow Disease, Hx Sickle Cell Disease, Hx Thyroid Disease, Hx Anemia Cardiovascular History: Denies: Hx Angina, Hx Cardiomegaly, Hx Congestive Heart Failure, Hx Coronary Artery Disease, Hx Hypertension, Hx Pacemaker/ICD, Hx Peripheral Vascular Disease, Hx Rheumatic Fever, Hx Valvular Heart Disease, Other Cardiovascular Problems/Disorders Respiratory History: Denies: Hx Asthma, Hx Pulmonary Edema, Hx Pulmonary Embolism, Hx Sleep Apnea , Other Respiratory Problems/Disorders GI History: Denies: Hx Cirrhosis, Hx Crohn's Disease, Hx Gastroesophageal Reflux Disease , Hx Hiatal Hernia, Hx Irritable Bowel, Hx Jaundice, Hx Ulcer, Other GI Disorders History: Reports: Hx Kidney Stones - 25-30 YRS AGO Denies: Hx Kidney Infection, Other Problems/Disorders Musculoskeletal History: Reports: Hx Arthritis - RIGHT TOES, BOTH KNEES, THUMBS AND RIGHT SHOULDER, Hx Bursitis - LEFT SHOULDER-, Hx Tendonitis - ELBOWS Denies: Other Musculoskeletal History Sensory History: Reports: Hx Cataracts - EARLY SIGNS, Hx Contacts or Glasses - GLASSES Denies: Hx Glaucoma, Hx Legally Blind, Hx Deafness, Hx Hearing Aid Opthamlomology History: Reports: Hx Cataracts - EARLY SIGNS, Hx Contacts or Glasses - GLASSES Denies: Hx Glaucoma, Hx Legally Blind Neurological History: Reports: Hx Headaches, Hx Migraine - PRN MEDICATION FOR- INDERAL & SUMTRIPTAN, Hx Nerve Disease - RELATED TO SHINGLES, Other Neuro Impairments/Disorders - HX OF SHINGLES IN 2004-REPORTS RESULT CAUSED NERVE DAMAGE TO THE LEFT LEG Denies: Hx Seizures, Hx Transient Ischemic Attacks (TIA) Psychiatric History: Reports: Hx Anxiety - ON MEDICATION FOR-BUSPIRONE, Hx Depression Denies: Hx Panic Disorder - Cancer History Hx Chemotherapy: No - Surgical History Surgery Procedure, Year, and Place: Right TKA, 07/20/19; [place]; PLATE IN TOE, Hx Anesthesia Reactions: No Infectious Disease History: No Infectious Disease History: Denies: Hx Hepatitis, Traveled Outside the [place] in Last 30 Days - Family History Known Family History: Negative: Diabetes - Social History Alcohol Use: Occasionally Alcohol Amount: BEER Hx Substance Use: No Substance Use Type: Reports: None Hx Tobacco Use: Yes Smoking Status (MU): Former Smoker Type: Cigarettes Amount Used/How Often: 3 PPD X 25 YEARS Have You Smoked in the Last Year: No Review of Systems Positive: Chills, Fatigue. Negative: Fever Positive: Chest Pain - tightness Positive: Shortness Of Breath, Cough Negative: Abdominal Pain All Other Systems Reviewed And Are Negative: Yes Physical Exam Triage Information Reviewed: Yes Vital Signs On Initial Exam: Initial Vitals Temp Pulse Resp BP Pulse Ox 96.6 F 57 18 96/60 97 08/29/19 12:58 08/29/19 12:58 08/29/19 12:58 08/29/19 12:58 08/29/19 12:58 Vital Signs Reviewed: Yes Appearance: Positive: Well-Appearing Skin: Positive: Warm, Dry Head/Face: Positive: Normal Head/Face Inspection Eyes: Positive: Normal, Conjunctiva Clear ENT: Positive: Pharynx normal Respiratory/Lung Sounds: Positive: Clear to Auscultation, Breath Sounds Present Cardiovascular: Positive: Normal, RRR Abdomen Description: Positive: Nontender, Soft Bowel Sounds: Positive: Present Musculoskeletal: Positive: Normal Neurological: Positive: Normal Psychiatric: Positive: Normal AVPU Assessment: Alert Procedures - Sedation Patient Received Moderate/Deep Sedation with Procedure: No Diagnostics - Vital Signs Vital Signs Temp Pulse Resp BP Pulse Ox 08/29/19 14:52 98.2 F 57 18 99/65 94 01/14/20 12:58 96.6 F 57 18 96/60 97 - Laboratory Lab Results: Lab Results 08/29/19 08/29/19 08/29/19 Range/Units 13:41 13:41 13:41 WBC 13.3 H (3.5-10.8) 10^3/uL RBC 4.26 (4.18-5.48) 10^6 /uL Hgb 11.7 L (14.0-18.0) g/dL Hct 36 L (42-52) % MCV 84 (80-94) fL MCH 27 (27-31) pg MCHC 33 (31-36) g/dL RDW 16 H (10-15) % Plt Count 441 (150-450) 10^3/uL MPV 7.8 (7.4-10.4) fL Neut % (Auto) 75.9 % Lymph % (Auto) 8.7 % [place] % (Auto) 11.8 % Eos % (Auto) 3.3 % Baso % (Auto) 0.3 % Absolute Neuts (auto) 10.1 H (1.5-7.7) 10^3/ul Absolute Lymphs (auto) 1.2 (1.0-4.8) 10^3/ul Absolute Monos (auto) 1.6 H (0-0.8) 10^3/ul Absolute Eos (auto) 0.4 (0-0.6) 10^3/ul Absolute Basos (auto) 0.0 (0-0.2) 10^3/ul Absolute Nucleated RBC 0.0 10^3/ul Nucleated RBC % 0.0 Sodium 129 L (135-145) mmol/L Potassium 4.8 (3.5-5.0) mmol/L Chloride 92 L (101-111) mmol/L Carbon Dioxide 28 (22-32) mmol/L Anion Gap 9 (2-11) mmol/L BUN 15 (6-24) mg/dL Creatinine 1.02 (0.67-1.17) mg/dL Est GFR ( Amer) 88.1 (>60) Est GFR (Non-Af Amer) 72.8 (>60) BUN/Creatinine Ratio 14.7 (8-20) Glucose 140 H (70-100) mg/dL Lactic Acid 1.5 (0.5-2.0) mmol/L Calcium 9.2 (8.6-10.3) mg/dL Total Bilirubin 0.50 (0.2-1.0) mg/dL AST 69 H (13-39) U/L ALT 128 H (7-52) U/L Alkaline Phosphatase 92 (34-104) U/L Troponin I 0.02 (<0.03) ng/mL C-Reactive Protein 223.97 H (<8.01) mg/L Total Protein 6.8 (6.4-8.9) g/dL Albumin 3.2 (3.2-5.2) g/dL Globulin 3.6 (2-4) g/dL Albumin/Globulin Ratio 0.9 L (1-3) Result Diagrams: 08/29/19 13:41 08/29/19 13:41 Lab Statement: Any lab studies that have been ordered have been reviewed, and results considered in the medical decision making process. - Radiology chest Radiology Interpretation Completed By: Radiologist Summary of Radiographic Findings: IMPRESSION: Peripheral infiltrates are noted in the upper lobes bilaterally. Peripheral infiltrate in the right base is also noted. Findings are new since July 27, 2019. They appear similar when compared to previous exam of August 25, 2019. - CT cta CT Interpretation Completed By: Radiologist Summary of CT Findings: IMPRESSION: 1. There are bilateral pulmonary patchy opacities with a somewhat peripheral distribution, cannot exclude atypical appearance of pulmonary edema or pneumonitis. 2. There is mediastinal and bilateral hilar lymphadenopathy. 3. No acute pulmonary embolism. 4. There is a small hiatal hernia. Complex Multi-Symp Course/Dx Course Of Treatment: 69 year old male presents with shortness of breath for past week. has been on course of azithromycin with no improvement. has been more confused lately. no chest pain currently. has picc for septic knee given daptomycin. on exam lungs CTA. wbc 13. sodium 129. chest xray shows pneumonia. will place on cefepime and levaquin. dr castro recommends a CTA. CTA shows pneumonitis. no PE. - Diagnoses Differential Diagnoses/HQI/PQRI: Metabolic Abnormality, Sepsis, Urinary Tract Infection Provider Diagnoses: Pneumonia Discharge ED - Sign-Out/Discharge Documenting (check all that apply): Patient Departure - Discharge Plan Condition: Stable Disposition: ADMITTED TO [facility] Referrals: Elgin Sims DO [Primary Care Provider] - - Billing Disposition and Condition Condition: STABLE Disposition: Admitted to [facility]
[2019-08-29] MEDS ORDERED: Cyclobenzaprine TAB* 10 MG PO PRN (17:18)
[2019-08-29] MEDS ORDERED: Vancomycin(*) 1,000 MG in NS 0.9% 250 ML* 250 ML IVPB ONE (17:21)
[2019-08-29] MEDS ORDERED: NS 0.9% 50 ML* 50 ML ONE (17:21)
[2019-08-29] MEDS ORDERED: NS 0.9% 1000 ML** 1,000 ML IV SCH (17:30)
[2019-08-29] MEDS ORDERED: Vancomycin per Pharmacy* NOTE FOLLOW UP SCH (18:00)
[2019-08-29] MEDS ORDERED: Iodixanol* (CONTRAST) 320 MG/ML 100 ML SDV IV ONE (18:00)
[2019-08-29] MEDS ORDERED: Acetaminophen TAB* 325 MG PO PRN (18:32)
[2019-08-29] MEDS ORDERED: Vancomycin(*) 1,500 MG in NS 0.9% 250 ML* 250 ML IVPB ONE (19:30)
[2019-08-29] MEDS: busPIRone TAB* 10 MG PO SCH (21:06)
[2019-08-29] MEDS: Enoxaparin(*) 40 MG/0.4 ML SYR SUBCUT SCH (21:06)
[2019-08-29] MEDS: guaiFENesin ER TAB 600 MG PO SCH (21:06)
[2019-08-29] MEDS: cefTRIAXone(*) 1 GM in NS 0.9% 50 ML* 50 ML IVPB SCH (21:08)
[2019-08-29] MEDS: Propranolol TAB* 80 MG PO SCH (21:16)
[2019-08-29] MEDS: RiFAMPin CAP* 300 MG CAP PO SCH (21:16)
--- NOTE | 2019-08-29 22:04 | HP ---
CC: Dr. Elgin Sims; Dr. Jason Love; Dr. Radha Villanueva * HISTORY AND PHYSICAL: DATE OF ADMISSION: 08/29/19 PRIMARY CARE PROVIDER: Dr. Elgin Sims. OTHER PROVIDERS: Dr. Jason Love, Dr. Radha Villanueva. ATTENDING PHYSICIAN: Dr. Vivi Samayoa * (dictated by KARINA Jasso). CHIEF COMPLAINT: "Pneumonia." HISTORY OF PRESENT ILLNESS: Mr. Maurer is a 69-year-old male with past medical history of migraine, depression, anxiety, who recently underwent a right total knee arthroplasty on 07/20/19. Subsequently, he developed septic right knee and was hospitalized from 07/25/19 to 08/02/19. He was noted to have bacteremia during this admission with Staphylococcus caprae, which was also found to be in his blood. He was treated with IV antibiotics. He received irrigation and debridement on 07/28/19 and has been on antibiotics since discharge on 08/02/19. He has been on daptomycin, rifampin. He follows with Dr. Love. The patient had been at his usual state of health until approximately 10 days ago when he started to develop a voluntary productive cough. He describes a looseness in his chest, which prompts him to cough. He felt generally unwell and fatigued. He saw his primary care provider on Wednesday , 08/25/19, and a chest x-ray was obtained and showed right upper lobe patchy infiltrate. He was started on treatment with azithromycin along with his medications for bacteremia and septic knee. The patient completed a 5-day course of azithromycin and noted no improvement. He called his primary care provider today after his last dose of antibiotics and complained of mild confusion, continued nonproductive cough, and increased fatigue. His primary care provider recommended that he present to the hospital. At this time, the patient made complaints of dizziness, lightheadedness, and feeling confused. He has very mild shortness of breath, but only with activities and reports that he has no paroxysmal nocturnal dyspnea. He complains of chills and sweats, but denies fever. He does complain of night sweats. He also mentions a 30-pound weight loss between 07/21/19 and 07/28/19, but notes that his weight has been stable since 07/28/19 although he does have decreased appetite, decreased p.o. intake and reports that "everything tastes bad." He has occasional nausea and continued weakness and general malaise. In the ER, the patient received a full workup. He had a leukocytosis and normocytic anemia as well as some hyponatremia, mildly elevated glucose, and a C - reactive protein that was elevated to 223, which has mildly decreased from last week's 255, but increased from the week prior when his CRP was noted to be 31. A chest x-ray shows peripheral infiltrates in bilateral upper lobes and the right base, which are new since his 07/27/19 chest x-ray. The patient received 1 dose of Levaquin as well as 2500 cc of normal saline. The hospitalist team was asked to evaluate the patient for admission. PAST MEDICAL HISTORY: 1. Depression. 2. Anxiety. 3. Macular degeneration. 4. Arthritis. 5. History of nephrolithiasis. 6. Right total knee arthroplasty, 07/20/19 with subsequent hospitalization for septic right knee and bacteremia both with Staphylococcus caprae. PAST SURGICAL HISTORY: Right thumb, right first toe, left trigger finger, left arthroscopic knee, tonsillectomy, right mastectomy, vocal cord polyps, right total knee arthroplasty 07/20/19. HOME MEDICATIONS: 1. Acetaminophen 650 mg p.o. q.4 hours p.r.n.. 2. Azithromycin pack. 3. Buspirone 10 mg p.o. t.i.d. 4. Cyanocobalamin 1000 mcg p.o. daily. 5. Cyclobenzaprine 10 mg p.o. q.6 hours p.r.n.. 6. Daptomycin 500 mg IV daily. 7. Garlic 1 p.o. daily. 8. Lactobacillus acidophilus 1 tab p.o. daily. 9. Multivitamin/minerals 1 tab p.o. daily. 10. Nicotine patch 14 mg every 24 hours transdermal. 11. [place]-3 fatty acids 1000 mg p.o. daily. 12. Propranolol 80 mg p.o. t.i.d. 13. Rifampin 300 mg p.o. b.i.d. 14. Sertraline 100 mg p.o. q.a.m. 15. Sumatriptan 6 mg subcu p.r.n. 16. Sumatriptan 50 mg p.o. daily p.r.n. 17. MDD 100 mg. 18. ICaps AREDS 1 tab p.o. daily. DRUG ALLERGIES: LATEX, PENICILLIN, SULFA. FAMILY HISTORY: Maternal grandfather of [place] at the age of 45. Paternal grandfather had lung cancer. Father had brain and lung cancer and from brain cancer. No family history of CVA or diabetes mellitus. SOCIAL HISTORY: The patient quit smoking approximately 30 years ago. Prior to that, he had smoked 3 packs per day for 25 years. He drinks 1 to 2 alcoholic beverages per month. 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 He is with 2 children. He lives with his spouse. In the event that he is unable to make his own medical decisions, he has appointed his , Connie Maurer, to be his surrogate decision maker. REVIEW OF SYSTEMS: A 14-point review of systems has been performed and all the pertinent positives and negatives are in the HPI. All other systems are negative. PHYSICAL EXAMINATION GENERAL: Mr. Maurer is a well-developed, well-nourished, slightly overweight 69 - year-old white male who is sitting up in bed. He appears to be in no acute distress. He is breathing comfortably on room air. He is pleasant and cooperative. HEENT: PERRL. EOMI. Peripheral visual grove are grossly intact. Sclerae are nonicteric without injection. Hearing is grossly intact. Oral mucous membranes are moist. There are no lesions. The pharynx is clear. The tongue is at midline. Palate elevates symmetrically. PULMONARY: Symmetrical chest expansion without use of accessory muscles. The lungs are clear to auscultation bilaterally. There are no rhonchi, wheeze, or rales. There is no digital clubbing or cyanosis. CARDIOVASCULAR: Regular rate and rhythm with S1, S2 present. There are no murmurs. There are no rubs, clicks, or gallops. There is no JVD or peripheral edema. ABDOMEN: Bowel sounds in all quadrants. Soft, nontender to palpation. MUSCULOSKELETAL: Bilateral upper extremities and left lower extremity with full range of motion. Right knee with slow range of motion, but the patient is able to flex the knee just beyond 60 degrees without pain. There is mild erythema and warmth to the right knee. The surgical incision site is without dehiscence or drainage. There are 3 scabbed over areas that again are unopened. NEURO: The patient is awake. He is alert and oriented x3 with cranial nerves II through XII grossly intact. He is able to move all of his extremities with a motor strength of 5/5 bilaterally in the upper and lower extremities. Geothermal Operations Engineer strength is equal. DIAGNOSTIC STUDIES/LAB DATA: CBC: WBC 13.3, hemoglobin 11.7, hematocrit 37, platelets 441, MCV 84. CMP: Sodium 129, potassium 4.8, chloride 92, carbon dioxide 28, BUN 15, creatinine 1.02, glucose 140, lactic 1.5. AST 69, ALT 128, CRP 223.97. Chest x-ray, impression: Peripheral infiltrates are noted in the upper lobes bilaterally. Peripheral infiltrate in the right base is also noted. Findings are new since 07/27/19. They appear similar when compared to previous exam of 08/25/19. ASSESSMENT AND PLAN: Mr. Maurer is a 69-year-old male with a past medical history of depression, anxiety, migraines, and recent right total knee with subsequent septic right knee and bacteremia with Staphylococcus caprae, who received a washout and has been on IV antibiotics since 08/02/19, who presented to the ER today with complaints of continued pneumonia despite treatment with azithromycin. The patient will be admitted for: 1. Bilateral infiltrates on chest x-ray, which appears similar to his chest x- ray from 4 days ago despite a full course of azithromycin as well as his antibiotics for his bacteremia, daptomycin, and rifampin. The patient continues to have a productive cough and general malaise and some mild confusion. Due to the appearance on chest x-ray, there is concern for septic emboli. An echo has been ordered. Blood cultures have also been ordered. Flutter valve and guaifenesin will be ordered. Infectious disease will see the patient tomorrow hence they are aware of this admission. The patient will continue coverage with vancomycin and ceftriaxone as there is some concern that this may represent a pneumonia due to Staphylococcus caprae. He will remain on his home rifampin, but daptomycin will be discontinued. We will await further recommendations from Infectious Disease. 2. Recent history of right septic knee and bacteremia. The patient will continue his home rifampin and we will add on vancomycin and ceftriaxone. Infectious Disease will follow up with the patient's problem. 3. Migraine. Continue home propranolol daily and sumatriptan as needed. 4. Depression and anxiety. Continue sertraline and buspirone. 5. Tobacco abuse. The patient states that he wears a daily nicotine patch 14 mg and would like to continue this. This has been ordered. 6. DVT prophylaxis. According to the DVT Risk Assessment, the patient scores 3 placing him at high risk. He has been started on enoxaparin 40 subcu q.24 hours. 7. Code status: Full code. TIME SPENT: Approximately 60 minutes was spent on this admission, greater than half that time was spent [id number] with the patient obtaining history, performing physical, and reviewing the plan of care. The case has been discussed with my attending, Dr. Samayoa, who is in agreement with the plan of care. KARINA HENDRIX [id number]/CPS #: [id number] VERNELL
[2019-08-30] MEDS ORDERED: Vancomycin(*) 1,250 MG in NS 0.9% 250 ML* 250 ML IVPB SCH (04:00)
[2019-08-30 06:24] LABS: ABS Basophils 0.1 10^3/ul (0-0.2); ABS Eosinophils 0.5 10^3/ul (0-0.6); ABS Lymphocytes 1.1 10^3/ul (1.0-4.8); ABS Monocytes 1.4 10^3/ul (0-0.8); ABS Neutrophils 9.4 10^3/ul (1.5-7.7); Eosinophil % 4.2 %; Hematocrit 31 % (42-52); Mean Corpuscular HGB Conc 33 g/dL (31-36); Mean Corpuscular Hemoglobin 27 pg (27-31); Mean Corpuscular Volume 83 fL (80-94); Mean Platelet Volume 7.7 fL (7.4-10.4); Platelet Count 374 10^3/uL (150-450); Red Blood Count 3.67 10^6 /uL (4.18-5.48); Red Cell Distribution Width 16 % (10-15); White Blood Count 12.6 10^3/uL (3.5-10.8)
[2019-08-30 06:44] LABS: BUN/Creatinine Ratio 14.9 (8-20); Calcium 8.2 mg/dL (8.6-10.3); EGFR African American 105.9 (>60); EGFR Non-African American 87.5 (>60); Potassium 4.1 mmol/L (3.5-5.0)
[2019-08-30] MEDS: Propranolol TAB* 80 MG PO SCH ×3 (08:28→20:27)
[2019-08-30] MEDS: Cyanocobalamin TAB* 500 MCG PO SCH (08:28)
[2019-08-30] MEDS: Sertraline* 100 MG TAB PO SCH (08:28)
[2019-08-30] MEDS: busPIRone TAB* 10 MG PO SCH ×3 (08:28→20:27)
[2019-08-30] MEDS: RiFAMPin CAP* 300 MG CAP PO SCH ×2 (08:28→20:27)
[2019-08-30] MEDS: Multivitamins/Minerals TAB PO SCH (08:28)
[2019-08-30] MEDS: guaiFENesin ER TAB 600 MG PO SCH ×2 (08:28→20:27)
[2019-08-30] MEDS: Nicotine PATCH 14 MG/24 HR* PATCH TRANSDERM SCH (08:28)
[2019-08-30] MEDS: Lactobacillus Acidophilus* 1 TAB PO SCH (08:28)
[2019-08-30] MEDS: Vancomycin(*) 1,000 MG in NS 0.9% 250 ML* 250 ML IV SCH ×2 (10:09→17:35)
--- NOTE | 2019-08-30 11:43 | PN ---
Subjective Date of Service: 08/30/19 Interval History: Patient's nausea has not improved. He feels like his mental status is not to his baseline but is unable to describe with detail. He denies difficulty breathing, chest pain, abd pain, vomiting, symptomatic fever/chills. Objective Active Medications: Acetaminophen (Tylenol Tab*) 650 mg PO Q4H PRN PRN Reason: mild to moderate pain Last Admin: 08/30/19 03:30 Dose: 650 mg Buspirone HCl (Buspar Tab*) 10 mg PO TID [facility] Last Admin: 08/30/19 08:28 Dose: 10 mg Cyanocobalamin (Vitamin B12 Tab*) 1,000 mcg PO QAM [facility] Last Admin: 08/30/19 08:28 Dose: 1,000 mcg Cyclobenzaprine HCl (Flexeril Tab*) 10 mg PO Q6H PRN PRN Reason: SPASMS Enoxaparin Sodium (Lovenox(*)) 40 mg SUBCUT Q24H [facility] Last Admin: 08/29/19 21:06 Dose: 40 mg Guaifenesin (Mucinex*) 600 mg PO BID [facility] Last Admin: 08/30/19 08:28 Dose: 600 mg Heparin Sodium (Porcine) (Heparin Flush Picc/Ml/Cvc(*)) 1 ml FLUSH 0600,1800 [facility]; Protocol Ceftriaxone Sodium 1 gm/ (Sodium Chloride) 50 mls @ 100 mls/hr IVPB Q24H [facility] Last Admin: 08/29/19 21:08 Dose: 100 mls/hr Vancomycin HCl 1,000 mg/ (Sodium Chloride) 250 mls @ 166.667 mls/hr IV Q8H [facility] Last Admin: 08/30/19 10:09 Dose: 166.667 mls/hr Lactobacillus Rhamnosus (Lactobacillus Acidophilus*) 1 tab PO DAILY [facility] Last Admin: 08/30/19 08:28 Dose: 1 tab Multivitamins/Minerals (Theragran/Minerals Tab*) 1 tab PO QAM [facility] Last Admin: 08/30/19 08:28 Dose: 1 tab Nicotine (Nicotine Patch 14 Mg/24 Hr*) 1 patch TRANSDERM DAILY [facility] Last Admin: 08/30/19 08:28 Dose: 1 patch Pharmacy Consult (Vancomycin Per Pharmacy*) 1 note FOLLOW UP .VANC PER PHARMACY [facility]; Protocol Pharmacy Profile Note (Vancomycin Trough Check) 1 note FOLLOW UP 929 ONE Stop: 08/31/19 09:31 Propranolol HCl (Inderal Tab*) 80 mg PO TID [facility] Last Admin: 08/30/19 08:28 Dose: 80 mg Rifampin (Rifampin Cap*) 300 mg PO BID [facility] Last Admin: 08/30/19 08:28 Dose: 300 mg Sertraline HCl (Zoloft*) 100 mg PO QAM [facility] Last Admin: 08/30/19 08:28 Dose: 100 mg Sumatriptan Succinate (Imitrex Tab*) 50 mg PO DAILY PRN PRN Reason: MIGRAINE HEADACHE Vital Signs - 8 hr 08/30/19 08/30/19 07:15 07:19 Temperature 99.0 F Pulse Rate 72 Respiratory 16 16 Rate Blood Pressure 109/61 (mmHg) O2 Sat by Pulse 95 95 Oximetry Oxygen Devices in Use Now: None Appearance: WD WN male laying upright in bed, appearing comfortable and in NAD Eyes: No Scleral Icterus, - - PERRL Ears/Nose/Mouth/Throat: Mucous Membranes Moist Neck: Trachea Midline Respiratory: Symmetrical Chest Expansion and Respiratory Effort, - - faint crackles in right lower lobe and otherwise clear Cardiovascular: NL Sounds; No Murmurs; No JVD, RRR Abdominal: NL Sounds; No Tenderness; No Distention Extremities: No Edema, No Clubbing, Cyanosis Skin: No Rash or Ulcers Neurological: Alert and Oriented x 3, NL Muscle Strength and Tone Result Diagrams: 08/30/19 06:17 08/30/19 06:17 Additional Lab and Data: Lab Results 08/29/19 08/29/19 08/29/19 Range/Units 13:41 13:41 13:41 WBC 13.3 H (3.5-10.8) 10^3/uL RBC 4.26 (4.18-5.48) 10^6 /uL Hgb 11.7 L (14.0-18.0) g/dL Hct 36 L (42-52) % MCV 84 (80-94) fL MCH 27 (27-31) pg MCHC 33 (31-36) g/dL RDW 16 H (10-15) % Plt Count 441 (150-450) 10^3/uL MPV 7.8 (7.4-10.4) fL Neut % (Auto) 75.9 % Lymph % (Auto) 8.7 % [place] % (Auto) 11.8 % Eos % (Auto) 3.3 % Baso % (Auto) 0.3 % Absolute Neuts (auto) 10.1 H (1.5-7.7) 10^3/ul Absolute Lymphs (auto) 1.2 (1.0-4.8) 10^3/ul Absolute Monos (auto) 1.6 H (0-0.8) 10^3/ul Absolute Eos (auto) 0.4 (0-0.6) 10^3/ul Absolute Basos (auto) 0.0 (0-0.2) 10^3/ul Absolute Nucleated RBC 0.0 10^3/ul Nucleated RBC % 0.0 Sodium 129 L (135-145) mmol/L Potassium 4.8 (3.5-5.0) mmol/L Chloride 92 L (101-111) mmol/L Carbon Dioxide 28 (22-32) mmol/L Anion Gap 9 (2-11) mmol/L BUN 15 (6-24) mg/dL Creatinine 1.02 (0.67-1.17) mg/dL Est GFR ( Amer) 88.1 (>60) Est GFR (Non-Af Amer) 72.8 (>60) BUN/Creatinine Ratio 14.7 (8-20) Glucose 140 H (70-100) mg/dL Lactic Acid 1.5 (0.5-2.0) mmol/L Calcium 9.2 (8.6-10.3) mg/dL Total Bilirubin 0.50 (0.2-1.0) mg/dL AST 69 H (13-39) U/L ALT 128 H (7-52) U/L Alkaline Phosphatase 92 (34-104) U/L Troponin I 0.02 (<0.03) ng/mL C-Reactive Protein 223.97 H (<8.01) mg/L Total Protein 6.8 (6.4-8.9) g/dL Albumin 3.2 (3.2-5.2) g/dL Globulin 3.6 (2-4) g/dL Albumin/Globulin Ratio 0.9 L (1-3) Microbiology and Other Data: Microbiology 08/30/19 10:15 Legionella Urinary Antigen - Final Urine Negative Legionella Antigen Streptococcus pneumoniae Ag Screen - Final Negative S. pneumo Antigen 08/29/19 21:18 Nasal Screen MRSA (PCR) - Final Nasal Mrsa Not Detected Assess/Plan/Problems-Billing Assessment: 69 yo male with PMHx recent TKA with subsequent joint infection and bacteremia, nicotine (patch) dependence, migraines, depression/anxiety presents with mild confusion, cough, fatigue, and malaise found to have worsening pneumonia despite antibiotics. - Patient Problems (1) Sepsis Current Visit: No Status: Acute Comment: - Was not meeting sepsis criteria at admission - Developed fever after admission and also has leukocytosis - Lactic acid at admission was wnl, repeat today also wnl - 2/2 bacteremia and new pneumonia (2) Bacteremia Current Visit: No Status: Acute Code(s): R78.81 - BACTEREMIA SNOMED Code(s ): 3738050 Comment: -recent hospitalization for bacteremia 2/2 prosthetic knee infection with staph caprae; was discharged home 08/02/19 with daily infusions of daptomycin and rifampin -given pneumonia as further discussed below, changing antibiotic for coverage of the new infection as daptomycin does not cover lungs as seen below -blood culture from this admission pending (3) Pneumonia Current Visit: Yes Status: Acute Code(s): J18.9 - PNEUMONIA, UNSPECIFIED ORGANISM SNOMED Code(s): 931419622 Comment: -has been on daptomycin and rifampin for staph caprae bacteremia, but developed cough and went to PCP on 08/25/19 and found to have PNA on CXR -has received azithromycin in addition to daptomycin and rifampin for bacteremia , continued to worsen -CTA chest concerning for septic emboli given multiple consolidations -TTE without evidence of vegetation, will defer to ID if PATEL necessary -will continue vancomycin, ceftriaxone, and rifampin and appreciate further input from ID consult -febrile overnight, leukocytosis minimally downtrended today (4) Nicotine dependence Current Visit: Yes Status: Acute Code(s): F17.200 - NICOTINE DEPENDENCE, UNSPECIFIED, UNCOMPLICATED SNOMED Code(s): 33937028 Comment: -continue home nicotine patch -patient needs to discuss weaning with PCP outpatient as he has been using patch OTC for approx 30 years per patient (5) Status post joint replacement Current Visit: Yes Status: Acute Code(s): Z96.60 - PRESENCE OF UNSPECIFIED ORTHOPEDIC JOINT IMPLANT SNOMED Code(s): 675897650 Comment: -right TKA on 07/20/[address] Villanueva, and subsequently developed joint infection as discussed above -progessing well (6) Anxiety Current Visit: No Status: Acute Code(s): F41.9 - ANXIETY DISORDER, UNSPECIFIED SNOMED Code(s): 81609569 Comment: - Continue sertraline, buspirone (7) DVT prophylaxis Current Visit: No Status: Acute Code(s): Z29.9 - ENCOUNTER FOR PROPHYLACTIC MEASURES, UNSPECIFIED SNOMED Code(s): 681198232 Comment: - Lovenox (8) Full code status Current Visit: No Status: Acute Code(s): Z78.9 - OTHER SPECIFIED HEALTH STATUS SNOMED Code(s): 255888316 Comment: Status and Disposition: inpatient
--- NOTE | 2019-08-30 16:54 | ECHO ---
*[facility]* [place] [address] Fax #: [phone] Transthoracic Echocardiogram Patient: Jason Maurer : 1950 Study Date: 08/30/2019 Age: 69 Gender: M HR: 66 bpm Height: 71 in /180.3 cm BSA: 2.05 m^2 Weight: 187.6 lb /85.3 kg BMI: 26.2 kg/m^2 *Health Information Provider: * Mari Bourne RDCS RN *Referring Physician: * Ann ArthurReading Physician: * Israel Mckenzie MD Indications: SOB. History: Recent septic right knee and bacteremia. Multiple bilateral infiltrates on CXR. Migraines. Murmur. Risk factors: Former tobacco use. Conclusions Summary: - Impressions: The study is mostly unchanged since the study of July 2019. The left atrium was reported as enlarged last time and normal this time. - Left ventricle: The cavity size is normal. Wall thickness is mildly increased. Systolic function is normal. The estimated ejection fraction is 60-65%. Doppler parameters are consistent with abnormal left ventricular relaxation (grade 1 diastolic dysfunction). - Mitral valve: There is trace regurgitation. - Ascending aorta: The ascending aorta is upper normal in size. - Pulmonary arteries: Systolic pressure is mildly increased, estimated to be 37 mm Hg. Study data: Transthoracic echocardiogram. Procedure: Transthoracic echocardiography was performed. Image quality was fair. The study was technically limited due to Smoking history. Complete 2D, spectral Doppler, and color flow Doppler. Location: Bedside. Patient status: Inpatient. Patient room number: 415-02. The previous study was not available, so comparison is made to the report of July 2019. Rhythm: Normal sinus rhythm. Findings Left ventricle: The cavity size is normal. Wall thickness is mildly increased. Systolic function is normal. The estimated ejection fraction is 60-65%. Wall motion is normal; there are no regional wall motion abnormalities. Doppler parameters are consistent with abnormal left ventricular relaxation (grade 1 diastolic dysfunction). Right ventricle: The cavity size is mildly dilated in the SUZIE view. Systolic function is normal. Ventricular septum: The outflow septum has a sigmoid appearance. Left atrium: The atrium is normal in size. Right atrium: The atrium is normal in size. Mitral valve: The leaflets are mildly thickened. There is no evidence of a vegetation. There is no evidence of stenosis. There is trace regurgitation. Aortic valve: The valve is trileaflet. The leaflets are mildly thickened. There is no evidence of a vegetation. There is no evidence of stenosis. There is no regurgitation. Tricuspid valve: The valve is structurally normal. There is no evidence of a vegetation. There is no evidence of stenosis. There is mild regurgitation. Pulmonic valve: The valve is structurally normal. There is no evidence of a vegetation. There is no evidence of stenosis. There is trace to mild regurgitation. Aorta: Aortic root: The aortic root is not dilated. Ascending aorta: The ascending aorta is upper normal in size. Aortic arch: The aortic arch is not dilated. Pericardium: There is no pericardial effusion. Pulmonary arteries: The main pulmonary artery is normal-sized. Systolic pressure is mildly increased, estimated to be 37 mm Hg. Systemic veins: Inferior vena cava: The vessel is mildly dilated. There is (>= 50%) respiratory change in the IVC dimension. Measurements Left ventricle Value Ref Aortic valve continued Value Ref ZEHRA, LAX 5.4 cm 4.2 - 5.8 James diam/bsa, ED 1.0 cm/m^2 ---- ESD, LAX 3.4 cm 2.5 - 4.0 Peak v, S 1.9 m/sec ---- FS, LAX 37 % 25 - 43 VTI, S 30.3 cm ---- PW, ED (H) 1.1 cm 0.6 - 1.0 Mean grad, S 7.0 mm Hg ---- IVS/PW, ED 1.08 Peak grad, S 15.0 mm Hg ---- E', lat james, TDI 13.0 cm/sec >=10.0 LVOT/AV, VTI ratio 0.79 ---- E/e', lat james, 6 TDI Mitral valve Value Ref E', med james, TDI 8.1 cm/sec >=7.0 Peak E 0.8 m/sec ---- E/e', med james, 10 Peak A 0.92 m/sec --- - TDI Decel time 275 ms ---- E', avg, TDI 10.6 cm/sec Peak grad, D 2.6 mm Hg --- - E/e', avg, TDI 8 <=14 Peak E/A ratio 0.9 ---- LVOT Value Ref Pulmonic valve Value Ref Peak zena, S 1.31 m/sec Peak v, S 1.11 m/sec ---- VTI, S 23.8 cm Peak grad, S 5.0 mm Hg ---- Peak grad, S 7 mm Hg Mean grad, S 4 mm Hg Tricuspid valve Value Ref Peak RV-RA grad, S 29 mm Hg ---- Ventricular septum Value Ref Max TR zena 2.7 m/sec ---- IVS, ED (H) 1.1 cm 0.6 - 1.0 Aortic root Value Ref Right ventricle Value Ref Root diam 3.4 cm <4.2 ZEHRA, LAX 3.8 cm ZEHRA minor ax, A4C 3.4 cm 1.9 - 3.5 Ascending aorta Value Ref mid AAo AP diam, S 3.6 cm ---- Pressure, S 37 mm Hg Aortic arch Value Ref Left atrium Value Ref Arch diam 2.7 cm ---- AP dim, ES 3.70 cm 3.00 - 4.00 Decending aorta Value Ref ML dim, A4C 4.2 cm Olman peak zena 0.78 m/sec ---- SI dim, A4C 4.9 cm Vol/bsa, ES, 1-p 22 ml/m^2 12 - 37 Pulmonary artery Value Ref A4C Pressure, S 37.0 mm Hg ---- Vol/bsa, ES, A/L 31 ml/m^2 16 - 34 Inferior vena cava Value Ref Right atrium Value Ref Diam 2.2 cm ---- ML dim, ES, A4C 3.7 cm 2.6 - 4.4 SI dim, ES, A4C 4.8 cm 3.4 - 5.3 Estimated RAP 8 mm Hg Aortic valve Value Ref James diam, ED 2.0 cm Legend: (L) and (H) chapin values outside specified reference range. Prepared and electronically signed by Israel Mckenzie MD 08/30/2019 16:53
--- NOTE | 2019-08-30 18:08 | CONS ---
CONSULTATION REPORT: DATE OF CONSULT: 08/30/19 PRIMARY CARE PROVIDER: Dr. Elgin Sims. PROVIDER REQUESTING CONSULTATION: KARINA Jasso. CONSULTING SERVICE: Infectious Disease. PROVIDER: Roberta Pepper NP. ATTENDING PROVIDER: Jason Love MD.* (DICTATED BY ROBERTA PEPPER NP) REASON FOR CONSULTATION: Abnormal chest CT and concern for pneumonia. IMPRESSION: 1. Abnormal chest CT. The patient reports intermittent chills and feeling unwell. He was diagnosed with pneumonia outpatient and started on azithromycin on 08/25/19. He continued to feel unwell and actually feeling worse. He presented to the ER and had a chest x-ray showing worsening pneumonia in addition to a chest CTA showing bilateral pulmonary patchy opacity with peripheral distribution, mediastinal bilateral hilar lymphadenopathy and no pulmonary embolus. The patient is noted to be afebrile while in the hospital with mild leukocytosis. He has an elevated CRP of 223.97. Differential diagnosis includes community-acquired pneumonia, not improving on atypical pneumonia coverage, eosinophilic pneumonia secondary to the daptomycin that he is receiving outpatient, and septic emboli. Low suspicion for septic emboli. Blood cultures drawn but results pending at this time and transthoracic echocardiogram pending. He has been on cefepime and vancomycin since being admitted to the hospital. 2. 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 Was also noted to have bacteremia during last hospitalization. He is still currently on antibiotics for this. Due to suspicion that he has eosinophil pneumonia secondary to daptomycin, daptomycin has been changed to vancomycin and his outpatient daptomycin infusions will need to be changed to another agent. At discharge, should be continued on rifampin, today is day 29 of 42 days of IV antibiotics and then he will be transitioned to 3 to 6 months course of oral antibiotics in combination with rifampin. There are no sign of worsening infection. He has full range of motion of his knee. There is no erythema, no tenderness, no joint effusion noted. Orthopedic service has been notified of the patient's admission in the event they would like to followup with him while he is in-house. 3. Transaminitis. Recommend repeating liver function tests tomorrow to see if they are improving after being admitted and if this is possibly secondary to sepsis versus another issue. 4. Diabetes mellitus, type 2. RECOMMENDATIONS/PLAN: Recommend continuing vancomycin, ceftriaxone, and rifampin at this time. We should attempt to obtain a sputum culture if he is able to produce a sputum culture. Additionally, I will add on urine antigen for S. pneumoniae and legionella. Continue to follow his leukocytosis and CRP. We will continue to follow along. Further recommendations will be based on blood culture results, sputum culture if obtained, and his clinical course. HISTORY OF PRESENT ILLNESS: Mr. Maurer is a 69-year-old male with past medical history significant for diabetes mellitus type 2, depression, anxiety, arthritis , status post right knee total arthroplasty in July complicated by a right prosthetic knee infection, currently receiving a prolonged course of IV antibiotics outpatient, who had been doing well since going home from the hospital. He has been receiving daptomycin infusions. The patient has reported night sweats that he felt were slowly improving, low energy, sleeping more throughout the day, improving right knee pain, decreased appetite secondary to abnormal taste in his mouth with some weight loss but overall stable weight since his knee infection. He was felt to be doing well overall. The patient was noted to have increased CRP on with his routine labs, up from 31.83 the week prior to 255.99. Around that same time, he developed increased phlegm and was seen by his primary care provider on 08/25/19. He had a chest x-ray ordered by his primary at that time showing a patchy infiltrate in the right upper lobe. His primary care provider diagnosed him with pneumonia and started him on a course of azithromycin. He began taking this, and yesterday on 08/29/19, he was feeling worse, unable to get phlegm up, feeling confused. Denied any fevers, chills, but decided to present to the emergency room for further evaluation. While in the emergency room, he had a repeat chest x-ray showing peripheral infiltrates noted in the upper base with bilateral and peripheral infiltrate in the right base. He then had a chest CTA showing bilateral pulmonary patchy opacities with peripheral disruption, mediastinal bilateral hilar lymphadenopathy. No pulmonary embolus. He was noted to have mild leukocytosis with white blood cell count of 12.6, elevated CRP continued at 223.97. The patient was referred to the hospitalist service for admission. While in the hospital, the patient has been receiving vancomycin, ceftriaxone in addition to being continued on his rifampin for his prosthetic knee infection. The patient states that he had some chills last evening. He reports that he continues to have night sweats that he has been having since his knee infection. He denies pain in his right knee. Denies shortness of breath at rest but states that he has been having shortness of breath with exertion especially with going upstairs since his surgery. He reports intermittent nausea. Symptoms has been an ongoing thing since his knee surgery , also with addition to poor appetite due to abnormal odors and odd taste in his mouth. He feels like overall symptoms are improving. He denies vomiting, diarrhea, urinary symptoms such as urgency, frequency, or dysuria. He denies any recent travel. His leukocytosis is trending down. Blood cultures are pending. He has a transthoracic echocardiogram pending due to concern of possible septic emboli being the reason for the findings on the chest CT scan with bilateral peripheral involvement of the lungs. PAST MEDICAL HISTORY: 1. Diabetes mellitus type 2. 2. Depression. 3. Anxiety. 4. Retinal degeneration. 5. Osteoarthritis. 6. History of nephrolysis. 7. History of right prosthetic knee infection, currently receiving IV antibiotics outpatient. PAST SURGICAL HISTORY: 1. Status post right total knee arthroplasty on 07/20/19. 2. Status post incision and drainage with polyethylene exchange of the right knee on 07/28/19. 3. Status post tonsillectomy. 4. Status post right mastectomy. 5. Status post excision of vocal cord polyps. MEDICATIONS: Home medications: 1. Bupropion 10 mg by mouth 3 times daily. 2. ICaps AREDS tablet, 1 tablet by mouth daily. 3. Sertraline 100 mg by mouth daily. 4. Imitrex 500 mg by mouth daily as needed for migraine. 5. Imitrex subcu 6 mg subcutaneous per instructions. 6. Rifampin 300 mg by mouth twice daily. 7. Propranolol 80 mg by mouth 3 times daily. 8. Fish oil 1000 mg by mouth daily. 9. Nicotine patch 14 mg transdermal daily. 10. Multivitamin 1 tablet by mouth daily. 11. Lactobacillus 1 tablet by mouth daily. 12. Garlic 1 tablet by mouth daily. 13. Daptomycin 500 mg IV daily. 14. Flexeril 10 mg by mouth every 6 hours as needed for muscle spasms. 15. Vitamin B12 1000 mcg by mouth daily. 16. Azithromycin 2 tablets by mouth once, followed by 1 tablet by mouth daily for 4 days. Started on 08/25/19. 17. Acetaminophen 650 mg by mouth every 4 hours. Hospital medications: 1. Acetaminophen 650 mg by mouth every 4 hours as needed for pain. 2. Bupropion 10 mg by mouth 3 times daily. 3. Ceftriaxone 1 g IV daily. 4. Vitamin B12 1000 mcg by mouth daily. 5. Cyclobenzaprine 10 mg by mouth every 6 hours as needed for muscle spasms. 6. Lovenox 40 mg subcutaneous daily. 7. Mucinex 600 mg by mouth twice daily. 8. Heparin sodium 1 mL flush via PICC line twice daily. 9. Lactobacillus 1 tablet by mouth daily. 10. Multivitamin 1 tablet by mouth daily. 11. Nicotine 14 mg patch, 1 patch transdermal daily. 12. Propranolol 80 mg by mouth 3 times daily. 13. Rifampin 300 mg by mouth twice daily. 14. Sertraline 100 mg by mouth daily. 15. Imitrex 50 mg by mouth daily as needed for migraine. 16. Vancomycin 1000 mg IV every 8 hours. ALLERGIES: 1. LATEX. 2. PENICILLIN. 3. SULFA, caused extreme fatigue. FAMILY HISTORY: Denies family history of recurrent resistant infections. Maternal grandfather with history of [place] at 45. No family history of diabetes. Paternal grandfather with a history of lung cancer. Father with a history of lung and brain cancer. SOCIAL HISTORY: He occasionally drinks alcohol. He is a former smoker, quitting 30 years ago. Prior to that, he had a 3-pack a day for 25 years smoking history. He currently has been using nicotine patches for the last 30 years, currently using 14 mg patches. He denies recreational drug use. REVIEW OF SYSTEMS: I performed a 10-point review of systems. All the pertinent positives and negatives are mentioned in the history of present illness. Remaining review of systems are negative. PHYSICAL EXAM: Vital Signs: Temperature 99.0, heart rate 72, respiratory rate 16, O2 sat 95% on room air, blood pressure 109/61. General Appearance: He is alert, appears to be in no acute distress. Head: Normocephalic, atraumatic. EENT: Extraocular movements are intact. No subconjunctival hemorrhage. Moist mucous membranes. Neck: Supple. No lymphadenopathy. Neurological: Alert and oriented x4. Cranial nerves II through XII are grossly intact. He moves all extremities. Cardiovascular: Regular rate and rhythm. S1 and S2 crisp. No murmurs, rubs, or gallops heard. Respiratory: There is no accessory muscle use. The lungs are clear to auscultation bilaterally. Abdomen: Bowel sounds present. Abdomen is soft, nontender, nondistended. Extremities: No lower extremity edema. DP and PT pulses are 2+ and symmetric. Musculoskeletal: No clubbing or cyanosis noted. He exhibits good strength in all extremities. There is no edema, tenderness with palpation, or effusion noted of the right knee. There is mild crepitus noted with range of motion. He has full range of motion of the right knee. Negative log roll on the right and full range of motion of the right knee. No other joint edema or pain with movement. No tenderness with palpation of the neck, back, or spine. Psychological: Calm and cooperative. Skin: No rashes or abnormalities seen. He has a well-healing incision to the right knee that is well approximated with a few small areas of crusting. DIAGNOSTIC STUDIES/LAB DATA: Sodium 130, potassium 4.1, chloride 98, CO2 25, BUN 13, creatinine 0.87, glucose 115. White blood cell count 12.6, hemoglobin 10.0, hematocrit 31, platelet count 374. CRP on admission yesterday 223.97. Blood cultures still pending at this time. Please see impression and recommendations outlined above. Recommendations have been discussed with KAIRNA Deng. Thank you for asking us to see Mr. Maurer in consultation. The case has been discussed with my attending physician Dr. Jason Love, who agrees with the plan of care. Reviewed by BRAYAN SAENZ 09/02/19 [id number] [id number]/[facility] #: [id number] [place]
[2019-08-30] MEDS: Enoxaparin(*) 40 MG/0.4 ML SYR SUBCUT SCH (19:29)
[2019-08-30] MEDS: cefTRIAXone(*) 1 GM in NS 0.9% 50 ML* 50 ML IVPB SCH (20:28)
[2019-08-31] MEDS: Vancomycin(*) 1,000 MG in NS 0.9% 250 ML* 250 ML IV SCH ×2 (02:05→10:18)
[2019-08-31 06:07] LABS: ABS Basophils 0.2 10^3/ul (0-0.2); ABS Eosinophils 0.5 10^3/ul (0-0.6); ABS Lymphocytes 1.3 10^3/ul (1.0-4.8); ABS Monocytes 1.2 10^3/ul (0-0.8); Eosinophil % 5.2 %; Hematocrit 30 % (42-52); Lymphocyte % 12.3 %; Mean Corpuscular HGB Conc 33 g/dL (31-36); Mean Corpuscular Hemoglobin 28 pg (27-31); Mean Corpuscular Volume 83 fL (80-94); Mean Platelet Volume 7.4 fL (7.4-10.4); Platelet Count 386 10^3/uL (150-450); Red Blood Count 3.62 10^6 /uL (4.18-5.48); Red Cell Distribution Width 16 % (10-15); White Blood Count 10.2 10^3/uL (3.5-10.8)
[2019-08-31 06:30] LABS: Albumin 2.5 g/dL (3.2-5.2); Albumin/Globulin Ratio 0.8 (1-3); BUN/Creatinine Ratio 12.3 (8-20); Calcium 8.2 mg/dL (8.6-10.3); EGFR Non-African American 95.1 (>60); Potassium 4.1 mmol/L (3.5-5.0); Total Bilirubin 0.3 mg/dL (0.2-1.0); Total Protein 5.5 g/dL (6.4-8.9)
[2019-08-31] MEDS: Lactobacillus Acidophilus* 1 TAB PO SCH (08:47)
[2019-08-31] MEDS: Propranolol TAB* 80 MG PO SCH ×3 (08:48→21:44)
[2019-08-31] MEDS: Sertraline* 100 MG TAB PO SCH (08:48)
[2019-08-31] MEDS: guaiFENesin ER TAB 600 MG PO SCH ×2 (08:48→21:45)
[2019-08-31] MEDS: busPIRone TAB* 10 MG PO SCH ×3 (08:48→21:44)
[2019-08-31] MEDS: Cyanocobalamin TAB* 500 MCG PO SCH (08:48)
[2019-08-31] MEDS: RiFAMPin CAP* 300 MG CAP PO SCH ×2 (08:48→21:45)
[2019-08-31] MEDS: Multivitamins/Minerals TAB PO SCH (08:48)
[2019-08-31] MEDS: Nicotine PATCH 14 MG/24 HR* PATCH TRANSDERM SCH ×2 (08:48→13:15)
[2019-08-31] MEDS ORDERED: Vancomycin Trough Check NOTE FOLLOW UP ONE (09:30)
--- NOTE | 2019-08-31 10:07 | PN ---
Progress Note - Progress Note Date of Service: 08/31/19 SOAP: Subjective: CC: cough HPI: 69 year old man with cough, malaise, fever, bilateral pulmonary infiltrates while on daptomycin and rifampin for prosthetic right knee infection. He is feeling better, fever and malaise resolved. Still coughing, not productive. Appetite is good. No fever, rash, or diarrhea. No pain in right knee at rest or walking. Objective: Vital Signs Temp 36.8 C 08/31/19 07:05 Pulse 75 08/31/19 07:05 Resp 16 08/31/19 07:06 BP 124/70 08/31/19 07:05 Pulse Ox 97 08/31/19 07:06 Intake & Output 08/30/19 08/31/19 08/31/19 18:59 06:59 18:59 Intake Total 1920 1010 120 Output Total 620 Balance 1300 1010 120 Intake: IVPB 50 ABX - CEFTRIAXONE 50 Oral 1920 960 120 Output: Urine 620 Other: # Bowel Movements 1 Estimated Stool Amount Medium # Voids 2 Gen:awake, no distress HEENT: no thrush Heart:RRR no murmur Lungs:Clear, no wheeze or egophany Abd:+BS NTND soft Skin: no rash MSK: right knee slight warmth, non tender, incision healed Laboratory Results - last 24 hr 08/30/19 08/31/19 08/31/19 12:04 06:00 06:00 WBC 10.2 RBC 3.62 L Hgb 10.0 L Hct 30 L MCV 83 MCH 28 MCHC 33 RDW 16 H Plt Count 386 MPV 7.4 Neut % (Auto) 68.3 Lymph % (Auto) 12.3 [place] % (Auto) 12.0 Eos % (Auto) 5.2 Baso % (Auto) 2.2 Absolute Neuts (auto) 7.0 Absolute Lymphs (auto) 1.3 Absolute Monos (auto) 1.2 H Absolute Eos (auto) 0.5 Absolute Basos (auto) 0.2 Absolute Nucleated RBC 0.0 Nucleated RBC % 0.0 Sodium 133 L Potassium 4.1 Chloride 101 Carbon Dioxide 26 Anion Gap 6 BUN 10 Creatinine 0.81 Est GFR ( Amer) 115.0 Est GFR (Non-Af Amer) 95.1 BUN/Creatinine Ratio 12.3 Glucose 119 H Lactic Acid 1.1 Calcium 8.2 L Total Bilirubin 0.30 AST 34 ALT 74 H Alkaline Phosphatase 78 Total Protein 5.5 L Albumin 2.5 L Globulin 3.0 Albumin/Globulin Ratio 0.8 L Vancomycin Trough 08/31/19 08:58 WBC RBC Hgb Hct MCV MCH MCHC RDW Plt Count MPV Neut % (Auto) Lymph % (Auto) [place] % (Auto) Eos % (Auto) Baso % (Auto) Absolute Neuts (auto) Absolute Lymphs (auto) Absolute Monos (auto) Absolute Eos (auto) Absolute Basos (auto) Absolute Nucleated RBC Nucleated RBC % Sodium Potassium Chloride Carbon Dioxide Anion Gap BUN Creatinine Est GFR ( Amer) Est GFR (Non-Af Amer) BUN/Creatinine Ratio Glucose Lactic Acid Calcium Total Bilirubin AST ALT Alkaline Phosphatase Total Protein Albumin Globulin Albumin/Globulin Ratio Vancomycin Trough 12.0 Microbiology 08/29/19 17:46 Aerobic Blood Culture - Preliminary Blood Venous No Growth Day 1 Anaerobic Blood Culture - Preliminary No Growth Day 1 08/29/19 17:46 Aerobic Blood Culture - Preliminary Blood Venous No Growth Day 1 Anaerobic Blood Culture - Preliminary No Growth Day 1 08/30/19 10:15 Legionella Urinary Antigen - Final Urine Negative Legionella Antigen Streptococcus pneumoniae Ag Screen - Final Negative S. pneumo Antigen Assessment: 1. pneumonia, could be bacterial, viral or possible daptomycin related eosinophilic pneumonia, definite dapto related pna requires eos in BAL which we won't put him through as he is improving. 2. 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 pcn allergy 4. Plan: 1. continue vancomycin goal tr 15-20 and ceftriaxone daily for 24 more hrs, will re-assess tomorrow and if still improving likely can go home 2. abx day to follow with 3-6 months PO antibiotics; will change to tedizolid 300 mg IV daily to finish course 35 minutes floor time >50% face to face with patient and discussing antibiotic plans
[2019-08-31] MEDS: SUMAtriptan TAB* 50 MG PO PRN ×2 (11:55→22:01)
--- NOTE | 2019-08-31 13:16 | PN ---
Progress Note - Progress Note Date of Service: 08/31/19 Note: Pt seen at bedside for eval of right knee. Right knee is not painful, he maintains ability to ambulate and participate with PT without discomfort. On exam his incision is healing well without discharge or erythema. Knee is nontender to palpation. Able to actively f/e 5-110 without pain. ID is following him for pneumonia as well as continuing tx for prosthetic knee infection with staph caprae. He is on day 33/42 of IV abx dapto and rifampin. Per ID will change to tedizolid 300 mg IV daily to finish course. Knee appears to be healing well, no intervention needed. Please alert orthopedics with any concerns.
--- NOTE | 2019-08-31 16:52 | PN ---
Subjective Date of Service: 08/31/19 Interval History: Patient c/o neck pain which has been ongoing for several weeks but feels worse this morning. Nausea continues today but is improved and says his appetite is improved. He denies abd pain, vomiting, fever/chills, difficulty breathing, chest pain. Cough continues and is nonproductive, not worsening. Objective Active Medications: Acetaminophen (Tylenol Tab*) 650 mg PO Q4H PRN PRN Reason: mild to moderate pain Last Admin: 08/30/19 03:30 Dose: 650 mg Buspirone HCl (Buspar Tab*) 10 mg PO TID [facility] Last Admin: 08/31/19 13:14 Dose: 10 mg Cyanocobalamin (Vitamin B12 Tab*) 1,000 mcg PO QAM [facility] Last Admin: 08/31/19 08:48 Dose: 1,000 mcg Cyclobenzaprine HCl (Flexeril Tab*) 10 mg PO Q6H PRN PRN Reason: SPASMS Enoxaparin Sodium (Lovenox(*)) 40 mg SUBCUT Q24H [facility] Last Admin: 08/30/19 19:29 Dose: 40 mg Guaifenesin (Mucinex*) 600 mg PO BID [facility] Last Admin: 08/31/19 08:48 Dose: 600 mg Heparin Sodium (Porcine) (Heparin Flush Picc/Ml/Cvc(*)) 1 ml FLUSH 0800,2000 [facility]; Protocol Last Admin: 08/31/19 12:44 Dose: 1 ml Ceftriaxone Sodium 1 gm/ (Sodium Chloride) 50 mls @ 100 mls/hr IVPB Q24H [facility] Last Admin: 08/30/19 20:28 Dose: 100 mls/hr Vancomycin HCl 1,250 mg/ (Sodium Chloride) 250 mls @ 166.667 mls/hr IVPB Q8H [facility] Lactobacillus Rhamnosus (Lactobacillus Acidophilus*) 1 tab PO DAILY [facility] Last Admin: 08/31/19 08:47 Dose: 1 tab Multivitamins/Minerals (Theragran/Minerals Tab*) 1 tab PO QAM [facility] Last Admin: 08/31/19 08:48 Dose: 1 tab Nicotine (Nicotine Patch 14 Mg/24 Hr*) 1 patch TRANSDERM DAILY [facility] Last Admin: 08/31/19 13:15 Dose: 1 patch Pharmacy Consult (Vancomycin Per Pharmacy*) 1 note FOLLOW UP .VANC PER PHARMACY [facility]; Protocol Pharmacy Profile Note (Vancomycin Trough Check) 1 note FOLLOW UP 09 ONE Stop: 09/01/19 17:31 Propranolol HCl (Inderal Tab*) 80 mg PO TID [facility] Last Admin: 08/31/19 13:14 Dose: 80 mg Rifampin (Rifampin Cap*) 300 mg PO BID [facility] Last Admin: 08/31/19 08:48 Dose: 300 mg Sertraline HCl (Zoloft*) 100 mg PO QAM [facility] Last Admin: 08/31/19 08:48 Dose: 100 mg Sumatriptan Succinate (Imitrex Tab*) 50 mg PO DAILY PRN PRN Reason: MIGRAINE HEADACHE Last Admin: 08/31/19 11:55 Dose: 50 mg Vital Signs - 8 hr 08/31/19 08/31/19 11:48 15:15 Temperature 98.2 F 98.6 F Pulse Rate 70 63 Respiratory 16 16 Rate Blood Pressure 129/64 108/61 (mmHg) O2 Sat by Pulse 99 97 Oximetry Oxygen Devices in Use Now: None Appearance: White male who appears stated age, laying in bed, appearing comfortable and in NAD Eyes: No Scleral Icterus, - - PERRL Ears/Nose/Mouth/Throat: Mucous Membranes Moist Neck: Trachea Midline Respiratory: Symmetrical Chest Expansion and Respiratory Effort, Clear to Auscultation Cardiovascular: NL Sounds; No Murmurs; No JVD, RRR Abdominal: - - abd soft, nontender, nondistended Extremities: No Edema, No Clubbing, Cyanosis Skin: No Rash or Ulcers Neurological: Alert and Oriented x 3, NL Muscle Strength and Tone Result Diagrams: 08/31/19 06:00 08/31/19 06:00 Additional Lab and Data: Lab Results 08/29/19 08/29/19 08/29/19 Range/Units 13:41 13:41 13:41 WBC 13.3 H (3.5-10.8) 10^3/uL RBC 4.26 (4.18-5.48) 10^6 /uL Hgb 11.7 L (14.0-18.0) g/dL Hct 36 L (42-52) % MCV 84 (80-94) fL MCH 27 (27-31) pg MCHC 33 (31-36) g/dL RDW 16 H (10-15) % Plt Count 441 (150-450) 10^3/uL MPV 7.8 (7.4-10.4) fL Neut % (Auto) 75.9 % Lymph % (Auto) 8.7 % [place] % (Auto) 11.8 % Eos % (Auto) 3.3 % Baso % (Auto) 0.3 % Absolute Neuts (auto) 10.1 H (1.5-7.7) 10^3/ul Absolute Lymphs (auto) 1.2 (1.0-4.8) 10^3/ul Absolute Monos (auto) 1.6 H (0-0.8) 10^3/ul Absolute Eos (auto) 0.4 (0-0.6) 10^3/ul Absolute Basos (auto) 0.0 (0-0.2) 10^3/ul Absolute Nucleated RBC 0.0 10^3/ul Nucleated RBC % 0.0 Sodium 129 L (135-145) mmol/L Potassium 4.8 (3.5-5.0) mmol/L Chloride 92 L (101-111) mmol/L Carbon Dioxide 28 (22-32) mmol/L Anion Gap 9 (2-11) mmol/L BUN 15 (6-24) mg/dL Creatinine 1.02 (0.67-1.17) mg/dL Est GFR ( Amer) 88.1 (>60) Est GFR (Non-Af Amer) 72.8 (>60) BUN/Creatinine Ratio 14.7 (8-20) Glucose 140 H (70-100) mg/dL Lactic Acid 1.5 (0.5-2.0) mmol/L Calcium 9.2 (8.6-10.3) mg/dL Total Bilirubin 0.50 (0.2-1.0) mg/dL AST 69 H (13-39) U/L ALT 128 H (7-52) U/L Alkaline Phosphatase 92 (34-104) U/L Troponin I 0.02 (<0.03) ng/mL C-Reactive Protein 223.97 H (<8.01) mg/L Total Protein 6.8 (6.4-8.9) g/dL Albumin 3.2 (3.2-5.2) g/dL Globulin 3.6 (2-4) g/dL Albumin/Globulin Ratio 0.9 L (1-3) Microbiology and Other Data: Microbiology 08/30/19 10:15 Legionella Urinary Antigen - Final Urine Negative Legionella Antigen Streptococcus pneumoniae Ag Screen - Final Negative S. pneumo Antigen 08/29/19 21:18 Nasal Screen MRSA (PCR) - Final Nasal Mrsa Not Detected Assess/Plan/Problems-Billing Assessment: 69 yo male with PMHx recent TKA with subsequent joint infection and bacteremia, nicotine (patch) dependence, migraines, depression/anxiety presents with mild confusion, cough, fatigue, and malaise found to have worsening pneumonia despite antibiotics. - Patient Problems (1) Sepsis Current Visit: No Status: Acute Comment: - Was not meeting sepsis criteria at admission - Developed fever after admission and met criteria for sepsis with leukocytosis - Lactic acid has been wnl - 2/2 bacteremia and new pneumonia - Leukocyotis resolved today and afebrile (2) Bacteremia Current Visit: No Status: Acute Code(s): R78.81 - BACTEREMIA SNOMED Code(s ): 3448808 Comment: -recent hospitalization for bacteremia 2/2 prosthetic knee infection with staph caprae; was discharged home 08/02/19 with daily infusions of daptomycin and rifampin -given pneumonia as further discussed below, changing antibiotic for coverage of the new infection as daptomycin does not cover lungs -blood culture from this admission no growth to date (3) Pneumonia Current Visit: Yes Status: Acute Code(s): J18.9 - PNEUMONIA, UNSPECIFIED ORGANISM SNOMED Code(s): 365696554 Comment: -has been on daptomycin and rifampin for staph caprae bacteremia, but developed cough and went to PCP on 08/25/19 and found to have PNA on CXR; received azithromycin outpatient in addition to daptomycin and rifampin for bacteremia, continued to worsen -TTE without evidence of vegetation and ID does not recommend PATEL -urine legionella and strep pneumo antigens neg -ID suspects possible eosinophilic pneumonia related to dapto vs CAP -will continue vancomycin, ceftriaxone, and rifampin and appreciate further input from ID consult; ID planning on using levoquin at discharge and awaiting insurance approval; previously tedizolid recommended but there is national shortage -afebrile and leukocytosis resolved (4) Nicotine dependence Current Visit: Yes Status: Acute Code(s): F17.200 - NICOTINE DEPENDENCE, UNSPECIFIED, UNCOMPLICATED SNOMED Code(s): 05714622 Comment: -continue home nicotine patch -patient needs to discuss weaning with PCP outpatient as he has been using patch OTC for approx 30 years per patient (5) Status post joint replacement Current Visit: Yes Status: Acute Code(s): Z96.60 - PRESENCE OF UNSPECIFIED ORTHOPEDIC JOINT IMPLANT SNOMED Code(s): 996376518 Comment: -right TKA on 07/20/[address] Villanueva, and subsequently developed prosthetic joint infection as discussed above -progessing well (6) Anxiety Current Visit: No Status: Acute Code(s): F41.9 - ANXIETY DISORDER, UNSPECIFIED SNOMED Code(s): 15889321 Comment: - Continue sertraline, buspirone (7) DVT prophylaxis Current Visit: No Status: Acute Code(s): Z29.9 - ENCOUNTER FOR PROPHYLACTIC MEASURES, UNSPECIFIED SNOMED Code(s): 954084057 Comment: - Lovenox (8) Full code status Current Visit: No Status: Acute Code(s): Z78.9 - OTHER SPECIFIED HEALTH STATUS SNOMED Code(s): 738393358 Comment: Status and Disposition: inpatient, anticipate d/c home when insurance approves new abx for outpatient infusion
[2019-08-31] MEDS: Vancomycin(*) 1,250 MG in NS 0.9% 250 ML* 250 ML IVPB SCH (17:36)
[2019-08-31] MEDS: Enoxaparin(*) 40 MG/0.4 ML SYR SUBCUT SCH (21:48)
[2019-08-31] MEDS: cefTRIAXone(*) 1 GM in NS 0.9% 50 ML* 50 ML IVPB SCH (21:49)
[2019-09-01] MEDS: Vancomycin(*) 1,250 MG in NS 0.9% 250 ML* 250 ML IVPB SCH (02:07)
[2019-09-01 06:43] VITALS: BP 136/62
[2019-09-01] MEDS: Nicotine PATCH 14 MG/24 HR* PATCH TRANSDERM SCH (08:07)
[2019-09-01] MEDS: Propranolol TAB* 80 MG PO SCH (08:07)
[2019-09-01] MEDS: RiFAMPin CAP* 300 MG CAP PO SCH (08:07)
[2019-09-01] MEDS: busPIRone TAB* 10 MG PO SCH (08:07)
[2019-09-01] MEDS: Multivitamins/Minerals TAB PO SCH (08:08)
[2019-09-01] MEDS: Cyanocobalamin TAB* 500 MCG PO SCH (08:08)
[2019-09-01] MEDS: Sertraline* 100 MG TAB PO SCH (08:08)
[2019-09-01] MEDS: Lactobacillus Acidophilus* 1 TAB PO SCH (08:08)
[2019-09-01] MEDS: guaiFENesin ER TAB 600 MG PO SCH (08:08)
[2019-09-01] MEDS ORDERED: Levofloxacin 500 MG IVPREMIX(* 500 MG/100 ML BAG IVPB ONE (09:29)
--- NOTE | 2019-09-01 09:39 | PN ---
Progress Note - Progress Note Date of Service: 09/01/19 SOAP: Subjective: CC: cough HPI: 69 year old man with cough, malaise, fever, bilateral pulmonary infiltrates while on daptomycin and rifampin for prosthetic right knee infection. He is feeling better, fever and malaise resolved. Cough is gone, breathing is fine including while doing laps here. Appetite is good. No fever, rash, or diarrhea. No knee pain. Objective: Vital Signs Temp 36.8 C 09/01/19 06:43 Pulse 68 09/01/19 06:43 Resp 16 09/01/19 06:43 BP 136/62 09/01/19 06:43 Pulse Ox 99 09/01/19 06:43 Intake & Output 08/31/19 09/01/19 09/01/19 18:59 06:59 18:59 Intake Total 1600 300 Balance 1600 300 Intake: IV Fluids 300 ABX - CEFTRIAXONE 50 ABX - VANCOMYCIN 250 Oral 1600 0 Other: Estimated Void Large # Bowel Movements 0 # Voids 1 0 Gen:awake, no distress HEENT: no thrush Heart:RRR no murmur Lungs:Clear, no wheeze or egophany Abd:+BS NTND soft Skin: no rash MSK: right knee slight warmth, non tender, incision healed Laboratory Results - last 24 hr 08/31/19 08:58 Vancomycin Trough 12.0 Assessment: 1. pneumonia, could be bacterial, viral, or possible daptomycin related eosinophilic pneumonia. 2. Staph caprae prosthetic right knee infection on snf antibiotics 3. 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 tidezolid not available, can use levaquin 500 mg iv daily to finish course to cover PNA and right knee infection 2. abx day 34/ abx including rifampin, to follow with 3-6 months PO antibiotics; will change to tedizolid 300 mg IV daily to finish course
[2019-09-01] MEDS ORDERED: Vancomycin Trough Check NOTE FOLLOW UP ONE (17:30)
--- NOTE | 2019-09-02 03:58 | DS ---
CC: Dr. Sims; Dr. Jason Love * DISCHARGE SUMMARY: DATE OF ADMISSION: 08/29/19 DATE OF DISCHARGE: 09/01/19 PROVIDER: KARINA Deng. ATTENDING PHYSICIAN WHILE IN THE HOSPITAL: Dr. Andrew Kat * (dictated by KARINA Deng). PRIMARY CARE PROVIDER: Dr. Sims. INFECTIOUS DISEASE PHYSICIAN: Dr. Jason Love. PRIMARY DIAGNOSIS: Sepsis secondary to pneumonia. SECONDARY DIAGNOSES: 1. Recent diagnosis of Staphylococcus caprae bacteremia secondary to infected prosthetic knee joint, status post surgery. 2. Nephrolithiasis. 3. Arthritis. 4. Macular degeneration. 5. Anxiety. 6. Migraines. 7. Depression. 8. Nicotine dependance (via nicotine patch). PERTINENT STUDIES AND LAB DATA: White blood cell count on admission 13.3 and white blood cell count on 08/31/19 of 10.2. CRP on admission 223.97. Transthoracic echocardiogram on 08/30/19, without evidence of vegetations. Please see full report for further details. Chest CTA on 08/29/19, impression: There are bilateral pulmonary patchy opacities with a similar peripheral distribution, cannot exclude atypical appearance of pulmonary edema or pneumonitis. There is a mediastinal and bilateral hilar lymphadenopathy. No acute pulmonary embolism. There is a small hiatal hernia. Chest x-ray on 08/29/19, impression: Peripheral infiltrates are noted in the upper lobes bilaterally. Peripheral infiltrate in the right base is also noted. Findings are new since 07/27/19. They appear similar when compared to previous exam of 08/25/19. HISTORY OF PRESENT ILLNESS/HOSPITAL COURSE: Jason Maurer is a 69-year-old white male with past medical history significant for Staphylococcus caprae bacteremia in July, on current therapy with rifampin and daptomycin in the setting of a right prosthetic knee infection; anxiety; depression; and migraines ; who presented to the emergency department due to worsening cough and malaise. The patient had been diagnosed with pneumonia in the outpatient setting and prescribed azithromycin and his previously prescribed daptomycin and rifampin were continued, and the patient did not feel improved after completing his 5- day course and proceeded to the emergency department on 08/29/19. Please see the admitting history and physical written by KARINA Jasso, for further details. The patient was seen in consultation by Dr. Love, who knows the patient from his previous hospitalization with infectious diseases speciality. The patient was found to have pneumonia and at this time, differential by Dr. Love includes community-acquired bacterial or viral pneumonia, or eosinophilic pneumonia secondary to daptomycin. It appears that the daptomycin was not covering the newly developed pneumonia and he was changed to vancomycin and ceftriaxone, and his home rifampin was continued while he was in the hospital. Ultimately, he did develop sepsis after he was admitted with fever and there is no white blood cell count, and by day of discharge, he is afebrile for over [address] Love recommended changing the daptomycin outpatient infusions to Levaquin and this has been set up by our case management team and the patient is safe for discharge. On day of discharge , he has no complaints, he is feeling and looking well, and his lungs are clear to auscultation. He did receive a dose of IV Levaquin prior to discharge, 500 mg. PHYSICAL EXAM ON DAY OF DISCHARGE: General: Elderly white male, lying upright on hospital bed, appearing comfortable, in no acute distress. Eyes: PERRL. Sclerae anicteric. Cardio: No edema. Cap refill is brisk. Regular rhythm without murmurs, rubs, or gallops. Lungs: Clear to auscultation throughout. Neuro: The patient is alert and oriented x3. No focal deficits. Able to move all extremities. Skin: Warm and dry and intact. DISCHARGE PLAN: Diet: Regular and unrestricted diet. Activity: May return to normal activity as tolerated. Followup: The patient is to follow up with Dr. Love in a week. He is to continue 10 additional days of IV Levaquin infusion as outpatient and he is to follow up with Dr. Love regarding his length of course of the rifampin. He is advised to return to the emergency department if he is experiencing fever, chills, difficulty breathing, hemoptysis, chest pain or other concerning symptoms. He is to follow up with Dr. Villanueva as previously scheduled. He should follow up with his primary care provider in a week to 10 days regarding this hospitalization. Additionally at this time, he should discuss weaning off of his nicotine patch as was discussed in his previous hospitalization. DISCHARGE MEDICATIONS: New medications: 1. Levaquin 500 mg IV daily. 2. Mucinex 600 mg p.o. b.i.d. p.r.n. cough. 3. Tylenol 650 mg p.o. q.4 hours p.r.n. fever or pain. 4. Vitamin B12 1000 mcg p.o. daily. 5. Flexeril 10 mg p.r.n. muscle spasms. 6. Garlic 1 tab p.o. daily. 7. Lactobacillus acidophilus 1 tab p.o. daily. 8. Multivitamin 1 tab p.o. daily. 9. Nicotine patch 14 mg for 24 hours 1 patch transdermally daily. 10. Fish oil 1000 mg p.o. daily. 11. Propranolol 80 mg p.o. t.i.d. 12. Rifampin 300 mg p.o. b.i.d. 13. Sumatriptan 6 mg subcu p.r.n. migraine. 14. Sumatriptan 50 mg p.o. daily p.r.n. migraine. 15. Zoloft 100 mg p.o. daily. 16. ICaps AREDS 1 tab p.o. daily. 17. BuSpar 10 mg p.o. t.i.d. CONDITION ON DISCHARGE: Stable. DISPOSITION: Home. TIME SPENT: Approximately 40 minutes was spent on this discharge, approximately half of this time was spent at the bedside evaluating the patient and discussing the plan of care. KARINA DENG [id number]/[facility] #: [id number] [place]
== END 2019-09-01 11:57 | disposition home or self-care (01) | DRG 193 ==
LOC: ED 12:55 → MED 18:32
PROVIDERS: ADMIT Physician Assistant Medical; ATTEND Internal Medicine
DX: J18.9 Pneumonia, unspecified organism (principal); A41.9 Sepsis, unspecified organism; T84.53XA Infection and inflammatory reaction due to internal right knee prosthesis, initial encounter; M00.061 Staphylococcal arthritis, right knee; R74.0 Nonspecific elevation of levels of transaminase and lactic acid dehydrogenase [LDH]; E11.9 Type 2 diabetes mellitus without complications; F32.9 Major depressive disorder, single episode, unspecified; F41.9 Anxiety disorder, unspecified; M19.90 Unspecified osteoarthritis, unspecified site; Z96.651 Presence of right artificial knee joint; M19.071 Primary osteoarthritis, right ankle and foot; G43.909 Migraine, unspecified, not intractable, without status migrainosus; M17.0 Bilateral primary osteoarthritis of knee; M19.011 Primary osteoarthritis, right shoulder; M19.049 Primary osteoarthritis, unspecified hand; Y79.2 Prosthetic and other implants, materials and accessory orthopedic devices associated with adverse incidents; H35.30 Unspecified macular degeneration; Z79.899 Other long term (current) drug therapy; Z88.2 Allergy status to sulfonamides; Z88.0 Allergy status to penicillin; Z91.040 Latex allergy status; Z87.891 Personal history of nicotine dependence; Z80.1 Family history of malignant neoplasm of trachea, bronchus and lung; Z28.21 Immunization not carried out because of patient refusal; Y92.9 Unspecified place or not applicable
CPT/HCPCS: 36415; 71046; 71275; 80048; 80053; 80202; 83605; 84484; 85025; 86140; 87040; 87641; 87899; 93306; 96365; 99284; A9270-GY; J0456; J0692; J0696; J1650; J1956; J3370; Q9967

== ENCOUNTER 2019-09-11 16:34 | Emergency (ER) | payer MEDICARE ==
--- OUTSIDE RECORDS SUMMARY | 2019-09-11 17:00 | XMS REPORT | Continuity of Care Document ---
:1950 External Reference #:[id number] Author Name Bushra Wharton M.D. 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 Onset: 05/05/2019 Arthroplasty of knee Radha Villanueva M.D. Onset: 08/14/2019 Social History Type Date Description Comments Sex Unknown Tobacco Use Start: Unknown End: Former Cigarette Smoker 1 Unknown Pack Daily Smoking Status Reviewed: 09/05/19 Former Cigarette Smoker 1 Pack Daily ETOH Use Occasionally consumes alcohol Tobacco Use Start: Unknown End: Patient is a former smoker Unknown Recreational Drug Use Denies Drug Use Exercise Type/Frequency Exercises regularly Allergies, Adverse Reactions, Alerts Active Allergies Reaction Severity Comments Date Penicillin childhood reaction 12/09/2017 Sulfa Antibiotics 12/09/2017 Medications Active Medications SIG Qnty Indications Ordering Date Provider Doxycycline Hyclate 1 cap by mouth 60caps T84.53xD Bushra Villegas 09/05/2019 100mg twice a day with Theresa Wharton Capsules food Tramadol HCL 1 tab every 6 30tabs [...] Morteza Freed, 05/25/2019 en mouth every 6-8 5-325mg Tablets hours as needed for pain Levofloxacin 500mg IV once Unknown 25mg/ml daily Solution Rifampin 1 by mouth twice 60caps Bushra D. 300mg Capsules a day Theresa [place] Joselin Tablet 1 tab by mouth Unknown [...] Available Vital Signs Date Vital Result Comment 09/05/2019 10:27am Height 71 inches 5'11" Weight 187.00 lb Heart Rate 64 /min BP Systolic Sitting 106 mmHg BP Diastolic Sitting 60 mmHg Respiratory Rate 14 /min Body Temperature 97.5 F O2 % BldC Oximetry 98 % BMI (Body Mass Index) 26.1 kg/m2 08/22/2019 1:11pm Height 71 inches 5'11" Weight 188.00 lb Heart Rate 105 /min BP Systolic 105 mmHg BP Diastolic 72 mmHg Body Temperature 96.0 F O2 % BldC Oximetry 96 % BMI (Body Mass Index) 26.2 kg/m2 Results Test Acquired Date Facility Test Result H/L Range Note Comp Metabolic 08/24/2019 [facility] Sodium 130 mmol/L Low 135 -[address] [place] [address] [phone] Potassium 4.2 mmol/L Normal 3.5-5.0 Chloride 94 mmol/L Low 101-111 Co2 Carbon Dioxide 28 mmol/L Normal 22-32 Anion Gap 8 mmol/L Normal 2-11 Calcium 8.8 mg/dL Normal 8.6-10.3 Albumin 3.5 g/dL Normal 3.2-5.2 Total Bilirubin 0.60 mg/dL Normal 0.2-1.0 Glucose 165 mg/dL High 70-100 Blood Urea Nitrogen 17 mg/dL Normal 6-24 Creatinine 0.99 mg/dL Normal 0.67-1.17 BUN/Creatinine Ratio 17.2 Normal 8-20 Total Protein 6.1 g/dL Low 6.4-8.9 Globulin 2.6 g/dL Normal 2-4 Albumin/Globulin Ratio 1.3 Normal 1-3 Alkaline Phosphatase 78 U/L Normal 34-104 Alt 14 U/L Normal 7-52 Ast 13 U/L Normal 13-39 Egfr Non- 75.4 >60 Egfr 91.2 >60 1 Laboratory test 08/24/2019 [facility] Creatine 11 U/L Normal 10-[address] [place] [address] [phone] C Reactive Protein 255.99 mg/L High <8.01 CBC No Diff 08/24/2019 [facility] White Blood 14.1 10^3/uL High 3.5-10.[address] [place] [address] [phone] Red Blood Count 4.34 10^6/uL Normal 4.18-5.48 Hemoglobin 12.0 g/dL Low 14.0-18.0 Hematocrit 37 % Low 42-52 Mean Corpuscular Volume 85 fL Normal 80-94 Mean Corpuscular Hemoglobin 28 pg Normal 27-31 Mean Corpuscular HGB Conc 33 g/dL Normal 31-36 Red Cell Distribution Width 15 % Normal 10-15 Platelet Count 318 10^3/uL Normal 150-450 Mean Platelet Volume 9.6 fL Normal 7.4-10.4 Comp Metabolic 08/17/2019 [facility] Sodium 137 mmol/L Normal 135-[address] [place] [address] [phone] Potassium 4.6 mmol/L Normal 3.5-5.0 Chloride 100 [...] Egfr Non- 83.1 >60 Egfr 100.6 >60 2 Laboratory test 08/17/2019 [facility] Creatine 18 U/L Normal 10-[address] [place] [address] [phone] C Reactive Protein 31.83 mg/L High <8.01 CBC No Diff 08/17/2019 [facility] White Blood 7.6 10^3/uL Normal 3.5-10.[address] [place] [address] [phone] Red Blood Count 4.35 10^6/uL Normal 4.18-5.48 Hemoglobin 12.3 g/dL Low 14.0-18.0 Hematocrit 38 % Low 42-52 Mean Corpuscular Volume 86 fL Normal 80-94 Mean Corpuscular Hemoglobin 28 pg Normal 27-31 Mean Corpuscular HGB Conc 33 g/dL Normal 31-36 Red Cell Distribution Width 16 % High 10-15 Platelet Count 399 10^3/uL Normal 150-450 Mean Platelet Volume 9.1 fL Normal 7.4-10.4 Laboratory test 08/10/2019 [facility] Creatine 18 U/L Normal 10-[address] [place] [address] [phone] C Reactive Protein 95.24 mg/L High <8.01 Comp Metabolic Panel 08/10/2019 [facility] Sodium 134 mmol/L Low 135-[address] [place] [address] [phone] Potassium 4.5 mmol/L Normal 3.5-5.0 Chloride 97 [...] Egfr Non- 64.1 >60 Egfr 77.5 >60 3 CBC Auto 08/10/2019 [facility] White Blood 9.6 10^3/uL Normal 3.5-10.[address] [place] [address] [phone] Red Blood Count 4.03 10^6/uL Low 4.18-5.48 [...] % Nucleated Red Blood Cells % 0.0 CBC Auto 07/07/2019 [facility] White Blood 8.5 10^3/uL Normal 3.5-10.[address] [place] [address] [phone] Red Blood Count 5.31 10^6/uL Normal 4.18-5.48 [...] Blood Cells % 0.0 Comp Metabolic 07/07/2019 [facility] Sodium 139 mmol/L Normal 135-[address] [place] [address] [phone] Potassium 4.3 mmol/L Normal 3.5-5.0 Chloride 106 [...] Egfr Non- 75.4 >60 Egfr 91.2 >60 4 Inr/Protime 07/07/2019 [facility] Inr 0.96 Normal 0.82-1.09 5 [address] [place] [address] [phone] Laboratory test 07/07/2019 [facility] Partial 31.1 Normal 26.0 -38.[address] [place] [address] Time PTT [phone] Type & Screen 07/07/2019 [facility] Patient AB Positive [facility] [place] [address] [phone] Antibody Screen NEGATIVE Urinalysis Profile 07/07/2019 [facility] Urine Color Yellow [address] [place], [place] [id number] [phone] Urine Appearance Cloudy Urine Specific [place] 1.018 Normal 1.010-1.030 Urine pH 5.0 Normal 5-9 Urine Urobilinogen Negative Negative Urine Ketones Negative Negative Urine Protein Negative Negative Urine Leukocytes Negative Negative Urine Blood Negative Negative * * Abnormal Negative 6 Urine Nitrite Negative Negative Urine Bilirubin Negative Negative Urine Glucose Negative Negative Urine Culture And 07/07/2019 [facility] Urine Culture SEE RESULT [address] [place] [address] [phone] 1 Because ethnic data is not always [...] 5 Kidney failure <15 (or dialysis) 4 Because ethnic data is not always readily [...] 15-29 5 Kidney failure <15 (or dialysis) 5 Standard intensity warfarin therapeutic range: 2.0-3.0 High intensity warfarin therapeutic range: 2.5-3.5 6 *Ascorbic acid is present which may interfere with detection of blood. 7 SEE RESULT BELOW Name: BUSHRA ORSS Parag : [address]: Radha Villanueva MD Acct: [id number] Unit: [id number] AGE: 69 Location: [facility] Re07/07/19 SEX: M Status: REG REF SPEC: [id number] JEFRY: 07/07/19-[address]: Radha Villanueva MD REQ: [id number] RECD: 07/07/19 STATUS: JOSHUA VILLA DR: Elgin Sims DO _ SOURCE: URINE SPDESC: ORDERED: Urine Culture QUERIES: Urine Source: Clean Catch Procedure Result Reported Site Urine Culture Final 07/08/19- 1431 ML No Growth (<1,000 CFU/mL) * ML - Main Lab . END OF REPORT DEPARTMENT OF PATHOLOGY, [address] [place] [id number] Tee Kilpatrick M.D. Director [facility] # [id number] Procedures Date Code Description Status 08/02/2019 34773 EKG, Interpretation Only Completed 07/30/2019 76327 ECHO Transthorasic Realtime 2D W Doppler & Color Flow Hosp Completed 07/29/2019 39128 EKG, Interpretation Only Completed 07/28/2019 34520 Revise Total Knee Arthroplasty One Component Completed 07/28/2019 41242 Revise Total Knee Arthroplasty One Component Completed 07/20/2019 49121 TKR Total Knee Replacement Completed 07/20/2019 14496 TKR Total Knee Replacement Completed 06/09/2019 42526 Short Arm Splint Application Completed 05/25/2019 67650 Tendon Transfer CMC/Hand W/O Free Graft Completed 05/25/2019 92415 Arthroplasty Interposition Intercarpal Or Carpometacarpal Completed JTS 05/25/2019 63411 Arthroplasty Interposition Intercarpal Or Carpometacarpal Completed JTS Medical Devices Description No Information Available Encounters Type Date Location Provider Dx Diagnosis Office Visit 08/22/2019 [facility] Alvarez Villegas T84.53xD Infect/inflm 1:20p Claire Wharton M.D. reaction due to Diseases internal r knee prosth, subs Z79.2 intermediate designer (current) use of antibiotics R79.82 Elevated C-reactive protein (CRP) R53.83 Other fatigue Office Visit 08/02/2019 [facility] Katarzyna Genevievecarol T84.53xA Infect/ inflm 7:02a For Infectious Pepper, IV TECHNICIAN reaction due to Diseases internal r knee prosth, init G93.40 Encephalopathy, unspecified R19.7 Diarrhea, unspecified [facility]/ inflm 7:01a For Infectious Pepper, IV TECHNICIAN reaction due to Diseases internal r knee prosth, init G93.40 Encephalopathy, unspecified Office Visit 08/01/2019 [facility] Veronika R41.82 Altered mental 9:42a Assoc,pc O'jhony, PA-C status, Hospitalists unspecified R43.8 Other disturbances of smell and taste F41.9 Anxiety disorder, unspecified G43.909 Migraine, unsp, not intractable, without status migrainosus Office Visit 07/31/2019 [facility] Bushra Villegas T81.42xA Infct fol a 6:37a For Infectious Jose Enrique Wharton. procedure, deep Diseases incisional surgical site, init L03.115 Cellulitis of right lower limb M00.861 Arthritis due to other bacteria, right knee G93.40 Encephalopathy, unspecified Office Visit 07/31/2019 [facility] R41.82 Altered mental 9:41a Assoc,bel Bryant'jhony, PA-C status, Hospitalists unspecified R78.81 Bacteremia R43.8 Other disturbances of smell and taste G43.909 Migraine, unsp, not intractable, without status migrainosus Office Visit 07/30/2019 [facility] R41.82 Altered mental 9:41a Assoc,bel Bryant'jhony, PA-C status, Hospitalists unspecified R43.8 Other disturbances of smell and taste F41.9 Anxiety disorder, unspecified G43.909 Migraine, unsp, not intractable, without status migrainosus Office Visit 07/29/2019 [facility] R41.82 Altered mental 9:40a Assoc,bel Bryant'jhony, PA-C status, Hospitalists unspecified A41.9 Sepsis, unspecified organism R60.0 Localized edema G43.909 Migraine, unsp, not intractable, without status migrainosus [facility] G93.41 Metabolic 9:40a Assoc,bel Lemos, PA-C encephalopathy Hospitalists F41.9 Anxiety disorder, unspecified G43.909 Migraine, unsp, not intractable, without status migrainosus Office Visit 07/27/2019 [facility] Bushra Villegas T81.42xA Infct fol a 6:36a For Claire Wharton M.D. procedure, deep Diseases incisional surgical site, init L03.115 Cellulitis of right lower limb Office Visit 07/27/2019 [facility] Olga Faisal, T81.49xA Infection 9:39a Assoc,pc IV TECHNICIAN following a Hospitalists procedure, other surgical site, init A41.9 Sepsis, unspecified organism G93.41 Metabolic encephalopathy G43.909 Migraine, unsp, not intractable, without status migrainosus E53.8 Deficiency of other specified B group vitamins Office Visit 07/26/2019 [facility] Bushra Villegas T81.42xA Infct fol a 6:33a For Infectious Theresa Wharton procedure, deep Diseases incisional surgical site, init L03.115 Cellulitis of right lower limb Office Visit 07/26/2019 [facility] Teresa Jacome, T81.49xA Infection 9:38a Assoc,bel IV TECHNICIAN following a Hospitalists procedure, other surgical site, init G43.909 Migraine, unsp, not intractable, without status migrainosus F41.9 Anxiety disorder, unspecified E53.8 Deficiency of other specified B group vitamins Office Visit 07/25/2019 [facility] Vivi T81.49xA Infection 9:37a Assocbel M.D. following a Hospitalists procedure, other surgical site, init Office Visit 07/20/2019 [facility] Roberta I10 Essential 8:50a Assoc,bel Vee D.O. (primary) Hospitalists hypertension E11.9 Type 2 diabetes mellitus without complications F41.8 Other specified anxiety disorders G43.909 Migraine, unsp, not intractable, without status migrainosus Office Visit 05/05/2019 9:30a [facility] Radha Villanueva, M25.562 Pain in left at [facility].DJoão knee M25.561 Pain in right knee M25.462 Effusion, left knee M25.461 Effusion, right knee M17.11 Unilateral primary osteoarthritis, right knee Office Visit 04/19/2019 [facility] Rich M M17.0 Bilateral primary 9:15a Orthopedics at MD Renae osteoarthritis of [place] knee Office Visit 04/12/2019 [facility] Morteza M20.21 Hallux rigidus, 9:00a Orthopedics at Theresa Mohan right foot [place] Assessments Date Code Description Provider 09/05/2019 T84.53xD Infection and inflammatory reaction Bushra Wharton M.D. due to internal right knee prosthesis, subsequent encounter 09/05/2019 Z79.2 detention (current) use of Bushra Wharton M.D. antibiotics 09/05/2019 R79.82 Elevated C-reactive protein (CRP) Bushra Wharton M.D. 09/05/2019 J18.9 Pneumonia, unspecified organism Bushra Wharton M.D. 09/05/2019 F41.9 Anxiety disorder, unspecified Bushra Wharton M.D. 09/05/2019 F33.9 Major depressive disorder, Bushra Wharton M.D. recurrent, unspecified 08/22/2019 T84.53xD Infection and inflammatory reaction Bushra Wharton M.D. due to internal right knee prosthesis, subsequent encounter 08/22/2019 Z79.2 intermediate designer (current) use of Bushra Wharton M.D. antibiotics [...] artificial knee Radha Villanueva M.D. joint 08/02/2019 R07.89 Other chest pain Bar Claire M.D., [facility] 08/02/2019 T84.53xA Infection and inflammatory reaction Katarzyna Pepper NP due to internal right knee prosthesis, initial encounter 08/02/2019 T84.53xA Infection and inflammatory reaction REMY Todd due to internal right knee prosthesis, initial encounter 08/02/2019 G93.40 Encephalopathy, unspecified Katarzyna Pepper NP 08/02/2019 R78.81 Bacteremia Veronika O'jhony, PA-C 08/02/2019 R19.7 Diarrhea, unspecified Katarzyna Pepper, IV TECHNICIAN 08/02/2019 R41.82 Altered mental status, unspecified Veronika O'jhony, PA-C 08/02/2019 F41.9 Anxiety disorder, unspecified Veronika O'jhony, PA-C 08/02/2019 Z96.651 Presence of right artificial knee Veronika O'jhony, PA-C joint 08/01/2019 T84.53xA Infection and inflammatory reaction Katarzyna Reg Pepper, IV TECHNICIAN due to internal right knee prosthesis, initial encounter 08/01/2019 R41.82 Altered mental status, unspecified Veronika O'jhony, PA-C 08/01/2019 G93.40 Encephalopathy, unspecified Katarzyna Pepper, IV TECHNICIAN 08/01/2019 R43.8 Other disturbances of smell and [...] O'jhony, PA-C intractable, without status migrainosus 07/29/2019 Z13.6 Encounter for screening for Estrella De Los Santos M.D. cardiovascular disorders 07/29/2019 R41.82 Altered mental status, unspecified Veronika [...] T81.49xA Infection following a procedure, Olga Faisal, IV TECHNICIAN other surgical site, initial encounter 07/27/2019 L03.115 Cellulitis of right lower limb Bushra Wharton M.D. 07/27/2019 A41.9 Sepsis, unspecified organism Olga Faisal, IV TECHNICIAN 07/27/2019 G93.41 Metabolic encephalopathy Olga Faisal, IV TECHNICIAN 07/27/2019 G43.909 Migraine, unspecified, not Olga Faisal, IV TECHNICIAN intractable, without status migrainosus 07/27/2019 E53.8 Deficiency of other specified B Olga Faisal, IV TECHNICIAN group vitamins 07/26/2019 T81.42xA Infection following a procedure, Bushra Wharton M.D. deep incisional surgical site, initial encounter 07/26/2019 T81.49xA Infection following a procedure, Teresa Jacome, MILVIA other surgical site, initial encounter 07/26/2019 L03.115 Cellulitis of right lower limb Bushra Wharton M.D. 07/26/2019 G43.909 Migraine, unspecified, not Teresa Jacome, MILVIA intractable, without status migrainosus 07/26/2019 F41.9 Anxiety disorder, unspecified Teresa Jacome, MILVIA 07/26/2019 E53.8 Deficiency of other specified B Teresa Jacome, IV TECHNICIAN group vitamins 07/25/2019 T81.49xA Infection following a procedure, Vivi Samayoa M.D. other surgical site, initial encounter 07/20/2019 I10 Essential (primary) hypertension Bakari CullenO. 07/20/2019 M17.11 Unilateral primary osteoarthritis, Doug Sparks , RPA-C right knee 07/20/2019 E11.9 Type 2 diabetes mellitus without Bakari CullenO. complications 07/20/2019 M17.11 Unilateral primary osteoarthritis, Radha Villanueva M.D. right knee 07/20/2019 F41.8 Other specified anxiety disorders Bakari CullenO. 07/20/2019 G43.909 Migraine, unspecified, not Rey Cullen.O. intractable, without status migrainosus 07/07/2019 M25.561 Pain in right knee Radha Villanueva M.D. 07/07/2019 M25.461 Effusion, right knee Radha Villanueva M.D. 07/07/2019 M17.11 Unilateral primary osteoarthritisRadha M.D. right knee 07/05/2019 M18.11 Unilateral primary osteoarthritis Morteza Freed MD of first carpometacarpal j 07/05/2019 Z47.89 Encounter for other orthopedic Morteza Freed MD aftercare 06/09/2019 M18.11 Unilateral primary osteoarthritis Morteza Freed MD of first carpometacarpal j 06/09/2019 Z48.02 Encounter for removal of sutures Morteza Freed MD 06/09/2019 Z47.89 Encounter for other orthopedic Morteza Freed MD aftercare 05/25/2019 M18.11 Unilateral primary osteoarthritis KARINA Amin of first carpometacarpal j 05/25/2019 M18.11 Unilateral primary osteoarthritis Morteza Freed MD of [facility] carpometacarpal j 05/19/2019 M18.11 Unilateral primary osteoarthritis Morteza Freed MD of first carpometacarpal j 05/05/2019 M25.562 Pain in [...] Mohan M.D. Plan of Treatment Future Appointment(s):09/19/2019 10:10 am - Bushra Wharton M.D. at [facility]73/22/2020 11:30 am - Radha Villanueva M.D. at [facility] at Hvkhlr4609/19/2019 1:00 pm - Morteza Freed MD at [facility] at Sllxmt1309/05/2019 - Bushra Wharton M.D.T84.53xD Infect/ inflm reaction due to internal r knee prosth, subsNew Medication:Doxycycline Hyclate 100 mg - 1 cap by mouth twice a day with foodComments:day 35/42 of iv abx/rifampin, then doxycycline/rifampin for 3-6 monthsFollow up:2 lnkgpL70.2 intermediate designer (current) use of nrvmhskowqlA76.82 Elevated C-reactive protein (CRP) J18.9 Pneumonia, unspecified organismComments:may have been dapto side effect ( eosinophilic pneumonia) or CAPF41.9 Anxiety disorder, unspecifiedComments:we discussed that this could be due to recent illnesses and to rifampin decreasing the effect of buspar. He will increase buspar to 20 mg three times a day and fu with Dr Sims, he will call one of usif mood is bad or getting worse despite this.F33.9 Major depressive disorder, recurrent, unspecifiedComments:buspar increase and probably will get better with improvement in overall medical situation as well Functional Status Description No Information Available Mental Status Description No Information Available Referrals Description No Information Available
--- OUTSIDE RECORDS SUMMARY | 2019-09-11 17:00 | XMS REPORT | Continuity of Care Document ---
:1950 External Reference #:[id number] Author Name Radha Villanueva M.D. (transmitted by agent of provider Katy Escalante) Address [address] [place] [address] Care Team Providers Name Role Phone Elgin Sims DO - Family Medicine Care Team Information Manager Hair Problems Active Problems Provider Date Localized, primary osteoarthritis of the hand Morteza Freed MD Onset: 06/12 Localized, primary osteoarthritis Radha Villanueva M.D. Onset: 05/05/2019 Arthroplasty of knee Radha Villanueva M.D. Onset: 08/14/2019 Infection and inflammatory reaction due to Radha Villanueva M.D. Onset: 2019 internal right knee prosthesis, subsequent encounter Social History Type Date Description Comments Sex Unknown Tobacco Use Start: Unknown End: Former Cigarette Smoker 1 Unknown Pack Daily Smoking Status Reviewed: 09/06/19 Former Cigarette Smoker 1 Pack Daily ETOH [...] a day with Theresa Wharton Capsules food Cyclobenzaprine HCL take 1 tab by 90tabs Radha Villanueva, 07/21/2019 10mg mouth 2-3 times M.D. Tablets a day as needed Levofloxacin 500mg IV once Unknown 25mg/ml daily Solution Rifampin 1 by mouth twice 60caps Bushra D. 300mg Capsules a day Theresa Wharton Joselin Tablet 1 tab by mouth Unknown daily Vitamin B12 2 SL daily Unknown Eye Vitamin 1 capsule by Unknown mouth daily Fish Oil 1 tab by mouth Unknown Capsules every morning Multi-Vitamin 1 by mouth every Unknown Tablets day Ibuprofen 2 or 3 tabs by Unknown 200mg Tablets mouth as needed Buspirone HCL 2 tabs by mouth Unknown 10mg Tablets three times a day as needed Propranolol HCL [...] needed. max 2x/week. max daily dose 100mg History Medications Tramadol HCL 1 tab every 6 30tabs Radha Villanueva M.D. 07/24/2019 - 50mg hours as needed 09/05/2019 Tablets for pain Percocet 1-2 by mouth 70tabs Rdaha Villanueva M.D. 07/21/2019 - 5-325mg every 4-6 hours 09/05/2019 Tablets as needed pain Colace 1 tab by mouth 90caps Radha Villanueva M.D. 07/21/2019 - 100mg Capsules 2-3 times a day 09/05/2019 as needed Eliquis take one tab by 60tadon Villanueva M.D. 07/21/2019 - 2.5mg Tablets mouth twice daily 09/05/2019 x 4 weeks Hydrocodone-Acetamin 1 or 2 tabs by 30tabs Morteza Freed MD 05/25/2019 - ophen mouth every 6-8 09/05/2019 5-325mg Tablets hours as needed for pain Medications Administered in Office Medication SIG Qnty Indications Ordering Provider Date 3 mg and 3mg Rich Macdonald MD 12/30/2018 Injection Celestone 3 mg and 3mg Rich Macdonald MD 12/30/2018 Injection Celestone 3 mg and 3mg Morteza Freed MD 12/14/2017 Injection Immunizations Description No Information Available Vital Signs Date Vital Result Comment 09/06/2019 12:10pm Height 71 inches 5'11" Weight 191.00 lb Heart Rate 62 /min Respiratory Rate 14 /min Body Temperature 97.1 F Pain Level 3 BMI (Body Mass Index) 26.6 kg/m2 09/05/2019 10:27am Height 71 inches 5'11" Weight 187.00 lb Heart Rate 64 /min BP Systolic Sitting 106 mmHg BP Diastolic Sitting 60 mmHg Respiratory Rate 14 /min Body Temperature 97.5 F O2 % BldC Oximetry 98 % BMI (Body Mass Index) 26.1 kg/m2 Results Test Acquired Date Facility Test Result H/L Range Note Comp Metabolic 08/24/2019 [facility] Sodium 130 mmol/L Low 135 -[address] [place] [address] [phone] Potassium 4.2 mmol/L Normal 3.5-5.0 Chloride 94 [...] Egfr 91.2 >60 1 Laboratory test 08/24/2019 [facility] Creatine 11 U/L Normal 10-[address] [place] [address] [phone] C Reactive Protein 255.99 mg/L High <8.01 CBC No Diff 08/24/2019 [facility] White Blood 14.1 10^3/uL High 3.5-10.[address] [place] [address] [phone] Red Blood Count 4.34 10^6/uL Normal 4.18-5.48 Hemoglobin 12.0 g/dL Low 14.0-18.0 Hematocrit 37 % Low 42-52 Mean Corpuscular Volume 85 fL Normal 80-94 Mean Corpuscular Hemoglobin 28 pg Normal 27-31 Mean Corpuscular HGB Conc 33 g/dL Normal 31-36 Red Cell Distribution Width 15 % Normal 10-15 Platelet Count 318 10^3/uL Normal 150-450 Mean Platelet Volume 9.6 fL Normal 7.4-10.4 Comp Metabolic 08/17/2019 [facility] Sodium 137 mmol/L Normal 135-[address] [place] [address] [phone] Potassium 4.6 mmol/L Normal 3.5-5.0 Chloride 100 [...] Egfr 100.6 >60 2 Laboratory test 08/17/2019 [facility] Creatine 18 U/L Normal 10-[address] [place] [address] [phone] C Reactive Protein 31.83 mg/L High <8.01 CBC No Diff 08/17/2019 [facility] White Blood 7.6 10^3/uL Normal 3.5-10.[address] [place] [address] [phone] Red Blood Count 4.35 10^6/uL Normal 4.18-5.48 Hemoglobin 12.3 g/dL Low 14.0-18.0 Hematocrit 38 % Low 42-52 Mean Corpuscular Volume 86 fL Normal 80-94 Mean Corpuscular Hemoglobin 28 pg Normal 27-31 Mean Corpuscular HGB Conc 33 g/dL Normal 31-36 Red Cell Distribution Width 16 % High 10-15 Platelet Count 399 10^3/uL Normal 150-450 Mean Platelet Volume 9.1 fL Normal 7.4-10.4 Laboratory test 08/10/2019 [facility] Creatine 18 U/L Normal 10-[address] [place] [address] [phone] C Reactive Protein 95.24 mg/L High <8.01 Comp Metabolic Panel 08/10/2019 [facility] Sodium 134 mmol/L Low 135-[address] [place] [address] [phone] Potassium 4.5 mmol/L Normal 3.5-5.0 Chloride 97 [...] Egfr 77.5 >60 3 CBC Auto 08/10/2019 [facility] White Blood 9.6 10^3/uL Normal 3.5-10.[address] [place] [address] [phone] Red Blood Count 4.03 10^6/uL Low 4.18-5.48 [...] Blood Cells % 0.0 CBC Auto 07/07/2019 [facility] White Blood 8.5 10^3/uL Normal 3.5-10.[address] [place] [address] [phone] Red Blood Count 5.31 10^6/uL Normal 4.18-5.48 [...] Blood Cells % 0.0 Comp Metabolic 07/07/2019 [facility] Sodium 139 mmol/L Normal 135-[address] [place] [address] [phone] Potassium 4.3 mmol/L Normal 3.5-5.0 Chloride 106 [...] >60 Egfr 91.2 >60 4 Inr/Protime 07/07/2019 [facility] Inr 0.96 Normal 0.82-1.[address] [place] [address] [phone] Laboratory test 07/07/2019 [facility] Partial 31.1 Normal 26.0 -38.[address] [place] [address] Time PTT [phone] Type & Screen 07/07/2019 [facility] Patient AB Positive [address] [place] [address] [phone] Antibody Screen NEGATIVE Urinalysis Profile 07/07/2019 [facility] Urine Color Yellow [address] [place] [address] [phone] Urine Appearance Cloudy Urine Specific [place] 1.018 Normal 1.010-1.030 Urine pH 5.0 Normal 5-9 Urine Urobilinogen Negative Negative Urine Ketones Negative Negative Urine Protein Negative Negative Urine Leukocytes Negative Negative Urine Blood Negative Negative * * Abnormal Negative 6 Urine Nitrite Negative Negative Urine Bilirubin Negative Negative Urine Glucose Negative Negative Urine Culture And 07/07/2019 [facility] Urine Culture SEE RESULT [address] [place] [address] [phone] 1 Because ethnic data is not always [...] blood. 7 SEE RESULT BELOW Name: BUSHRA ROSS : [address]: Radha Villanueva MD Acct: [id number] Unit: [id number] AGE: 69 Location: [facility] Re07/07/19 SEX: M Status: REG REF SPEC: [id number] JEFRY: 07/07/19-1200 [facility] DR: Radha Villanueva MD REQ: [id number] RECD: 07/07/19 STATUS: JOSHUA VILLA DR: Elgin Sims DO _ SOURCE: URINE SPDESC: ORDERED: Urine Culture QUERIES: Urine Source: Clean Catch Procedure Result Reported Site Urine Culture Final 07/08/19- 1439 ML No Growth (<1,000 CFU/mL) * ML - Main Lab . END OF REPORT DEPARTMENT OF PATHOLOGY, [address] [place] [address] Tee Kilpatrick M.D. Director [facility] # [id number] Procedures Date Code Description Status 08/02/2019 55001 EKG, Interpretation Only Completed 07/30/2019 71469 ECHO Transthorasic Realtime 2D W Doppler & Color Flow Hosp Completed 07/29/2019 03433 EKG, Interpretation Only Completed 07/28/2019 80465 Revise Total Knee Arthroplasty One Component Completed 07/28/2019 70079 Revise Total Knee Arthroplasty One Component Completed 07/20/2019 37006 TKR Total Knee Replacement Completed 07/20/2019 95185 TKR Total Knee Replacement Completed 06/09/2019 19258 Short Arm Splint Application Completed 05/25/2019 05624 Tendon Transfer CMC/Hand W/O Free Graft Completed 05/25/2019 61524 Arthroplasty Interposition Intercarpal Or Carpometacarpal Completed JTS 05/25/2019 83568 Arthroplasty Interposition Intercarpal Or Carpometacarpal Completed JTS Medical Devices Description No Information Available Encounters Type Date Location Provider Dx Diagnosis Office Visit 08/22/2019 [facility] Alvarez Villegas T84.53xD Infect/inflm 1:20p Claire Wharton M.D. reaction due to Diseases internal r knee prosth, subs Z79.2 penitentiary (current) use of antibiotics R79.82 Elevated C-reactive protein (CRP) R53.83 Other fatigue Office Visit 08/02/2019 [facility] Katarzyna Finney T84.53xA Infect/ inflm 7:02a For Infectious Pepper, [employer]IST reaction due to Diseases internal r knee prosth, init G93.40 Encephalopathy, unspecified R19.7 Diarrhea, unspecified Office Visit 08/01/2019 [facility] Katarzyna Finney T84.53xA Infect/ inflm 7:01a For Infectious Pepper, [employer]IST reaction due to Diseases internal r knee prosth, init G93.40 Encephalopathy, unspecified Office Visit 08/01/2019 [facility] Veronika R41.82 Altered mental 9:42a Assoc,pc O'jhony, PA-C status, Hospitalists unspecified R43.8 Other disturbances of smell and taste F41.9 Anxiety disorder, unspecified G43.909 Migraine, unsp, not intractable, without status migrainosus Office Visit 07/31/2019 [facility] Bushra Villegas T81.42xA Infct fol a 6:37a For Infectious Jose Enrique Wharton. procedure, deep Diseases incisional surgical site, init L03.115 Cellulitis of right lower limb M00.861 Arthritis due to other bacteria, right knee G93.40 Encephalopathy, unspecified Office Visit 07/31/2019 [facility] Veronika R41.82 Altered mental 9:41a Assoc,pc O'jhony, PA-C status, Hospitalists unspecified R78.81 Bacteremia R43.8 Other disturbances of smell and taste G43.909 Migraine, unsp, not intractable, without status migrainosus Office Visit 07/30/2019 [facility] Veronika R41.82 Altered mental 9:41a Assoc,pc O'jhony, PA-C status, Hospitalists unspecified R43.8 Other disturbances of smell and taste F41.9 Anxiety disorder, unspecified G43.909 Migraine, unsp, not intractable, without status migrainosus [facility] R41.82 Altered mental 9:40a Assoc,pc O'jhony, PA-C status, Hospitalists unspecified A41.9 Sepsis, unspecified organism R60.0 Localized edema G43.909 Migraine, unsp, not intractable, without status migrainosus Office Visit 07/28/2019 [facility] G93.41 Metabolic 9:40a Assoc,pc O'jhony, PA-C encephalopathy Hospitalists F41.9 Anxiety disorder, unspecified G43.909 Migraine, unsp, not intractable, without status migrainosus Office Visit 07/27/2019 [facility] Bushra Villegas T81.42xA Infct fol a 6:36a For Infectious Theresa Wharton procedure, deep Diseases incisional surgical site, init L03.115 Cellulitis of right lower limb Office Visit 07/27/2019 [facility] Olga Faisal, T81.49xA Infection 9:39a Assoc,pc [employer]IST following a Hospitalists procedure, other surgical site, init A41.9 Sepsis, unspecified organism G93.41 Metabolic encephalopathy G43.909 Migraine, unsp, not intractable, without status migrainosus E53.8 Deficiency of other specified B group vitamins Office Visit 07/26/2019 [facility] Bushra Villegas T81.42xA Infct fol a 6:33a For Infectious Theresa Wharton procedure, deep Diseases incisional surgical site, init L03.115 Cellulitis of right lower limb Office Visit 07/26/2019 [facility] Teresa Naa, T81.49xA Infection 9:38a Assoc,pc [employer]IST following a Hospitalists procedure, other surgical site, init G43.909 Migraine, unsp, not intractable, without status migrainosus F41.9 Anxiety disorder, unspecified E53.8 Deficiency of other specified B group vitamins Office Visit 07/25/2019 [facility] Vivi T81.49xA Infection 9:37a Assocbel M.D. following a Hospitalists procedure, other surgical site, init Office Visit 07/20/2019 [facility] Roberta I10 Essential 8:50a Assoc,bel Vee D.O. (primary) Hospitalists hypertension E11.9 Type 2 diabetes mellitus without complications F41.8 Other specified anxiety disorders G43.909 Migraine, unsp, not intractable, without status migrainosus Office Visit 05/05/2019 9:30a [facility] Radha Villanueva, M25.562 Pain in left at Diana Cardenas knee M25.561 Pain in right knee M25.462 Effusion, left knee M25.461 Effusion, right knee M17.11 Unilateral primary osteoarthritis, right knee Office Visit 04/19/2019 [facility] Rich Wiggins M17.0 Bilateral primary 9:15a Orthopedics at MD Renae osteoarthritis of [place] knee Office Visit 04/12/2019 [facility] Morteza M20.21 Hallux rigidus, 9:00a Orthopedics at Theresa Mohan right foot [place] Assessments Date Code Description Provider 09/06/2019 T84.53xD Infection and inflammatory reaction Radha Villanueva M.D. due to internal right knee prosthesis, subsequent encounter 09/06/2019 M25.561 Pain in right knee Radha Villanueva M.D. 09/06/2019 M25.461 Effusion, right knee Radha Villanueva M.D. 09/06/2019 Z47.1 Aftercare following joint Radha Villanueva M.D. replacement surgery 09/06/2019 Z96.651 Presence of right artificial knee Radha Villanueva M.D. joint 09/05/2019 T84.53xD Infection and inflammatory reaction Bushra Wharton M.D. due to internal right knee prosthesis, subsequent encounter 09/05/2019 Z79.2 penitentiary (current) use of Bushra Wharton M.D. antibiotics 09/05/2019 R79.82 Elevated C-reactive protein (CRP) Bushra Wharton M.D. 09/05/2019 J18.9 Pneumonia, unspecified organism Bushra Wharton M.D. 09/05/2019 F41.9 Anxiety disorder, unspecified Bushra Wharton M.D. 09/05/2019 F33.9 Major depressive disorder, Bushra Wharton M.D. recurrent, unspecified 08/22/2019 T84.53xD Infection and inflammatory reaction Bushra Wharton M.D. due to internal right knee prosthesis, subsequent encounter 08/22/2019 Z79.2 penitentiary (current) use of Bushra Wharton M.D. antibiotics [...] R07.89 Other chest pain Bar Claire M.D., [facility] 08/02/2019 T84.53xA Infection and inflammatory reaction Katarzyna Pepper, [employer]IST due to internal right knee prosthesis, initial encounter 08/02/2019 T84.53xA Infection and inflammatory reaction Veronika O'jhony, PA- C due to internal right knee prosthesis, initial encounter 08/02/2019 G93.40 Encephalopathy, unspecified Katarzyna Pepper, [employer]IST 08/02/2019 R78.81 Bacteremia Veronika O'jhony, PA-C 08/02/2019 R19.7 Diarrhea, unspecified Katarzyna Pepper, [employer]IST 08/02/2019 R41.82 Altered mental status, unspecified Veronika O'jhony, PA-C 08/02/2019 F41.9 Anxiety disorder, unspecified Veronika O'jhony, PA-C 08/02/2019 Z96.651 Presence of right artificial knee Veronika O'jhony, PA-C joint 08/01/2019 T84.53xA Infection and inflammatory reaction Katarzyna Pepper, [employer]IST due to internal right knee prosthesis, initial encounter 08/01/2019 R41.82 Altered mental status, unspecified Veronika O'jhony, PA-C 08/01/2019 G93.40 Encephalopathy, unspecified Katarzyna Pepper, [employer]IST 08/01/2019 R43.8 Other disturbances of smell and [...] prosthesis, initial encounter 07/28/2019 G93.41 Metabolic encephalopathy KARINA Todd-C 07/28/2019 F41.9 Anxiety disorder, unspecified KARINA Todd-C 07/28/2019 G43.909 Migraine, unspecified, not Veronikajack Lemos, PA-C intractable, without status migrainosus 07/27/2019 T81.42xA Infection following a procedure, Bushra Wharton M.D. deep incisional surgical site, initial encounter 07/27/2019 T81.49xA Infection following a procedure, Olga Faisal, [employer]IST other surgical site, initial encounter 07/27/2019 L03.115 Cellulitis of right lower limb Bushra Wharton M.D. 07/27/2019 A41.9 Sepsis, unspecified organism Olga Faisal, [employer]IST 07/27/2019 G93.41 Metabolic encephalopathy Olga Faisal, [employer] SPECIALIST 07/27/2019 G43.909 Migraine, unspecified, not Olga Faisal, D[employer] SPECIALIST intractable, without status migrainosus 07/27/2019 E53.8 Deficiency of other specified B Olga Faisal, [employer] SPECIALIST group vitamins 07/26/2019 T81.42xA Infection following a procedure, Bushra Wharton M.D. deep incisional surgical site, initial encounter 07/26/2019 T81.49xA Infection following a procedure, Teresa Jacome, [place] other surgical site, initial encounter 07/26/2019 L03.115 Cellulitis of right lower limb Bushra Wharton M.D. 07/26/2019 G43.909 Migraine, unspecified, not Teresa Jacome, [employer] SPECIALIST intractable, without status migrainosus 07/26/2019 F41.9 Anxiety disorder, unspecified Teresa Jacome, D[employer] FI[employer] SPECIALIST 07/26/2019 E53.8 Deficiency of other specified B Teresa Jacome, [employer] SPECIALIST group vitamins 07/25/2019 T81.49xA Infection following a procedure, Vivi Samayoa M.D. other surgical site, initial encounter 07/20/2019 I10 Essential (primary) hypertension Roberta Vee D.O. 07/20/2019 M17.11 Unilateral primary osteoarthritis, Doug Sparks , RPA-C right knee 07/20/2019 E11.9 Type 2 diabetes mellitus without Roberta Vee D.O. complications 07/20/2019 M17.11 Unilateral primary osteoarthritis, [...] Morteza Freed MD of first carpometacarpal j 05/19/2019 M18.11 Unilateral primary [...] 10:10 am - Bushra Wharton M.D. at [facility]03/04/2020 1:00 pm - Morteza Freed MD at [facility] at Xxnfxr3409/06/2019 - Radha Villanueva M.D.T84.53xD Infection and inflammatory reaction due to internal right knee prosthesis, subsequent njedsqhbcS62.561 Pain in right kneeM25.461 Effusion, right kneeZ47.1 Aftercare following joint replacement goeointX50.651 Presence of right artificial knee jointNew Therapy:Physical TherapyFollow up:Follow up: 2 weeks Functional Status Description No Information Available Mental Status Description No Information Available Referrals Description No Information Available
--- OUTSIDE RECORDS SUMMARY | 2019-09-11 17:00 | XMS REPORT | Continuity of Care Document ---
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 [phone] Surgery Problems Active Problems Provider Date Migraine [...] Propranolol HCL take 1 & 1/2 405tabs SimsYolaew, 11/20/2011 80mg tablets by mouth DO Tablets two times a day Buspirone HCL Take 1 Tablet By 90tabs LeviElgin, 11/20/2011 10mg Tablets Mouth Up To DO Three Times A Day as Needed For Anxiety Cyclobenzaprine HCL take 1-2 tablets 60tabs SimsElgin, 07/30/2011 10mg by mouth every DO Tablets night at bedtime as needed for spasms caution : sedation Enoxaparin Sodium Unknown 40mg/0.4ML Solution Rifampin Unknown 300mg Capsules History Medications Azithromycin 2 by mouth x 1, 6tabs Levi Elgin, DO 08/25/2019 - 250mg Tablets then 1 by mouth 08/30/2019 daily x 4 days Immunizations CPT Code Status Date Vaccine Lot # 56230 Refused 08/05/2019 Fluzone Highdose Age 65 And Over Preservative & Antibiotic Free [id number] Refused 01/02/2019 Prevnar 13 Pneumococal Conjugate Vaccine 49511 Refused 06/27/2018 Influenza Vac, Quadrivalent, Split, 0.5mL Dosage, Im Use Vital Signs Date Vital Result Comment 09/04/2019 11:11am Body Temperature 98.3 F Weight 187.00 lb Heart Rate 80 /min BP Systolic 120 mmHg BP Diastolic 78 mmHg Respiratory Rate 20 /min Height 70 inches 5'10" O2 % BldC Oximetry 99 % BMI (Body Mass Index) 26.8 kg/m2 08/24/2019 4:06pm Weight 189.00 lb Heart Rate 80 /min BP Systolic 124 mmHg BP Diastolic 64 mmHg Respiratory Rate 18 /min Height 70 inches 5'10" O2 % BldC Oximetry 91 % BMI (Body Mass Index) 27.1 kg/m2 Results Test Acquired Date Facility Test Result H/L Range Note Laboratory test 08/29/2019 [facility] Lactic Acid 1.5 mmol/L Normal 0.5-2.0 1 finding Comp Metabolic 08/29/2019 [facility] Sodium 129 mmol/L Low 135 -145 Panel Potassium 4.8 mmol/L Normal 3.5-5.0 Chloride 92 mmol/L Low 101-111 Co2 Carbon Dioxide 28 mmol/L Normal 22-32 Anion Gap 9 mmol/L Normal 2-11 Glucose 140 mg/dL High 70-100 Blood Urea Nitrogen 15 mg/dL Normal 6-24 Creatinine 1.02 mg/dL Normal 0.67-1.17 BUN/Creatinine Ratio 14.7 Normal 8-20 Calcium 9.2 mg/dL Normal 8.6-10.3 Total Protein 6.8 g/dL Normal 6.4-8.9 Albumin 3.2 g/dL Normal 3.2-5.2 Globulin 3.6 g/dL Normal 2-4 Albumin/Globulin Ratio 0.9 Low 1-3 Total Bilirubin 0.50 mg/dL Normal 0.2-1.0 Alkaline Phosphatase 92 U/L Normal 34-104 Alt 128 U/L High 7-52 Ast 69 U/L High 13-39 Egfr Non- 72.8 >60 Egfr 88.1 >60 2 Laboratory test 08/29/2019 [facility] C Reactive 223.97 mg/L High <8.01 finding Protein Troponin I 0.02 ng/mL <0.03 3 CBC Auto Diff 08/29/2019 [facility] White Blood 13.3 10^3/uL High 3.5-10.8 Count Red Blood Count 4.26 10^6/uL Normal 4.18-5.48 Hemoglobin 11.7 g/dL Low 14.0-18.0 Hematocrit 36 % Low 42-52 Mean Corpuscular Volume 84 fL Normal 80-94 Mean Corpuscular Hemoglobin 27 pg Normal 27-31 Mean Corpuscular HGB Conc 33 g/dL Normal 31-36 Red Cell Distribution Width 16 % High 10-15 Platelet Count 441 10^3/uL Normal 150-450 Mean Platelet Volume 7.8 fL Normal 7.4-10.4 Abs Neutrophils 10.1 10^3/uL High 1.5-7.7 Abs Lymphocytes 1.2 10^3/uL Normal 1.0-4.8 Abs Monocytes 1.6 10^3/uL High 0-0.8 Abs Eosinophils 0.4 10^3/uL Normal 0-0.6 Abs Basophils 0.0 10^3/uL Normal 0-0.2 Abs Nucleated RBC 0.0 10^3/uL Granulocyte % 75.9 % Lymphocyte % 8.7 % Monocyte % 11.8 % Eosinophil % 3.3 % Basophil % 0.3 % Nucleated Red Blood Cells % 0.0 Laboratory test 07/25/2019 [facility] Troponin I 0.02 ng/mL < 0.03 4 finding Comp Metabolic Panel 07/25/2019 [facility] Sodium 132 mmol/L Low 135-145 Potassium 3.8 mmol/L Normal 3.5-5.0 Chloride 95 [...] Egfr Non- 79.1 >60 Egfr 95.7 >60 5 Laboratory test 07/25/2019 [facility] C Reactive 332.63 mg/L High <8.01 finding Protein Alcohol < 10 mg/dL Normal <10 Lactic Acid 1.1 mmol/L Normal 0.5-2.0 6 CBC Auto Diff 07/25/2019 [facility] White Blood 11.6 10^3/uL High 3.5-10.8 [...] Blood Cells % 0.0 Laboratory test 07/25/2019 [facility] Erythrocyte Sed 85 mm/Hr High 0-19 finding Rate Hemoglobin A1c 06/29/2019 [facility] Hemoglobin A1c 6.4 % High 4.1-5.9 Estimated Average Glucose Calc 137 mg/dL 71-140 Lipid Treatment 06/29/2019 [facility] Cholesterol 243 mg/dL High 50-199 Triglycerides 252 mg/dL High 30-200 HDL 48 mg/dL 29-71 7 Chol/ HDL Ratio 5.0 ratio 4.0-6.7 VLDL 50 mg/dL High 2-29 LDL (Calc) 144 mg/dL High 20-99 8 Alt 26 U/L 3-42 Ast 20 U/L [...] Basophils 0.0 K/uL 0.0-0.3 Basic (BMP) 06/29/2019 [facility] Sodium 139 mmol/L 135-146 9 Potassium 4.4 mmol/L 3.5-5.2 Chloride# 99 mmol/L 97-110 10 Carbon Dioxide 30 mmol/L 24-34 Glucose 114 mg/dL High 70-105 BUN 25 mg/dL 6-26 Creatinine 1.1 mg/dL 0.5-1.4 Calcium 9.7 mg/dL 8.5-10.5 11 Female Egfr 51 Low >60 12 Male Egfr 68 >60 13 Anion Gap 10 mmol/L 5-15 14 Laboratory test finding 06/29/2019 [facility] TSH 2.86 uIU/mL 0.35-4.94 PSA 1.040 ng/mL 0.000-4.000 15 1 [facility] Severe Sepsis and Septic Shock Management Bundle Measure requires all lactic acids initially measuring >2.0 mmol/L be repeated. 2 Because ethnic data is not always [...] 5 Kidney failure <15 (or dialysis) 3 Troponin-I testing on Plasma Separator Tubes (PST) has a known false positive rate of 0.20-0.40%. All positive troponins reflex immediately to secondary confirmatory testing. Using the [employer] DxI 800 Access Immunoassay systems, the 99th percentile upper reference limit was demonstrated to be < 0.03 ng/mL. 4 Troponin-I testing on Plasma Separator Tubes (PST) has a known false positive rate of 0.20-0.40%. All positive troponins reflex immediately to secondary confirmatory testing. Using the [employer] DxI 800 Access Immunoassay systems, the 99th percentile upper reference limit was demonstrated to be < 0.03 ng/mL. 5 Because ethnic data is not always readily [...] 15-29 5 Kidney failure <15 (or dialysis) 6 [facility] Severe Sepsis and Septic Shock Management Bundle Measure requires all lactic acids initially measuring >2.0 mmol/L be repeated. 7 Per NCEP ATP III Guidelines: Results lower than 40 mg/dL are suggestive of increased risk for coronary artery disease. Results > or = to 60 mg/dL are considered a negative risk factor. 8 Per NCEP ATP III Guidelines: Normal Population <130 Patients with medical conditions: CHD/DM Optimal: <100 Borderline high: 130-159 High: 160-189 Very high: >189 9 Updated reference range on new analyzer 10 Updated reference range on new analyzer 11 Updated reference range 12-14-2018 12 Concerning GFR Guidelines for Americans: Normal function or mild renal disease, if clinically at risk: >/= 60 mL/min Moderately decreased: 30-59 Severely decreased: 15-29 Renal failure: <15 There is reduced accuracy above 60ml/min/1.73 m squared, but the numeric value may be clinically useful in the near 60 range 13 Concerning GFR Guidelines: Normal function or mild [...] drugs that are excreted by the kidneys. 14 Updated Reference Range -2017 15 Beginning 10/11/06 PSA values assayed at [facility] uses chemiluminescence methodology manufactured by [employer] for use on the DXI analyzer. Values obtained with different assay methods or kits can not be used interchangeably. Serum PSA measurement is not an absolute test for malignancy. The PSA value should be used in conjunction with information available from clinical evaluation and other diagnostic procedures. Procedures Date Code Description Status 09/04/2019 60776 Measure Blood Oxygen Level Single Determination Completed 08/24/2019 09793 Measure Blood Oxygen Level Single Determination Completed 05/28/2008 12659349 Colonoscopy Completed Medical Devices Description No Information Available Encounters Type Date Location Provider Dx Diagnosis Office Visit 08/24/2019 [facility] Elgin Sims DO M17.0 Bilateral primary 4:00p osteoarthritis of knee A41.1 Sepsis due to other specified staphylococcus F41.9 Anxiety disorder, unspecified R05 Cough R53.1 Weakness D48.5 Neoplasm of uncertain behavior of skin G43.109 Migraine with aura, not intractable, w/o status migrainosus R53.83 Other fatigue R63.4 Abnormal weight loss H35.30 Unspecified macular degeneration Z68.27 Body mass index (BMI) 27.0-27.9, adult Office Visit 07/05/2019 10:00a [facility] Elgin Sims DO Z01.810 Encounter for preprocedural [...] 30.0-30.9, adult Assessments Date Code Description Provider 09/04/2019 J18.9 Pneumonia, unspecified organism Claudine Forbes PA 09/04/2019 A41.1 Sepsis due to other specified staphylococcus Claudine Forbes PA 09/04/2019 R53.1 Weakness Claudine Forbes PA 09/04/2019 Z68.26 Body mass index (BMI) 26.0-26.9, adult Claudine Forbes PA 08/24/2019 M17.0 Bilateral primary osteoarthritis of knee El[place] Sims, DO 08/24/2019 A41.1 Sepsis due to other specified staphylococcus Elgin Sims , DO 08/24/2019 F41.9 Anxiety disorder, unspecified SimsElgin vicente, DO 08/24/2019 R05 Cough Elgin Sims, DO 08/24/2019 R53.1 Weakness Elgin Sims, DO 08/24/2019 D48.5 Neoplasm of uncertain behavior of skin Elgin Sims, DO 08/24/2019 G43.109 Migraine with aura, not intractable, without Elgin Smis, status migraino 08/24/2019 R53.83 Other fatigue Elgin Sims, DO 08/24/2019 R63.4 Abnormal weight loss Elgin Sims, DO 08/24/2019 H35.30 Unspecified macular degeneration Elgin Sims, DO 08/24/2019 Z68.27 Body mass index (BMI) 27.0-27.9, adult Elgin Sims, 08/05/2019 M17.0 Bilateral primary osteoarthritis of knee Elgin Sims, DO 08/05/2019 A41.1 Sepsis due to other specified staphylococcus Elgin Sims , DO 08/05/2019 R41.82 Altered mental status, unspecified Elgin Sims, 07/05/2019 Z01.810 Encounter for preprocedural cardiovascular El[place] Sims DO examination 07/05/2019 M17.0 Bilateral primary osteoarthritis of knee Elgin Sims, DO 07/05/2019 E11.9 Type 2 diabetes mellitus without SimsElgin, DO complications 07/05/2019 M65.322 Trigger finger, LEFT index finger Elgin Sims, DO 07/05/2019 E78.2 Mixed hyperlipidemia Elgin Sims, DO 07/05/2019 G60.8 Other hereditary and idiopathic neuropathies Elgin Sims , DO 07/05/2019 G43.109 Migraine with aura, not intractable, without SimsElgin vicente, DO status migraino 07/05/2019 F41.9 Anxiety disorder, unspecified Elgin Sims, DO 07/05/2019 M54.5 Low back pain Elgin Sims, DO 07/05/2019 M25.569 Pain in unspecified knee Elgin Sims, DO 07/05/2019 R53.83 Other fatigue Elgin Sims, DO 07/05/2019 M20.21 Hallux rigidus, RIGHT foot SimsElgin, DO 07/05/2019 E66.9 Obesity, unspecified Elgin Sims, DO 07/05/2019 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 , 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, RIGHT hand 07/05/2019 H35.30 Unspecified macular degeneration Elgin Sims, DO 07/05/2019 D48.5 Neoplasm of uncertain behavior of skin Elgin Sims, DO 07/05/2019 Z68.30 Body mass index (BMI) 30.0-30.9, adult SimsElgin, DO 06/29/2019 E11.9 Type 2 diabetes mellitus without SimsElgin, DO complications 06/29/2019 E11.9 Type 2 diabetes mellitus without Schedule, Laboratory complications 06/29/2019 E78.2 Mixed hyperlipidemia SimsElgin, DO 06/29/2019 E78.2 Mixed hyperlipidemia Schedule, Laboratory 06/29/2019 Z12.5 Encounter for screening for malignant Elgin Sims, neoplasm of prostate 06/29/2019 Z12.5 Encounter for screening for malignant Schedule, Laboratory neoplasm of prostate 06/29/2019 E11.9 Type 2 diabetes mellitus without [facility] complications 06/29/2019 E78.2 Mixed hyperlipidemia [facility] 06/29/2019 Z12.5 Encounter for screening for malignant [facility] neoplasm of prostate Plan of Treatment Future Appointment(s):09/27/2019 11:15 am - Elgin Sims, DO at [facility]12/27/2019 8:50 am - Schedule, Laboratory at [facility]01/03/2020 2:00 pm - [place]gin Sims, DO at [facility]09/04/2019 - Claudine Forbes, PAJ18.9 Pneumonia, unspecified organismComments:Clincally improvingLevaquin through PICC lineContinue mucinex prnCall with fevers, chills, cough, SOB, wheezingFollow up:As [id number] Sepsis due to other specified staphylococcusComments:Septic prosthesis R kneeOn levaquin through PICC lineHas f/u with Dr. Love tomorrowMonitor for redness , swelling, fevers, painR53.1 WeaknessComments:ImprovingReassurance givenAppetite improving, sleeping wellZ68.26 Body mass index (BMI) 26.0-26.9, adult Functional Status Description No Information Available Mental Status Description No Information Available Referrals Refer to Dr Reason for Referral Status Appt Date Jordyn Florentino MD Lesion over L eyebrow faxed 08/25 -trh Scheduled 09/25/2019 SPOKE TO DEYSI AT OFFICE, PT IS NOT YET SCHEDULED. OFFICE CALLED PATIENT YESTERDAY BUT NO ANSWER. -TRH 08/30 pt scheduled/ruthie - 09/01/19-smw [address] [place] [address] [facility] [phone]
[2019-09-11 19:47] LABS: Influenza A Molecular POSITIVE (Negative)
--- NOTE | 2019-09-11 22:35 | ED ---
Respiratory - HPI Summary HPI Summary: The patient is a 69 y/o male presenting [facility] accompanied by with a chief complaint of cough for the last three days with worsening. He reports that he had a right knee replacement recently and ended up sandra an infection to which he had to be placed on IV antibiotics through a PICC line for 39 days, as well as a PO antibiotic. Then two weeks ago, he was diagnosed with PNA by CXR at his PCPs office, and he was placed on Azithromycin. Three days later, he came to the ED because symptoms worsened. Over the last three days, he developed a cough with chest pain that has become more severe, although he denies any SOB. He endorses a decreased appetite today and increased sleeping. Symptoms currently rated 3/10 in severity. He denies any knee pain. He did not get his influenza vaccine. PMHx: BPH, kidney stones, shingles. Former smoker, no EtOH, no substance use. Medications reviewed. Allergies noted. - History of Current Complaint Chief Complaint: EDUpperRespComplaint Stated Complaint: COUGH/WEAKNESS/CONGESTED PER PT Time Seen by Provider: 09/11/19 22:24 Hx Obtained From: Patient Onset/Duration: Gradual Onset, Lasting Days - three, Still Present Initial Severity: Mild Current Severity: Mild Pain Intensity: 3 Character: Cough (Nonproductive) Sputum Amount: None Aggravating Factor(s): Nothing Alleviating Factor(s): Nothing Associated Signs and Symptoms: Chest Pain with Cough - Allergy/Home Medications Allergies/Adverse Reactions: Allergies Allergy/AdvReac Type Severity Reaction Status Date / Time latex Allergy skin Verified 09/11/19 23:19 irritation Penicillins Allergy Unknown Verified 09/11/19 23:19 Reaction Details Sulfa (Sulfonamide Allergy pt states Verified 09/11/19 23:19 Antibiotics) extreme fatigue PMH/Surg Hx/FS Hx/Imm Hx Endocrine/Hematology History: Denies: Hx Bone Marrow Disease, Hx Diabetes, Hx Sickle Cell Disease, Hx Thyroid Disease, Hx Anemia Cardiovascular History: Denies: Hx Angina, Hx Cardiomegaly, Hx Congestive Heart Failure, Hx Coronary Artery Disease, Hx Hypertension, Hx Pacemaker/ICD, Hx Peripheral Vascular Disease, Hx Rheumatic Fever, Hx Valvular Heart Disease, Other Cardiovascular Problems/Disorders Respiratory History: Denies: Hx Asthma, Hx Pulmonary Edema, Hx Pulmonary Embolism, Hx Sleep Apnea , Other Respiratory Problems/Disorders GI History: Denies: Hx Cirrhosis, Hx Crohn's Disease, Hx Gastroesophageal Reflux Disease , Hx Hiatal Hernia, Hx Irritable Bowel, Hx Jaundice, Hx Ulcer, Other GI Disorders History: Reports: Hx Benign Prostatic Hyperplasia - starting of BPH, Hx Kidney Stones - 25-30 YRS AGO Denies: Hx Kidney Infection, Hx Renal Disease, Other Problems/Disorders Musculoskeletal History: Reports: Hx Arthritis - RIGHT TOES, BOTH KNEES, THUMBS AND RIGHT SHOULDER, Hx Bursitis - LEFT SHOULDER-, Hx Tendonitis - ELBOWS, Other Musculoskeletal History - R knee arthroplasty, Right thumb surgery Sensory History: Reports: Hx Cataracts - EARLY SIGNS, Hx Contacts or Glasses - GLASSES, Hx Macular Degeneration - advanced Denies: Hx Glaucoma, Hx Legally Blind, Hx Deafness, Hx Hearing Aid Opthamlomology History: Reports: Hx Cataracts - EARLY SIGNS, Hx Contacts or Glasses - GLASSES, Hx Macular Degeneration - advanced Denies: Hx Glaucoma, Hx Legally Blind Neurological History: Reports: Hx Headaches, Hx Migraine - PRN MEDICATION FOR- INDERAL & SUMTRIPTAN, Hx Nerve Disease - RELATED TO SHINGLES, Other Neuro Impairments/Disorders - HX OF SHINGLES IN 2004-REPORTS RESULT CAUSED NERVE DAMAGE TO THE LEFT LEG Denies: Hx Seizures, Hx Transient Ischemic Attacks (TIA) Psychiatric History: Reports: Hx Anxiety - ON MEDICATION FOR-BUSPIRONE, Hx Depression Denies: Hx Panic Disorder - Cancer History Cancer Type, Location and Year: Waiting to hear about a spot on his forehead Hx Chemotherapy: No - Surgical History Surgical History: Yes Surgery Procedure, Year, and Place: Right TKA, 07/20/19; [place]; PLATE IN TOE, right thumb surgery moving ligament r/t to arthritis Hx Anesthesia Reactions: No Infectious Disease History: No Infectious Disease History: Reports: Hx Shingles Denies: Hx Hepatitis, Traveled Outside the [place] in Last 30 Days - Family History Known Family History: Negative: Diabetes - Social History Alcohol Use: None Hx Substance Use: No Substance Use Type: Reports: None Hx Tobacco Use: Yes Smoking Status (MU): Former Smoker Type: Cigarettes Amount Used/How Often: 3 PPD X 25 YEARS Have You Smoked in the Last Year: No Review of Systems Positive: Other - increased sleeping Positive: Chest Pain - secondary to cough Positive: Cough. Negative: Shortness Of Breath Positive: Other - decreased appetite All Other Systems Reviewed And Are Negative: Yes Physical Exam - Summary Physical Exam Summary: Constitutional: Well-developed, Well-nourished, Alert. (-) Distressed Skin: Warm, Dry HENT: Normocephalic; Atraumatic Eyes: Conjunctiva normal Neck: Musculoskeletal ROM normal neck. (-) JVD, (-) Stridor, (-) Tracheal deviation Cardio: Rhythm regular, rate normal, Heart sounds normal; Intact distal pulses; The pedal pulses are 2+ and symmetric. Radial pulses are 2+ and symmetric. Pulmonary/Chest wall: Effort normal. (-) Respiratory distress, (-) Wheezes, (-) Rales Abd: Soft, (-) tenderness, (-) Distension, (-) Guarding, (-) Rebound Musculoskeletal: (-) Edema, Swelling around the right knee with well-healing surgical scar Neuro: Alert, Oriented x3 Psych: Mood and affect Normal Triage Information Reviewed: Yes Vital Signs On Initial Exam: Initial Vitals Temp Pulse Resp BP Pulse Ox 101.4 F 78 18 119/78 92 09/11/19 16:50 09/11/19 16:50 09/11/19 16:50 09/11/19 16:50 09/11/19 16:50 Vital Signs Reviewed: Yes Procedures - Sedation Patient Received Moderate/Deep Sedation with Procedure: No Diagnostics - Vital Signs Vital Signs Temp Pulse Resp BP Pulse Ox 09/11/19 22:01 99.3 F 84 22 95/64 94 09/11/19 19:25 100.4 F 83 20 99/67 96 09/11/19 16:50 101.4 F 78 18 119/78 92 - Laboratory Lab Results: Lab Results 09/11/19 Range/Units 19:29 Influenza A (Rapid) Positive A (Negative) Influenza B (Rapid) Not Reportable Result Diagrams: 09/11/19 22:52 09/12/19 00:53 Lab Statement: Any lab studies that have been ordered have been reviewed, and results considered in the medical decision making process. - Radiology CXR Radiology Interpretation Completed By: ED Physician Summary of Radiographic Findings: No focal consolidation. ED physician has reviewed and interpreted this report. Pending official read. - EKG 2 Cardiac Rate: NL - 75 BPM EKG Rhythm: Sinus Rhythm Summary of EKG Findings: An EKG at 2242 reveals normal sinus rhythm at 75 BPM, nonspecific T wave abnormalities in inferior leads, RSR suggesting incomplete RBBB, no STEMI. ED physician has reviewed and interpreted this EKG. Re-Evaluation - Re-Evaluation First Eval Comment: lactated ringers worsened hyponatremia, will consult for admission Disposition - Course Course Of Treatment: Patient is a 69 y/o male who recently had PICC for infection following right knee surgery and dx of PNA two weeks ago presenting with persistent cough for three days with related CP but no SOB. Physical exam reveals swelling around the right knee with well-healing surgical scar, benign lung exam. Lab results reveal hyponatremia at 129, chloride of 95. Patient administered Toradol, Doxycyline, and Tylenol. VBG reveals O2 sat of 63.5 but is otherwise normal. Patient administered lactated ringers for hyponatremia. Sodium worsened to 127. Influenza A positive. An EKG at 2242 reveals normal sinus rhythm at 75 BPM, nonspecific T wave abnormalities in inferior leads, RSR suggesting incomplete RBBB, no STEMI. CXR reveals no focal consolidation. Patient appropriate for admission. Dr. Mcdonald will see the patient. After evaluation, Dr. Mcdonald believes the patient is safe for discharge. Patient agreeable with plan. - Diagnoses Provider Diagnoses: Influenza A, Hyponatremia - Physician Notifications Discussed Care Of Patient With: Hector Mcdonald - hospitalist Time Discussed With Above Provider: 04:30 Instructed by Provider To: Other - I spoke with Dr. Mcdonald concerning the patient' s case. He evaluated the patient in the ED and has determined he is safe for discharge. Discharge ED - Sign-Out/Discharge Documenting (check all that apply): Patient Departure - Patient will be discharged home. - Discharge Plan Condition: Stable Disposition: HOME Patient Education Materials: Hyponatremia (ED), Influenza (DC) Referrals: Elgin Sims DO [Primary Care Provider] - 3 Days Additional Instructions: Follow up with your primary care provider in 2-3 days. Return to the emergency department for any new or worsening symptoms. - Attestation Statements Document Initiated by Deonnaibe: Yes Documenting Scribe: Leigh Ann Mejia Provider For Whom Tahira is Documenting (Include Credential): Dr. Keron Avelar MD Scribe Attestation: Leigh Ann Torres scribed for Dr. Keron Avelar MD on 09/12/19 at 0655. Status of Scribe Document: Ready
[2019-09-11] MEDS ORDERED: Ketorolac INJ* 30 MG/ML 1 ML VIAL IV PUSH ONE (22:40)
[2019-09-11] MEDS ORDERED: Acetaminophen TAB* 325 MG PO ONE (22:40)
[2019-09-11] MEDS ORDERED: Lactated Ringers 1000 ML Bag* 1,000 ML IV ONE (22:40)
[2019-09-11 23:01] LABS: ABS Basophils 0.1 10^3/ul (0-0.2); ABS Lymphocytes 2.1 10^3/ul (1.0-4.8); ABS Monocytes 1.5 10^3/ul (0-0.8); ABS Neutrophils 5.8 10^3/ul (1.5-7.7); Eosinophil % 0.1 %; Hematocrit 35 % (42-52); Hemoglobin 11.4 g/dL (14.0-18.0); Lymphocyte % 22.3 %; Mean Corpuscular HGB Conc 33 g/dL (31-36); Mean Corpuscular Hemoglobin 27 pg (27-31); Mean Corpuscular Volume 82 fL (80-94); Mean Platelet Volume 7.4 fL (7.4-10.4); Platelet Count 388 10^3/uL (150-450); Red Blood Count 4.22 10^6 /uL (4.18-5.48); Red Cell Distribution Width 17 % (10-15); White Blood Count 9.5 10^3/uL (3.5-10.8)
[2019-09-11 23:22] LABS: BUN/Creatinine Ratio 17.3 (8-20); Calcium 8.4 mg/dL (8.6-10.3); EGFR African American 86.2 (>60); EGFR Non-African American 71.2 (>60); Potassium 4.2 mmol/L (3.5-5.0)
[2019-09-12 01:14] LABS: Calcium 8.1 mg/dL (8.6-10.3); EGFR African American 90.2 (>60); EGFR Non-African American 74.5 (>60); Potassium 3.9 mmol/L (3.5-5.0)
[2019-09-12] MEDS ORDERED: DOXYcycline CAP(*) 100 MG PO SCH (03:59)
[2019-09-12] MEDS ORDERED: RiFAMPin CAP* 300 MG CAP PO SCH (03:59)
[2019-09-12 04:53] VITALS: BP 105/75
== END 2019-09-12 04:50 | disposition home or self-care (01) ==
LOC: ED 16:34
DX: J09.X2 Influenza due to identified novel influenza A virus with other respiratory manifestations (principal); E87.1 Hypo-osmolality and hyponatremia; F41.9 Anxiety disorder, unspecified; F32.9 Major depressive disorder, single episode, unspecified; Z87.891 Personal history of nicotine dependence; Z89.611 Acquired absence of right leg above knee; Z88.0 Allergy status to penicillin; Z88.2 Allergy status to sulfonamides; Z91.040 Latex allergy status
CPT/HCPCS: 36415; 71046; 80048; 82803; 83605; 85025; 93005; 96361; 96374; 99284; A9270-GY; J1885